=== PATIENT | female | born 1950 | race Caucasian/White ===

== ENCOUNTER 2022-12-28 17:56 | Outpatient (RCR) | payer MEDICARE, OTHER, SELFPAY | END 2023-01-22 23:59 | disposition home or self-care (01) | LOC: MM 17:56 | PROVIDERS: PCP Internal Medicine; Visit Provider Internal Medicine | DX: Z51.81 Encounter for therapeutic drug level monitoring (principal); Z79.01 Long term (current) use of anticoagulants; I48.91 Unspecified atrial fibrillation | CPT/HCPCS: 85610; G0463 ==

== ENCOUNTER 2023-01-27 15:18 | Outpatient (RCR) | payer MEDICARE, OTHER, SELFPAY | END 2023-02-22 16:47 | disposition home or self-care (01) | LOC: MM 15:18 | PROVIDERS: PCP Internal Medicine; Visit Provider Internal Medicine | DX: Z51.81 Encounter for therapeutic drug level monitoring (principal); Z79.01 Long term (current) use of anticoagulants; I48.91 Unspecified atrial fibrillation | CPT/HCPCS: 85610; G0463 ==

== ENCOUNTER 2023-02-08 09:04 | Outpatient (OUT) | payer MEDICARE, OTHER, SELFPAY ==
[2023-02-08 09:26] LABS: Basophils Absolute Auto 0.1 10^3/uL (0.0-0.1); Basophils Percent Auto 0.6 % (0.2-2.0); Eosinophils Absolute Auto 0.4 10^3/uL (0.0-0.7); Eosinophils Percent Auto 4.9 % (0.9-7.0); Hematocrit 37.1 % (36.0-48.0); Hemoglobin 12.3 g/dL (12.0-16.0); Immature Granulocytes Abs Auto 0.04 10^3/uL (0.00-0.03); Immature Granulocytes Pct Auto 0.4 % (0.0-0.5); Lymphocytes Absolute Auto 2.6 10^3/uL (1.2-3.8); Lymphocytes Percent Auto 28.2 % (20.5-60.0); Mean Corpuscular HGB Conc 33.2 g/dL (29.9-35.2); Mean Corpuscular Hemoglobin 29.3 pg (26.7-34.0); Mean Corpuscular Volume 88.3 fL (81.0-99.0); Mean Platelet Volume 10.2 fL (9.5-13.5); Monocytes Absolute Auto 0.6 10^3/uL (0.3-0.8); Monocytes Percent Auto 6.7 % (1.7-12.0); Neutrophils Absolute Auto 5.4 10^3/uL (1.4-6.5); Neutrophils Percent Auto 59.2 % (43.0-75.0); Platelet Count 290 10^3/uL (150-450); Red Cell Distribution Width 13.9 % (11.0-15.0)
[2023-02-08 10:04] LABS: Microalbumin Urine Random <1.3 mg/dL (<=30.0)
[2023-02-08 10:27] LABS: Alanine Aminotransferase 21 U/L (14-59); Albumin Globulin Ratio 0.9; Albumin Level 3.7 g/dL (3.4-5.0); Alkaline Phosphatase 149 U/L (46-116); Aspartate Amino Transferase 10 U/L (15-37); BUN Creatinine Ratio 25.6; Calcium 9.4 mg/dL (8.5-10.1); Carbon Dioxide 31.3 mmol/L (21.0-32.0); Chloride 102 mmol/L (98-107); Estimated GFR (African America 51 (>=60); Estimated GFR (Non-African Ame 42 (>=60); Glucose 196 mg/dL (74-106); Potassium 3.3 mmol/L (3.5-5.1); Sodium 141 mmol/L (136-145); Total Protein 7.7 g/dL (6.4-8.2)
[2023-02-08 10:44] LABS: Chol HDL Ratio 2.5; Cholesterol 161 mg/dL (<=200); HDL Cholesterol 65 mg/dL (40-60); Thyroid Stimulating Hormone 2.628 uIU/mL (0.358-3.740); Triglycerides 119 mg/dL (<=150); VLDL CHOLESTEROL 23.8 mg/dL
[2023-02-08 14:39] LABS: Free T4 1.04 ng/dL (0.76-1.46)
== END 2023-02-08 09:05 | disposition home or self-care (01) ==
LOC: LAB 09:08
PROVIDERS: PCP Family Medicine; Visit Provider Family Medicine
DX: I10 Essential (primary) hypertension (principal); R53.83 Other fatigue; E78.2 Mixed hyperlipidemia; Z87.19 Personal history of other diseases of the digestive system
CPT/HCPCS: 36415; 80053; 80061; 82043; 84439; 84443; 85025

== ENCOUNTER 2023-02-23 09:00 | Outpatient (RCR) | payer MEDICARE, OTHER, SELFPAY | END 2023-03-25 17:17 | disposition home or self-care (01) | LOC: MM 09:00 | PROVIDERS: PCP Family Medicine; Visit Provider Internal Medicine | DX: Z51.81 Encounter for therapeutic drug level monitoring (principal); Z79.01 Long term (current) use of anticoagulants; I48.91 Unspecified atrial fibrillation ==

== ENCOUNTER 2023-03-26 08:25 | Outpatient (RCR) | payer MEDICARE, OTHER, SELFPAY | END 2023-04-23 16:34 | disposition home or self-care (01) | LOC: MM 08:25 | PROVIDERS: PCP Family Medicine; Visit Provider Internal Medicine | DX: Z51.81 Encounter for therapeutic drug level monitoring (principal); Z79.01 Long term (current) use of anticoagulants; I48.91 Unspecified atrial fibrillation | CPT/HCPCS: 85610; G0463 ==

== ENCOUNTER 2023-04-26 01:30 | Outpatient (RCR) | payer MEDICARE, OTHER, SELFPAY | END 2023-05-25 17:13 | disposition home or self-care (01) | LOC: MM 01:30 | PROVIDERS: PCP Family Medicine; Visit Provider Internal Medicine | DX: Z51.81 Encounter for therapeutic drug level monitoring (principal); Z79.01 Long term (current) use of anticoagulants; I48.91 Unspecified atrial fibrillation | CPT/HCPCS: 85610; G0463 ==

== ENCOUNTER 2023-05-26 00:12 | Outpatient (RCR) | payer MEDICARE, OTHER, SELFPAY | END 2023-06-24 16:02 | disposition home or self-care (01) | LOC: MM 00:12 | PROVIDERS: PCP Family Medicine; Visit Provider Internal Medicine | DX: Z51.81 Encounter for therapeutic drug level monitoring (principal); Z79.01 Long term (current) use of anticoagulants; I48.91 Unspecified atrial fibrillation | CPT/HCPCS: 85610; G0463 ==

== ENCOUNTER 2023-05-31 10:57 | Outpatient (OUT) | payer MEDICARE, OTHER, SELFPAY ==
--- NOTE | 2023-05-31 11:03 | MM_ITS ---
Patient: BRI VILLALOBOS Exam Date: 05/31/2023 : 1950 Gender:F Ordering : DR Claudia Whittington M.D. Admission #: [id number] Family : Order #: [id number] CLICK HERE TO VIEW EXAM RADIOLOGY REPORT PROCEDURE: MM TOMOSYNTHESIS SCREENING BI COMPARISON: MG MAMM SCREEN 3D YEHUDA CAD, 05/07/2021. MG MAMM SCREEN 3D YEHUDA CAD, 05/29/2022. INDICATIONS: Screening Calculator Name NCI Breast Cancer Risk Assessment Tool 5 Year Breast Cancer Risk 3.60% Lifetime Breast Cancer Risk 9.20% Personal Breast Cancer No Personal Ovarian Cancer No Treatments None Family Cancers Mother with lung cancer at age 64; Sister with breast cancer at age 59. LOCATION: [facility] BREAST COMPOSITION: Scattered areas fibroglandular density. FINDINGS: DIAGNOSTIC CATEGORY 2--BENIGN FINDING. NO CHANGE FROM COMPARISON. Scattered benign-appearing nodules are present. Scattered benign-appearing calcifications are present. Scattered benign-appearing lymph nodes are present. RIGHT BREAST: No significant suspicious finding. LEFT BREAST: No significant suspicious finding. RECOMMENDATIONS: ROUTINE MAMMOGRAM AND CLINICAL EVALUATION IN 12 MONTHS. PLEASE NOTE: A NORMAL MAMMOGRAM DOES NOT EXCLUDE THE POSSIBILITY OF BREAST CANCER. A CLINICALLY SUSPICIOUS PALPABLE LUMP SHOULD BE BIOPSIED. Dictated by: Owen Ortiz MD on 05/31/2023 at 12:41 Approved by: Owen Ortiz MD on 05/31/2023 at 13:14
== END 2023-05-31 10:58 | disposition home or self-care (01) ==
LOC: MAMMO 10:57
PROVIDERS: PCP Family Medicine; Visit Provider Family Medicine
DX: Z12.31 Encounter for screening mammogram for malignant neoplasm of breast (principal); Z80.3 Family history of malignant neoplasm of breast; Z80.1 Family history of malignant neoplasm of trachea, bronchus and lung
CPT/HCPCS: 77063; 77067

== ENCOUNTER 2023-06-25 09:01 | Outpatient (RCR) | payer MEDICARE, OTHER, SELFPAY | END 2023-07-23 14:32 | disposition home or self-care (01) | LOC: MM 09:01 | PROVIDERS: PCP Family Medicine; Visit Provider Internal Medicine | DX: Z51.81 Encounter for therapeutic drug level monitoring (principal); Z79.01 Long term (current) use of anticoagulants; I48.91 Unspecified atrial fibrillation | CPT/HCPCS: 85610; G0463 ==

== ENCOUNTER 2023-07-26 00:44 | Outpatient (RCR) | payer MEDICARE, OTHER, SELFPAY | END 2023-08-25 15:48 | disposition home or self-care (01) | LOC: MM 00:44 | PROVIDERS: PCP Family Medicine; Visit Provider Internal Medicine | DX: Z51.81 Encounter for therapeutic drug level monitoring (principal); Z79.01 Long term (current) use of anticoagulants; I48.91 Unspecified atrial fibrillation | CPT/HCPCS: 85610; G0463 ==

== ENCOUNTER 2023-08-26 01:30 | Outpatient (RCR) | payer MEDICARE, OTHER, SELFPAY | END 2023-09-23 17:10 | disposition home or self-care (01) | LOC: MM 01:30 | PROVIDERS: PCP Family Medicine; Visit Provider Internal Medicine | DX: Z51.81 Encounter for therapeutic drug level monitoring (principal); Z79.01 Long term (current) use of anticoagulants; I48.91 Unspecified atrial fibrillation | CPT/HCPCS: 85610; G0463 ==

== ENCOUNTER 2023-09-24 01:04 | Outpatient (RCR) | payer MEDICARE, OTHER, SELFPAY | END 2023-10-22 13:01 | disposition home or self-care (01) | LOC: MM 01:04 | PROVIDERS: PCP Family Medicine; Visit Provider Internal Medicine | DX: Z51.81 Encounter for therapeutic drug level monitoring (principal); Z79.01 Long term (current) use of anticoagulants; I48.91 Unspecified atrial fibrillation | CPT/HCPCS: 85610; G0463 ==

== ENCOUNTER 2023-10-25 03:13 | Outpatient (RCR) | payer MEDICARE, OTHER, SELFPAY | END 2023-11-23 17:47 | disposition home or self-care (01) | LOC: MM 03:13 | PROVIDERS: PCP Family Medicine; Visit Provider Internal Medicine | DX: Z51.81 Encounter for therapeutic drug level monitoring (principal); Z79.01 Long term (current) use of anticoagulants; I48.91 Unspecified atrial fibrillation ==

== ENCOUNTER 2023-11-24 00:15 | Outpatient (RCR) | payer MEDICARE, OTHER, SELFPAY | END 2023-12-24 11:09 | disposition home or self-care (01) | LOC: MM 00:15 | PROVIDERS: PCP Family Medicine; Visit Provider Internal Medicine | DX: Z51.81 Encounter for therapeutic drug level monitoring (principal); I48.91 Unspecified atrial fibrillation; Z79.01 Long term (current) use of anticoagulants | CPT/HCPCS: 85610; G0463 ==

== ENCOUNTER 2023-11-24 08:55 | Outpatient (OUT) | payer MEDICARE, OTHER, SELFPAY ==
--- NOTE | 2023-11-24 09:07 | US_ITS ---
[place] [address] Patient Name: BRI VILLALOBOS MRN: [id number] date: 1950 Sex: F Assigned Patient Location: [place] Current Patient Location: US Accession/Order Number: [id number] Exam Date: 11/24/2023 09:08 Report Date: 11/24/2023 10:51 At the request of: BULMARO LEON Procedure: US venous doppler LE BI EXAM: US venous doppler LE BI HISTORY: pain in both lower extremities M79.605, M79.604 COMPARISON: None. TECHNIQUE: Grayscale, color and Doppler FINDINGS: Region: Bilateral legs Thrombus: None Flow: Normal Augmentation: Normal Compressibility: Normal US/US venous doppler LE BI IMPRESSION: No deep or superficial vein thrombus identified in the legs Electronically authenticated by: LEA YANEZ Date: 11/24/2023 10:51
--- OUTSIDE RECORDS SUMMARY | 2023-11-24 09:12 | XMS_ITS | CCD ---
Author Organization [facility] Care Team Providers Care Manager Document Control Name Role Phone DR CLAUDIA WHITTINGTON Primary Care Unavailable FAWWAD, MORALES H Admitting Unavailable FAWWAD, MORALES H Attending Unavailable WHITTINGTONDR CLAUDIA Primary Care Unavailable FAWWAD, MORALES H Admitting Unavailable FAWWAD, MORALES H Attending Unavailable WHITTINGTONDR CLAUDIA Primary Care Unavailable FAWWAD, MORALES H Admitting Unavailable FAWWAD, MORALES H Attending Unavailable FAWWAD, MORALES H Admitting Unavailable WHITTINGTONDR CLAUDIA Primary Care Unavailable FAWWAD, MORALES H Attending Unavailable FAWWAD, MORALES H Attending Unavailable WHITTINGTONDR CLAUDIA Primary Care Unavailable FAWWAD, MORALES H Admitting Unavailable FAWWAD, MORALES H Attending Unavailable DR CLAUDIA WHITTINGTON Primary Care Unavailable FAWWAD, MORALES H Admitting Unavailable FAWWAD, MORALES H Attending Unavailable DR CLAUDIA WHITTINGTON Primary Care Unavailable FAWWAD, MORALES H Admitting Unavailable FAWWAD, MORALES H Attending Unavailable WHITTINGTONDR CLAUDIA Primary Care Unavailable FAWWAD, MORALES H Admitting Unavailable RENATA, DR LEA Blevins Consulting Unavailable EDWARD, DR CLAUDIA Duvall Admitting Unavailable WHITTINGTON, DR CLAUDIA Duvall Attending Unavailable DR CLAUDIA WHITTINGTON Primary Care Unavailable DR CLAUDIA WHITTINGTON Consulting Unavailable FAWWAD, MORALES H Attending Unavailable WHITTINGTON, DR CLAUDIA Duvall Primary Care Unavailable FAWWAD, MORALES H Admitting Unavailable WHITTINGTONDR CLAUDIA Primary Care Unavailable FAWWAD, MORALES H Admitting Unavailable FAWWAD, MORALES H Attending Unavailable DR CLAUDIA WHITTINGTON Primary Care Unavailable FAWWAD, MORALES H Admitting Unavailable FAWWAD, MORALES H Attending Unavailable Claudia Whittington Unavailable BALDOMERO LANGFORD Attending Unavailable CLAUDIA WHITTINGTON Referring Unavailable BALDOMERO LANGFORD Attending Unavailable BALDOMERO LANGFORD Referring Unavailable Allergies Allergy Classification Reported Allergen(s) Allergy Type Date of Onset Reaction(s) Facility (2 sources) Amino Acids Drug Allergy 1 [facility] Repository (1 source) Amoxicillin Drug Allergy 0 [facility] Repository (2 sources) Etodolac Drug Allergy 4 [facility] Repository (1 source) Penicillin Drug Allergy 0 [facility] Repository (1 source) Sulfonamides (Antibiotic) Drug allergy (disorder) 1 [facility] Repository (5 sources) Etodolac Drug Allergy Unknown [facility] Other (5 sources) Lisinopril Drug Allergy Unknown [facility] Other (2 sources) Sulfacetamide / Sulfur Drug Allergy Unknown [facility] Other (3 sources) Substance with penicillin structure and antibacterial mechanism of action (substance) Drug allergy 9 Unknown [facility] Other (3 sources) Substance with sulfonamide structure and antibacterial mechanism of action (substance) Drug allergy 8 Unknown [facility] Other (1 source) Penicillins Allergy to substance [address] [facility] (1 source) Sulfonamides (Antibiotic) Allergy to substance [address] [facility] Medications Current Medications Medication Drug Class(es) Dates Sig (Normalized) Sig (Original) amLODIPine 10 mg oral tablet (6 sources) Dihydropyridine Calcium Channel Addie Start: 11-17-2023 take 1 tablet by mouth once daily at bedtime Amlodipine Active 1 TAB PO Daily at bedtime November 17, 2023 12:00am FreeTextSig: TAKE 1 TABLET BY MOUTH AT BEDTIME; Note: Source Status: Start; Refills: 3; Qty: 90 Tablet; Provider: Edward Taylor ( ) take 1 tablet by mouth at bedtim e amLODIPine Besylate 10 mg TAKE 1 TABLET BY MOUTH AT BEDTIME for 90 Active take 1 tablet by mouth at bedtim e amLODIPine Besylate 10 mg TAKE 1 TABLET BY MOUTH AT BEDTIME for 90 Active atorvastatin 40 mg oral tablet (6 sources) HMG-CoA Reductase Inhibitor Start: 11-17-2023 take 1 tablet by mouth once daily at bedtime Atorvastatin Active 1 TAB PO Daily at bedtime November 17, 2023 12:00am FreeTextSig: TAKE 1 TABLET BY MOUTH AT BEDTIME; Note: Source Status: Start; Refills: 3; Qty: 90 Tablet; Provider: Edward Taylor ( ) take 1 tablet by mouth at bedtim e Atorvastatin Calcium 40 mg TAKE 1 TABLET BY MOUTH AT BEDTIME for 90 Active azithromycin 250 mg oral tablet (1 source) Macrolide Antimicrobial Start: 05-19-2023 Azithromycin 250 MG as directed Orally 2 tabs po today, then 1 tab daily x 4 more days for 5 Apr, Active flecainide acetate 150 mg oral tablet (7 sources) Antiarrhythmic Start: 11-02-2023 take 1 tablet by mouth once daily Flecainide Active 0 .ROUTE .COMPLEX 90 November 02, 2023 2:51pm TAKE 1 TABLET BY MOUTH DAILY Start: 11-02-2023 End: 11-02-2023 take 150 mg by mouth once daily Flecainide Discontinue d 150 MG PO Daily November 02, 2023 12:00am November 02, 2023 2:51pm take 1 tablet by lyly th once daily Flecainide Acetate 150 mg TAKE 1 TABLET BY MOUTH DAILY for 90 Active furosemide 40 mg oral tablet (7 sources) Loop Diuretic Start: 11-17-2023 End: 11-18-2023 take 1 tablet by mouth once daily as needed Furosemide Active 40 MG PO .prn November 18, 2023 12:01pm FreeTextSig: TAKE 1 TABLET BY MOUTH DAILY NEEDED; Note: Source Status: Taking; Refills: 1; Qty: 30 Tablet; Provider: Edward Taylor ( ) take 1 tablet by lyly th once daily as needed Furosemide 40 mg TAKE 1 TABLET BY MOUTH DAILY NEEDED for 30 Active hydroCHLOROthiazide 25 mg oral tablet (6 sources) Thiazide Diuretic Start: 11-17-2023 take 1 tablet by mouth twice daily Hydrochlorothiazide Active 1 TAB PO Twice daily November 17, 2023 12:00am FreeTextSig: TAKE 1 TABLET BY MOUTH TWICE DAILY; Note: Source Status: Start; Refills: 3; Qty: 180 Tablet; Provider: Edward Taylor ( ) take 1 tablet by mouth twice merrill ly hydroCHLOROthiazide 25 mg TAKE 1 TABLET BY MOUTH TWICE DAILY for 90 Active 3 ml insulin glargine 100 unt/ml pen injector (6 sources) Insulin Analog Start: 11-17-2023 Insulin Glargi ne (Lantus Solostar U-100 Insulin) 100 unit/mL (3 mL) insulin pen Active UNIT SUBCUT November 17, 2023 12:00am FreeTextSi units Subcutaneous Once a day; Note: Source Status: Taking; Provider: Edward Taylor ( ) Lantus SoloStar 100 UNIT/ML 32 units Subcutaneous Once a day Active Insulin Lispro (6 sources) Insulin Analog Start: 11-18-2023 inject 12 [IU] by subcutaneous injection three times daily Insulin Lispro Active 12 UNIT SUBCUT Three times daily November 18, 2023 12:00am Humalog Active losartan potassium 100 mg oral tablet (6 sources) Angiotensin 2 Receptor Addie Start: 11-17-2023 take 100 mg by mouth once daily Losartan Active 100 MG PO Daily November 17, 2023 12:00am take 1 tablet by mouth once asmita y Losartan Potassium 100 mg TAKE 1 TABLET BY MOUTH DAILY for Active meclizine hydrochloride 12.5 mg oral tablet (2 sources) Antiemetic Start: 01-13-2023 take 1 tablet by mouth three times daily as needed Meclizine HCl 12.5 MG 1 tablet as needed Orally tid prn for 10 days Dec, Active microencapsulated potassium chloride 20 meq extended release oral tablet (2 sources) Start: 02-16-2023 take 1 tablet by mouth every twenty-four hours Klor-Con M20 20 MEQ 1 tablet with food Orally Once a day for 30 day(s) Jan, Active Propranolol (7 sources) beta-Adrenergic Addie Start: 11-02-2023 take 1 capsule by mouth once daily Propranolol Active 0 .ROUTE .COMPLEX 90 November 02, 2023 2:51pm TAKE 1 CAPSULE BY MOUTH DAILY Start: 11-02-2023 End: 11-02-2023 take 60 mg by mouth once daily Propranolol Discontinue d 60 MG PO Daily November 02, 2023 12:00am November 02, 2023 2:51pm take 1 capsule by mo uth once daily Propranolol HCl ER 60 mg TAKE 1 CAPSULE BY MOUTH DAILY for 90 Active warfarin sodium 4 mg oral tablet (12 sources) Vitamin K Antagonist Start: 11-17-2023 Warfarin Active 2 MG PO MOWEFR November 17, 2023 12:00am Start: 11-17-2023 take 1 tablet by lyly th once daily Warfarin Active 4 MG PO Daily November 17, 2023 12:00am FreeTextSig: TAKE 1 TABLET BY MOUTH EVERY DAY; Note: Source Status: Start; Refills: 3; Qty: 90 Tablet; Provider: Edward Taylor ( ) take 1 tablet by lyly th once daily Warfarin Sodium 4 mg TAKE 1 TABLET BY MOUTH EVERY DAY for 90 Active Warfarin 2mg Act heike Completed/Discontinued Medications Medication Drug Class(es) Dates Sig (Normalized) Sig (Original) Augmentin Tablets 875 MG (5 sources) Start: 07-24-2014 take 1 tablet by mouth every twelve hours at mealtime Augmentin Tablets 875 MG 1 by mouth every 12 hours with food and probiotics for 10 days Jun, Not-Taking Cortisporin Otic 1%-0.35%-1000 units/ml (5 sources) Start: 05-10-2014 Cortisporin Otic 1%-0.35%-1000 units/ml 4 drops into each affected ear twice a day for 7 days Apr, Not-Taking metFORMIN hydrochloride 500 mg oral tablet (6 sources) Biguanide Start: 11-17-2023 End: 11-18-2023 take 500 mg by mouth twice daily at mealtime Metformin Discontinued 500 MG PO Twice daily with meals November 17, 2023 12:00am November 18, 2023 12:02pm metFORMIN HCl No t-Taking 24 hr metoprolol succinate 25 mg extended release oral tablet (6 sources) beta-Adrenergic Addie Start: 11-17-2023 End: 11-18-2023 take 25 mg by mouth once daily Metoprolol Succinate Discontinued 25 MG PO Daily November 17, 2023 12:00am November 18, 2023 12:03pm Metoprolol Succi trudi ER Not-Taking Problems Active Problems Problem Classification Problem Date Documented Da te Episodic/Chronic Allergic reactions (6 sources) Contact dermatitis due to plants; Translations: [Unspecified contact dermatitis due to plants, except food] Episodic Cardiac dysrhythmias (13 sources) Paroxysmal atrial fibrillation; Translations: [Paroxysmal atrial fibrillation] Onset: 06-10-2018 Chronic Conditions associated with dizziness or vertigo (1 source) Benign paroxysmal vertigo, bilateral Episodic Diabetes mellitus without complication (5 sources) Type 2 diabetes mellitus without complication; Translations: [Type 2 diabetes mellitus without complications] Onset: 06-10-2018 Chronic Digestive congenital anomalies (2 sources) Congenital redundant colon; Translations: [Redundant colon] Chronic Diseases of mouth; excluding dental (6 sources) Disorder of salivary gland; Translations: [Other diseases of salivary glands] Onset: 03-09-2019 Episodic Disorders of lipid metabolism (11 sources) Mixed hyperlipidemia; Translations: [Mixed hyperlipidemia] Chronic Essential hypertension (10 sources) Essential hypertension; Translations: [Essential (primary) hypertension] Chronic Hemorrhoids (3 sources) Residual hemorrhoidal skin tags; Translations: [Residual hemorrhoidal skin tags] Episodic Lymphadenitis (3 sources) Lymphadenitis; Translations: [Nonspecific lymphadenitis, unspecified] Episodic Malaise and fatigue (7 sources) Other fatigue; Translations: [Asthenia] Onset: 01-30-2019 Episodic Nonspecific chest pain (3 sources) Chest pain; Translations: [Chest pain, unspecified] Episodic Other aftercare (5 sources) Encounter for therapeutic drug level monitoring; Translations: [ENC THERAPEUTC DRUG LEVL MONITORING] Onset: 11-21-2022 Episodic Other aftercare (1 source) middle or intermediate school principal (current) use of anticoagulants; Translations: [CORRECTION CURRNT USE ANTICOAGULANTS] Onset: 12-23-2022 Episodic Other and unspecified benign neoplasm (2 sources) Tubular adenoma of colon; Translations: [Tubular adenoma of colon] Episodic Other circulatory disease (3 sources) Elevated blood-pressure reading without diagnosis of hypertension; Translations: [Elevated blood-pressure reading, without diagnosis of hypertension] Episodic Other connective tissue disease (1 source) Pain in lower limb; Translations: [Pain in right leg] 11-18-2023 Episodic Other connective tissue disease (1 source) Pain in right leg; Translations: [Pain in limb] 11-18-2023 Episodic Other gastrointestinal disorders (1 source) Personal history of other diseases of the digestive system Episodic Other hereditary and degenerative nervous system conditions (3 sources) Essential tremor; Translations: [Essential tremor] Chronic Other inflammatory condition of skin (3 sources) Rosacea; Translations: [Rosacea, unspecified] Chronic Other nutritional; endocrine; and metabolic disorders (6 sources) Obese class II; Translations: [Body mass index (BMI) 38.0-38.9, adult] Chronic Other skin disorders (3 sources) Localized scleroderma; 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 et atrophicus] Chronic Other upper respiratory infections (4 sources) Acute sinusitis; Translations: [Acute sinusitis, unspecified] Episodic Pancreatic disorders (not diabetes) (3 sources) Chronic pancreatitis; Translations: [Other chronic pancreatitis] Onset: 10-25-2018 Chronic Pulmonary heart disease (5 sources) Pulmonary hypertension; Translations: [Pulmonary hypertension, unspecified] Onset: 06-10-2018 11-18-2023 Chronic Residual codes; unclassified (3 sources) Tobacco user; Translations: [Tobacco use] Episodic Spondylosis; intervertebral disc disorders; other back problems (8 sources) Sciatica; Translations: [Sciatica, left side] Episodic Past or Other Problems Problem Classification Problem Date Documented Da te Episodic/Chronic Acute bronchitis (3 sources) Acute bronchitis; Translations: [Acute bronchitis, unspecified] Onset: 08-04-2018 Episodic Other screening for suspected conditions (not mental disorders or infectious disease) (4 sources) Encounter for screening mammogram for malignant neoplasm of breast; Translations: [ENC SCR MAMMO MALIG NEOPLASM BREAST] Onset: 05-29-2022 Episodic Otitis media and related conditions (3 sources) Eustachian tube disorder; Translations: [Other specified disorders of Eustachian tube, unspecified ear] Onset: 06-10-2018 Episodic Residual codes; unclassified (1 source) Family history of malignant neoplasm of trachea, bronchus and lung; Translations: [FAM HX MALIG NEOPLSM TRACH BRON LNG] Onset: 06-04-2022 Episodic Residual codes; unclassified (1 source) Family history of malignant neoplasm of breast; Translations: [FAMILY HX MALIG NEOPLASM OF BREAST] Onset: 06-04-2022 Episodic Results Test Name Value Interpretation Reference Range Facil ity MG MAMM SCREEN 3D YEHUDA CADon 05-29-2022 MG MAMM SCREEN 3D YEHUDA CAD Patient: BRI VILLALOBOS Exam Date: 05/29/2022 : 1950 Gender:F Ordering : DR CLAUDIA WHITTINGTON M.D. Admission #: [id number] Family : Order #: [id number] CLICK HERE TO VIEW EXAM RADIOLOGY REPORT PROCEDURE: MAMMOGRAM SCREENING 3D BILATERAL CAD COMPARISON: MG MAMM SCREEN YEHUDA W CAD, 04/07/2019. MG MAMM SCREEN 3D YEHUDA CAD, 05/07/2021. INDICATIONS: Screening mammography Calculator Name NCI Breast Cancer Risk Assessment Tool 5 Year Breast Cancer Risk 3.60% Lifetime Breast Cancer Risk 9.60% Personal Breast Cancer No Personal Ovarian Cancer No Treatments None Family Cancers Mother with lung cancer at age 64; Sister with breast cancer at age 59. LOCATION: [facility] BREAST COMPOSITION: Scattered areas fibroglandular density. FINDINGS: DIAGNOSTIC CATEGORY 2--BENIGN FINDING. NO CHANGE FROM COMPARISON. Scattered benign-appearing nodules are present. Scattered benign-appearing calcifications are present. Scattered benign-appearing lymph nodes are present. RIGHT BREAST: No significant suspicious finding. LEFT BREAST: No significant suspicious finding. RECOMMENDATIONS: ROUTINE MAMMOGRAM AND CLINICAL EVALUATION IN 12 MONTHS. PLEASE NOTE: A NORMAL MAMMOGRAM DOES NOT EXCLUDE THE POSSIBILITY OF BREAST CANCER. A CLINICALLY SUSPICIOUS PALPABLE LUMP SHOULD BE BIOPSIED. Dictated by: Lea Yanez MD on 05/29/2022 at 10:48 Approved by: Lea Yanez MD on 05/29/2022 at 10:50 Normal [facility] Vital Signs Date Time Vital Sign Value Performing Clinician Facility 11-18-2023 [id number] Body height 165.1 cm [facility] 11-18-2023 11:53-0400 Body mass index (BMI) [Ratio] 38.4 kg/m2 [facility] 11-18-2023 11:53-0400 Body weight 104.77 kg [facility] 11-18-2023 11:53-0400 Diastolic blood pressure 63 mm[Hg] [facility] 11-18-2023 11:53-0400 Heart rate 65 /min [facility] 11-18-2023 11:53-0400 Systolic blood pressure 134 mm[Hg] [facility] 05-19-2023 09:00-0400 Body height 165.1 cm Claudia Whittington Other [facility] Other 05-19-2023 09:00-0400 Body mass index (BMI) [Ratio] 38.27 kg/m2 Claudia Whittington Other [facility] Other 05-19-2023 09:00-0400 Body temperature 98 [degF] Claudia Whittington Other [facility] Other 05-19-2023 09:00-0400 Body weight 104.33 kg Claudia Whittington Other [facility] Other 05-19-2023 09:00-0400 Diastolic blood pressure 68 mm[Hg] Claudia Whittington Other [facility] Other 05-19-2023 09:00-0400 Systolic blood pressure 113 mm[Hg] Claudia Whittington Other [facility] Other 02-16-2023 11:15-0400 Body height 165.1 cm Claudia Whittington Other [facility] Other 02-16-2023 11:15-0400 Body mass index (BMI) [Ratio] 38.77 kg/m2 Claudia Whittington Other [facility] Other 02-16-2023 11:15-0400 Body weight 105.69 kg Claudia Whittington Other [facility] Other 02-16-2023 11:15-0400 Diastolic blood pressure 61 mm[Hg] Claudia Whittington Other [facility] Other 02-16-2023 11:15-0400 Systolic blood pressure 125 mm[Hg] Claudia Whittington Other [facility] Other 01-13-2023 10:45-0400 Body height 165.1 cm Claudia Whittington Other [facility] Other 01-13-2023 10:45-0400 Body mass index (BMI) [Ratio] 38.44 kg/m2 Claudia Whittington Other [facility] Other 01-13-2023 10:45-0400 Body weight 104.78 kg Claudia Whittington Other [facility] Other 01-13-2023 10:45-0400 Diastolic blood pressure 72 mm[Hg] Claudia Whittington Other [facility] Other 01-13-2023 10:45-0400 SaO2% (BldA) [Mass fraction] 98 % Claudia Whittington Other [facility] Other 01-13-2023 10:45-0400 Systolic blood pressure 128 mm[Hg] Claudia Whittington Other [facility] Other Encounters Encounter Date Encounter Type Care Provider Facility Start: 11-18-2023 End: 11-18-2023 ambulatory [facility] Work Phone: Start: 11-18-2023 End: 11-18-2023 Patient encounter procedure [facility] Work Phone: Start: 11-02-2023 Non-patient / [facility]-visit [facility] Work Phone: Start: 10-12-2023 End: 10-12-2023 ambulatory BALDOMERO M PETZNICK Not Available Start: 07-12-2023 End: 07-12-2023 ambulatory BALDOMERO M PETZNICK Not Available Start: 05-19-2023 End: 05-19-2023 ambulatory Claudia Whittington Other [facility] Other Start: 05-19-2023 Office outpatient vi sit 15 minutes Claudia Whittington [facility] Start: 02-16-2023 End: 02-16-2023 ambulatory Claudia Whittington Other [facility] Other Start: 02-16-2023 Patient encounter procedure Claudia Whittington [facility] Start: 02-10-2023 End: 02-10-2023 ambulatory Claudia Whittington Other [facility] Other Start: 02-10-2023 Telephone encounter Claudia Edward [facility] Start: 01-13-2023 End: 01-13-2023 ambulatory Claudia Whittington Other [facility] Other Start: 01-13-2023 Office outpatient vi sit 25 minutes Claudia Whittington [facility] Start: 11-23-2022 End: 12-23-2022 ambulatory MORALES H FAWWAVanessa Facility:[facility] Start: 10-26-2022 End: 11-20-2022 ambulatory MORALES H FAWPATRICIA Facility:[facility] Start: 09-23-2022 End: 10-23-2022 ambulatory MORALES H FAWWAVanessa Facility:[facility] Start: 08-26-2022 End: 09-23-2022 ambulatory MORALES H FAWWAVanessa Facility:[facility] Start: 07-27-2022 End: 08-26-2022 ambulatory MORALES H FAWWAD Facility:[facility] Start: 06-25-2022 End: 07-26-[address] CLAUDIA WHITTINGTON Facility:[facility] Start: 05-29-2022 End: 05-30-[address] LEA YANEZ Facility:[facility] Start: 05-26-2022 End: 06-24-[address] CLAUDIA WHITTINGTON Facility:[facility] Start: 04-26-2022 End: 05-25-[address] CLAUDIA WHITTINGTON Facility:[facility] Start: 03-26-2022 End: 04-25-[address] CLAUDIA WHITTINGTON Facility:[facility] Start: 02-23-2022 End: 03-25-[address] CLAUDIA WHITTINGTON Facility:[facility] Start: 01-23-2022 End: 02-20-2022 ambulatory SHAIKH Ramy ORNELAS Facility:[facility] Start: 12-18-2021 Adult health examination Erica Whittington Other [facility] Other Start: 12-18-2021 Gynecological examin ation normal Claudia Whittington Other [facility] Other Start: 12-01-2021 Gynecological examin ation abnormal Claudia Whittington Other [facility] Other Procedures Date Procedure Procedure Detail Performing Clinician Screening for malign ant neoplasm of colon Claudia Whittington Other Plan of Treatment Date Care Activity Detail Author Comprehensive metabo lic 2000 panel - Serum or Plasma [facility] enter Microalbumin [Mass/volume] in Urine [facility] US Lower extremity vein - bilateral [facility] Immunizations Immunization Date Immunization Notes Care Provider Fa cility 11-21-2020 COVID-19 Vaccine Pfi zer - Documentation Purposes Only Claudia Whittington Other [facility] 05-27-2020 influenza virus vaccine, split virus (incl. purified surface antigen) Claudia Whittington Other [facility] Other 05-27-2020 influenza virus vaccine, unspecified formulation [facility] 12-08-2016 pneumococcal polysaccharide vaccine, 23 valent Claudia Whittington Other [facility] Payers Date Payer Category Payer Unknown [id number] 1959 Medicare [id number] 1959 Unknown [id number] 1959 Unknown [id number] 1950 Unknown [id number] 2.16.84 [id number] 1950 Unknown [id number] 2.16.84 [id number] 1950 Unknown [id number] 2.16.84 [id number] 1950 Unknown [id number] 2.16.84 0.1.352260.3.579.2.593 1950 Unknown [id number] 2.16.84 0.1.455052.3.579.2.593 1950 Unknown [id number] 2.16.84 0.1.755109.3.579.2.593 1950 Unknown [id number] 2.16.84 0.1.387183.3.579.2.593 1950 Unknown [id number] 2.16.84 0.1.492708.3.579.2.593 1950 Unknown [id number] 2.16.84 0.1.966031.3.579.2.593 1950 Unknown [id number] 2.16.84 0.1.221345.3.579.2.593 1950 Unknown [id number] 2.16.84 0.1.591636.3.579.2.593 1950 Unknown [id number] 2.16.84 0.1.920448.3.579.2.593 1950 Unknown [id number] 2.16.84 0.1.920320.3.579.2.1259 1950 Unknown [id number] 2.16.840 .[id number] Social History Date Type Detail Facility Sex Assigned At [facility] Other [facility]: [facility] Start: 1950 Sex Assigned At Female [facility] Evaluation note 05-19-2023 Note Date & Type Note Facility 05-19-2023 Evaluation note Encounter Date Diagnosis Assessment Notes Apr, Acute non-recurrent maxillary sinusitis (ICD-10 - J01.00) Finish antibiotics as prescribed. Reviewed allergies. She is stopping her warfarin tomorrow for dental procedure next week. She hopes that her cough and sinus symptoms will be abated by May 27 when she is having dental work done. Stay hydrated rest Coricidin cold medicines. [facility] Other Evaluation note 02-16-2023 Note Date & Type Note Facility 02-16-2023 Evaluation note Encounter Date Diagnosis Assessment Notes Jan, Medicare annual wellness visit, subsequent (ICD-10 - Z00.00) Personalized health advice was given to the beneficiary including a written plan for screenings discussed and provided. Advanced care planning reviewed and/or information given as requested. Additional counseling was provided here today in regards to, [ ]. The above visit was performed by [ ], under direct supervision of [ ]. Document reviewed and amended by provider signed below. Jan, Essential (primary) hypertension (ICD-10 - I10) Discussed labs - hypokalemia - add klmaryjane blunt. Discussed foods rich in potassium. She will take labs to upcoming appt w Dr. Pérez and share levels - consider decrease in furosemide. Jan, Left lumbar radiculopathy (ICD-10 - M54.16) Presently in PT at [facility]. Jan, Paroxysmal atrial fibrillation (ICD-10 - I48.0) Had INR today. Discussed warfarin and foods that can effect INR. May, Type 2 diabetes mellitus without complications (ICD-10 - E11.9) Diabetes mellitus, type 2 Will share lab results w Dr. Pringle including renal function. Followup next month there. [facility] Other Evaluation note 02-16-2023 Note Date & Type Note Facility 02-16-2023 Evaluation note Encounter Date Diagnosis Assessment Notes Jan, Medicare annual wellness visit, subsequent (ICD-10 - Z00.00) Personalized health advice was given to the beneficiary including a written plan for screenings discussed and provided. Advanced care planning reviewed and/or information given as requested. Additional counseling was provided here today in regards to, [ ]. The above visit was performed by [ ], under direct supervision of DrFletcher [ ]. Document reviewed and amended by provider signed below. Jan, Essential (primary) hypertension (ICD-10 - I10) Discussed labs - hypokalemia - add alejandramaryjane merlene. Discussed foods rich in potassium. She will take labs to upcoming appt w Dr. Pérez and share levels - consider decrease in furosemide. Blood pressure remains well controlled at this time. Denies cardiac symptoms. Shows no signs or symptoms or poor control. Patient to continue with above medication and we will continue to monitor. Advised to pay attention to body and symptoms. Any developing patterns. Stay well hydrated. Jan, Left lumbar radiculopathy (ICD-10 - M54.16) Presently in PT at [facility]. Jan, Paroxysmal atrial fibrillation (ICD-10 - I48.0) Had INR today. Discussed warfarin and foods that can effect INR. May, Type 2 diabetes mellitus without complications (ICD-10 - E11.9) Diabetes mellitus, type 2 Will share lab results w Dr. Pringle including renal function. Followup next month there. [facility] Other Evaluation note 01-13-2023 Note Date & Type Note Facility 01-13-2023 Evaluation note Encounter Date Diagnosis Assessment Notes Dec, Sciatica, left side (ICD-10 - M54.32) Printed order for PT Dec, BPV (benign positional vertigo), bilateral (ICD-10 - H81.13) Printed order for PT. Rx for meclizine - advised to be cautious as it could cause drowsiness Dec, Essential (primary) hypertension (ICD-10 - I10) Chronic problem, overdue for labs. Dec, Mixed hyperlipidemia (ICD-10 - E78.2) Chronic problem, overdue for labs. Dec, Other fatigue (ICD-10 - R53.83) Discussed stressors, agrees to checking thyroid. Dec, Hx of pancreatitis (ICD-10 - Z87.19) Pt requests recheck of lipase. [facility] Other Evaluation note 06-10-2018 Note Date & Type Note Facility 06-10-2018 Evaluation note Diagnosis Onset Date Bilateral lower extremity pain acute Essential (primary) hypertension acute Hyperlipidemia, unspecified acute Pulmonary hypertension, unspecified June 10, 2018 [facility] Work Phone: Evaluation note Note Date & Type Note Facility Evaluation note No Information [facility] Other History general Narrative - Reported Note Date & Type Note Facility History general Narrative - Reported Type Medical History HTN Medical History A-Fib Medical History DM Surgical History T&A Surgical History Appendectomy Surgical History D&C x2 Surgical History Tubal Ligation Surgical History Hysterectomy Surgical History Cystocele/Rectocele Surgical History Right Carpal Tunnel Surgical History Basal Cell Carcinoma (face) Hospitalization History See past surgical hx Hospitalization History Pancreatitis 2010 Hospitalization History Pneumonia [facility] Other Summary Purpose Family History Relationship Condition Age at Onset Recorded Date/T enedina Not Specified Unknown Advance Directives Advance Directive Response Recorded Date/ Time Advance Directives No November 17 024 11:39am Chief Complaint and Reason for Visit Chief Complaint Amb Documentation check up Reason for Visit Bilateral lower extr emity pain Essential (primary) hypertension Hyperlipidemia, unspecified Pulmonary hypertension, unspecified Additional Source Comments INFORMATION SOURCE (unrecogn ized section and content) DATE CREATED AUTHOR 01/01/2023 [facility] DATE CREATED AUTHOR AUTHOR'S ORGANIZ ATION 10/13/2023 [facility] EPIC REASON FOR VISIT (unrecogniz ed section and content) [employer] move up?wellness wellnessSinuses-COVID Negative Care Teams (unrecognized sec tion and content) Team Status: Active Member Role Status Dates Claudia Whittington MD Primary Care Provider Active Team Status: Active Member Role Status Dates Claudia Whittington MD Primary Care Provider Active Start: November 02, 2023 DEBORAH Boykin Attending Provider Active Start : November 02, 2023 Team Status: Inactive Member Role Status Dates Claudia Whittington MD Primary Care Provide r, Attending Provider Active Start: November 18, 2023 End: November 18, 2023 Goals (unrecognized section and content) Goals may be documented in a n alternate section FOR RECORDS PERTAINING TO PATIENTS WHO ARE OR HAVE BEEN ENROLLED IN A CHEMICAL DEPENDENCY/SUBSTANCEABUSE PROGRAM, SOME INFORMATION MAY BE OMITTED. This clinical summary was aggregated from multiple sources. Caution should be exercised in using it in the provision of clinical care. This summary normalizes information from multiple sources, and as a consequence, information in this document may materially change the coding, format and clinical context of patient data. In addition, data may be omitted in some cases. CLINICAL DECISIONS SHOULD BE BASED ON THE PRIMARY CLINICAL RECORDS. [facility]. provides no warranty or guarantee of the accuracy or completeness of information in this document.
[2023-11-24 10:25] LABS: Basophils Absolute Auto 0.1 10^3/uL (0.0-0.1); Basophils Percent Auto 0.6 % (0.2-2.0); Eosinophils Absolute Auto 0.4 10^3/uL (0.0-0.7); Eosinophils Percent Auto 4.3 % (0.9-7.0); Hematocrit 39.4 % (36.0-48.0); Hemoglobin 12.7 g/dL (12.0-16.0); Immature Granulocytes Abs Auto 0.04 10^3/uL (0.00-0.03); Immature Granulocytes Pct Auto 0.4 % (0.0-0.5); Lymphocytes Absolute Auto 2.9 10^3/uL (1.2-3.8); Lymphocytes Percent Auto 28.4 % (20.5-60.0); Mean Corpuscular HGB Conc 32.2 g/dL (29.9-35.2); Mean Corpuscular Hemoglobin 29.1 pg (26.7-34.0); Mean Corpuscular Volume 90.2 fL (81.0-99.0); Mean Platelet Volume 10.8 fL (9.5-13.5); Monocytes Absolute Auto 0.7 10^3/uL (0.3-0.8); Monocytes Percent Auto 7.2 % (1.7-12.0); Neutrophils Percent Auto 59.1 % (43.0-75.0); Platelet Count 293 10^3/uL (150-450); Red Blood Count 4.37 10^6/uL (4.20-5.40); White Blood Count 10.1 10^3/uL (4.0-11.0)
[2023-11-24 11:35] LABS: Microalbumin Urine Random <1.3 mg/dL (<=30.0)
[2023-11-24 11:36] LABS: Alanine Aminotransferase 22 U/L (14-59); Albumin Globulin Ratio 0.9; Albumin Level 3.5 g/dL (3.4-5.0); Alkaline Phosphatase 141 U/L (46-116); Anion Gap 12.7; Aspartate Amino Transferase 11 U/L (15-37); BUN Creatinine Ratio 22.8; Bilirubin Total 1.3 mg/dL (0.2-1.0); Calcium 9.4 mg/dL (8.5-10.1); Carbon Dioxide 30.7 mmol/L (21.0-32.0); Chloride 101 mmol/L (98-107); Chol HDL Ratio 2.5; Cholesterol 173 mg/dL (<=200); Estimated GFR (African America 52 (>=60); Estimated GFR (Non-African Ame 43 (>=60); Globulin 4.1 g/dL; Glucose 159 mg/dL (74-106); HDL Cholesterol 70 mg/dL (40-60); Potassium 3.4 mmol/L (3.5-5.1); Sodium 141 mmol/L (136-145); Total Protein 7.6 g/dL (6.4-8.2); Triglycerides 117 mg/dL (<=150); VLDL CHOLESTEROL 23.4 mg/dL
== END 2023-11-24 08:56 | disposition home or self-care (01) ==
LOC: US 08:56
PROVIDERS: PCP Family Medicine; Visit Provider Family Medicine
DX: Z51.81 Encounter for therapeutic drug level monitoring (principal); Z79.01 Long term (current) use of anticoagulants; I48.91 Unspecified atrial fibrillation; M79.605 Pain in left leg; M79.604 Pain in right leg; I10 Essential (primary) hypertension; E78.5 Hyperlipidemia, unspecified; I27.20 Pulmonary hypertension, unspecified
CPT/HCPCS: 36415; 80053; 80061; 82043; 85025; 85610; 93970; G0463

== ENCOUNTER 2023-12-27 00:15 | Outpatient (RCR) | payer MEDICARE, OTHER, SELFPAY | END 2024-01-21 10:41 | disposition home or self-care (01) | LOC: MM 00:15 | PROVIDERS: PCP Family Medicine; Visit Provider Internal Medicine | DX: Z51.81 Encounter for therapeutic drug level monitoring (principal); I48.91 Unspecified atrial fibrillation; Z79.01 Long term (current) use of anticoagulants ==

== ENCOUNTER 2024-01-24 00:36 | Outpatient (RCR) | payer MEDICARE, OTHER, SELFPAY | END 2024-02-23 09:35 | disposition home or self-care (01) | LOC: MM 00:36 | PROVIDERS: PCP Family Medicine; Visit Provider Internal Medicine | DX: Z51.81 Encounter for therapeutic drug level monitoring (principal); Z79.01 Long term (current) use of anticoagulants; I48.20 Chronic atrial fibrillation, unspecified | CPT/HCPCS: 85610; G0463 ==

== ENCOUNTER 2024-02-24 00:29 | Outpatient (RCR) | payer MEDICARE, OTHER, SELFPAY | END 2024-03-24 09:16 | disposition home or self-care (01) | LOC: MM 00:29 | PROVIDERS: PCP Family Medicine; Visit Provider Internal Medicine | DX: Z51.81 Encounter for therapeutic drug level monitoring (principal); I48.91 Unspecified atrial fibrillation; Z79.01 Long term (current) use of anticoagulants | CPT/HCPCS: 85610; G0463 ==

== ENCOUNTER 2024-03-27 00:51 | Outpatient (RCR) | payer MEDICARE, OTHER, SELFPAY | END 2024-04-24 23:50 | disposition home or self-care (01) | LOC: MM 00:51 | PROVIDERS: PCP Family Medicine; Visit Provider Internal Medicine | DX: Z51.81 Encounter for therapeutic drug level monitoring (principal); I48.91 Unspecified atrial fibrillation; Z79.01 Long term (current) use of anticoagulants ==

== ENCOUNTER 2024-04-25 01:22 | Outpatient (RCR) | payer MEDICARE, OTHER, SELFPAY | END 2024-05-25 23:42 | disposition home or self-care (01) | LOC: MM 01:22 | PROVIDERS: PCP Family Medicine; Visit Provider Internal Medicine | DX: Z51.81 Encounter for therapeutic drug level monitoring (principal); Z79.01 Long term (current) use of anticoagulants; I48.20 Chronic atrial fibrillation, unspecified | CPT/HCPCS: 85610; G0463 ==

== ENCOUNTER 2024-05-26 10:26 | Outpatient (RCR) | payer MEDICARE, OTHER, SELFPAY | END 2024-06-24 23:59 | disposition home or self-care (01) | LOC: MM 10:26 | PROVIDERS: PCP Family Medicine; Visit Provider Internal Medicine | DX: Z51.81 Encounter for therapeutic drug level monitoring (principal); I48.91 Unspecified atrial fibrillation; Z79.01 Long term (current) use of anticoagulants | CPT/HCPCS: 85610; G0463 ==

== ENCOUNTER 2024-06-01 11:29 | Outpatient (OUT) | payer MEDICARE, OTHER, SELFPAY ==
--- NOTE | 2024-06-01 | MM_ITS ---
Patient Name: BRI VILLALOBOS MR#: [id number] : 1950 Exam Date: 06/01/2024 Ordering Doctor: DR Claudia Whittington M.D. RADIOLOGY REPORT PROCEDURE: MM TOMOSYNTHESIS SCREENING BI COMPARISON: MM TOMOSYNTHESIS SCREENING BI, 05/31/2023. MG MAMM SCREEN 3D YEHUDA CAD, 05/29/2022. MG MAMM SCREEN 3D YEHUDA CAD, 05/07/2021. MG MAMM YEHUDA SCRN W CAD DIG, 04/04/2009. INDICATIONS: Screening mammogram Calculator Name NCI Breast Cancer Risk Assessment Tool 5 Year Breast Cancer Risk 3.60% Lifetime Breast Cancer Risk 8.70% Personal Breast Cancer No Personal Ovarian Cancer No Treatments None Family Cancers Mother with lung cancer at age 64; Sister with breast cancer at age 59. LOCATION: [facility] BREAST COMPOSITION: There are scattered areas of fibroglandular density. FINDINGS: DIAGNOSTIC CATEGORY 2--BENIGN FINDING: RIGHT BREAST: No significant suspicious finding. Scattered benign-appearing lymph nodes are present. No significant change has occurred. LEFT BREAST: No significant suspicious finding. Scattered benign-appearing lymph nodes are present. No significant change has occurred. RECOMMENDATIONS: ROUTINE MAMMOGRAM AND CLINICAL EVALUATION IN 12 MONTHS. PLEASE NOTE: A NORMAL MAMMOGRAM DOES NOT EXCLUDE THE POSSIBILITY OF BREAST CANCER. A CLINICALLY SUSPICIOUS PALPABLE LUMP SHOULD BE BIOPSIED. Dictated by: Cali Mckeon M.D. on 06/02/2024 at 09:28 Approved by: Cali Mckeon M.D. on 06/02/2024 at 09:30
--- OUTSIDE RECORDS SUMMARY | 2024-06-01 11:43 | XMS_ITS | CCD ---
Author Organization [facility] Care Team Providers Care Grocery Store Manager Name Role Phone DR CLAUDIA LEON Primary Care Unavailable FAWWAD, MORALES H Admitting Unavailable FAWWAD, MORALES H Attending Unavailable LEONDR CLAUDIA Primary Care Unavailable FAWWAD, MORALES H Admitting Unavailable FAWWAD, MORALES H Attending Unavailable LEONDR CLAUDIA Primary Care Unavailable FAWWAD, MORALES H Admitting Unavailable FAWWAD, MORALES H Attending Unavailable FAWWAD, MORALES H Admitting Unavailable LEONDR CLAUDIA Primary Care Unavailable FAWWAD, MORALES H Attending Unavailable FAWWAD, MORALES H Attending Unavailable LEONDR CLAUDIA Primary Care Unavailable FAWWAD, MORALES H Admitting Unavailable FAWWAD, MORALES H Attending Unavailable DR CLAUDIA LEON Primary Care Unavailable FAWWAD, MORALES H Admitting Unavailable FAWWAD, MORALES H Attending Unavailable LEONDR CLAUDIA Primary Care Unavailable FAWWAD, MORALES H Admitting Unavailable FAWWAD, MORALES H Attending Unavailable DR CLAUDIA LEON Primary Care Unavailable FAWWAD, MORALES H Admitting Unavailable RENATA, DR LEA Blevins Consulting Unavailable EDWARD, DR CLAUDIA Duvall Admitting Unavailable LEON, DR CLAUDIA Duvall Attending Unavailable LEON, DR CLAUDIA Duvall Primary Care Unavailable EDWARD, DR CLAUDIA Duvall Consulting Unavailable FAWWAD, MORALES H Attending Unavailable LEON, DR CLAUDIA Duvall Primary Care Unavailable FAWWAD, MORALES H Admitting Unavailable LEON, DR CLAUDIA Duvall Primary Care Unavailable FAWWAD, MORALES H Admitting Unavailable FAWWAD, MORALES H Attending Unavailable EDWARD, DR CLAUDIA Duvall Primary Care Unavailable FAWWAD, MORALES H Admitting Unavailable FAWWAD, MORALES H Attending Unavailable Leon, Claudia Unavailable GBUR, MARCO ANTONIO S Referring Unavailable LEON, CLAUDIA E Primary Care Unavailable GBUR, MARCO ANTONIO S Referring Unavailable LEON, CLAUDIA E Primary Care Unavailable GBUR, MARCO ANTONIO S Attending Unavailable LEON, CLAUDIA E Referring Unavailable LEON, CLAUDIA E Primary Care Unavailable BALDOMERO LANGFORD Attending Unavailable CLAUDIA LEON Referring Unavailable JOSUE CHEEK Attending Unavailable PETANANT, BALDOMERO Frias Attending Unavailable JOSUE CHEEK Attending Unavailable PETBALDOMERO [place] Attending Unavailable ADDIE LEONIA Referring Unavailable PETZNBALDOMERO OLIVARES Attending Unavailable BALDOMERO LANGFORD Referring Unavailable Claudia Leon MD Primary Care Provider [phone] Allergies Allergy Classification Reported Allergen(s) Allergy Type Date of Onset Reaction(s) Facility (5 sources) Amino Acids; Translations: [LISINOPRIL] Drug Allergy 07-26-19 11 [facility] Repository (3 sources) Amoxicillin; Translations: [AMOXICILLIN] Drug Allergy 03-18-20 20 [facility] Repository (5 sources) Etodolac; Translations: [ETODOLAC] Drug Allergy 01-18-20 14 [facility] Repository (1 source) Penicillin Drug Allergy 03-12-20 20 [facility] Repository (1 source) Sulfonamides (Antibiotic) Drug allergy (disorder) 07-26-19 01 [facility] Repository (6 sources) Etodolac Drug Allergy 01-18-20 14 [facility] (6 sources) Lisinopril Drug Allergy 01-26-20 14 Other (See Comments) [facility] Other (2 sources) Sulfacetamide / Sulfur Drug Allergy Unknown [facility] Other (3 sources) Substance with penicillin structure and antibacterial mechanism of action (substance) Drug allergy 05-22-20 19 Unknown [facility] Other (4 sources) Substance with sulfonamide structure and antibacterial mechanism of action (substance) Drug allergy 01-18-20 14 [facility] Other (5 sources) Penicillins; Translations: [PENICILLINS] Allergy to substance 06-06-20 20 [facility] (4 sources) Sulfonamides (Antibiotic); Translations: [SULFA (SULFONAMIDE ANTIBIOTICS)] Allergy to substance 01-18-20 14 [facility] (1 source) Amoxicillin Drug Allergy 06-06-20 [facility] Medications Current Medications Medication Drug Class(es) Dates Sig (Normalized) Sig (Original) amLODIPine 10 mg oral tablet (8 sources) Dihydropyridine Calcium Channel Addie Start: 11-17-2023 take 1 tablet by mouth once daily at bedtime Amlodipine Active 1 TAB PO Daily at bedtime November 17, 2023 12:00am FreeTextSig: TAKE 1 TABLET BY MOUTH AT BEDTIME; Note: Source Status: Start; Refills: 3; Qty: 90 Tablet; Provider: Edward Taylor ( ) take 1 tablet by mouth in the mo rning amLODIPine (NORVASC) 10 mg tablet Take 1 tablet (10 mg total) by mouth in the morning. Active take 1 tablet by mouth at bedtim e amLODIPine Besylate 10 mg TAKE 1 TABLET BY MOUTH AT BEDTIME for 90 Active atorvastatin 40 mg oral tablet (8 sources) HMG-CoA Reductase Inhibitor Start: 11-17-2023 take 1 tablet by mouth once daily at bedtime Atorvastatin Active 1 TAB PO Daily at bedtime November 17, 2023 12:00am FreeTextSig: TAKE 1 TABLET BY MOUTH AT BEDTIME; Note: Source Status: Start; Refills: 3; Qty: 90 Tablet; Provider: Edward Taylor ( ) atorvastatin (LI PITOR) 40 mg tablet Take 1 tablet (40 mg total) by mouth. Active azithromycin 250 mg oral tablet (1 source) Macrolide Antimicrobial Start: 05-19-2023 Azithromycin 250 MG as directed Orally 2 tabs po today, then 1 tab daily x 4 more days for 5 Apr, Active flecainide acetate 150 mg oral tablet (11 sources) Antiarrhythmic Start: 03-09-2024 take 0.5 tablet by mouth in the morning, then take 0.5 tablet by mouth at bedtime flecainide (TAMBOCOR) 150 mg tablet Take 0.5 tablets (75 mg total) by mouth in the morning and 0.5 tablets (75 mg total) before bedtime. 90 tablet 3 03/09/2024 Active Start: 11-02-2023 End: 02-02-2024 take 1 tablet by mouth once daily Flecainide Active 0 .ROUTE .COMPLEX 90 February 02, 2024 8:28am TAKE 1 TABLET BY MOUTH ONCE DAILY Start: 11-02-2023 End: 11-02-2023 take 150 mg by mouth once daily Flecainide Discontinue d 150 MG PO Daily November 02, 2023 12:00am November 02, 2023 2:51pm take 1 tablet by lyly th once daily Flecainide Acetate 150 mg TAKE 1 TABLET BY MOUTH DAILY for 90 Active furosemide 40 mg oral tablet (10 sources) Loop Diuretic Start: 11-17-2023 End: 11-18-2023 take 1 tablet by mouth once daily as needed Furosemide Active 40 MG PO .prn November 18, 2023 12:01pm FreeTextSig: TAKE 1 TABLET BY MOUTH DAILY NEEDED; Note: Source Status: Taking; Refills: 1; Qty: 30 Tablet; Provider: Edward Taylor ( ) hydroCHLOROthiazide 25 mg oral tablet (8 sources) Thiazide Diuretic Start: 02-27-2020 take 1 tablet by mouth twice daily Hydrochlorothiazide Active 1 TAB PO Twice daily November 17, 2023 12:00am FreeTextSig: TAKE 1 TABLET BY MOUTH TWICE DAILY; Note: Source Status: Start; Refills: 3; Qty: 180 Tablet; Provider: Edward Taylor ( ) 3 ml insulin glargine 100 unt/ml pen injector (9 sources) Insulin Analog Start: 03-21-2024 Insulin Glargine (Lantus Solostar U-100 Insulin) 100 unit/mL (3 mL) insulin pen Active 28 UNIT SUBCUT March 21, 2024 11:38am FreeTextSi units Subcutaneous Once a day; Note: Source Status: Taking; Provider: Edward Taylor ( ) Start: 11-17-2023 End: 03-21-2024 Insulin Glargine (Lantus Lynsey ostar U-100 Insulin) 100 unit/mL (3 mL) insulin pen Discontinued UNIT SUBCUT November 17, 2023 12:00am March 21, 2024 11:38am FreeTextSi units Subcutaneous Once a day; Note: Source Status: Taking; Provider: Edward Taylor ( ) Start: 11-08-2020 LANTUS SOLOSTA R U-100 INSULIN 100 unit/mL (3 mL) insulin pen INJECT 34 UNITS SUBCUTANEOUSLY DAILY 11/08/2020 Active Lantus SoloStar 100 UNIT/ML 32 units Subcutaneous Once a day Active Insulin Lispro (9 sources) Insulin Analog Start: 03-21-2024 inject 10 [IU] by subcutaneous injection three times daily Insulin Lispro Active 10 UNIT SUBCUT Three times daily March 21, 2024 11:36am Start: 11-18-2023 End: 03-21-2024 inject 12 [IU] by subcutaneous injection three times daily Insulin Lispro Discontinued 12 UNIT SUBCUT Three times daily November 18, 2023 12:00am March 21, 2024 11:38am Start: 11-18-2023 inject 12 [IU] by cox bcutaneous injection three times daily Insulin Lispro Active 12 UNIT SUBCUT Three times daily November 18, 2023 12:00am Start: 11-30-2020 inject 5 [IU] by sub cutaneous injection once daily insulin lispro (HumaLOG) 100 unit/mL insulin pen INJECT 5 UNITS SUBCUTANEOUSLY for small meals & 8 UNITS for large meals plus correction (max 50 UNITS DAILY) 11/30/2020 Active Humalog Active losartan potassium 100 mg oral tablet (8 sources) Angiotensin 2 Receptor Addie Start: 02-27-2020 take 100 mg by mouth once daily Losartan Active 100 MG PO Daily November 17, 2023 12:00am meclizine hydrochloride 12.5 mg oral tablet (2 [...] day for 30 day(s) Jan, Active Propranolol (11 sources) beta-Adrenergic Addie Start: 02-02-2024 take 1 capsule by mouth once daily Propranolol Active 0 .ROUTE .COMPLEX 90 Nasrin 10th, 2024 8:28am TAKE 1 CAPSULE BY MOUTH ONCE DAILY Start: 11-02-2023 End: 02-02-2024 take 1 capsule by mouth once daily Propranolol Discontinued 0 .ROUTE .COMPLEX 90 November 02, 2023 2:51pm February 02, 2024 8:28am TAKE 1 CAPSULE BY MOUTH DAILY Start: 11-02-2023 take 1 capsule by mo uth once daily Propranolol Active 0 .ROUTE .COMPLEX 90 November 02, 2023 2:51pm TAKE 1 CAPSULE BY MOUTH DAILY Start: 11-02-2023 End: 11-02-2023 take 60 mg by mouth once daily Propranolol Discontinue d 60 MG PO Daily November 02, 2023 12:00am November 02, 2023 2:51pm take 1 capsule by mo uth every twenty-four hours propranolol LA (INDERAL LA) 60 mg 24 hr capsule Take 1 capsule (60 mg total) by mouth. Active take 1 capsule by mo uth once daily Propranolol HCl ER 60 mg TAKE 1 CAPSULE BY MOUTH DAILY for 90 Active warfarin sodium 4 mg oral tablet (15 sources) Vitamin K Antagonist Start: 11-17-2023 Warfarin Active 2 MG PO MOWEFR November 17, 2023 12:00am Start: 02-12-2020 take 1 tablet by lyly once daily Warfarin Active 4 MG PO Daily November 17, 2023 12:00am FreeTextSig: TAKE 1 TABLET BY MOUTH EVERY DAY; Note: Source Status: Start; Refills: 3; Qty: 90 Tablet; Provider: Edward Taylor ( ) Warfarin 2mg Act heike Completed/Discontinued Medications Medication [...] Not-Taking metFORMIN hydrochloride 500 mg oral tablet (7 sources) Biguanide Start: 11-17-2023 End: 11-18-2023 take 500 mg by mouth twice daily at mealtime Metformin Discontinued 500 MG PO Twice daily with meals November 17, 2023 12:00am November 18, 2023 12:02pm metFORMIN HCl No t-Taking 24 hr metoprolol succinate 25 mg extended release oral tablet (7 sources) beta-Adrenergic Addie Start: 11-17-2023 End: 11-18-2023 take 25 mg by mouth once daily Metoprolol Succinate Discontinued 25 MG PO Daily November 17, 2023 12:00am November 18, 2023 12:03pm Metoprolol Succi trudi ER Not-Taking Problems Active Problems Problem Classification Problem Date Documented Da te Episodic/Chronic Allergic reactions (7 sources) Contact dermatitis due to plants; Translations: [Unspecified contact dermatitis due to plants, except food] 11-28-2023 Episodic Cardiac dysrhythmias (16 sources) Paroxysmal atrial fibrillation; Translations: [Paroxysmal atrial fibrillation] Onset: 06-10-2018 Chronic Diabetes mellitus without complication (5 sources) Type 2 diabetes mellitus without complication; Translations: [Type 2 diabetes mellitus without complications] Onset: 06-10-2018 Chronic Digestive congenital anomalies (2 sources) Congenital redundant colon; Translations: [Redundant colon] Chronic Diseases of mouth; excluding dental (6 sources) Disorder of salivary gland; Translations: [Other diseases of salivary glands] Onset: 03-09-2019 Episodic Disorders of lipid metabolism (14 sources) Mixed hyperlipidemia; Translations: [Mixed hyperlipidemia] Onset: 06-06-2020 Chronic Essential hypertension (14 sources) Essential hypertension; Translations: [Essential (primary) hypertension] Onset: 06-06-2020 Chronic Heart valve disorders (9 sources) Nonrheumatic mitral (valve) insufficiency; Translations: [Nonrheumatic tricuspid (valve) insufficiency] Onset: 06-06-2020 06-06-2020 Chronic Hemorrhoids (3 sources) Residual hemorrhoidal skin tags; Translations: [Residual hemorrhoidal skin tags] Episodic Lymphadenitis (3 sources) Lymphadenitis; Translations: [Nonspecific lymphadenitis, unspecified] Episodic Malaise and fatigue (7 sources) Other fatigue; Translations: [Asthenia] Onset: 01-30-2019 Episodic Nonspecific chest pain (3 sources) Chest pain; Translations: [Chest pain, unspecified] Episodic Occlusion or stenosis of precerebral arteries (3 sources) Occlusion and stenosis of bilateral carotid arteries; Translations: [Bilateral carotid artery occlusion] Onset: 06-06-2020 06-06-2020 Chronic Other aftercare (5 sources) Encounter for therapeutic drug level monitoring; Translations: [ENC THERAPEUTC DRUG LEVL MONITORING] Onset: 11-21-2022 Episodic Other aftercare (2 sources) Long-term current use of drug therapy; Translations: [Other terminal carman (current) drug therapy] Onset: 12-02-2020 03-09-2024 Episodic Other and ill-defined heart disease (2 sources) Cardiomegaly; Translations: [Cardiomegaly] Onset: 06-06-2020 Chronic Other and ill-defined heart disease (2 sources) Left atrial enlargement; Translations: [Cardiomegaly] 03-09-2024 Chronic Other and unspecified benign neoplasm (2 sources) Tubular adenoma of colon; Translations: [Tubular adenoma of colon] Episodic Other circulatory disease (3 sources) Elevated blood-pressure reading without diagnosis of hypertension; Translations: [Elevated blood-pressure reading, without diagnosis of hypertension] Episodic Other connective tissue disease (2 sources) Pain in lower limb; Translations: [Pain in [...] sources) Rosacea; Translations: [Rosacea, unspecified] Chronic Other inflammatory condition of skin (1 source) Pruritus ani; Translations: [Pruritus ani] 11-28-2023 Episodic Other nutritional; endocrine; and metabolic disorders (6 sources) Obese class II; Translations: [Body mass index (BMI) 38.0-38.9, adult] Chronic Other nutritional; endocrine; and metabolic disorders (1 source) Severe obesity; Translations: [Morbid (severe) obesity due to excess calories] Onset: 07-24-2020 07-24-2020 Chronic Other skin disorders (3 sources) Localized scleroderma; 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 et atrophicus] Chronic Other upper respiratory infections (4 sources) Acute sinusitis; Translations: [Acute sinusitis, unspecified] Episodic Pancreatic disorders (not diabetes) (3 sources) Chronic pancreatitis; Translations: [Other chronic pancreatitis] Onset: 10-25-2018 Chronic Pulmonary heart disease (10 sources) Pulmonary hypertension; Translations: [Pulmonary hypertension, unspecified] Onset: 06-10-2018 11-18-2023 Chronic Residual codes; unclassified (3 sources) Tobacco user; Translations: [Tobacco use] Episodic Spondylosis; intervertebral disc disorders; other back problems (8 sources) Sciatica; Translations: [Sciatica, left side] Episodic Past or Other Problems Problem Classification Problem Date Documented Da te Episodic/Chronic Acute bronchitis (3 sources) Acute bronchitis; Translations: [Acute bronchitis, unspecified] Onset: 08-04-2018 Episodic Conditions associated with dizziness or vertigo (2 sources) Benign paroxysmal vertigo, bilateral; Translations: [Vertigo] Onset: 02-10-2019 Episodic Neoplasms of unspecified nature or uncertain behavior (1 source) Neoplastic disease; Translations: [Neoplasm of unspecified behavior of bone, soft tissue, and skin] Onset: 01-25-2014 12-02-2020 Episodic Other aftercare (2 sources) [facility] (current) use of anticoagulants; Translations: [PENITENTIARY CURRNT USE ANTICOAGULANTS] Onset: 06-06-2020 Episodic Other aftercare (1 source) Other skilled nursing (current) drug therapy; Translations: [Other terminal carman (current) drug therapy] Onset: 12-02-2020 Episodic Other aftercare (1 source) Long-term current use of anticoagulant; Translations: [termite treater (current) use of anticoagulants] Onset: 06-06-2020 06-06-2020 Episodic Other circulatory disease (2 sources) Personal history of transient ischemic attack (TIA), and cerebral infarction without residual deficits; Translations: [Personal history of transient ischemic attack (TIA), and cerebral infarction without residual deficits] Onset: 06-06-2020 Episodic Other circulatory disease (1 source) History of transient ischemic attack; Translations: [Personal history of transient ischemic attack (TIA), and cerebral infarction without residual deficits] Onset: 06-06-2020 06-06-2020 Episodic Other circulatory disease (1 source) Bruit; Translations: [Other specified symptoms and signs involving the circulatory and respiratory systems] Onset: 11-16-2014 12-02-2020 Episodic Other non-epithelial cancer of skin (1 source) Basal cell carcinoma of face; Translations: [Basal cell carcinoma of skin of other parts of face] Onset: 01-17-2014 12-02-2020 Episodic Other screening for suspected conditions (not mental disorders or infectious disease) (7 sources) Encounter for screening mammogram for malignant neoplasm of breast; Translations: [Abnormal findings on diagnostic imaging of heart and coronary circulation] Onset: 07-06-2018 Episodic Otitis media and related conditions (3 [...] MALIG NEOPLASM OF BREAST] Onset: 06-04-2022 Episodic Residual codes; unclassified (2 sources) Localized edema; Translations: [Localized edema] Onset: 12-02-2020 Episodic Residual codes; unclassified (1 source) Bilateral lower limb edema; Translations: [Localized edema] Onset: 04-14-2016 12-02-2020 Episodic Residual codes; unclassified (1 source) Family history of basal cell carcinoma of skin; Translations: [Family history of malignant neoplasm of other organs or systems] Onset: 12-02-2020 12-02-2020 Episodic Results Test Name Value Interpretation Reference Range Facil ity POCT EKGOrdered By: Lilian doshi on 03-09-2024 [facility] MG MAMM SCREEN 3D YEHUDA CADon 05-29-2022 MG MAMM SCREEN 3D YEHUDA CAD Patient: BRI VILLALOBOS Exam Date: 05/29/2022 : 1950 Gender:F Ordering : DR CLAUDIA LEON M.D. Admission #: [id number] Family : Order #: [id number] CLICK HERE TO VIEW EXAM RADIOLOGY REPORT [...] with breast cancer at age 59. LOCATION: [facility] BREAST COMPOSITION: Scattered areas fibroglandular density. FINDINGS: [...] MD on 05/29/2022 at 10:50 Normal [facility] Vital Signs Date Time Vital Sign Value Performing Clinician Facility 03-21-2024 11:32-0400 Body height 165.1 cm [facility] 03-21-2024 11:32-0400 Body mass index (BMI) [Ratio] 37.8 kg/m2 [facility] 03-21-2024 11:32-0400 Body weight 102.96 kg [facility] 03-21-2024 11:32-0400 Diastolic blood pressure 68 mm[Hg] [facility] 03-21-2024 11:32-0400 Heart rate 63 /min [facility] 03-21-2024 11:32-0400 Systolic blood pressure 115 mm[Hg] [facility] 11-18-2023 11:53-0400 Body height 165.1 cm [facility] 11-18-2023 11:53-0400 Body mass index (BMI) [Ratio] 38.4 kg/m2 [facility] 11-18-2023 11:53-0400 Body weight 104.77 kg [facility] 11-18-2023 11:53-0400 Diastolic blood pressure 63 mm[Hg] [facility] 11-18-2023 11:53-0400 Heart rate 65 /min [facility] 11-18-2023 11:53-0400 Systolic blood pressure 134 mm[Hg] [facility] 05-19-2023 09:00-0400 Body height 165.1 cm Claudia Leon Other [facility] Other 05-19-2023 09:00-0400 Body mass index (BMI) [Ratio] 38.27 kg/m2 Claudia Leon Other [facility] Other 05-19-2023 09:00-0400 Body temperature 98 [degF] Claudia Leon Other [facility] Other 05-19-2023 09:00-0400 Body weight 104.33 kg Claudia Leon Other [facility] Other 05-19-2023 09:00-0400 Diastolic blood pressure 68 mm[Hg] Claudia Leon Other [facility] Other 05-19-2023 09:00-0400 Systolic blood pressure 113 mm[Hg] Claudia Leon Other [facility] Other 02-16-2023 11:15-0400 Body height 165.1 cm Claudia Leon Other [facility] Other 02-16-2023 11:15-0400 Body mass index (BMI) [Ratio] 38.77 kg/m2 Claudia Leon Other [facility] Other 02-16-2023 11:15-0400 Body weight 105.69 kg Claudia Leon Other [facility] Other 02-16-2023 11:15-0400 Diastolic blood pressure 61 mm[Hg] Claudia Leon Other [facility] Other 02-16-2023 11:15-0400 Systolic blood pressure 125 mm[Hg] Claudia Leon Other [facility] Other 01-13-2023 10:45-0400 Body height 165.1 cm Claudia Leon Other [facility] Other 01-13-2023 10:45-0400 Body mass index (BMI) [Ratio] 38.44 kg/m2 Claudia Leon Other [facility] Other 01-13-2023 10:45-0400 Body weight 104.78 kg Claudia Leon Other [facility] Other 01-13-2023 10:45-0400 Diastolic blood pressure 72 mm[Hg] Claudia Leon Other [facility] Other 01-13-2023 10:45-0400 SaO2% (BldA) [Mass fraction] 98 % Claudia Leon Other [facility] Other 01-13-2023 10:45-0400 Systolic blood pressure 128 mm[Hg] Claudia Leon Other [facility] Other Encounters Encounter Date Encounter Type Care Provider Facility Start: 04-18-2024 End: 04-18-2024 ambulatory BALDOMERO LANGFORD Not Available Start: 03-22-2024 End: 03-22-2024 ambulatory JOSUE CHEEK Not Available Start: 03-21-2024 End: 03-21-2024 ambulatory [facility] Work Phone: Start: 03-21-2024 End: 03-21-2024 Patient encounter procedure [facility] Work Phone: Start: 03-09-2024 End: 05-05-2024 ambulatory MARCO ANTONIO Amaya IVÁN [facility] Comment on above: [facility] current us e of antiarrhythmic drug (Primary Dx); LAE (left atrial enlargement); Pulmonary hypertension ([facility]) Start: 01-11-2024 End: 01-11-2024 ambulatory BALDOMERO LANGFORD Not Available Start: 12-27-2023 End: 12-27-2023 ambulatory JOSUE CHEEK Not Available Start: 11-18-2023 End: 11-18-2023 ambulatory [facility] Work Phone: Start: 11-18-2023 End: 11-18-2023 Patient encounter procedure [facility] Work Phone: Start: 11-02-2023 Non-patient / Non-visit [facility] Work Phone: Start: 10-12-2023 End: 10-12-2023 ambulatory BALDOMERO LANGFORD Not Available Start: 07-12-2023 End: 07-12-2023 ambulatory BALDOMERO LANGFORD Not Available Start: 05-19-2023 End: 05-19-2023 ambulatory Claudia Leon Other [facility] Other Start: 05-19-2023 Office outpatient vi sit 15 minutes Claudia Leon [facility] Start: 02-16-2023 End: 02-16-2023 ambulatory Claudia Leon Other [facility] Other Start: 02-16-2023 Patient encounter procedure Claudia Leon [facility] Start: 02-10-2023 End: 02-10-2023 ambulatory Claudia Leon Other [facility] Other Start: 02-10-2023 Telephone encounter Claudia Leon [facility] Start: 01-13-2023 End: 01-13-2023 ambulatory Claudia Leon Other [facility] Other Start: 01-13-2023 Office outpatient vi sit 25 minutes Claudia Leon [facility] Start: 11-23-2022 End: 12-23-2022 ambulatory SHAIKH Ramy BOATENGD Facility:[facility] Start: 10-26-2022 End: 11-20-2022 ambulatory MORALES H ELIJAHWAD Facility:[facility] Start: 09-23-2022 End: 10-23-2022 ambulatory MORALES H FAMaggieWAD Facility:[facility] Start: 08-26-2022 End: 09-23-2022 ambulatory SHAIKH Ramy BOATENGD Facility:[facility] Start: 07-27-2022 End: 08-26-2022 ambulatory MORALESROSEMARY BOATENGVanessa Facility:[facility] Start: 06-25-2022 End: 07-26-[address] CLAUDIA LOEN Facility:[facility] Start: 05-29-2022 End: 05-30-[address] LEA YANEZ Facility:[facility] Start: 05-26-2022 End: 06-24-[address] CLAUDIA LEON Facility:[facility] Start: 04-26-2022 End: 05-25-[address] CLAUDIA LEON Facility:[facility] Start: 03-26-2022 End: 04-25-[address] CLAUDIA LEON Facility:[facility] Start: 02-23-2022 End: 03-25-[address] CLAUDIA LEON Facility:[facility] Start: 01-23-2022 End: 02-20-2022 ambulatory MORALES H JOHNSON Facility:[facility] Start: 12-18-2021 Adult health examination Erica Leon Other [facility] Other Start: 12-18-2021 Gynecological examin ation normal Claudia Leon Other [facility] Other Start: 12-01-2021 Gynecological examin ation abnormal Claudia Leon Other [facility] Other Procedures Date Procedure Procedure Detail Performing Clinician Start: 03-09-2024 Ecg routine ecg w/le ast 12 lds w/i&r Marco Antonio Hines MD Work Phone: Start: 03-09-2024 Follow-up visit Follow-up MARCO ANTONIO HINES Screening for malign ant neoplasm of colon Claudia Leon Other Plan of Treatment Date Care Activity Detail Author Start: 03-09-2025 Adult BMI Screening Adult BMI Screening [facility] Start: 03-09-2025 Tobacco Screening Tobacco Screening [facility] Start: 09-11-2024 End: 09-11-2024 Patient encounter procedure 09/11/2024 11:00 AM EST Office Visit [facility] [address] [id number] Marco Antonio Hines MD [address] [place], [place] [id number] [facility] Start: 03-26-2024 Influenza vaccination Influenza Vaccine [facility] Start: 12-19-2020 COVID-19 Vaccine (3 - Pfizer risk series) COVID-19 Vaccine (3 - Pfizer risk series) [facility] Start: 12-29-2015 Fall Risk Screening Fall Risk Screening [facility] Start: 1969 DTaP,Tdap and Td Vaccines (1 - Tdap) DTaP,Tdap and Td Vaccines (1 - Tdap) [facility] Start: 1968 Adult BMI Follow Up Plan Adult BMI Follow Up Plan [facility] Start: 1962 Depression Screening Depression Screening [facility] Start: 1950 Medicare Annual Wellness Visit Medicare Annual Wellness Visit [facility] Comprehensive metabo lic 2000 panel - Serum or Plasma [facility] Microalbumin [Mass/volume] in Urine [facility] US Lower extremity v ein - bilateral [facility] Immunizations Immunization Date Immunization Notes Care Provider Fa cility 11-21-2020 COVID-19 Vaccine Pfi zer - Documentation Purposes Only Claudia Leon Other [facility] 05-27-2020 influenza virus vaccine, split virus (incl. purified surface antigen) Claudia Leon Other [facility] Other 05-27-2020 influenza virus vaccine, unspecified formulation [facility] 12-08-2016 pneumococcal polysaccharide vaccine, 23 ashlee Taylor Edward Other [facility] Payers Date Payer Category Payer Medicare MEDICARE MEDICAR E PART A & B [id number] 2015-Present [phone] [address] [place] [address] [id number] 2015 Unknown [employer] [id number] 2015-Present [phone] [employer] [place] [id number]. [id number] 2015 Unknown [id number] 1959 Medicare [id number] 1959 Unknown [id number] 1959 Unknown [id number] 1950 Unknown [id number] 2.16.840.1.654971.3.579.2.593 1950 Unknown [id number] 2.16.840.1.805347.3.579.2.593 1950 Unknown [id number] 2.16.840.1.497912.3.579.2.593 1950 Unknown [id number] 2.16.840.1.199542.3.579.2.593 1950 Unknown [id number] 2.16.840.1.666815.3.579.2.593 1950 Unknown [id number] 2.16.840.1.393643.3.579.2.593 1950 Unknown [id number] 2.16.840.1.599316.3.579.2.593 1950 Unknown [id number] 2.16.840.1.611972.3.579.2.593 1950 Unknown [id number] 2.16.840.1.657298.3.579.2.593 1950 Unknown [id number] 2.16.840.1.442393.3.579.2.593 1950 Unknown [id number] 2.16.840.1.317678.3.579.2.593 1950 Unknown [id number] 2.16.840.1.549395.3.579.2.593 1950 Unknown [id number] 2.16.840.1.248138.3.579.2.1286 1950 Unknown [id number] 2.16.840.1.484074.3.579.2.1286 1950 Unknown [id number] 2.16.840.1.935755.3.579.2.1286 1950 Unknown [id number] 2.16.840.1.551822.3.579.2.1259 1950 Unknown [id number] 2.16.840.1.281451.3.579.2.1259 1950 Unknown [id number] 2.16.840.1.281420.3.579.2.1259 1950 Unknown [id number] 2.16.840.1.426247.3.579.2.1259 1950 Unknown [id number] 2.16.840.1.318167.3.579.2.1259 1950 Unknown [id number] 2.16.840.1.870032.3.579.2.1259 Social History Date Type Detail Facility Start: 09-05-2020 End: 03-09-2024 Sex Assigned At [facility] [employer] Other Start: 06-06-2020 End: 05-19-2023 Tobacco smoking status NHIS Never smoked tobacco (finding) [facility] Start: 1950 Sex Assigned At Female F [facility] Start: 06-06-2020 Tobacco use and exposure Smokeless tobacco non-user [facility] [employer] [facility] Start: 03-09-2024 Alcoholic beverage intake [facility] Start: 09-05-2020 End: 03-09-2024 History of Social function [facility] Unknown [facility] Start: 04-26-2020 Alcohol Comment ABOUT ONE PER MONTH [facility] [employer] [facility] Start: 1950 Sex assigned at Not on file [facility] [employer] [facility] Evaluation note 05-19-2023 Note Date & Type [...] done. Stay hydrated rest [employer] cold medicines. [facility] Other Evaluation note 02-16-2023 Note Date & [...] I10) Discussed labs - hypokalemia - add sam blunt. Discussed foods rich in potassium. She will take labs to upcoming appt w Dr. Hines and share levels - consider decrease in furosemide. Jan, Left lumbar radiculopathy (ICD-10 - M54.16) Presently in PT at [facility]. Jan, Paroxysmal atrial fibrillation (ICD-10 - I48.0) Had INR today. Discussed warfarin and foods that can effect INR. May, Type 2 diabetes mellitus without complications (ICD-10 - E11.9) Diabetes mellitus, type 2 Will share lab results w Dr. Pringle including renal function. Followup next month there. [facility] Other Evaluation note 02-16-2023 Note Date & [...] take labs to upcoming appt w Dr. Hines and share levels - consider decrease in [...] (ICD-10 - M54.16) Presently in PT at [facility]. Jan, Paroxysmal atrial fibrillation (ICD-10 - I48.0) Had INR today. Discussed warfarin and foods that can effect INR. May, Type 2 diabetes mellitus without complications (ICD-10 - E11.9) Diabetes mellitus, type 2 Will share lab results w Dr. Pringle including renal function. Followup next month there. [facility] Other Evaluation note 01-13-2023 Note Date & [...] - Z87.19) Pt requests recheck of lipase. [facility] Other Evaluation note 06-10-2018 Note Date & Type Note Facility 06-10-2018 Evaluation note Diagnosis Onset Date Bilateral lower extremity pain acute Essential (primary) hypertension acute Hyperlipidemia, unspecified acute Pulmonary hypertension, unspecified June 10, 2018 [facility] Work Phone: Evaluation note Note Date & Type Note Facility Evaluation note No Information [employer] Other Evaluation note Note Date & Type Note Facility Evaluation note No assessment information availa [facility] Work Phone: Evaluation note Note Date & Type Note Facility 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- Primary LAE (left atrial enlargement) Cardiomegaly Pulmonary hypertension (CMS-HCC) Other chronic pulmonary heart diseases documented in this encounter [facility] History general Narrative - Reported Note Date [...] See past surgical hx Hospitalization History Pancreatitis 2011 Hospitalization History Pneumonia [facility] Other Instructions Note Date & Type Note Facility Instructions Not on filedocumented in this en counter [facility] Summary Purpose Family History Relationship Condition Age at Onset Recorded Date/T enedina Not Specified Unknown Relationship Condition Age at Onset Recorded Date/T enedina mother Unknown Advance Directives Advance Directive Response Recorded Date/ Time Advance Directives No November 17, 024 11:39am Chief Complaint and Reason for Visit Chief Complaint Amb Documentation check up Reason for Visit Bilateral lower extr emity pain Essential (primary) hypertension Hyperlipidemia, unspecified Pulmonary hypertension, unspecified Chief Complaint 4 month follow up Additional Source Comments INFORMATION SOURCE (unrecogn ized section and content) DATE CREATED AUTHOR [facility]01/2023 [facility] DATE CREATED AUTHOR AUTHOR'S ORGANIZ ATION 03/11/2024 [facility] DATE CREATED AUTHOR AUTHOR'S ORGANIZ ATION 03/11/2024 [facility] DATE CREATED AUTHOR AUTHOR'S ORGANIZ ATION 04/20/2024 [facility] d[facility] Specialists EPIC REASON FOR VISIT (unrecogniz ed section and content) [employer]igo[employer] move up?wellness wellnessSinuses-COVID Negative Care Teams (unrecognized sec tion and content) Team Status: Active Member Role Status Dates Claudia Leon MD Primary Care Provider Active Team Status: Inactive Member Role Status Dates Claudia Leon MD Primary Care Provide r, Attending Provider Active Start: March 21, 2024 End: March 21, 2024 Team Status: Active Member Role Status Dates Claudia Leon MD Primary Care Provider Active Start: November 02, 2023 DEBORAH Boykin Attending Provider Active Start : November 02, 2023 Team Status: Inactive Member Role Status Dates Claudia Leon MD Primary Care Provide r, Attending Provider Active Start: November 18, 2023 End: November 18, 2023 Grocery Store Manager Relationship Specialty Start Date End Date Claudia Leon MD [address] [place] [address] PCP - General Family Medicine 06/06/20 Goals (unrecognized section and content) Goals may [...] BE BASED ON THE PRIMARY CLINICAL RECORDS. [employer] [facility]. provides no warranty or guarantee of the accuracy or completeness of information in this document.
== END 2024-06-01 11:30 | disposition home or self-care (01) ==
LOC: MAMMO 11:29
PROVIDERS: PCP Family Medicine; Visit Provider Family Medicine
DX: Z12.31 Encounter for screening mammogram for malignant neoplasm of breast (principal); Z80.1 Family history of malignant neoplasm of trachea, bronchus and lung; Z80.3 Family history of malignant neoplasm of breast
CPT/HCPCS: 77063; 77067

== ENCOUNTER 2024-06-25 10:43 | Outpatient (RCR) | payer MEDICARE, OTHER, SELFPAY | END 2024-07-25 09:35 | disposition home health service (06) | LOC: MM 10:43 | PROVIDERS: PCP Family Medicine; Visit Provider Internal Medicine | DX: Z51.81 Encounter for therapeutic drug level monitoring (principal); Z79.01 Long term (current) use of anticoagulants; I48.91 Unspecified atrial fibrillation | CPT/HCPCS: 85610; G0463 ==

== ENCOUNTER 2024-07-27 00:16 | Outpatient (RCR) | payer MEDICARE, OTHER, SELFPAY | END 2024-08-25 14:53 | disposition home or self-care (01) | LOC: MM 00:16 | PROVIDERS: PCP Family Medicine; Visit Provider Internal Medicine | DX: Z51.81 Encounter for therapeutic drug level monitoring (principal); Z79.01 Long term (current) use of anticoagulants; I48.20 Chronic atrial fibrillation, unspecified | CPT/HCPCS: 85610; G0463 ==

== ENCOUNTER 2024-08-28 02:28 | Outpatient (RCR) | payer MEDICARE, OTHER, SELFPAY | END 2024-09-22 10:49 | disposition home or self-care (01) | LOC: MM 02:28 | PROVIDERS: PCP Family Medicine; Visit Provider Internal Medicine | DX: Z51.81 Encounter for therapeutic drug level monitoring (principal); Z79.01 Long term (current) use of anticoagulants; I48.20 Chronic atrial fibrillation, unspecified | CPT/HCPCS: 85610; G0463 ==

== ENCOUNTER 2024-09-23 07:22 | Outpatient (RCR) | payer MEDICARE, OTHER, SELFPAY | END 2024-10-20 10:10 | disposition home or self-care (01) | LOC: MM 07:22 | PROVIDERS: PCP Family Medicine; Visit Provider Internal Medicine | DX: Z51.81 Encounter for therapeutic drug level monitoring (principal); Z79.01 Long term (current) use of anticoagulants; I48.91 Unspecified atrial fibrillation | CPT/HCPCS: 85610; G0463 ==

== ENCOUNTER 2024-10-19 10:00 | Outpatient (OUT) | payer MEDICARE, OTHER, SELFPAY ==
[2024-10-19 10:25] LABS: Basophils Absolute Auto 0.1 10^3/uL (0.0-0.1); Basophils Percent Auto 0.6 % (0.2-2.0); Eosinophils Absolute Auto 0.4 10^3/uL (0.0-0.7); Eosinophils Percent Auto 5.3 % (0.9-7.0); Hematocrit 41.1 % (36.0-48.0); Hemoglobin 13.7 g/dL (12.0-16.0); Immature Granulocytes Abs Auto 0.03 10^3/uL (0.00-0.03); Immature Granulocytes Pct Auto 0.4 % (0.0-0.5); Lymphocytes Absolute Auto 2.8 10^3/uL (1.2-3.8); Lymphocytes Percent Auto 34.5 % (20.5-60.0); Mean Corpuscular HGB Conc 33.3 g/dL (29.9-35.2); Mean Corpuscular Hemoglobin 29.8 pg (26.7-34.0); Mean Corpuscular Volume 89.3 fL (81.0-99.0); Mean Platelet Volume 10.4 fL (9.5-13.5); Monocytes Absolute Auto 0.5 10^3/uL (0.3-0.8); Monocytes Percent Auto 6.3 % (1.7-12.0); Neutrophils Absolute Auto 4.2 10^3/uL (1.4-6.5); Neutrophils Percent Auto 52.9 % (43.0-75.0); Platelet Count 308 10^3/uL (150-450); Red Cell Distribution Width 13.3 % (11.0-15.0)
--- OUTSIDE RECORDS SUMMARY | 2024-10-19 10:25 | XMS_ITS | CCD ---
Author Organization [facility] Care Team Providers Care Vp Talent Management Name Role Phone DR CLAUDIA LEON Primary [...] Unavailable FAWWAD, MORALES H Attending Unavailable LEONDR CALUDIA Primary Care Unavailable FAWWAD, MORALES H Admitting [...] Unavailable LEON, CLAUDIA E Primary Care Unavailable Petznick Adenike STEVENS Unavailable Claudia Leon MD Primary Care Provider Claudia Leon MD Primary Care Provider [phone] GBUR, MARCO ANTONIO S Attending Unavailable LEON, CLAUDIA E Referring Unavailable LEON, CLAUDIA E Primary Care Unavailable GBUR, MARCO ANTONIO S Attending Unavailable LEON, CLAUDIA E Referring Unavailable LEON, CLAUDIA E Primary Care Unavailable GILLMOR, JOSUE Attending Unavailable PETZNICK, ADENIKE M Attending Unavailable GILLMOR, JOSUE Attending Unavailable PETZNICK, ADENIKE M Attending Unavailable GILLMOR, JOSUE Attending Unavailable PETZNICK, ADENIKE M Attending Unavailable ADDIE LEONIA Referring Unavailable PETZNMARSHALL, ADENIKE Frias Attending Unavailable Allergies Allergy Classification Reported Allergen(s) Allergy Type Date of Onset Reaction(s) Facility (6 sources) Amino Acids; Translations: [LISINOPRIL] Drug Allergy 07-26-19 11 [facility] Repository (3 sources) Amoxicillin; Translations: [AMOXICILLIN] Drug Allergy 03-18-[address] [facility] Repository (6 sources) Etodolac; Translations: [ETODOLAC] Drug Allergy 01-18-20 14 [facility] Repository (1 source) Penicillin Drug Allergy 03-12-[address] [facility] Repository (1 source) Sulfonamides (Antibiotic) Drug allergy (disorder) 07-26-[address] [facility] Repository (8 sources) Etodolac Drug Allergy 01-18-20 14 [facility] (8 sources) Lisinopril Drug Allergy 01-26-20 14 Other (See Comments) [facility] [employer] Other (2 sources) Sulfacetamide / Sulfur Drug Allergy Unknown [facility] Other (3 sources) Substance with penicillin structure and antibacterial mechanism of action (substance) Drug allergy 05-22-20 19 Unknown [facility] [employer] Other (17 sources) Substance with sulfonamide structure and antibacterial mechanism of action (substance) Drug allergy 01-18-20 14 Rash [employer] Other (19 sources) Penicillins; Translations: [PENICILLINS] Allergy to substance 06-06-20 [facility] Comment on above: Onset Date: 05/22/20 19 (5 sources) Sulfonamides (Antibiotic); Translations: [SULFA (SULFONAMIDE ANTIBIOTICS)] Allergy to substance 01-18-20 14 [facility] Comment on above: Onset Date: 10/06/19 18 (11 sources) Etodolac Allergy to substance 01-18-20 14 [facility] (11 sources) Lisinopril Allergy to substance 01-26-20 14 [facility] (3 sources) Amoxicillin Drug Allergy 06-06-20 [facility] Medications Current Medications Medication Drug Class(es) Dates Sig (Normalized) Sig (Original) amLODIPine 10 mg oral tablet (20 sources) Dihydropyridine Calcium Channel Addie Start: 11-17-2023 take 1 tablet by mouth once daily at bedtime Amlodipine 10 mg tablet Active 1 TAB PO Daily at bedtime November 16, 2023 11:00pm FreeTextSig: TAKE 1 TABLET BY MOUTH AT BEDTIME; Note: Source Status: Start; Refills: 3; Qty: 90 Tablet; Provider: Edward Taylor ( ) atorvastatin 40 mg oral tablet (20 sources) HMG-CoA Reductase Inhibitor Start: 11-17-2023 take 1 tablet by mouth once daily at bedtime Atorvastatin 40 mg tablet Active 1 TAB PO Daily at bedtime November 16, 2023 11:00pm FreeText[employer]: TAKE 1 TABLET BY MOUTH AT BEDTIME; Note: Source Status: Start; Refills: 3; Qty: 90 Tablet; Provider: Edward Taylor ( ) azithromycin 250 mg oral tablet (1 source) Macrolide Antimicrobial Start: 05-19-2023 Azithromycin 250 MG as directed Orally 2 tabs po today, then 1 tab daily x 4 more days for 5 Apr, Active Continuous Blood Gluc Sensor (FreeStyle Delicia 3 Sensor) [facility] (5 sources) Start: 03-18-2023 End: 04-18-2024 Continuous Blood Gluc Sensor (FreeStyle Delicia 3 Sensor) [facility] Indications: Type 2 diabetes mellitus with peripheral neuropathy (CMS/HCC) Inject 1 Device under the skin every 14 (fourteen) days. 6 each 3 03/18/2023 04/18/2024 Discontinued (Reorder) Start: 03-18-2023 Continuous Blo od Gluc Sensor (FreeStyle Delicia 3 Sensor) mis Indications: Type 2 diabetes mellitus with peripheral neuropathy (CMS/HCC) Inject 1 Device under the skin every 14 (fourteen) days. 6 each 3 03/18/2023 Active Continuous Glucose Sensor (FreeStyle Delicia 3 Sensor) [facility] (8 sources) Start: 04-18-2024 Continuous Glu cose Sensor (FreeStyle Delicia 3 Sensor) [facility] Indications: Type 2 diabetes mellitus with peripheral neuropathy (CMS/HCC) Inject 1 Device under the skin every 14 (fourteen) days 6 each 3 04/18/2024 Active flecainide acetate 150 mg oral tablet (20 sources) Antiarrhythmic Start: 03-09-2024 take 0.5 tablet by mouth in the morning, then take 0.5 tablet by mouth at bedtime flecainide (TAMBOCOR) 150 mg tablet Take 0.5 tablets (75 mg total) by mouth in the morning and 0.5 tablets (75 mg total) before bedtime. 90 tablet 3 03/09/2024 Active Start: 11-02-2023 End: 05-03-2024 take 1 tablet by mouth once daily Flecainide 150 mg tablet Active 0 .ROUTE .COMPLEX 90 May 03, 2024 9:44am TAKE 1 TABLET BY MOUTH DAILY Start: 04-03-2020 End: 03-09-2024 take 1 tablet by mouth once daily Flecainide 150 mg tablet Discontinued 150 MG PO Daily November 01, 2023 11:00pm November 02, 2023 1:51pm furosemide 40 mg oral tablet (20 sources) Loop Diuretic Start: 11-17-2023 End: 11-18-2023 take 1 tablet by mouth once daily as needed Furosemide 40 mg tablet Active 40 MG PO .prn November 18, 2023 11:01am FreeTextSig: TAKE 1 TABLET BY MOUTH DAILY NEEDED; Note: Source Status: Taking; Refills: 1; Qty: 30 Tablet; Provider: Edward Taylor ( ) hydroCHLOROthiazide 25 mg oral tablet (20 sources) Thiazide Diuretic Start: 02-27-2020 take 1 tablet by mouth twice daily hydroCHLOROthiazide (HYDRODIURIL) 25 mg tablet Take 1 tablet (25 mg total) by mouth 2 (two) times a day. 02/27/2020 Active 3 ml insulin glargine 100 unt/ml pen injector (20 sources) Insulin Analog Start: 08-07-2024 insulin glargine (Lantus SoloStar) 100 UNIT/ML pen Indications: Type 2 diabetes mellitus with peripheral neuropathy (CMS/HCC) Inject 25 Units under the skin in the morning. 30 mL 1 08/07/2024 Active Start: 04-18-2024 insulin glargi ne (Lantus SoloStar) 100 UNIT/ML pen Indications: Type 2 diabetes mellitus with peripheral neuropathy (CMS/HCC) Inject 25 Units under the skin in the morning. 30 mL 3 04/18/2024 Active Start: 03-21-2024 Insulin Glargi ne (Lantus Solostar U-100 Insulin) 100 unit/mL (3 mL) insulin pen Active 28 UNIT SUBCUT March 21, 2024 10:38am FreeTextSi units Subcutaneous Once a day; Note: Source Status: Taking; Provider: Edward Taylor ( ) Start: 11-17-2023 End: 03-21-2024 Insulin Glargine (Lantus Lynsey ostar U-100 Insulin) 100 unit/mL (3 mL) insulin pen Discontinued UNIT SUBCUT November 16, 2023 11:00pm March 21, 2024 10:38am FreeTextSi units Subcutaneous Once a day; Note: Source Status: Taking; Provider: Edward Taylor ( ) Start: 07-16-2023 End: 04-18-2024 insulin glargine (Lantus Lynsey oStar) 100 UNIT/ML pen Indications: Type 2 diabetes mellitus with peripheral neuropathy (CMS/HCC) Inject 28 Units under the skin in the morning. 30 mL 3 07/16/2023 04/18/2024 Discontinued (Dose adjustment) Start: 11-08-2020 LANTUS SOLOSTA R U-100 INSULIN 100 unit/mL (3 mL) insulin pen INJECT 34 UNITS SUBCUTANEOUSLY DAILY 11/08/2020 Active Lantus SoloStar 100 UNIT/ML 32 units Subcutaneous Once a day Active Insulin Lispro (20 sources) Insulin Analog Start: 03-21-2024 inject 10 [...] daily November 18, 2023 12:00am Start: 11-30-2020 insulin lispro (HumaLOG KWIKPEN) 100 UNIT/ML injection 10 units breakfast/dinner plus correction 1:30 >150 mg/dl (max daily 50) 45 mL 3 01/11/2024 Active Humalog Active Insulin Lispro 100 unit/mL insulin pen (2 sources) Start: 03-21-2024 inject 10 [IU] by subcutaneous injection three times daily Insulin Lispro 100 unit/mL insulin pen Active 10 UNIT SUBCUT Three times daily March 21, 2024 10:36am Start: 11-18-2023 End: 03-21-2024 inject 12 [IU] by subcutaneous injection three times daily Insulin Lispro 100 unit/mL insulin pen Discontinued 12 UNIT SUBCUT Three times daily November 17, 2023 11:00pm March 21, 2024 10:38am losartan potassium 100 mg oral tablet (20 sources) Angiotensin 2 Receptor Addie Start: 02-27-2020 losartan (COZAAR) 100 mg tablet 02/27/2020 Active meclizine hydrochloride 12.5 mg oral tablet [...] day for 30 day(s) Jan, Active Propranolol (20 sources) beta-Adrenergic Addie Start: 05-03-2024 take 1 capsule by mouth once daily Propranolol 60 mg capsule,extended release 24 hr Active 0 .ROUTE .COMPLEX 90 May 03, 2024 9:44am TAKE 1 CAPSULE BY MOUTH DAILY Start: 02-02-2024 End: 05-03-2024 take 1 capsule by mouth once daily Propranolol 60 mg capsule,extended release 24 hr Discontinued 0 .ROUTE .COMPLEX February 02, 2024 7:28am May 03, 2024 9:44am TAKE 1 CAPSULE BY MOUTH ONCE DAILY Start: 02-02-2024 take 1 capsule by mo uth once daily Propranolol Active 0 .ROUTE .COMPLEX 90 February 02, 2024 8:28am TAKE 1 CAPSULE BY MOUTH ONCE DAILY Start: 11-02-2023 End: 02-02-2024 take 1 capsule by mouth once daily Propranolol 60 mg capsule,extended release 24 hr Discontinued 0 .ROUTE .COMPLEX Valeria November 02, 2023 1:51pm February 02, 2024 7:28am TAKE 1 CAPSULE BY MOUTH DAILY Start: 11-02-2023 End: 02-02-2024 take 1 capsule by mouth once daily Propranolol Discontinued 0 .ROUTE .COMPLEX November 02, 2023 2:51pm February 02, 2024 8:28am TAKE 1 CAPSULE BY MOUTH DAILY Start: 11-02-2023 take 1 capsule by mo uth once daily Propranolol Active 0 .ROUTE .COMPLEX 90 November 02, 2023 2:51pm TAKE 1 CAPSULE BY MOUTH DAILY Start: 11-02-2023 End: 11-02-2023 take 1 capsule by mouth once daily Propranolol 60 mg capsule,extended release 24 hr Discontinued 60 MG PO Daily November 01, 2023 11:00pm November 02, 2023 1:51pm take 1 capsule by mo uth every twenty-four hours in the morning propranolol LA (Inderal LA) 60 MG 24 hr capsule Take 60 mg by mouth in the morning. Active take 1 capsule by mo uth once daily Propranolol HCl ER 60 mg TAKE 1 CAPSULE BY MOUTH DAILY for 90 Active warfarin sodium 4 mg oral tablet (20 sources) Vitamin K Antagonist Start: 11-17-2023 Warfarin 2 mg tablet Active 2 MG PO MOWEFR November 16, 2023 11:00pm Start: 02-12-2020 warfarin (COUM JUAN CARLOS) 4 mg tablet Take 1 tablet (4 mg total) by mouth. 02/12/2020 Active Warfarin 2mg Act heike Completed/Discontinued Medications [...] Not-Taking metFORMIN hydrochloride 500 mg oral tablet (8 sources) Biguanide Start: 11-17-2023 End: 11-18-2023 take 1 tablet by mouth twice daily at mealtime Metformin 500 mg tablet Discontinued 500 MG PO Twice daily with meals November 16, 2023 11:00pm November 18, 2023 11:02am metFORMIN HCl No t-Taking 24 hr metoprolol succinate 25 mg extended release oral tablet (8 sources) beta-Adrenergic Addie Start: 11-17-2023 End: 11-18-2023 take 1 tablet by mouth once daily Metoprolol Succinate 25 mg tablet extended release 24 hr Discontinued 25 MG PO Daily November 16, 2023 11:00pm November 18, 2023 11:03am Metoprolol Succi trudi ER Not-Taking Problems Active Problems Problem Classification Problem Date Documented Da te Episodic/Chronic Allergic reactions (8 sources) Contact dermatitis due to plants; Translations: [Unspecified contact dermatitis due to plants, except food] 11-28-2023 Episodic Cardiac dysrhythmias (20 sources) Paroxysmal atrial fibrillation; Translations: [Paroxysmal atrial fibrillation] Onset: 11-16-2014 Chronic Diabetes mellitus with complications (20 sources) Insulin treated type 2 diabetes mellitus; Translations: [Type 2 diabetes mellitus with diabetic chronic kidney disease] Onset: 08-06-2020 Resolved: 03-18-2023 07-12-2023 Chronic Digestive congenital anomalies (2 sources) Congenital redundant colon; Translations: [Redundant colon] Chronic Disorders of lipid metabolism (20 sources) Mixed hyperlipidemia; Translations: [Mixed hyperlipidemia] Onset: 11-16-2014 Chronic Essential hypertension (20 sources) Essential hypertension; Translations: [Essential (primary) hypertension] Onset: 04-14-2016 Chronic Heart valve disorders (20 sources) Nonrheumatic mitral (valve) insufficiency; Translations: [Nonrheumatic tricuspid (valve) insufficiency] Onset: 07-06-2018 02-15-2023 Chronic Hemorrhoids (3 sources) Residual hemorrhoidal skin tags; Translations: [Residual hemorrhoidal skin tags] Episodic Malaise and fatigue (7 sources) Other fatigue; Translations: [Asthenia] Onset: 01-30-2019 Episodic Nonspecific chest pain (3 sources) Chest pain; Translations: [Chest pain, unspecified] Episodic Occlusion or stenosis of precerebral arteries (20 sources) Occlusion and stenosis of bilateral carotid arteries; Translations: [Bilateral carotid artery occlusion] Onset: 04-14-2016 02-15-2023 Chronic Other aftercare (5 sources) Encounter for therapeutic drug level monitoring; Translations: [ENC THERAPEUTC DRUG LEVL MONITORING] Onset: 11-21-2022 Episodic Other and ill-defined heart disease (2 sources) Cardiomegaly; Translations: [Cardiomegaly] Onset: 06-06-2020 Chronic Other and ill-defined heart disease (18 sources) Left atrial enlargement; Translations: [Cardiomegaly] Onset: 07-06-2018 02-15-2023 Chronic Other and unspecified benign neoplasm (2 sources) Tubular adenoma of colon; Translations: [Tubular adenoma of colon] Episodic Other circulatory disease (3 sources) Elevated blood-pressure reading without diagnosis of hypertension; Translations: [Elevated blood-pressure reading, without diagnosis of hypertension] Episodic Other connective tissue disease (3 sources) Pain in lower limb; Translations: [Pain in right leg] 11-18-2023 Episodic Other connective tissue disease (1 source) Pain in right leg; Translations: [Pain in limb] 11-18-2023 Episodic Other gastrointestinal disorders (1 source) Personal history of other diseases of the digestive system Episodic Other hereditary and degenerative nervous system conditions (20 sources) Essential tremor; Translations: [Essential tremor] Onset: 11-09-2016 03-22-2024 Chronic Other inflammatory condition of skin (3 sources) Rosacea; Translations: [Rosacea, unspecified] Chronic Other inflammatory condition of skin (2 sources) Pruritus ani; Translations: [Pruritus ani] 11-28-2023 Episodic Other nutritional; endocrine; and metabolic disorders (6 sources) Obese class II; Translations: [Body mass index (BMI) 38.0-38.9, adult] Chronic Other nutritional; endocrine; and metabolic disorders (18 sources) Severe obesity; Translations: [Morbid (severe) obesity due to excess calories] Onset: 07-24-2020 07-12-2023 Chronic Other skin disorders (3 sources) Localized scleroderma; 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 et atrophicus] Chronic Other upper respiratory infections (4 sources) Acute sinusitis; Translations: [Acute sinusitis, unspecified] Episodic Pancreatic disorders (not diabetes) (3 sources) Chronic pancreatitis; Translations: [Other chronic pancreatitis] Onset: 10-25-2018 Chronic Pulmonary heart disease (20 sources) Pulmonary hypertension; Translations: [Pulmonary hypertension, unspecified] Onset: 06-28-2017 11-18-2023 Chronic Residual codes; unclassified (15 sources) Hypersomnia; Translations: [Hypersomnia, unspecified] Onset: 11-09-2016 03-22-2024 Chronic Residual codes; unclassified (20 sources) Obstructive sleep apnea syndrome; Translations: [Obstructive sleep apnea (adult) (pediatric)] Onset: 03-02-2017 03-22-2024 Chronic Residual codes; unclassified (3 sources) Tobacco user; Translations: [Tobacco use] Episodic Past or Other Problems Problem Classification Problem Date Documented Da te Episodic/Chronic Acute bronchitis (3 sources) Acute bronchitis; Translations: [Acute bronchitis, unspecified] Onset: 08-04-2018 Episodic Conditions associated with dizziness or vertigo (15 sources) Benign paroxysmal vertigo, bilateral; Translations: [Vertigo] Onset: 02-10-2019 Episodic Diabetes mellitus without complication (17 sources) Type 2 diabetes mellitus without complication; Translations: [Type 2 diabetes mellitus without complications] Onset: 06-10-2018 Resolved: 03-18-2023 Chronic Diseases of mouth; excluding dental (20 sources) Disorder of salivary gland; Translations: [Other diseases of salivary glands] Onset: 03-09-2019 02-15-2023 Episodic Lymphadenitis (14 sources) Lymphadenitis; Translations: [Nonspecific lymphadenitis, unspecified] Onset: 02-20-2020 02-15-2023 Episodic Neoplasms of unspecified nature or uncertain behavior (14 sources) Neoplastic disease; Translations: [Neoplasm of unspecified behavior of bone, soft tissue, and skin] Onset: 01-25-2014 Resolved: 02-15-2023 02-15-2023 Episodic Other aftercare (2 sources) buttermaker continuous churn (current) use of anticoagulants; Translations: [HALFWAY CURRNT USE ANTICOAGULANTS] Onset: 06-06-2020 Episodic Other aftercare (16 sources) Long-term current use of anticoagulant; Translations: [senior living (current) use of anticoagulants] Onset: 02-10-2019 02-15-2023 Episodic Other aftercare (17 sources) Long-term current use of drug therapy; Translations: [Other nursing home (current) drug therapy] Onset: 04-18-2019 02-15-2023 Episodic Other aftercare (11 sources) Long-term current use of insulin; Translations: [senior living (current) use of insulin] Onset: 03-18-2023 Resolved: 10-12-2023 10-12-2023 Episodic Other aftercare (1 source) Other buttermaker continuous churn (current) drug therapy; Translations: [Other nursing home (current) drug therapy] Onset: 12-02-2020 Episodic Other circulatory disease (2 sources) Personal history of transient ischemic attack (TIA), and cerebral infarction without residual deficits; Translations: [Personal history of transient ischemic attack (TIA), and cerebral infarction without residual deficits] Onset: 06-06-2020 Episodic Other circulatory disease (18 sources) History of transient ischemic attack; Translations: [Personal history of transient ischemic attack (TIA), and cerebral infarction without residual deficits] Onset: 02-10-2019 02-15-2023 Episodic Other circulatory disease (14 sources) Bruit; Translations: [Other specified symptoms and signs involving the circulatory and respiratory systems] Onset: 11-16-2014 02-15-2023 Episodic Other lower respiratory disease (15 sources) Hypoxemia; Translations: [Hypoxemia] Onset: 07-05-2017 03-22-2024 Episodic Other nervous system disorders (15 sources) Hemifacial spasm; Translations: [Clonic hemifacial spasm, right] Onset: 12-27-2023 03-22-2024 Episodic Other nervous system disorders (13 sources) Muscle twitch; Translations: [Fasciculation] Onset: 12-26-2023 03-22-2024 Episodic Other non-epithelial cancer of skin (14 sources) Basal cell carcinoma of face; Translations: [Basal cell carcinoma of skin of other parts of face] Onset: 01-17-2014 02-15-2023 Episodic Other screening for suspected conditions (not mental disorders or infectious disease) (20 sources) Encounter for screening mammogram for malignant [...] edema] Onset: 12-02-2020 Episodic Residual codes; unclassified (14 sources) Family history of basal cell carcinoma of skin; Translations: [Family history of malignant neoplasm of other organs or systems] Onset: 12-02-2020 02-15-2023 Episodic Residual codes; unclassified (17 sources) Bilateral lower limb edema; Translations: [Localized edema] Onset: 04-14-2016 02-15-2023 Episodic Residual codes; unclassified (11 sources) Insomnia; Translations: [Insomnia, unspecified] Onset: 07-05-2017 12-26-2023 Episodic Spondylosis; intervertebral disc disorders; other back problems (20 sources) Sciatica; Translations: [Sciatica, left side] Onset: 02-14-2023 Episodic Results Test Name Value Interpretation Reference Range [facility] HbA1c (Bld) [Mass fraction]o n 07-14-2024 Interpretation and review of laboratory results [facility] 07-14-2024 HbA1c (Bld) [Mass fraction] 7.3 % [facility] HbA1c (Bld) [Mass fraction]o n 04-18-2024 Interpretation and review of laboratory results Normal [facility] Cell count[facility] 04-18-2024 HbA1c (Bld) [Mass fraction] 6.9 % [facility] [employer] POCT EKGOrdered By: Lilian doshi on 03-09-2024 [facility] MG MAMM SCREEN 3D YEHUDA CADon 05-29-2022 MG MAMM SCREEN 3D YEHUDA CAD Patient: BRI KWAN Exam Date: 05/29/2022 : 1950 Gender:F Ordering : DR CLAUDIA LEON M.D. Admission #: [id number] Family : Order #: [id number] CLICK HERE TO VIEW EXAM RADIOLOGY REPORT [...] breast cancer at age 59. LOCATION: [facility] BREAST COMPOSITION: Scattered areas [...] Yanez MD on 05/29/2022 at 10:[address] [facility] Vital Signs Date Time Vital Sign Value Performing Clinician Facility 09-28-2024 11:46-0500 Body height 165.1 cm Marco Antonio Hines MD Work Phone: [facility] 09-28-2024 11:46-0500 Body mass index (BMI) [Ratio] 36.88 kg/m2 Marco Antonio Hines MD Work Phone: [facility] 09-28-2024 11:46-0500 Body weight 100.52 kg Marco Antonio Hines MD Work Phone: [facility] 09-28-2024 11:46-0500 Diastolic blood pressure 78 mm[Hg] Marco Antonio Hines MD Work Phone: [facility] 09-28-2024 11:46-0500 Heart rate 62 /min Marco Antonio Hines MD Work Phone: [facility] 09-28-2024 11:46-0500 SaO2% (BldA) [Mass fraction] 96 % Marco Antonio Hines MD Work Phone: [facility] 09-28-2024 11:46-0500 Systolic blood pressure 140 mm[Hg] Marco Antonio Hines MD Work Phone: [facility] 09-06-2024 10:59-0500 Body height 165.1 cm Josue Genaomor ALCOHOL STILL OPERATOR Work Phone: [facility] 09-06-2024 10:59-0500 Body mass index (BMI) [Ratio] 36.61 kg/m2 Josue Gillmor ALCOHOL STILL OPERATOR Work Phone: [facility] 09-06-2024 10:59-0500 Body weight 99.79 kg Josue Gillmor ALCOHOL STILL OPERATOR Work Phone: [facility] 09-06-2024 10:59-0500 Diastolic blood pressure 69 mm[Hg] Josue Gillmor ALCOHOL STILL OPERATOR Work Phone: [facility] 09-06-2024 10:59-0500 Heart rate 57 /min Josue Gillmor ALCOHOL STILL OPERATOR Work Phone: [facility] 09-06-2024 10:59-0500 Systolic blood pressure 153 mm[Hg] Josue Gillmor ALCOHOL STILL OPERATOR Work Phone: [facility] 07-27-2024 10:03-0500 Body height 165.1 cm [facility] 07-27-2024 10:03-0500 Body mass index (BMI) [Ratio] 36.9 kg/m2 [facility] 07-27-2024 10:03-0500 Body weight 100.69 kg [facility] 07-27-2024 10:03-0500 Diastolic blood pressure 67 mm[Hg] [facility] 07-27-2024 10:03-0500 Heart rate 85 /min [facility] 07-27-2024 10:03-0500 Systolic blood pressure 134 mm[Hg] [facility] 07-14-2024 13:08-0500 Body height 165.1 cm Adenike Petznick DO Work Phone: [facility] 07-14-2024 13:08-0500 Body mass index (BMI) [Ratio] 36.78 kg/m2 Adenike Petznick DO Work Phone: [facility] 07-14-2024 13:08-0500 Body temperature 98.29 [degF] Adenike Petznick DO Work Phone: [facility] 07-14-2024 13:08-0500 Body weight 100.25 kg Adenike Petznick DO Work Phone: [facility] 07-14-2024 13:08-0500 Diastolic blood pressure 62 mm[Hg] Adenike Petznick DO Work Phone: [facility] 07-14-2024 13:08-0500 Heart rate 57 /min Adenike Petznick DO Work Phone: [facility] 07-14-2024 13:08-0500 SaO2% (BldA) [Mass fraction] 95 % Adenike Petznick DO Work Phone: [facility] 07-14-2024 13:08-0500 Systolic blood pressure 126 mm[Hg] Adenike Petznick DO Work Phone: [facility] 04-18-2024 11:30-0400 Body height 165.1 cm Adenike Petznick DO Work Phone: [facility] 04-18-2024 11:30-0400 Body mass index (BMI) [Ratio] 37.44 kg/m2 Adenike Petznick DO Work Phone: [facility] 04-18-2024 11:30-0400 Body temperature 98.01 [degF] Adenike Petznick DO Work Phone: [facility] 04-18-2024 11:30-0400 Body weight 102.06 kg Adenike Petznick DO Work Phone: [facility] 04-18-2024 11:30-0400 Diastolic blood pressure 66 mm[Hg] Adenike Petznick DO Work Phone: [facility] 04-18-2024 11:30-0400 Heart rate 67 /min Adenike Petznick DO Work Phone: [facility] 04-18-2024 11:30-0400 SaO2% (BldA) [Mass fraction] 96 % Adenike Petznick DO Work Phone: [facility] 04-18-2024 11:30-0400 Systolic blood pressure 132 mm[Hg] Adenike Petznick DO Work Phone: [facility] 03-22-2024 10:41-0400 Body height 165.1 cm Josue Birgitmor ALCOHOL STILL OPERATOR Work Phone: [facility] 03-22-2024 10:41-0400 Body mass index (BMI) [Ratio] 37.77 kg/m2 Josue Gillmor ALCOHOL STILL OPERATOR Work Phone: [facility] 03-22-2024 10:41-0400 Body weight 102.97 kg Josue Gillmor ALCOHOL STILL OPERATOR Work Phone: [facility] 03-22-2024 10:41-0400 Diastolic blood pressure 61 mm[Hg] Josue Gillmor ALCOHOL STILL OPERATOR Work Phone: [facility] 03-22-2024 10:41-0400 Heart rate 57 /min Josue Birgitmor ALCOHOL STILL OPERATOR Work Phone: [facility] 03-22-2024 10:41-0400 Systolic blood pressure 141 mm[Hg] Josue Birgitmor ALCOHOL STILL OPERATOR Work Phone: [facility] 03-21-2024 11:32-0400 Body height 165.1 cm [facility] 03-21-2024 11:32-0400 Body mass index (BMI) [Ratio] 37.8 kg/m2 [facility] 03-21-2024 11:32-0400 Body weight 102.96 kg [facility] 03-21-2024 11:32-0400 Diastolic blood pressure 68 mm[Hg] [facility] 03-21-2024 11:32-0400 Heart rate 63 /min [facility] 03-21-2024 11:32-0400 Systolic blood pressure 115 mm[Hg] [facility] 03-09-2024 12:27-0400 Body height 165.1 cm Marco Antonio Hines MD Work Phone: [facility] 03-09-2024 12:27-0400 Body mass index (BMI) [Ratio] 39.61 kg/m2 Marco Antonio Hines MD Work Phone: [facility] 03-09-2024 12:27-0400 Body weight 107.96 kg Marco Antonio Hines MD Work Phone: [facility] 03-09-2024 12:27-0400 Diastolic blood pressure 60 mm[Hg] Marco Antonio Hines MD Work Phone: [facility] 03-09-2024 12:27-0400 Heart rate 51 /min Marco Antonio Hines MD Work Phone: [facility] 03-09-2024 12:27-0400 Respiratory rate 16 /min Marco Antonio Hines MD Work Phone: [facility] 03-09-2024 12:27-0400 Systolic blood pressure 118 mm[Hg] Marco Antonio Hines MD Work Phone: [facility] 11-18-2023 11:53-0400 Body height 165.1 cm [facility] 11-18-2023 11:53-0400 Body mass index (BMI) [Ratio] 38.4 kg/m2 [facility] 11-18-2023 11:53-0400 Body weight 104.77 kg [facility] 11-18-2023 11:53-0400 Diastolic blood pressure 63 mm[Hg] [facility] 11-18-2023 11:53-0400 Heart rate 65 /min [facility] 11-18-2023 11:53-0400 Systolic blood pressure 134 mm[Hg] [facility] 05-19-2023 09:00-0400 Body height 165.1 cm Claudia Leon Other [facility] Other 05-19-2023 09:00-0400 Body mass index (BMI) [Ratio] 38.27 kg/m2 Claudia Leon Other [employer] Other 05-19-2023 09:00-0400 Body temperature 98 [degF] Claudia Leon Other [employer] Other 05-19-2023 09:00-0400 Body weight 104.33 kg Claudia Leon Other [employer] Other 05-19-2023 09:00-0400 Diastolic blood pressure 68 mm[Hg] Claudia Leon Other [employer] Other 05-19-2023 09:00-0400 Systolic blood pressure 113 mm[Hg] Claudia Leon Other [employer] Other 02-16-2023 11:15-0400 Body height 165.1 cm Claudia Leon Other [employer] Other 02-16-2023 11:15-0400 Body mass index (BMI) [Ratio] 38.77 kg/m2 Claudia Leon Other [employer] Other 02-16-2023 11:15-0400 Body weight 105.69 kg Claudia Leon Other [employer] Other 02-16-2023 11:15-0400 Diastolic blood pressure 61 mm[Hg] Claudia Leon Other [employer] Other 02-16-2023 11:15-0400 Systolic blood pressure 125 mm[Hg] Claudia Leon Other [employer] Other 01-13-2023 10:45-0400 Body height 165.1 cm Claudia Leon Other [employer] Other 01-13-2023 10:45-0400 Body mass index (BMI) [Ratio] 38.44 kg/m2 Claudia Leon Other [employer] Other 01-13-2023 10:45-0400 Body weight 104.78 kg Claudia Leon Other [employer] Other 01-13-2023 10:45-0400 Diastolic blood pressure 72 mm[Hg] Claudia Leon Other [employer] Other 01-13-2023 10:45-0400 SaO2% (BldA) [Mass fraction] 98 % Claudia Leon Other [employer] Other 01-13-2023 10:45-0400 Systolic blood pressure 128 mm[Hg] Claudia Leon Other [employer] Other Encounters Encounter Date Encounter Type Care Provider Facility Start: 10-17-2024 End: 10-17-2024 ambulatory ADENIKE LANGFORD Not Available Start: 10-16-2024 End: 10-16-2024 Telephone encounter Adenike Langford DO Work Phone: [facility] 230 Comment on above: Appointment Confirma tion Start: 09-28-2024 End: 09-28-2024 Office outpatient visit 25 minutes Marco Antonio Hines MD Work Phone: [facility] Comment on above: Paroxysmal A-fib (CM S-HCC) (Primary Dx); Occlusion and stenosis of bilateral carotid arteries; Nonrheumatic tricuspid valve regurgitation; LAE (left atrial enlargement); Pulmonary hypertension (CMS-HCC); Essential hypertension; Nonrheumatic aortic valve insufficiency; Hyperlipidemia, unspecified hyperlipidemia type; History of transient ischemic attack (TIA); Current use of nursing home anticoagulation; Abnormal echocardiogram; Bilateral edema of lower extremity; senior living current use of antiarrhythmic drug; Non-rheumatic mitral regurgitation Start: 09-28-2024 End: 09-28-2024 ambulatory MARCO ANTONIO HINES [facility] Start: 09-06-2024 End: 09-06-2024 Santiago Rachel NP Work Phone: [facility] Start: 09-06-2024 End: 09-06-2024 Santiago Rachel NP Work Phone: [facility] Start: 09-06-2024 End: 09-06-2024 Office outpatient visit 25 minutes Josue Rachel NP Work Phone: [facility] Comment on above: Essential tremor (Pr imary Dx); Obstructive sleep apnea; Hypersomnia, unspecified; Hypoxemia; 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 Start: 09-06-2024 End: 09-06-2024 ambulatory JOSUE RACHEL Not Available Start: 07-27-2024 End: 07-27-2024 ambulatory [facility] Work Phone: Start: 07-27-2024 End: 07-27-2024 Patient encounter procedure [facility] Work Phone: Start: 07-14-2024 End: 07-14-2024 Office outpatient visit 25 minutes Adenike Langford DO Work Phone: [facility] 230 Comment on above: Type 2 diabetes austin itus with stage 3b chronic kidney disease, with long-term current use of insulin (HCC) (CMS/HCC) (Primary Dx); Type 2 diabetes mellitus with peripheral neuropathy ([facility]); Class 2 severe obesity due to excess calories with serious comorbidity and body mass index (BMI) of 36.0 to 36.9 in adult ([facility]) Start: 07-14-2024 End: 07-14-2024 ambulatory ADENIKE LANGFORD Not Available Start: 04-18-2024 End: 04-18-2024 Office outpatient visit 25 minutes Adenike Langford DO Work Phone: [facility] 230 Comment on above: Class 2 severe obesi ty due to excess calories with serious comorbidity and body mass index (BMI) of 37.0 to 37.9 in adult ([facility]) (Primary Dx); Type 2 diabetes mellitus with stage 3b chronic kidney disease, with long-term current use of insulin ([facility]) ([facility]); Type 2 diabetes mellitus with peripheral neuropathy ([facility]) Start: 04-18-2024 End: 04-18-2024 ambulatory ADENIKE ELANANT Not Available Start: 03-22-2024 End: 03-22-2024 Bamboo flowsheet Josue Rachel ALCOHOL STILL OPERATOR Work Phone: [facility] Start: 03-22-2024 End: 03-22-2024 Bamboo deysiheet Josue Rachel ALCOHOL STILL OPERATOR Work Phone: [facility] Start: 03-22-2024 End: 03-22-2024 Office outpatient visit 25 minutes Josue Rachel ALCOHOL STILL OPERATOR Work Phone: [facility] Comment on above: Essential tremor (Pr imary Dx); Hypersomnia, unspecified; Obstructive sleep apnea; 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 Work Phone: Start: 03-09-2024 End: 03-09-2024 Office outpatient visit 25 minutes Marco Antonio Hines MD Work Phone: [facility] Comment on above: Paroxysmal A-fib (CM S-HCC) (Primary Dx); Occlusion and stenosis of bilateral carotid arteries; Non-rheumatic mitral regurgitation; Nonrheumatic tricuspid valve regurgitation; LAE (left atrial enlargement); Pulmonary hypertension (CMS-HCC); Essential hypertension; Nonrheumatic aortic valve insufficiency; Hyperlipidemia, unspecified hyperlipidemia type; History of transient ischemic attack (TIA); Current use of buttermaker continuous churn anticoagulation; Abnormal echocardiogram; Bilateral edema of lower extremity; buttermaker continuous churn current use of antiarrhythmic drug Start: 03-09-2024 End: 05-05-2024 ambulatory MARCO ANTONIO HINES [facility] Comment on above: senior living current us e of antiarrhythmic drug (Primary Dx); LAE (left atrial enlargement); Pulmonary hypertension (CMS-HCC) Start: 01-11-2024 End: 01-11-2024 ambulatory ADENIKE LANGFORD Not Available Start: 12-27-2023 End: 12-27-2023 ambulatory JOSUE RACHEL Not Available Start: 11-18-2023 End: 11-18-2023 ambulatory [facility] Work Phone: Start: 11-18-2023 End: 11-18-2023 Patient encounter procedure [facility] Work Phone: Start: 11-02-2023 Non-patient / Non-visit [facility] Work Phone: Start: 05-19-2023 End: 05-19-2023 ambulatory Claudia Leon Other [employer] Other Start: 05-19-2023 Office outpatient vi sit 15 minutes Claudia Leon [facility] Start: 02-16-2023 End: 02-16-2023 ambulatory Claudia Leon Other [employer] Other Start: 02-16-2023 Patient encounter procedure Claudia Leon [facility] Start: 02-10-2023 End: 02-10-2023 ambulatory Claudia Leon Other [employer] Other Start: 02-10-2023 Telephone encounter Claudia Leon [facility] Start: 01-13-2023 End: 01-13-2023 ambulatory Claudia Leon Other [employer] Other Start: 01-13-2023 Office outpatient vi sit 25 minutes Claudia Leon [facility] Start: 11-23-2022 End: 12-23-2022 ambulatory MORALES H FAWWAD Facility:[facility] Start: 10-26-2022 End: 11-20-2022 ambulatory MORALES H FAWWAD Facility:[facility] Start: 09-23-2022 End: 10-23-2022 ambulatory MORALES H FAWWAD Facility:[facility] Start: 08-26-2022 End: 09-23-2022 ambulatory MORALES H FAWWAD Facility:[facility] Start: 07-27-2022 End: 08-26-2022 ambulatory MORALES H FAWWAD Facility:[facility] Start: 06-25-2022 End: 07-26-[address] CLAUDIA LEON Facility:[facility] Start: 05-29-2022 End: 05-30-[address] LEA YANEZ Facility:[facility] Start: 05-26-2022 End: 06-24-[address] CLAUDIA LEON Facility:[facility] Start: 04-26-2022 End: 05-25-[address] CLAUDIA LEON Facility:[facility] Start: 03-26-2022 End: 04-25-[address] CLAUDIA LEON Facility:[facility] Start: 02-23-2022 End: 03-25-[address] CLAUDIA LEON Facility:[facility] Start: 01-23-2022 End: 02-20-2022 ambulatory SHAIKH Ramy ORNELAS Facility:[facility] Start: 12-18-2021 Adult health examination Erica Leon Other [employer] Other Start: 12-18-2021 Gynecological examin ation normal Claudia Leon Other [employer] Other Start: 12-01-2021 Gynecological examin ation abnormal Claudia Edward Other [employer] Other Procedures Date Procedure Procedure Detail Performing Clinician Start: 07-14-2024 Hemoglobin glycosyla dayne a1c Adenike Frias [employer] DO Work Phone: Start: 04-18-2024 Hemoglobin glycosyla dayne a1c Adenike Frias [employer] DO Work Phone: Start: 03-09-2024 Ecg routine ecg w/le ast 12 lds w/i&r Marco Antonio Hines MD Work Phone: Start: 03-09-2024 Follow-up visit Follow-up MARCO ANTONIO HINES Screening for malign ant neoplasm of colon Claudia Edward Other Plan of Treatment Date Care Activity Detail Author Start: 09-28-2025 Adult BMI Screening [facility] Start: 09-28-2025 Tobacco Screening Tobacco Screening [facility] Start: 09-05-2025 End: 09-05-2025 Patient encounter procedure 09/05/2025 11:00 AM EST Office Visit [facility] [address] [place] [phone] Josue Rachel NP [address] [place] [address] [facility] Start: 03-31-2025 End: 09-28-2025 Echo complete W/O contrast Echo complete W/O contrast Echocardiography Routine Nonrheumatic tricuspid valve regurgitation LAE (left atrial enlargement) Pulmonary hypertension (CMS-HCC) Essential hypertension Paroxysmal A-fib (CMS-HCC) Nonrheumatic aortic valve insufficiency History of transient ischemic attack (TIA) Abnormal echocardiogram Bilateral edema of lower extremity Non-rheumatic mitral regurgitation Expected: 03/31/2025 (Approximate), Expires: 09/28/2025 [employer] Work Phone: Comment on above: Expected: 03/31/2025 (Approximate), Expires: 09/28/2025 Start: 03-31-2025 End: 09-28-2025 US Carotid arteries - bilateral Vas carotid duplex bilateral Vascular Ultrasound Routine Occlusion and stenosis of bilateral carotid arteries History of transient ischemic attack (TIA) Expected: 03/31/2025 (Approximate), Expires: 09/28/2025 [facility] Comment on above: Expected: 03/31/2025 (Approximate), Expires: 09/28/2025 Start: 03-09-2025 Adult BMI Screening Adult BMI Screen ing [facility] Start: 03-09-2025 Tobacco Screening Tobacco Screening [facility] Start: 10-17-2024 End: 10-17-2024 Patient encounter procedure 10/17/2024 11:30 AM EDT Office Visit [facility] [address] [place] [phone] Adenike Langford, DO [address] [place] [address] [facility] Start: 10-13-2024 End: 10-13-2024 Patient encounter procedure 10/13/2024 1:00 PM EDT Office Visit [facility] [address] [place] [phone] Adenike Langford, DO [address] [place] [address] [facility] 230 Start: 10-12-2024 Hemoglobin A1c measurement Diabetes: Hemoglobin A1C [facility] Start: 09-11-2024 End: 09-11-2024 Patient encounter procedure 09/11/2024 11:00 AM EST [facility] [address] [facility] [address] [place] [phone] Marco Antonio Hines MD [address] [place] [address] [facility] Start: 09-06-2024 End: 09-06-2024 Patient encounter procedure [facility] Comment on above: Arrived Start: 07-18-2024 Hemoglobin A1c measurement Diabetes: Hemoglobin A1C [facility] Start: 07-14-2024 End: 07-14-2024 Patient encounter procedure 07/14/2024 1:15 PM EST Office Visit [facility] [address] [place] [address] Adenike Langford, DO [address] [place] [address] [facility] Start: 05-22-2024 Glaucoma screening Diabetes: R etinopathy Screening [facility] Start: 04-18-2024 End: 04-18-2024 Patient encounter procedure 04/18/2024 11:30 AM EDT Office Visit [facility] [address] [place] [address] Adenike Langford, DO [address] [place] [address] [facility] Start: 04-12-2024 Hemoglobin A1c measurement Diabetes: Hemoglobin A1C [facility] Start: 03-26-2024 Influenza vaccination N [facility] Start: 03-22-2024 End: 03-22-2024 Patient encounter procedure 03/22/2024 10:40 AM EDT Office Visit [facility] [address] [place] [phone] Josue Rachel, ALCOHOL STILL OPERATOR [address] [place] [address] Arrived [facility] Comment on above: Arrived Start: 02-17-2024 Medicare Annual Wellness (AWV) Medicare Annual Wellness (AWV) [facility] Start: 12-19-2020 COVID-19 Vaccine (3 - Pfizer risk series) COVID-19 Vaccine (3 - Pfizer risk series) [facility] Start: 12-29-2015 Fall Risk Screening Fall Risk Screen ing [facility] Start: 1990 Screening for malign ant neoplasm of breast Mammogram [facility] Start: 1969 DTaP,Tdap and Td Vaccines (1 - Tdap) DTaP,Tdap and Td Vaccines (1 - Tdap) [facility] Start: 1969 Urine screening for protein Diabetes: Urine Protein Screening [facility] Start: 1968 Adult BMI Follow Up Plan Adult BMI Follow Up Plan [facility] Start: 1962 Depression Screening Depression Scre ening [facility] Start: 1950 Medicare Annual Wellness Visit Medicare Annual Wellness Visit [facility] Start: 1950 Screening for malign ant neoplasm of colon [facility] Comprehensive metabo lic 2000 panel - Serum or Plasma [facility] Microalbumin [Mass/volume] in Urine [facility] US Lower extremity v ein - bilateral [facility] Immunizations Immunization Date Immunization Notes Care Provider Fa pierre 11-21-2020 COVID-19 Vaccine Pfi zer - Documentation Purposes Only Claudia Leon Other [facility] 05-27-2020 influenza virus vaccine, split virus (incl. purified surface antigen) Claudia Leon Other [employer] Other 05-27-2020 influenza virus vaccine, unspecified formulation [facility] 05-27-2020 Influenza, Seasonal, Quadrivalent, Adjuvanted Josue Gillmor ALCOHOL STILL OPERATOR Work Phone: [facility] 05-26-2020 Seasonal, trivalent, recombinant, injectable influenza vaccine, preservative free Josue Gillmor ALCOHOL STILL OPERATOR Work Phone: [facility] 12-10-2019 zoster vaccine recombinant Josue Gillmor ALCOHOL STILL OPERATOR Work Phone: [facility] 08-22-2019 zoster vaccine recombinant Josue Gillmor ALCOHOL STILL OPERATOR Work Phone: [facility] 08-01-2019 pneumococcal polysaccharide vaccine, 23 valent Josue Gillmor ALCOHOL STILL OPERATOR Work Phone: [facility] 06-26-2019 pneumococcal conjuga te vaccine, 13 valent Josue Gillmor ALCOHOL STILL OPERATOR Work Phone: [facility] 05-10-2019 Seasonal trivalent influenza vaccine, adjuvanted, preservative free Josue Gillmor ALCOHOL STILL OPERATOR Work Phone: [facility] 05-11-2018 pneumococcal conjuga te vaccine, 13 valent Josue Gillmor ALCOHOL STILL OPERATOR Work Phone: [facility] 05-11-2018 Seasonal trivalent influenza vaccine, adjuvanted, preservative free Josue Gillmor ALCOHOL STILL OPERATOR Work Phone: [facility] 12-08-2016 pneumococcal polysaccharide vaccine, 23 valent Claudia Leon Other [facility] 04-17-2016 influenza, high dose seasonal, preservative-free Josue Gillmor ALCOHOL STILL OPERATOR Work Phone: [facility] 03-11-2015 influenza, injectabl e, quadrivalent, preservative free Josue Gillmor ALCOHOL STILL OPERATOR Work Phone: [facility] 11-02-2014 zoster vaccine, live Josue Gillmor ALCOHOL STILL OPERATOR Work Phone: [facility] 04-25-2014 influenza virus vaccine, unspecified formulation Josue Gillmor ALCOHOL STILL OPERATOR Work Phone: [facility] 05-25-2013 influenza virus vaccine, unspecified formulation Josue Gillmor ALCOHOL STILL OPERATOR Work Phone: [facility] Payers Date Payer Category Payer Private Health Insurance [facility] [id number] 2015 Managed Care Other (unspecified) [facility] [place] [address] [id number] 2015 Medicare [id number] 2015 Unknown [id number] [id number]. [id number] 2015 Unknown [id number] 1959 Medicare [id number] 1959 Unknown [id number] 1959 Unknown [id number] 1950 Unknown [id number] 2.16.840.1.387417.3.579.2. 593 1950 Unknown [id number] 2.16.840.1.530215.3.579.2. 593 1950 Unknown [id number] 2.16.840.1.923158.3.579.2. 593 1950 Unknown [id number] 2.16.840.1.678275.3.579.2. 593 1950 Unknown [id number] 2.16.840.1.200356.3.579.2. 593 1950 Unknown [id number] 2.16.840.1.531415.3.579.2. 593 1950 Unknown [id number] 2.16.840.1.893339.3.579.2. 593 1950 Unknown [id number] 2.16.840.1.252992.3.579.2. 593 1950 Unknown [id number] 2.16.840.1.414698.3.579.2. 593 1950 Unknown [id number] 2.16.840.1.431660.3.579.2. 593 1950 Unknown [id number] 2.16.840.1.102986.3.579.2. 593 1950 Unknown [id number] 2.16.840.1.261628.3.579.2. 593 1950 Unknown [id number] 2.16.840.1.086437.3.579.2. 1286 1950 Unknown [id number] 2.16.840.1.396109.3.579.2. 1286 1950 Unknown [id number] 2.16.840.1.397064.3.579.2. 1286 1950 Unknown [id number] 2.16.840.1.759000.3.579.2. 1286 1950 Unknown [id number] 2.16.840.1.194577.3.579.2. 1259 1950 Unknown [id number] 2.16.840.1.314231.3.579.2. 1259 1950 Unknown [id number] 2.16.840.1.287634.3.579.2. 1259 1950 Unknown [id number] 2.16.840.1.849249.3.579.2. 1259 1950 Unknown [id number] 2.16.840.1.739762.3.579.2. 1259 1950 Unknown [id number] 2.16.840.1.939986.3.579.2. 1259 1950 Unknown [id number] 2.16.840.1.546356.3.579.2. 1259 Social History Date Type Detail Facility Start: 01-11-2024 End: 07-14-2024 [facility] Start: 05-19-2023 End: 01-11-2024 Tobacco smoking status NHIS Never smoked tobacco (finding) [facility] Start: 1950 Sex Assigned At Female F [facility] History of tobacco use Passive smoker [facility] Start: 06-06-2020 End: 01-11-2024 Tobacco use and exposure Smokeless tobacco non-user [facility] Start: 03-22-2024 End: 09-06-2024 Alcoholic beverage intake Current drinker of alcohol (finding) [facility] [facility] Start: 01-11-2024 End: 07-14-2024 History of Social function [facility] How often to you hav e a drink containing alcohol? Monthly or less [facility] How many standard drinks containing alcohol do you have on a typical day? 1 or 2 [facility] How often do you hav e 6 or more drinks on 1 occasion? Never [facility] Start: 02-24-2023 Alcohol Comment caffeine: 1-2 cups per day [facility] Start: 1950 Sex assigned at Not on file P [facility] Start: 07-14-2024 Alcohol Comment 1 drink every 4 joe h [facility] Start: 02-28-2015 End: 07-27-2024 Sex Female (finding[facility] Start: 04-26-2020 Alcohol Comment ABOUT ONE PER MONTH [facility] Medical Equipment Procedure Code Equipment Code Equipment Origin al Text Equipment Identifier Dates 1 each by In Vit ro route in the morning and 1 each in the evening and 1 each before bedtime. [id number] Start: 02-05-2023 Use as instructe d 4 times a day [id number] Start: 08-02-2023 End: 08-01-2024 Injections 3 blair es a day [id number] Start: 09-08-2024 End: 09-08-2025 Clinical Notes 06-10-2018 to 10-16-2024 Telephone Encounter - Sunshine Stevens - 10/16/2024 1:48 PM EDTTelephone Encounter - Sunshine Stevens - 10/16/2024 1:48 PM Cassie Hines MD - 09/28/2024 11:30 AM EST Note Date & Type Note Facility 10-16-2024 Telephone encounter Note P/c appointment reminder. Pt voiced confirmation. Pt states she already confirmed by text [facility] 10-16-2024 Miscellaneous Notes P/c appointment reminder. Pt voiced confirmation. Pt states she already confirmed by text documented in this encounter [facility] 09-28-2024 History of Present illness Narrative Images from the original note were not included. Marco Antonio Hines MD, [facility] Irineo Garsia, DAVID Baker, [employer] [place] [address] Name: Bri Kwan : 1950 Gender: female PCP: CLAUDIA LEON MD Age: 73 y.o. PCP Visit Date: 09/28/24 CHIEF COMPLAINT: Bri Kwan is an 73 y.o. female Here for follow up visit. Doing well. No chest pain or dyspnea. No orthopnea or PND. No LH or syncope. No palpitations. No bleeding or new TIAs. No edema. Weight stable. Home BP 130s/70s. HR 65-75 range. PAST MED/SURG HISTORY: Past Medical History: Diagnosis Date #146789 Atrial fibrillation (CMS-HCC) Bilateral carotid artery stenosis Bilateral edema of lower extremity Cancer (CMS-HCC) New lesions of right cheek, left cheek / lower eyelid area, right shoulder, and right and left back. Diabetes mellitus (CMS-HCC) Essential hypertension Hyperlipidemia LAE (left atrial enlargement) Non-rheumatic mitral regurgitation Non-rheumatic tricuspid valve insufficiency Occlusion and stenosis of bilateral carotid arteries Paroxysmal A-fib (CMS-HCC) Pulmonary hypertension (CMS-HCC) Vertigo Past Surgical History: Procedure Laterality Date APPENDECTOMY CARPAL TUNNEL RELEASE CYSTOCELE REPAIR RECTOCELE REPAIR SKIN BIOPSY TONSILLECTOMY Social History Socioeconomic History Marital status: Spouse name: Not on file Number of children: Not on file Years of education: Not on file Highest education level: Not on file Occupational History Not on file Tobacco Use Smoking status: Never Smokeless tobacco: Never Substance and Sexual Activity Alcohol use: Yes Comment: ABOUT ONE PER MONTH Drug use: Not on file Sexual activity: Defer Other Topics Concern Caffeine Use No Social History Narrative Not on file Social Drivers of Health Financial Resource Strain: Not on file Food Insecurity: Not on file Transportation Needs: Not on file Physical Activity: Not on file Stress: Not on file Social Connections: Not on file Interpersonal Safety: Not on file Housing Instability: Not on file FAMILY HISTORY: Family History Problem Relation Age of Onset Atrial fibrillation Father Heart attack Mother Heart disease Son REVIEW OF SYSTEMS: Review of Systems CURRENT MEDICATIONS: Current Outpatient Medications: amLODIPine (NORVASC) 10 mg tablet, Take 1 tablet (10 mg total) by mouth in the morning., Disp: , Rfl: atorvastatin (LIPITOR) 40 mg tablet, Take 1 tablet (40 mg total) by mouth., Disp: , Rfl: flecainide (TAMBOCOR) 150 mg tablet, Take 0.5 tablets (75 mg total) by mouth in the morning and 0.5 tablets (75 mg total) before bedtime., Disp: 90 tablet, Rfl: 3 furosemide (LASIX) 40 mg tablet, Take 1 tablet (40 mg total) by mouth daily as needed., Disp: , Rfl: hydroCHLOROthiazide (HYDRODIURIL) 25 mg tablet, Take 1 tablet (25 mg total) by mouth 2 (two) times a day., Disp: , Rfl: insulin lispro (HumaLOG) 100 unit/mL insulin pen, INJECT 5 UNITS SUBCUTANEOUSLY for small meals & 8 UNITS for large meals plus correction (max 50 UNITS DAILY), Disp: , Rfl: LANTUS SOLOSTAR U-100 INSULIN 100 unit/mL (3 mL) insulin pen, INJECT 34 UNITS SUBCUTANEOUSLY DAILY, Disp: , Rfl: losartan (COZAAR) 100 mg tablet, , Disp: , Rfl: propranolol LA (INDERAL LA) 60 mg 24 hr capsule, Take 1 capsule (60 mg total) by mouth., Disp: , Rfl: warfarin (COUMADIN) 4 mg tablet, Take 1 tablet (4 mg total) by mouth., Disp: , Rfl: ALLERGIES: Allergies as of 09/28/2024 - Reviewed 09/28/2024 Allergen Reaction Noted Lisinopril Other (See Comments) 01/25/2014 Penicillins 06/06/2020 Amoxicillin Rash 06/06/2020 Etodolac Rash 01/17/2014 Sulfa (sulfonamide antibiotics) Rash 01/17/2014 VITALS: Vitals: 09/28/24 1146 BP: 140/78 Pulse: 62 SpO2: 96% Weight: 100.5 kg (221 lb 9.6 oz) Height: 165.1 cm (5' 5 ) Admit Weight: Weight: 100.5 kg (221 lb 9.6 oz) Wt Readings from Last 3 Encounters: 09/28/24 100.5 kg (221 lb 9.6 oz) 03/09/24 103.4 kg (228 lb) 03/09/24 108 kg (238 lb) Body mass index is 36.88 kg/m . PHYSICAL EXAM: Physical Exam Constitutional She appears well-developed and well-nourished. She is cooperative. Non-toxic appearance. No distress. HENT Head Normocephalic and atraumatic. Skin negative for abrasion and bruising. Patient does not have cranial nerve VII deficit. Eyes: Conjunctivae and EOM are normal. Pupils are equal, round, and reactive to light. EOM: extraocular movement intactRight eye exhibits normal extraocular motion. Left eye positive for nystagmus.. Left eye exhibits normal extraocular motion. Left eye negative for nystagmus.. Neck Trachea normal. Neck supple. Carotid bruit is not present. .No stridor present. Cardiovascular: Normal rate and regular rhythm. No extrasystoles are present. Murmur heard. Systolic murmur is present with a grade of 2/6. Pulses: Carotid pulses are 2+ on the right side and 2+ on the left side. no JVD Edema: RLE 1+ and pitting LLE pitting Tr LLE edema distant heart soundsno S3 sounds and no S4 sounds Pulmonary/Chest: Effort normal. She has decreased breath sounds. She has no wheezes. She has no rhonchi. She has no rales. No stridor. Abdominal: Bowel sounds are normal. She exhibits no distension, no abdominal bruit, no ascites and no pulsatile midline mass. Soft. There is no hepatosplenomegaly. There is no abdominal tenderness. There is no rigidity, no rebound, no guarding and no CVA tenderness. Musculoskeletal: Cervical back: Neck supple. Vascular: Right Lower Extremity Right lower extremity edema: 1+ and pitting Left Lower Extremity Left lower extremity edema: pitting Carotid: Right carotid: 2+ Left carotid: 2+ Lymph Right cervical: No supraclavicular and no cervical adenopathy present. Left cervical: No supraclavicular and no cervical adenopathy present. Neurological She is alert. Speech: normal speech Skin: Turgor is normal. No petechiae and no rash noted. She is not diaphoretic. No cyanosis. Nails show no clubbing. Psychiatric: Her speech is normal and behavior is normal. Attention, mood and affect normal. LAB REVIEW: CBC: No results found for: WBC , HGB , HCT , MCV , PLT CHEM: No results found for: GLU , CALCIUM , SODIUM , K , CO2 , BUN , CREATININE Lipids: No results found for: CHOL No results found for: HDL No results found for: LDLCALC No results found for: TRIG No results found for: CHOLHDL No diagnosis found. No orders of the defined types were placed in this encounter. No orders of the defined types were placed in this encounter. There are no discontinued medications. CARDIOVASCULAR STUDIES: 2009 ? TIA - speech and total body numbness 2009 PAFib 11/05 stress - negative 03/08 carotids - mild LICA and MATTHEW tortuous. 11/07 echo - EF 55-60%, mild LVH, mild LAE, trace MR/TR 06/09 venous reflux - Normal study, no evidence of venous reflux 04/10 echo - EF 55-60%. Mild bi-atrial enlargement. Trivial mitral and tricuspid regurgitation. Normal right heart pressures. RVSP 16 mm 12/09 carotids - mild B disease 07/11 echo - EF 55-60%. Trivial mitral and tricuspid regurgitation. Mild pulmoanry hypertension, RVSP 29-34 mmHg. Trivial aortic insufficiency. 01/10 carotids - mild B disease 07/12 echo - EF 55-60%. Mild bi-atrial enlargement. Mild mitral and tricuspid regurgitation with moderate pulmonary hypertension, RVSP 43 mmHg. Trivial aortic insufficiency. Diastolic dysfunction. 12/2018 ? TIA ([facility]) 12/2018 Echo ([facility]): Normal LV size and function Normal RV size and function Mild TR 12/2018 Carotids ([facility]): No significant stenosis noted. 12/2018 24 Hour Holter Monitor ([facility]): No AF No SVT NO pause of VT Avg HR 63 BPM, min 45 bpm, max 79 BPM. 01/2019 Echo ([facility]): Normal LV size and function Normal EF Mild TR Otherwise, unremarkable 01/2019 Stress ([facility]): Negative. EF 74% Echo complete W/O contrast Result Date: 06/06/2020 Left Ventricle: There is mild increased wall thickness/hypertrophy. Left Ventricle: Systolic function is normal with an ejection fraction of 55-60%. Left Ventricle: Grade II diastolic dysfunction (pseudonormal) is present. Lateral E' is 7.0 cm/s. Medial E' is 6.0 cm/s. Left Atrium: Left atrium is mildly dilated. Left atrium volume index is mildly increased. The left atrial volume index is 35.0 mL/m2. Aortic Valve: There is mild regurgitation. There is no evidence of aortic valve stenosis. Mitral Valve: There is mild regurgitation. There is no evidence of mitral valve stenosis. Tricuspid Valve: RVSP calculated at 18 mmHg. RVSP is based on RA pressure of 3 mmHg. Tricuspid Valve: There is no pulmonary hypertension. Vas carotid duplex bilateral Result Date: 07/09/2020 Right: Plaque with no significant ICA spectral Doppler or color flow disturbances; ICA 89/18 cm/sec. Antegrade vertebral artery flow. Left: Plaque with no significant ICA spectral Doppler or color flow disturbances; ICA 95/22 cm/sec. Antegrade vertebral artery flow. Conclusions: BILATERAL: Plaque without significant stenosis (<50%) of the internal carotid artery. Antegrade vertebral artery flow. Recommendations: Any questions prior to finalization, please call the reading physician during normal business hours at the phone number beside their name. Vas carotid duplex bilateral Result Date: 06/25/2021 Previous: Previous carotid duplex exam performed 07/08/2020 Right: <50%; Left: <50%. Right: Plaque with no significant ICA spectral Doppler or color flow disturbances; ICA 70/12 cm/sec. Antegrade vertebral artery flow. Left: Plaque with no significant ICA spectral Doppler or color flow disturbances; ICA 60/11 cm/sec. Antegrade vertebral artery flow. Recommendations: Any questions prior to finalization, please call the reading physician during normal business hours at the phone number beside their name. Echo complete W/O contrast Result Date: 06/25/2021 Left Ventricle: Systolic function is normal with an ejection fraction of 55-60%. Left Atrium: Left atrium is moderately dilated. The left atrial volume index is 44.0 mL/m2. Right Atrium: Right atrium is mildly dilated. The right atrial area is 19.1 cm2. Mitral Valve: There is mild regurgitation. There is no evidence of mitral valve stenosis. Tricuspid Valve: There is trace to mild regurgitation. There is no evidence of tricuspid valve stenosis. RVSP calculated at 24 mmHg. RVSP is based on RA pressure of 3 mmHg. Vas carotid duplex bilateral Result Date: 03/03/2023 Previous: Previous carotid duplex exam performed 06/25/21: BILATERAL: <50%. Right: Plaque with no significant ICA spectral Doppler or color flow disturbances; ICA 104/17 cm/sec. Antegrade vertebral artery flow. Left: Plaque with no significant ICA spectral Doppler or color flow disturbances; ICA 99/15 cm/sec. Antegrade vertebral artery flow. Conclusions: BILATERAL: Plaque without significant stenosis (<50%) of the internal carotid artery. Antegrade vertebral artery flow. Recommendations: Any questions prior to finalization, please call the reading physician during normal business hours at the phone number beside their name. Echo complete W/O contrast Result Date: 03/03/2023 Left Ventricle: There is mild increased wall thickness/hypertrophy. Systolic function is normal with an ejection fraction of 55-60%. Grade II diastolic dysfunction (pseudonormal) is present. Lateral E' is 8.22 cm/s. Medial E' is 6.58 cm/s. Left Atrium: Left atrium is mildly dilated. Left atrium volume index is mildly increased. The left atrial volume index is 35.0 mL/m2. Right Atrium: Right atrium is mildly dilated. The right atrial area is 19.0 cm2. Mitral Valve: There is [id number] regurgitation. There is no evidence of mitral valve stenosis. Tricuspid Valve: There is mild regurgitation. There is no evidence of tricuspid valve stenosis. RVSP calculated at 27 mmHg. RVSP is based on RA pressure of 3 mmHg. There is no pulmonary hypertension. Echo complete W/O contrast Result Date: 03/09/2024 Left Ventricle: There is mild increased wall thickness/hypertrophy. Systolic function is normal with an ejection fraction of 55-60%. Left Atrium: Left atrium volume index is mildly increased. The left atrial volume index is 37.2 mL/m2. Right Atrium: Right atrium is mildly dilated. The right atrial area is 20.0 cm2. Aortic Valve: There is trace to mild regurgitation. There is no evidence of aortic valve stenosis. Mitral Valve: There is trace regurgitation. There is no evidence of mitral valve stenosis. Tricuspid Valve: There is trace to mild regurgitation. There is no evidence of tricuspid valve stenosis. RVSP calculated at 25 mmHg. RVSP is based on RA pressure of 3 mmHg. There is no pulmonary hypertension. Vas carotid duplex bilateral Result Date: 03/10/2024 Previous: Previous carotid duplex exam performed 03/03/23: BILATERAL: <50%. Right: Plaque with no significant ICA spectral Doppler or color flow disturbances; ICA 111/16 cm/sec. Antegrade vertebral artery flow. Left: Plaque with no significant ICA spectral Doppler or color flow disturbances; ICA 89/18 cm/sec. Antegrade vertebral artery flow. Conclusions: BILATERAL: Plaque without significant stenosis (<50%) of the internal carotid artery. Antegrade vertebral artery flow.When compared to previous report no significant changes were noted. Recommendations: Any questions prior to finalization, please call the reading physician during normal business hours at the phone number beside their name. ASSESSMENT/PLAN/DISCUSSION 1. Atrial Fibrillation: Paroxsymal atrial fibrillation with exam today suggest sinus rhythm and currently anticougulated. I plan to continue current medications. Continue flecainide 75 BID. Aware of extra 150 mg dose for breakthru (pill in a pocket Rx). Continue Coumadin, Flecainide, and BB. Coumadin managed by [facility]. Not interested in EP eval re ablation. 2. Hypertension: Blood pressure is currently controlled. I plan to continue current medications. No additional testing is required at this time. 3. Hyperlipidemia: Managed per PCP. I did not order any further blood work. On statin. 4. Hx of TIA: no recurrence on Coumadin. Discussed change to NOACs again. Not ready to change. 5. Pulm HTN: improved. Treating TONNY. Follow serial echoes. 6. Carotid Artery Stenosis: mild B disease. The patient is currently asymptomatic. I am planning on following serial duplex studies. 7. MR / TR / AI - mild. BP control. Follow echoes. 8. Abn echo - LAE, LVH. BP control. Follow echoes. Testing and records reviewed in [facility] Everywhere and other outside facilities, and are documented under CV database and testing. The note was completed using EMR. Every effort was made to ensure accuracy; however, inadvertent computerized eligibility specialist errors may be present. Marco Antonio Hines MD documented in this encounter [facility] 07-21-2024 History of Present illness Narrative Associated Problem(s): Type 2 diabetes mellitus with peripheral neuropathy ([facility]) During the appointment today all pertinent labs, imaging, health maintenance, and glucose readings were reviewed. Encouraged to check blood glucose throughout the day with some fasting and some PP readings. They are to bring their glucose meter/cgm in to all appointments. All of the patients questions, treatment options, and current care plan and goals were discussed. A copy of this along with pertinent instructions were given to the patient at the end of the appointment. The patient voices understanding of all of this and is to call in between appointments if they have any problems or questions. Bri Kwan control is stable overall. , Will stay on current medications. , The patient is wearing their cgm on a daily basis and making decisions in regards to adjusting insulin daily as well for at least the last 60 days , Discussed dietary changes at length. Encouraged to limit simple carbs and focus more on healthy protein/fat with all meals and snacks. They should also avoid any sugary drinks. , Instructions given today include: Insulin instructions and Dietary education Images from the original note were not included. Bri Kwan is a 73 y.o. female presents with chief complaint of Diabetes HPI: Diabetes Mellitus Follow-up: Bri Kwan is here for follow-up evaluation of diabetes mellitus. The initial diagnosis of diabetes was made in 2014 Diabetes complications: nephropathy and peripheral neuropathy She has been checking her blood glucose with a [employer] delicia 3 CGM - LINKED. Bg drop some overnight and in the afternoon. Tends to have some spikes mid morning and early afternoon. Last A1c: 6.9 (04/18/24) Last eye exam: 2023 [place] on [facility] Current concerns include: Bg have been similar to last visit. Had some issues with the sensors failing. She does contact the company and she has been able to get the replaced. 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 Class 2 severe obesity due to excess calories with serious comorbidity and body mass index (BMI) of 36.0 to 36.9 in adult (CMS/HCC) Pulmonary hypertension (CMS/HCC) Paroxysmal A-fib (CMS/HCC) Parotitis Occlusion and stenosis of bilateral carotid arteries Nonrheumatic tricuspid (valve) insufficiency Nonrheumatic aortic valve insufficiency Non-rheumatic mitral regurgitation 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 current use of anticoagulant therapy senior living current use of antiarrhythmic drug LAE (left atrial enlargement) Hyperlipidemia (CMS/HCC) History of transient ischemic attack Family history of basal cell carcinoma Essential hypertension (CMS/HCC) Type 2 diabetes mellitus with stage 3b chronic kidney disease, with long-term current use of insulin (HCC) (CMS/HCC) Cervical lymphadenitis Bruit Bilateral edema of lower extremity Basal cell carcinoma of skin of other parts of face Abnormal echocardiogram Type 2 diabetes mellitus with peripheral neuropathy (CMS/HCC) Bilateral carotid artery stenosis Vertigo Essential tremor Hypersomnia, unspecified Hypoxemia Obstructive sleep apnea hypopnea, mild Tremor, essential Insomnia Obstructive sleep apnea Twitch 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 Social History Tobacco Use Smoking status: Never Passive exposure: Past Smokeless tobacco: Never Substance Use Topics Alcohol use: Yes Comment: 1 drink every 4 month Drug use: Never Allergies Allergen Reactions Lisinopril Hives Other Reaction(s): nausea, pancreatitis, Other (See Comments) Caused pancreatitis due to nursing home use. Diagnosed by a specialist. Other Reaction(s): Other (See Comments) Penicillins Other Reaction(s): rash, dyspnea Other Reaction(s): Hives Etodolac Rash and Hives Other Reaction(s): edema, rash Sulfa Antibiotics Rash Other Reaction(s): rash Other Reaction(s): Hives Synopsis [facility] 07/14/2024 13:32 Antidiabetic medications Insulin Glargine 25 Units q AM SC Insulin Lispro 10 units breakfast/dinner plus correction 1:30 >150 mg/dl (max daily 50) (100 UNIT/ML SOPN) Labs MHPT A1C 7.3 Outpatient prescription Medication marked as long-term The ASCVD Risk score (Luis VALERIO, et al., 2019) failed to calculate for the following reasons: Cannot find a previous HDL lab Cannot find a previous total cholesterol lab REVIEW OF SYMPTOMS: Review of Systems Constitutional: Negative for appetite change, fatigue and unexpected weight change. Eyes: Negative for visual disturbance. Respiratory: Negative for cough, shortness of breath and wheezing. Cardiovascular: Negative for chest pain, palpitations and leg swelling. Neurological: Positive for numbness. Endocrine: Negative for polydipsia, polyphagia and polyuria. OBJECTIVE: 07/14/2024 1:08 PM 04/18/2024 11:30 AM 03/22/2024 10:41 AM Vitals BMI 36.78 kg/m2 37.44 kg/m2 37.77 kg/m2 Systolic 126 132 141 Diastolic 62 66 61 Heart Rate 57 67 57 Temp 98.3 F 98 F Height (in) 5' 5 5' 5 5' 5 Weight (lb) 221 225 227 Visit Report Report Report Report Physical Exam Constitutional: General: She is not in acute distress. Appearance: Normal appearance. She is obese. Cardiovascular: Rate and Rhythm: Normal rate and regular rhythm. Heart sounds: No murmur heard. No friction rub. No gallop. Pulmonary: Breath sounds: Normal breath sounds. No wheezing, rhonchi or rales. Musculoskeletal: General: No swelling. Neurological: Mental Status: She is alert. ASSESSMENT AND PLAN: Problem List Items Addressed This Visit Class 2 severe obesity due to excess calories with serious comorbidity and body mass index (BMI) of 36.0 to 36.9 in adult ([facility]) Type 2 diabetes mellitus with stage 3b chronic kidney disease, with long-term current use of insulin (HCC) ([facility]) - Primary Type 2 diabetes mellitus with peripheral neuropathy ([facility]) During the appointment today all pertinent labs, imaging, health maintenance, and glucose readings were reviewed. Encouraged to check blood glucose throughout the day with some fasting and some PP readings. They are to bring their glucose meter/cgm in to all appointments. All of the patients questions, treatment options, and current care plan and goals were discussed. A copy of this along with pertinent instructions were given to the patient at the end of the appointment. The patient voices understanding of all of this and is to call in between appointments if they have any problems or questions. Bri Leslieicom control is stable overall. , Will stay on current medications. , The patient is wearing their cgm on a daily basis and making decisions in regards to adjusting insulin daily as well for at least the last 60 days , Discussed dietary changes at length. Encouraged to limit simple carbs and focus more on healthy protein/fat with all meals and snacks. They should also avoid any sugary drinks. , Instructions given today include: Insulin instructions and Dietary education Relevant Orders POCT glycosylated hemoglobin (Hb A1C) docked device (Completed) Follow up in about 3 months (around 10/12/2024) for Recheck. Patient's Medications New Prescriptions No medications on file Previous Medications AMLODIPINE (NORVASC) 10 MG TABLET Take 10 mg by mouth at bedtime. ATORVASTATIN (LIPITOR) 40 MG TABLET Take 40 mg by mouth at bedtime. CONTINUOUS GLUCOSE SENSOR (FREESTYLE DELICIA 3 SENSOR) MISC Inject 1 Device under the skin every 14 (fourteen) days FLECAINIDE (TAMBOCOR) 150 MG TABLET Take 150 mg by mouth in the morning. FUROSEMIDE (LASIX) 40 MG TABLET Take 40 mg by mouth Daily as needed (swelling). GLUCOSE BLOOD (BLOOD GLUCOSE TEST STRIPS 333) STRIP 1 each by In Vitro route in the morning and 1 each in the evening and 1 each before bedtime. HYDROCHLOROTHIAZIDE (HYDRODIURIL) 25 MG TABLET Take 25 mg by mouth in the morning and 25 mg before bedtime. INSULIN GLARGINE (LANTUS SOLOSTAR) 100 UNIT/ML PEN Inject 25 Units under the skin in the morning. INSULIN LISPRO (HUMALOG KWIKPEN) 100 UNIT/ML INJECTION 10 units breakfast/dinner plus correction 1:30 >150 mg/dl (max daily 50) LOSARTAN (COZAAR) 100 MG TABLET Take 100 mg by mouth in the morning. PEN NEEDLE 32G X 4 MM MISC Use as instructed 4 times a day PROPRANOLOL LA (INDERAL LA) 60 MG 24 HR CAPSULE Take 60 mg by mouth in the morning. WARFARIN (COUMADIN) 4 MG TABLET Take 4 mg by mouth 1 (one) time each day 2 mg on wednesday and Modified Medications No medications on file Discontinued Medications No medications on file I have reviewed and reconciled the history and medication list with the patient today. documented in this encounter [facility] 04-18-2024 History of Present illness Narrative Associated Problem(s): Type 2 diabetes mellitus with peripheral neuropathy ([facility]) During the appointment today all pertinent labs, imaging, health maintenance, and glucose readings were reviewed. Encouraged to check blood glucose throughout the day with some fasting and some PP readings. They are to bring their glucose meter/cgm in to all appointments. All of the patients questions, treatment options, and current care plan and goals were discussed. A copy of this along with pertinent instructions were given to the patient at the end of the appointment. The patient voices understanding of all of this and is to call in between appointments if they have any problems or questions. Bri Kwan is doing very well and encouraged on this. , The patient is wearing their cgm on a daily basis and making decisions in regards to adjusting insulin daily as well for at least the last 60 days , Instructions given today include: Insulin instructions and Dietary education. Will decrease lantus to help decrease the risk for low bg. Discussed using a food journal and trying to limit to 2405-6267 calories daily to help with weight loss. Images from the original note were not included. Bri Kwan is a 73 y.o. female presents with chief complaint of Diabetes HPI: Diabetes Mellitus Follow-up: Bri Kwan is here for follow-up evaluation of diabetes mellitus. The initial diagnosis of diabetes was made in 2014 Diabetes complications: nephropathy and peripheral neuropathy She has been checking her blood glucose with a Clioyle delicia 3 CGM - LINKED. She will drop before lunch and sometimes overnight, occasionally spikes with lunch or in the afternoon. Last A1c: 6.9 on 01/11/2024 Last eye exam: 05/12/2022 - 2023 [place] [address] [facility] Current concerns include: Bg have been similar to last visit Diet: limits carbs, smaller portions, more berries Drinks: water, occasional diet pop Exercise: Walking dog daily Hypoglycemia: on occasion before a meal and when she changes her sensor she has lows overnight. 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 Class 2 severe obesity due to excess calories with serious comorbidity and body mass index (BMI) of 37.0 to 37.9 in adult (CMS/HCC) Pulmonary hypertension (CMS/HCC) Paroxysmal A-fib (CMS/HCC) Parotitis Occlusion and stenosis of bilateral carotid arteries Nonrheumatic tricuspid (valve) insufficiency Nonrheumatic aortic valve insufficiency Non-rheumatic mitral regurgitation 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 current use of anticoagulant therapy senior living current use of antiarrhythmic drug LAE (left atrial enlargement) Hyperlipidemia (CMS/HCC) History of transient ischemic attack Family history of basal cell carcinoma Essential hypertension (CMS/HCC) Type 2 diabetes mellitus with stage 3b chronic kidney disease, with long-term current use of insulin (HCC) (CMS/HCC) Cervical lymphadenitis Bruit Bilateral edema of lower extremity Basal cell carcinoma of skin of other parts of face Abnormal echocardiogram Type 2 diabetes mellitus with peripheral neuropathy (CMS/HCC) Bilateral carotid artery stenosis Vertigo Essential tremor Hypersomnia, unspecified Hypoxemia Obstructive sleep apnea hypopnea, mild Tremor, essential Insomnia Obstructive sleep apnea Twitch 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 Social History Tobacco Use Smoking status: Never Passive exposure: Past Smokeless tobacco: Never Substance Use Topics Alcohol use: Yes Comment: caffeine: 1-2 cups per day Drug use: Never Allergies Allergen Reactions Lisinopril Hives Other Reaction(s): nausea, pancreatitis, Other (See Comments) Caused pancreatitis due to buttermaker continuous churn use. Diagnosed by a specialist. Other Reaction(s): Other (See Comments) Penicillins Other Reaction(s): rash, dyspnea Other Reaction(s): Hives Etodolac Rash and Hives Other Reaction(s): edema, rash Sulfa Antibiotics Rash Other Reaction(s): rash Other Reaction(s): Hives Synopsis [facility] 04/18/2024 Antidiabetic medications Insulin Glargine 28 Units q AM SC -Discontinued (Dose adjustm) No sig Insulin Glargine 25 Units q AM SC Insulin Lispro 10 units breakfast/dinner plus correction 1:30 >150 mg/dl (max daily 50) (100 UNIT/ML SOPN) No sig Labs MHPT A1C 6.9 Outpatient prescription Medication marked as long-term REVIEW OF SYMPTOMS: Review of Systems Constitutional: Negative for appetite change, fatigue and unexpected weight change. Eyes: Negative for visual disturbance. Respiratory: Negative for cough, shortness of breath and wheezing. Cardiovascular: Negative for chest pain, palpitations and leg swelling. Neurological: Positive for numbness. Endocrine: Negative for polydipsia, polyphagia and polyuria. OBJECTIVE: 04/18/2024 11:30 AM 03/22/2024 10:41 AM 01/11/2024 11:45 AM Vitals BMI 37.44 kg/m2 37.77 kg/m2 37.77 kg/m2 Systolic 132 141 136 Diastolic 66 61 62 Heart Rate 67 57 68 Temp 98 F 97.8 F Height (in) 5' 5 5' 5 5' 5 Weight (lb) 225 227 227 Visit Report Report Report Report Physical Exam Constitutional: General: She is not in acute distress. Appearance: Normal appearance. She is obese. Cardiovascular: Rate and Rhythm: Normal rate and regular rhythm. Heart sounds: No murmur heard. No friction rub. No gallop. Pulmonary: Breath sounds: Normal breath sounds. No wheezing, rhonchi or rales. Musculoskeletal: General: No swelling. Neurological: Mental Status: She is alert. ASSESSMENT AND PLAN: Problem List Items Addressed This Visit Class 2 severe obesity due to excess calories with serious comorbidity and body mass index (BMI) of 37.0 to 37.9 in adult ([facility]) - Primary Type 2 diabetes mellitus with stage 3b chronic kidney disease, with long-term current use of insulin (HCC) ([facility]) Relevant Orders POCT glycosylated hemoglobin (Hb A1C) docked device (Completed) Type 2 diabetes mellitus with peripheral neuropathy ([facility]) During the appointment today all pertinent labs, imaging, health maintenance, and glucose readings were reviewed. Encouraged to check blood glucose throughout the day with some fasting and some PP readings. They are to bring their glucose meter/cgm in to all appointments. All of the patients questions, treatment options, and current care plan and goals were discussed. A copy of this along with pertinent instructions were given to the patient at the end of the appointment. The patient voices understanding of all of this and is to call in between appointments if they have any problems or questions. Bri Kwan is doing very well and encouraged on this. , The patient is wearing their cgm on a daily basis and making decisions in regards to adjusting insulin daily as well for at least the last 60 days , Instructions given today include: Insulin instructions and Dietary education. Will decrease lantus to help decrease the risk for low bg. Discussed using a food journal and trying to limit to 4888-0854 calories daily to help with weight loss. Relevant Medications Continuous Glucose Sensor (FreeStyle Delicia 3 Sensor) misc insulin glargine (Lantus SoloStar) 100 UNIT/ML pen Follow up in about 3 months (around 07/18/2024) for Recheck. Patient's Medications New Prescriptions No medications on file Previous Medications AMLODIPINE (NORVASC) 10 MG TABLET Take 10 mg by mouth at bedtime. ATORVASTATIN (LIPITOR) 40 MG TABLET Take 40 mg by mouth at bedtime. FLECAINIDE (TAMBOCOR) 150 MG TABLET Take 150 mg by mouth in the morning. FUROSEMIDE (LASIX) 40 MG TABLET Take 40 mg by mouth Daily as needed (swelling). GLUCOSE BLOOD (BLOOD GLUCOSE TEST STRIPS 333) STRIP 1 each by In Vitro route in the morning and 1 each in the evening and 1 each before bedtime. HYDROCHLOROTHIAZIDE (HYDRODIURIL) 25 MG TABLET Take 25 mg by mouth in the morning and 25 mg before bedtime. INSULIN LISPRO (HUMALOG KWIKPEN) 100 UNIT/ML INJECTION 10 units breakfast/dinner plus correction 1:30 >150 mg/dl (max daily 50) LOSARTAN (COZAAR) 100 MG TABLET Take 100 mg by mouth in the morning. PEN NEEDLE 32G X 4 MM MISC Use as instructed 4 times a day PROPRANOLOL LA (INDERAL LA) 60 MG 24 HR CAPSULE Take 60 mg by mouth in the morning. WARFARIN (COUMADIN) 4 MG TABLET Take 4 mg by mouth 1 (one) time each day 2 mg on Modified Medications Modified Medication Previous Medication CONTINUOUS GLUCOSE SENSOR (FREESTYLE DELICIA 3 SENSOR) MISC Continuous Blood Gluc Sensor (FreeStyle Delicia 3 Sensor) misc Inject 1 Device under the skin every 14 (fourteen) days Inject 1 Device under the skin every 14 (fourteen) days. INSULIN GLARGINE (LANTUS SOLOSTAR) 100 UNIT/ML PEN insulin glargine (Lantus SoloStar) 100 UNIT/ML pen Inject 25 Units under the skin in the morning. Inject 28 Units under the skin in the morning. Discontinued Medications No medications on file I have reviewed and reconciled the history and medication list with the patient today. documented in this encounter [facility] 03-22-2024 History of Present illness Narrative Images from the original note were not included. Chief Complaint Patient presents with Sleep Apnea Subjective Patient is here today for follow-up of TONNY. I am following the plan of care established by who is present in the office today and supervising patient care. Patient states she is doing good on the pap machine and is wearing every night without issues. Patient denies any issues with sleep. She does wake up sometimes to let the dog out or to use the restroom but can fall right back to sleep. Pt states she gets 6-8 hours of sleep a night. Patient states she typically doesn't nap during the day, but if she does it is not often. Patient denies headache. Past Medical History: Diagnosis Date Bilateral carotid artery stenosis Cervical lymphadenitis Disturbance of skin sensation 12/10/2016 DM (diabetes mellitus), secondary, with neurologic complications ([facility]) Essential tremor 02/02/2018 ETD (eustachian tube dysfunction) GERD (gastroesophageal reflux disease) HLD (hyperlipidemia) ([facility]) HTN (hypertension) ([facility]) Hypersomnia, unspecified 11/09/2016 Hypoxemia 07/05/2017 Insomnia 07/05/2017 Neoplasm of unspecified behavior of bone, soft tissue, and skin 01/25/2014 New lesions of right cheek, left cheek / lower eyelid area, right shoulder, and right and left back. Obstructive sleep apnea 03/02/2017 Obstructive sleep apnea hypopnea, mild 02/02/2018 Pain in joint, forearm 11/09/2016 Parotid mass Parotitis Pulmonary HTN ([facility]) Tremor 11/09/2016 Tremor, essential 11/09/2016 Past Surgical History: Procedure Laterality Date APPENDECTOMY BASAL CELL CARCINOMA EXCISION CARPAL TUNNEL RELEASE COLONOSCOPY CYSTOCELE REPAIR cystocele and rectocele DILATION AND CURETTAGE OF UTERUS TONSILLECTOMY TOTAL ABDOMINAL HYSTERECTOMY W/ BILATERAL SALPINGOOPHORECTOMY TUBAL LIGATION Bilateral Family History Problem Relation Name Age of Onset Brain cancer Mother Diabetes Mother Atrial fibrillation Father Hypertension Father Heart disease Father Stroke Father Social History Tobacco Use Smoking status: Never Passive exposure: Past Smokeless tobacco: Never Substance Use Topics Alcohol use: Yes Comment: caffeine: 1-2 cups per day Allergies: Lisinopril, Penicillins, Etodolac, and Sulfa antibiotics General: No fever or chills HEENT: No nasal congestion or runny nose Pulmonary: No shortness of breath or cough Cardiovascular: No chest pain or palpitations GI: No nausea or vomiting : No dysuria or hematuria Musculoskeletal: No new aches or pains or muscle weakness Infectious: no recurrent fevers or infections Dermatologic: No rashes or skin lesions Neurologic: No new headaches or dizziness Vitals: 03/22/24 1041 BP: 141/61 Pulse: 57 Body mass index is 37.77 kg/m . weight: 227 lb Neurologic exam: General: Normal body habitus, cooperative, pleasant Mental status: Awake, alert to person, place and time. Recent and remote memory are intact. Attention and concentration are normal. Fund of knowledge is appropriate for level of education. HEENT: NC/AT Cranial nerves: CN II: Visual william full to confrontation. No loss of vision CN III, IV, : pupils equal round and reactive to light. Extraocular movements intact. No ptosis present. CN V: Facial sensation is normal. CN VII: Full and symmetric facial movement. CN VIII: Hearing is normal CN IX and X: Palate elevates symmetrically. CN XI: Shoulder shrug is normal bilaterally. CN XII: Tongue is midline without atrophy or fasciculation. Speech: Clear and fluent no aphasia or dysarthria Pronator drift: Negative bilateral upper extremity Coordination: Intact, no signs of dysmetria Good finger to nose and rapid alternating movements Sensory: Sensation is intact to light, temperature and vibratory touch throughout four extremities. Pinprick intact in all four extremities. Motor: LUE 5/5 RUE 5/5 LLE 5/5 RLE 5/5 Tone: Physiologic, no tremor, bradykinesia or rigidity DTR: Bilateral Biceps 2/4 Bilateral BR 2/4 Bilateral Patellar 2/4 No spasticity Gait: Normal to casual gait Romberg's Negative Assessment/Plan Diagnoses and all orders for this visit: Essential tremor Hypersomnia, unspecified Obstructive sleep apnea 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 Twitch Hypoxemia 73-year-old female with a moderate obstructive sleep apnea with hypoxia leading to daytime hypersomnolence and snoring. Patient is back to being compliant with her CPAP machine. She had multiple issues for not being complaint such as, a cold, allergy flare ups with congestion, vacation, and her teeth pulled. She put the mask on days on download ending 03/20/2024. She wore the >greater than 4 hours 97% of the days with nightly average 6 hours and 35 minutes residual AHI of 1.5. She denies napping. She does get great benefit and she sleeps well and wakes rested with wearing the mask. She does feel her mask breaks down after 3 months and will leak. There is a leak noted again on download. She states she has tried liners and multiple mask without benefit. She can always go and see if DME has any newer styles that she has not tried. . She is a very mild essential tremor that is barely noticeable and has been controlled other than if her sugars with her diabetes are too high or too low She is on the propranolol from us for this. He has not had any of the facial twitching She has headaches that are not bothersome. . . . Plan Compliance download at next visit. compliance download was reviewed Monitor the tremor Monitor the facial twitch Monitor headaches Call if she has any new issues Avoid any triggers The patient was counseled on proper sleep hygiene and adequate hours of sleep. The patient was councelled on the risks of stroke, RI, and sudden with TONNY, along with the need for compliance with CPAP/BiPAP treatment. The patient was counseled on the need for aggressive diet, exercise and weight loss. Rec weight watchers We will see her back in 3 months to document compliance with mask This was discussed with the patient, all questions were answered and they agreed with the treatment plan. The patient is to call with any worsening of the condition or new symptoms. Return to clinic: 6 months documented in this encounter [facility] 03-09-2024 History of Present illness Narrative Images from the original note were not included. Marco Antonio Hines MD, [facility] [address], [address] [place] [address] Name: Bri Kwan : 1950 Gender: female PCP: CLAUDIA LEON MD Age: 73 y.o. PCP Visit Date: 03/09/24 CHIEF COMPLAINT: Bri Kwan is an 73 y.o. female Here for follow up visit. Doing well. No chest pain or dyspnea. No orthopnea or PND. No LH or syncope. No palpitations. No bleeding or TIAs. Some BLE edema - using PRN lasix. Weight stable. PAST MED/SURG HISTORY: Past Medical History: Diagnosis Date # Atrial fibrillation ([facility]) Bilateral carotid artery stenosis Bilateral edema of lower extremity Cancer ([facility]) New lesions of right cheek, left cheek / lower eyelid area, right shoulder, and right and left back. Diabetes mellitus ([facility]) Essential hypertension Hyperlipidemia LAE (left atrial enlargement) Non-rheumatic mitral regurgitation Non-rheumatic tricuspid valve insufficiency Occlusion and stenosis of bilateral carotid arteries Paroxysmal A-fib ([facility]) Pulmonary hypertension ([facility]) Vertigo Past Surgical History: Procedure Laterality Date APPENDECTOMY CARPAL TUNNEL RELEASE CYSTOCELE REPAIR RECTOCELE REPAIR SKIN BIOPSY TONSILLECTOMY Social History Socioeconomic History Marital status: Spouse name: Not on file Number of children: Not on file Years of education: Not on file Highest education level: Not on file Occupational History Not on file Tobacco Use Smoking status: Never Smokeless tobacco: Never Substance and Sexual Activity Alcohol use: Yes Comment: ABOUT ONE PER MONTH Drug use: Not on file Sexual activity: Not on file Other Topics Concern Caffeine Use No Social History Narrative Not on file Social Determinants of Health Financial Resource Strain: Not on file Food Insecurity: Not on file Transportation Needs: Not on file Physical Activity: Not on file Stress: Not on file Social Connections: Not on file Interpersonal Safety: Not on file Housing Instability: Not on file FAMILY HISTORY: Family History Problem Relation Age of Onset Atrial fibrillation Father Heart attack Mother Heart disease Son REVIEW OF SYSTEMS: Review of Systems Constitutional: Negative for fever, chills, diaphoresis, activity change, appetite change, fatigue and unexpected weight change. HENT: Negative for nosebleeds. Respiratory: Negative for cough, shortness of breath and wheezing. Cardiovascular: Positive for leg swelling. Negative for chest pain, palpitations, PND, chest discomfort, orthopnea and tachycardia. Gastrointestinal: Negative for blood in stool and anal bleeding. Genitourinary: Negative for hematuria. Neurological: Negative for dizziness, syncope, facial asymmetry, speech difficulty, weakness, light-headedness and numbness. Hematological: Does not bruise/bleed easily. CURRENT MEDICATIONS: Current Outpatient Medications: amLODIPine (NORVASC) 10 mg tablet, Take 1 tablet (10 mg total) by mouth in the morning., Disp: , Rfl: atorvastatin (LIPITOR) 40 mg tablet, Take 1 tablet (40 mg total) by mouth., Disp: , Rfl: flecainide (TAMBOCOR) 150 mg tablet, Take 1 tablet (150 mg total) by mouth in the morning., Disp: , Rfl: furosemide (LASIX) 40 mg tablet, Take 1 tablet (40 mg total) by mouth daily as needed., Disp: , Rfl: hydroCHLOROthiazide (HYDRODIURIL) 25 mg tablet, Take 1 tablet (25 mg total) by mouth 2 (two) times a day., Disp: , Rfl: insulin lispro (HumaLOG) 100 unit/mL insulin pen, INJECT 5 UNITS SUBCUTANEOUSLY for small meals & 8 UNITS for large meals plus correction (max 50 UNITS DAILY), Disp: , Rfl: LANTUS SOLOSTAR U-100 INSULIN 100 unit/mL (3 mL) insulin pen, INJECT 34 UNITS SUBCUTANEOUSLY DAILY, Disp: , Rfl: losartan (COZAAR) 100 mg tablet, , Disp: , Rfl: propranolol LA (INDERAL LA) 60 mg 24 hr capsule, Take 1 capsule (60 mg total) by mouth., Disp: , Rfl: warfarin (COUMADIN) 4 mg tablet, Take 1 tablet (4 mg total) by mouth., Disp: , Rfl: ALLERGIES: Allergies as of 03/09/2024 - Reviewed 03/09/2024 Allergen Reaction Noted Lisinopril Other (See Comments) 01/25/2014 Penicillins 06/06/2020 Amoxicillin Rash 06/06/2020 Etodolac Rash 01/17/2014 Sulfa (sulfonamide antibiotics) Rash 01/17/2014 VITALS: Vitals: 03/09/24 1227 BP: 118/60 Pulse: 51 Resp: 16 Weight: 108 kg (238 lb) Height: 165.1 cm (5' 5 ) Admit Weight: Weight: 108 kg (238 lb) Wt Readings from Last 3 Encounters: 03/09/24 108 kg (238 lb) 03/09/24 103.4 kg (228 lb) 03/03/23 107.5 kg (237 lb) Body mass index is 39.61 kg/m . PHYSICAL EXAM: Physical Exam Constitutional She appears well-developed and well-nourished. She is cooperative. Non-toxic appearance. No distress. HENT Head Normocephalic and atraumatic. Skin negative for abrasion and bruising. Patient does not have cranial nerve VII deficit. Eyes: Conjunctivae and EOM are normal. Pupils are equal, round, and reactive to light. EOM: extraocular movement intactRight eye exhibits normal extraocular motion. Left eye positive for nystagmus.. Left eye exhibits normal extraocular motion. Left eye negative for nystagmus.. Neck Trachea normal. Neck supple. Carotid bruit is not present. .No stridor present. Cardiovascular: Regular rhythm. No extrasystoles are present. Bradycardia present. Murmur heard. Systolic murmur is present with a grade of 2/6. Pulses: Carotid pulses are 2+ on the right side and 2+ on the left side. no JVD Edema: RLE 1+ and pitting LLE 1+ no S3 sounds and no S4 sounds Pulmonary/Chest: Effort normal. She has decreased breath sounds. She has no wheezes. She has no rhonchi. She has no rales. No stridor. Abdominal: Bowel sounds are normal. She exhibits no distension, no abdominal bruit, no ascites and no pulsatile midline mass. Soft. There is no hepatosplenomegaly. There is no abdominal tenderness. There is no rigidity, no rebound, no guarding and no CVA tenderness. Musculoskeletal: Cervical back: Neck supple. Vascular: Right Lower Extremity Right lower extremity edema: 1+ and pitting Left Lower Extremity Left lower extremity edema: 1+ Carotid: Right carotid: 2+ Left carotid: 2+ Lymph Right cervical: No supraclavicular and no cervical adenopathy present. Left cervical: No supraclavicular and no cervical adenopathy present. Neurological She is alert. Speech: normal speech Skin: Turgor is normal. No petechiae and no rash noted. She is not diaphoretic. No cyanosis. Nails show no clubbing. Psychiatric: Her speech is normal and behavior is normal. Attention, mood and affect normal. LAB REVIEW: CBC: No results found for: WBC , HGB , HCT , MCV , PLT CHEM: No results found for: GLU , CALCIUM , SODIUM , K , CO2 , BUN , CREATININE Lipids: No results found for: CHOL No results found for: HDL No results found for: LDLCALC No results found for: TRIG No results found for: CHOLHDL No diagnosis found. No orders of the defined types were placed in this encounter. No orders of the defined types were placed in this encounter. There are no discontinued medications. CARDIOVASCULAR STUDIES: 2009 ? TIA - speech and total body numbness 2009 PAFib 11/05 stress - negative 03/08 carotids - mild LICA and MATTHEW tortuous. 11/07 echo - EF 55-60%, mild LVH, mild LAE, trace MR/TR 06/09 venous reflux - Normal study, no evidence of venous reflux 04/10 echo - EF 55-60%. Mild bi-atrial enlargement. Trivial mitral and tricuspid regurgitation. Normal right heart pressures. RVSP 16 mm 12/09 carotids - mild B disease 07/11 echo - EF 55-60%. Trivial mitral and tricuspid regurgitation. Mild pulmoanry hypertension, RVSP 29-34 mmHg. Trivial aortic insufficiency. 01/10 carotids - mild B disease 07/12 echo - EF 55-60%. Mild bi-atrial enlargement. Mild mitral and tricuspid regurgitation with moderate pulmonary hypertension, RVSP 43 mmHg. Trivial aortic insufficiency. Diastolic dysfunction. 12/2018 ? TIA ([facility]) 12/2018 Echo ([facility]): Normal LV size and function Normal RV size and function Mild TR 12/2018 Carotids ([facility]): No significant stenosis noted. 12/2018 24 Hour Holter Monitor ([facility]): No AF No SVT NO pause of VT Avg HR 63 BPM, min 45 bpm, max 79 BPM. 01/2019 Echo ([facility]): Normal LV size and function Normal EF Mild TR Otherwise, unremarkable 01/2019 Stress ([facility]): Negative. EF 74% ECHO: 06/06/2020 Left Ventricle: There is mild increased wall thickness/hypertrophy. Left Ventricle: Systolic function is normal with an ejection fraction of 55-60%. Left Ventricle: Grade II diastolic dysfunction (pseudonormal) is present. Lateral E' is 7.0 cm/s. Medial E' is 6.0 cm/s. Left Atrium: Left atrium is mildly dilated. Left atrium volume index is mildly increased. The left atrial volume index is 35.0 mL/m2. Aortic Valve: There is mild regurgitation. There is no evidence of aortic valve stenosis. Mitral Valve: There is mild regurgitation. There is no evidence of mitral valve stenosis. Tricuspid Valve: RVSP calculated at 18 mmHg. RVSP is based on RA pressure of 3 mmHg. Tricuspid Valve: There is no pulmonary hypertension. CAROTID: Vas carotid duplex bilateral Result Date: 07/09/2020 Right: Plaque with no significant ICA spectral Doppler or color flow disturbances; ICA 89/18 cm/sec. Antegrade vertebral artery flow. Left: Plaque with no significant ICA spectral Doppler or color flow disturbances; ICA 95/22 cm/sec. Antegrade vertebral artery flow. Conclusions: BILATERAL: Plaque without significant stenosis (<50%) of the internal carotid artery. Antegrade vertebral artery flow. Recommendations: Any questions prior to finalization, please call the reading physician during normal business hours at the phone number beside their name. CAROTID: Vas carotid duplex bilateral Result Date: 06/25/2021 Previous: Previous carotid duplex exam performed 07/08/2020 Right: <50%; Left: <50%. Right: Plaque with no significant ICA spectral Doppler or color flow disturbances; ICA 70/12 cm/sec. Antegrade vertebral artery flow. Left: Plaque with no significant ICA spectral Doppler or color flow disturbances; ICA 60/11 cm/sec. Antegrade vertebral artery flow. Recommendations: Any questions prior to finalization, please call the reading physician during normal business hours at the phone number beside their name. ECHO: Echo complete W/O contrast Result Date: 06/25/2021 Left Ventricle: Systolic function is normal with an ejection fraction of 55-60%. Left Atrium: Left atrium is moderately dilated. The left atrial volume index is 44.0 mL/m2. Right Atrium: Right atrium is mildly dilated. The right atrial area is 19.1 cm2. Mitral Valve: There is mild regurgitation. There is no evidence of mitral valve stenosis. Tricuspid Valve: There is trace to mild regurgitation. There is no evidence of tricuspid valve stenosis. RVSP calculated at 24 mmHg. RVSP is based on RA pressure of 3 mmHg. Vas carotid duplex bilateral Result Date: 03/03/2023 Previous: Previous carotid duplex exam performed 06/25/21: BILATERAL: <50%. Right: Plaque with no significant ICA spectral Doppler or color flow disturbances; ICA 104/17 cm/sec. Antegrade vertebral artery flow. Left: Plaque with no significant ICA spectral Doppler or color flow disturbances; ICA 99/15 cm/sec. Antegrade vertebral artery flow. Conclusions: BILATERAL: Plaque without significant stenosis (<50%) of the internal carotid artery. Antegrade vertebral artery flow. Recommendations: Any questions prior to finalization, please call the reading physician during normal business hours at the phone number beside their name. ECHO: Echo complete W/O contrast Result Date: 03/03/2023 Left Ventricle: There is mild increased wall thickness/hypertrophy. Systolic function is normal with an ejection fraction of 55-60%. Grade II diastolic dysfunction (pseudonormal) is present. Lateral E' is 8.22 cm/s. Medial E' is 6.58 cm/s. Left Atrium: Left atrium is mildly dilated. Left atrium volume index is mildly increased. The left atrial volume index is 35.0 mL/m2. Right Atrium: Right atrium is mildly dilated. The right atrial area is 19.0 cm2. Mitral Valve: There is [id number] regurgitation. There is no evidence of mitral valve stenosis. Tricuspid Valve: There is mild regurgitation. There is no evidence of tricuspid valve stenosis. RVSP calculated at 27 mmHg. RVSP is based on RA pressure of 3 mmHg. There is no pulmonary hypertension. CAROTID: (prelim) Vas carotid duplex bilateral Result Date: 03/09/2024 Previous: Previous carotid duplex exam performed 03/03/23: BILATERAL: <50%. Right: Plaque with no significant ICA spectral Doppler or color flow disturbances; ICA 111/16 cm/sec. Antegrade vertebral artery flow. Left: Plaque with no significant ICA spectral Doppler or color flow disturbances; ICA 89/18 cm/sec. Antegrade vertebral artery flow. Recommendations: Any questions prior to finalization, please call the reading physician during normal business hours at the phone number beside their name. 03/18 echo Left Ventricle: There is mild increased wall thickness/hypertrophy. Systolic function is normal with an ejection fraction of 55-60%. Left Atrium: Left atrium volume index is mildly increased. The left atrial volume index is 37.2 mL/m2. Right Atrium: Right atrium is mildly dilated. The right atrial area is 20.0 cm2. Aortic Valve: There is trace to mild regurgitation. There is no evidence of aortic valve stenosis. Mitral Valve: There is trace regurgitation. There is no evidence of mitral valve stenosis. Tricuspid Valve: There is trace to mild regurgitation. There is no evidence of tricuspid valve stenosis. RVSP calculated at 25 mmHg. RVSP is based on RA pressure of 3 mmHg. There is no pulmonary hypertension. ASSESSMENT/PLAN/DISCUSSION 1. Atrial Fibrillation: Paroxsymal atrial fibrillation with exam today suggest sinus rhythm and currently anticougulated. I plan to continue current medications. At some point between 2019 and 2020 OV flecainide dose changed to daily. Change to 75 BID. Also discussed extra 100 mg dose for breakthru. Continue Coumadin, Flecainide, and BB. Coumadin managed by [facility]. 2. Hypertension: Blood pressure is currently controlled. I plan to continue current medications. No additional testing is required at this time. 3. Hyperlipidemia: Managed per PCP. I did not order any further blood work. On statin. 4. Hx of TIA: no recurrence on Coumadin. Discussed change to NOACs again. Not ready to change. 5. Pulm HTN: improved. Treating TONNY. Follow serial echoes. 6. Carotid Artery Stenosis: mild B disease. The patient is currently asymptomatic. I am planning on following serial duplex studies. 7. MR / TR / AI - mild. BP control. Follow echoes. 8. Abn echo - LAE, LVH. BP control. Follow echoes. Testing and records reviewed in [facility] Everywhere and other outside facilities, and are documented under CV database and testing. The note was completed using EMR. Every effort was made to ensure accuracy; however, inadvertent computerized eligibility specialist errors may be present. Marco Antonio Hines MD documented in this encounter [facility] 05-19-2023 Evaluation note Encounter Date Diagnosis Assessment Notes Apr, Acute non-recurrent maxillary sinusitis (ICD-10 - J01.00) Finish antibiotics as prescribed. Reviewed allergies. She is stopping her warfarin tomorrow for dental procedure next week. She hopes that her cough and sinus symptoms will be abated by May 27 when she is having dental work done. Stay hydrated rest Coricidin cold medicines. [employer] Other 07-25-2023 Evaluation note* Encounter Date Diagnosis Assessment Notes Treatment Notes Treatment Clinical Notes Jan, Medicare annual wellness visit, subsequent [...] I10) Discussed labs - hypokalemia - add klor con. Discussed foods rich in potassium. She will take labs to upcoming appt w Dr. Hines and share levels - consider decrease in furosemide. Jan, Left lumbar radiculopathy (ICD-10 - M54.16) Presently in PT at [facility]. Jan, Paroxysmal atrial fibrillation (ICD-10 - I48.0) Had INR today. Discussed warfarin and foods that can effect INR. May, Type 2 diabetes mellitus without complications (ICD-10 - E11.9) Diabetes mellitus, type 2 Will share lab results w Dr. Pringle including renal function. Followup next month there. [employer] Other 07-25-2023 Evaluation note* Encounter Date Diagnosis Assessment Notes Treatment Notes Treatment Clinical Notes Jan, Medicare annual wellness visit, subsequent [...] (ICD-10 - M54.16) Presently in PT at [facility]. Jan, Paroxysmal atrial fibrillation (ICD-10 - I48.0) Had INR today. Discussed warfarin and foods that can effect INR. May, Type 2 diabetes mellitus without complications (ICD-10 - E11.9) Diabetes mellitus, type 2 Will share lab results w Dr. Pringle including renal function. Followup next month there. [employer] Other 06-21-2023 Evaluation note* Encounter Date Diagnosis Assessment Notes Treatment Notes Treatment Clinical Notes Dec, Sciatica, left side (ICD-10 - [...] problem, overdue for labs. Dec, Other fatigue (ICD-1 0 - R53.83) Discussed stressors, agrees to checking thyroid. Dec, Hx of pancreatitis (ICD-10 - Z87.19) Pt requests recheck of lipase. [employer] Other 11-16-2018 Evaluation note* Diagnosis Onset Date Resolution Status Bilateral lower extremity pain acute Essential (primary) hypertension acute Hyperlipidemia, unspecified acute Pulmonary hypertension, unspecified June 10 8 [facility] Work Phone: Evaluation noteNo InformationNort [employer] Other Evaluation noteNo assessment information available [facility] Work Phone: Evaluation note* Diagnosis Essential tremor- Primary Hypersomnia, unspecified Obstructive sleep apnea Obstructive sleep apnea (adult) (pediatric) 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 Twitch Abnormal involuntary movements Hypoxemia documented in this encounter [facility] HealthcareEvaluation note* Diagnosis Class 2 severe obesity due to excess calories with serious comorbidity and body mass index (BMI) of 37.0 to 37.9 in adult (CMS/HCC)- Primary Type 2 diabetes mellitus with stage 3b chronic kidney disease, with long-term current use of insulin (HCC) (CMS/HCC) Type 2 diabetes mellitus with peripheral neuropathy (CMS/HCC) documented in this encounter [facility] HealthcareEvaluation note* Diagnosis Long-term insulin use (CMS/HCC)- Primary Type 2 diabetes mellitus with peripheral neuropathy (CMS/HCC) Diabetic nephropathy associated with type 2 diabetes mellitus (HCC) (CMS/HCC) Severe obesity (BMI 35.0-39.9) with comorbidity (CMS/HCC) Class 2 severe obesity due to excess calories with serious comorbidity and body mass index (BMI) of 37.0 to 37.9 in adult (CMS/HCC)- Primary Type 2 diabetes mellitus with peripheral neuropathy (CMS/HCC) Long-term insulin use (CMS/HCC) Type 2 diabetes mellitus with stage 3b chronic kidney disease, with long-term current use of insulin (HCC) (CMS/HCC) Class 2 severe obesity due to excess calories with serious comorbidity and body mass index (BMI) of 37.0 to 37.9 in adult (CMS/HCC)- Primary Type 2 diabetes mellitus with peripheral neuropathy (CMS/HCC) Type 2 diabetes mellitus with stage 3b chronic kidney disease, with long-term current use of insulin (HCC) (CMS/HCC) Type 2 diabetes mellitus with peripheral neuropathy (CMS/HCC)- Primary Type 2 diabetes mellitus with stage 3b chronic kidney disease, with long-term current use of insulin (HCC) (CMS/HCC) Class 2 severe obesity due to excess calories with serious comorbidity and body mass index (BMI) of 37.0 to 37.9 in adult (CMS/HCC) Class 2 severe obesity due to excess calories with serious comorbidity and body mass index (BMI) of 37.0 to 37.9 in adult (CMS/HCC)- Primary Type 2 diabetes mellitus with stage 3b chronic kidney disease, with long-term current use of insulin (HCC) (CMS/HCC) Type 2 diabetes mellitus with peripheral neuropathy (CMS/HCC) Type 2 diabetes mellitus with stage 3b chronic kidney disease, with long-term current use of insulin (HCC) (CMS/HCC)- Primary Type 2 diabetes mellitus with peripheral neuropathy (CMS/HCC) Class 2 severe obesity due to excess calories with serious comorbidity and body mass index (BMI) of 36.0 to 36.9 in adult (CMS/HCC) documented in this encounter [facility] HealthcareEvaluation note* Diagnosis Long-term insulin use (CMS/HCC)- Primary Type 2 diabetes mellitus with peripheral neuropathy (CMS/HCC) Diabetic nephropathy associated with type 2 diabetes mellitus (HCC) (CMS/HCC) Severe obesity (BMI 35.0-39.9) with comorbidity (CMS/HCC) Class 2 severe obesity due to excess calories with serious comorbidity and body mass index (BMI) of 37.0 to 37.9 in adult (CMS/HCC)- Primary Type 2 diabetes mellitus with peripheral neuropathy (CMS/HCC) Long-term insulin use (CMS/HCC) Type 2 diabetes mellitus with stage 3b chronic kidney disease, with long-term current use of insulin (HCC) (CMS/HCC) Class 2 severe obesity due to excess calories with serious comorbidity and body mass index (BMI) of 37.0 to 37.9 in adult (CMS/HCC)- Primary Type 2 diabetes mellitus with peripheral neuropathy (CMS/HCC) Type 2 diabetes mellitus with stage 3b chronic kidney disease, with long-term current use of insulin (HCC) (CMS/HCC) Type 2 diabetes mellitus with peripheral neuropathy (CMS/HCC)- Primary Type 2 diabetes mellitus with stage 3b chronic kidney disease, with long-term current use of insulin (HCC) (CMS/HCC) Class 2 severe obesity due to excess calories with serious comorbidity and body mass index (BMI) of 37.0 to 37.9 in adult (CMS/HCC) Class 2 severe obesity due to excess calories with serious comorbidity and body mass index (BMI) of 37.0 to 37.9 in adult (CMS/HCC)- Primary Type 2 diabetes mellitus with stage 3b chronic kidney disease, with long-term current use of insulin (HCC) (CMS/HCC) Type 2 diabetes mellitus with peripheral neuropathy (CMS/HCC) Type 2 diabetes mellitus with stage 3b chronic kidney disease, with long-term current use of insulin (HCC) (CMS/HCC)- Primary Type 2 diabetes mellitus with peripheral neuropathy (CMS/HCC) Class 2 severe obesity due to excess calories with serious comorbidity and body mass index (BMI) of 36.0 to 36.9 in adult (CMS/HCC) Essential tremor- Primary Obstructive sleep apnea Obstructive sleep apnea (adult) (pediatric) Hypersomnia, unspecified Hypoxemia 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 [facility] Diagnosis Paroxysmal A-fib (CMS-HCC)- Primary Occlusion and stenosis of bilateral carotid arteries Non-rheumatic mitral regurgitation Nonrheumatic tricuspid valve regurgitation LAE (left atrial enlargement) Cardiomegaly Pulmonary hypertension (CMS-HCC) Other chronic pulmonary heart diseases Essential hypertension Unspecified essential hypertension Nonrheumatic aortic valve insufficiency Hyperlipidemia, unspecified hyperlipidemia type History of transient ischemic attack (TIA) Transient ischemic attack (TIA), and cerebral infarction without residual deficits Current use of nursing home anticoagulation Abnormal echocardiogram Nonspecific (abnormal) findings on radiological and other examination of other intrathoracic organs Bilateral edema of lower extremity senior living current use of antiarrhythmic drug [facility] 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 drug- Primary LAE (left atrial enlargement) Cardiomegaly Pulmonary hypertension (CMS-HCC) Other chronic pulmonary heart diseases [facility] Diagnosis Paroxysmal A-fib (CMS-HCC)- Primary Occlusion and stenosis of bilateral carotid arteries Nonrheumatic tricuspid valve regurgitation LAE (left atrial enlargement) Cardiomegaly Pulmonary hypertension (CMS-HCC) Other chronic pulmonary heart diseases Essential hypertension Unspecified essential hypertension Nonrheumatic aortic valve insufficiency Hyperlipidemia, unspecified hyperlipidemia type History of transient ischemic attack (TIA) Transient ischemic attack (TIA), and cerebral infarction without residual deficits Current use of nursing home anticoagulation Abnormal echocardiogram Nonspecific (abnormal) findings on radiological and other examination of other intrathoracic organs Bilateral edema of lower extremity senior living current use of antiarrhythmic drug Non-rheumatic mitral regurgitation [facility] - Reported* Type Description Date Medical History HTN Medical History A-Fib Medical History DM Surgical History T&A Surgical History Appendectomy Surgical History D&C x2 Surgical History Tubal Ligation Surgical History Hysterectomy Surgical History Cystocele/Rectocele Surgical History Right Carpal Tunnel Surgical History Basal Cell Carcinoma (face) Hospitalization History See past surgical hx Hospitalization History Pancreatitis 2011 Hospitalization History Pneumonia [employer] Other InstructionsNot on filedocumented in this encounter [facility] on filedocumented in this encounter [facility] Summary Purpose Family History No Family History Records Found Relationship Condition Age at Onset Recorded Date/T enedina Not Specified Unknown Relationship Condition Age at Onset Recorded Date/T enedina mother Unknown Advance Directives No Advanced Directives Records Found Advance Directive Response Recorded Date/ Time Advance Directives No November 17 11:39am Advance Directive Response Recorded Date/ Time Advance Directives No November 17 10:39am Chief Complaint and Reason for Visit Chief Complaint Amb Documentation check up Reason for Visit Bilateral lower extr emity pain Essential (primary) hypertension Hyperlipidemia, unspecified Pulmonary hypertension, unspecified Chief Complaint 4 month follow up Chief Complaint Admit Date MAWV July 27, 2024 9: 58am Additional Source Comments INFORMATION SOURCE (unrecogn ized section and content) DATE CREATED AUTHOR 01/01/2023 [facility] DATE CREATED AUTHOR AUTHOR'S ORGANIZ ATION 03/11/2024 [facility] DATE CREATED AUTHOR AUTHOR'S ORGANIZ ATION 09/30/2024 [facility] DATE CREATED AUTHOR AUTHOR'S ORGANIZ ATION 10/18/2024 [facility] EPIC REASON FOR VISIT (unrecogniz ed section and content) Reason Comments Sleep Apnea Reason Comments Diabetes Reason Comments Sleep Apnea Tremors Reason Comments Follow-up Last INR 2.3 FEBRUARY 11 24MONTHLY CHECKS Reason Comments Follow-up 6 month Reason Onset Date Comments Appointment Confirmation 10/16/2024 Care Teams (unrecognized sec tion and content) [...] November 18, 2023 End: November 18, 2023 [employer] Relationship Specialty Start Date End Date Adenike Langford DO [address] [place] [address] PCP - ACO Reach 12/17/22 Claudia Leon MD [address] [facility] [place] [phone] PCP - General Family Medicine 02/15/23 [employer] Relationship Specialty Start Date End Date Adenike Langford, DO [address] [place] [address] PCP - ACO Reach 12/17/22 Claudia Leon MD [address] [facility] [place] [phone] PCP - General Family Medicine 02/15/23 [employer] [employer] Relationship Specialty Start Date End Date Adenike Langford, DO [address] [place] [address] PCP - ACO Reach 12/17/22 Claudia Leon MD [address] [facility] [place] [phone] PCP - General Family Medicine 02/15/23 [employer]ent Management Relationship Specialty Start Date End Date Adenike Langford DO [address] [place] [address] PCP - ACO Reach 12/17/22 Claudia Leon MD [address] [place] [phone] PCP - General Family Medicine 02/15/23 Team Status: Inactive Member Role Status Dates Claudia Leon MD Primary Care Provide r, Attending Provider Active Start: July 27, 2024 End: July 27, 2024 [employer] Relationship Specialty Start Date End Date Adenike Langford DO [address] [facility] [address] [place] [phone] PCP - ACO Reach 12/17/22 [place] [address] [place] [phone] PCP - General Family Medicine 02/15/23 [employer] Relationship Specialty Start Date End Date Adenike Langford DO [address] [facility] [address] [place] [phone] PCP - ACO Reach 12/17/22 [place] [address] [place] [phone] PCP - General Family Medicine 02/15/23 [employer] Management Relationship Specialty Start Date End Date Claudia Leon MD [address] [place] [id number] PCP - General Family Medicine 06/06/20 [employer] Relationship Specialty [place] [address] [place] [id number] PCP - General Family Medicine 06/06/20 [employer] Relationship Specialty Start Date End Date Claudia Leon MD [address] [place] [id number] PCP - General Family Medicine 06/06/20 Goals [...] BE BASED ON THE PRIMARY CLINICAL RECORDS. [facility]. provides no warranty or guarantee of the accuracy or completeness of information in this document.
[2024-10-19 11:16] LABS: Creatinine Urine Random 263.19 mg/dL (20.00-300.00); Microalbum Creatinine Ratio Ur 15.1 mg/g (0.0-29.9)
[2024-10-19 12:28] LABS: Alanine Aminotransferase 32 U/L (14-59); Albumin Level 3.8 g/dL (3.4-5.0); Alkaline Phosphatase 144 U/L (46-116); Aspartate Amino Transferase 22 U/L (15-37); BUN Creatinine Ratio 20.9; Bilirubin Total 1.1 mg/dL (0.2-1.0); Calcium 9.4 mg/dL (8.5-10.1); Carbon Dioxide 31.2 mmol/L (21.0-32.0); Chloride 106 mmol/L (98-107); Chol HDL Ratio 2.1; Cholesterol 163 mg/dL (<=200); Estimated GFR (African America 56 (>=60 mL/min/1.73m^2); Estimated GFR (Non-African Ame 46 (>=60 mL/min/1.73m^2); Globulin 3.8 g/dL; Glucose 155 mg/dL (74-106); HDL Cholesterol 77 mg/dL (40-60); Potassium 4.2 mmol/L (3.5-5.1); Sodium 144 mmol/L (136-145); Total Protein 7.6 g/dL (6.4-8.2); Triglycerides 118 mg/dL (<=150); VLDL CHOLESTEROL 23.6 mg/dL
== END 2024-10-19 10:01 | disposition home or self-care (01) ==
LOC: LAB 10:04
PROVIDERS: PCP Family Medicine; Visit Provider Family Medicine
DX: E11.42 Type 2 diabetes mellitus with diabetic polyneuropathy (principal); Z51.81 Encounter for therapeutic drug level monitoring; Z79.01 Long term (current) use of anticoagulants; I48.91 Unspecified atrial fibrillation
CPT/HCPCS: 36415; 80053; 80061; 82043; 82570; 85025; 85610

== ENCOUNTER 2024-10-24 01:56 | Outpatient (RCR) | payer MEDICARE, OTHER, SELFPAY | END 2024-11-22 13:38 | disposition home or self-care (01) | LOC: MM 01:56 | PROVIDERS: PCP Family Medicine; Visit Provider Internal Medicine | DX: Z51.81 Encounter for therapeutic drug level monitoring (principal); Z79.01 Long term (current) use of anticoagulants; I48.20 Chronic atrial fibrillation, unspecified | CPT/HCPCS: 85610; G0463 ==

== ENCOUNTER 2024-11-23 04:41 | Outpatient (RCR) | payer MEDICARE, OTHER, SELFPAY | END 2024-12-22 14:54 | disposition home or self-care (01) | LOC: MM 04:41 | PROVIDERS: PCP Family Medicine; Visit Provider Internal Medicine | DX: Z51.81 Encounter for therapeutic drug level monitoring (principal); Z79.01 Long term (current) use of anticoagulants; I48.20 Chronic atrial fibrillation, unspecified ==

== ENCOUNTER 2024-12-24 07:06 | Outpatient (RCR) | payer MEDICARE, OTHER, SELFPAY | END 2025-01-18 14:16 | disposition home or self-care (01) | LOC: MM 07:06 | PROVIDERS: PCP Family Medicine; Visit Provider Internal Medicine | DX: Z51.81 Encounter for therapeutic drug level monitoring (principal); Z79.01 Long term (current) use of anticoagulants; I48.20 Chronic atrial fibrillation, unspecified | CPT/HCPCS: 85610; G0463 ==

== ENCOUNTER 2025-01-23 02:30 | Outpatient (RCR) | payer MEDICARE, OTHER, SELFPAY | END 2025-02-22 16:28 | disposition home or self-care (01) | LOC: MM 02:30 | PROVIDERS: PCP Family Medicine; Visit Provider Internal Medicine | DX: Z51.81 Encounter for therapeutic drug level monitoring (principal); Z79.01 Long term (current) use of anticoagulants; I48.20 Chronic atrial fibrillation, unspecified | CPT/HCPCS: 85610; G0463 ==

== ENCOUNTER 2025-02-08 12:41 | Outpatient (OUT) | payer MEDICARE, OTHER, SELFPAY ==
--- NOTE | 2025-02-08 | US_ITS ---
The [address] [address] Patient Name: BRI VILLALOBOS MRN: [id number] date: 1950 Sex: F Assigned Patient Location: US Current Patient Location: Accession/Order Number: [id number] Exam Date: 02/09/2025 07:03 Report Date: 02/09/2025 07:25 At the request of: BULMARO LEON MD Procedure: US chest CLINICAL DATA: Mass right neck and chronic left chest wall with increase in size THYROID ULTRASOUND COMPARISON: CT 03/04/2020 The right thyroid lobe is enlarged measuring 5.7 x 2.2 x 2.7 cm. The left lobe measures 5.2 x 1.7 x 1.6 cm . The isthmus measures 2 mm. Thyroid echotexture is heterogeneous. Mild hyperemia is seen on the right. There are multiple thyroid nodules. There is a TI-RADS 3 heterogeneous hypoechoic nodule at the superior to midportion of the right thyroid lobe measuring 2.0 x 1.2 x 2.0 cm. At the mid pole, there is another TI-RADS 2 nodule with cystic and solid components measuring 2.0 x 1.3 x 1.8 cm. At the left superior pole, there is a small TI-RADS 3 hypoechoic nodule measuring 7 x 3 x 7 mm. At the midpole posteriorly, there is a calcification measuring 3 mm in size. At the inferior pole, there is another potential complex cystic nodule measuring 5 mm in size. At the right lateral neck in the area of palpable concern, there is a subcutaneous heterogeneous hypoechoic nodule measuring 3.6 x 1.4 x 2.2 cm. No suspicious findings were identified the site of the supraclavicular lump. US/US thyroid IMPRESSION: MILD RIGHT THYROID ENLARGEMENT. BILATERAL MILDLY SUSPICIOUS THYROID NODULES. ULTRASOUND-GUIDED BIOPSY OF THE DOMINANT SOLID NODULE AT THE SUPERIOR POLE ON THE RIGHT COULD BE CONSIDERED. OTHERWISE ANNUAL FOLLOW-UP IS SUGGESTED. HYPOECHOIC SUBCUTANEOUS NODULE AT THE SITE OF PALPABLE CONCERN AT THE RIGHT NECK. IF THIS IS THE SAME LUMP AT THE TIME OF THE CT IN 2019, THIS IS LIPOMA. LIMITED ULTRASOUND - left chest wall COMPARISON: CT 03/04/2020 Real-time ultrasound evaluation of the area of palpable concern near the clavicles performed. There is a single lobulated or 2 adjacent subcutaneous capsulated hypoechoic areas measuring 7.7 x 2.1 x 5.3 cm in size. Given the appearance, this may be a lipoma. IMPRESSION: SUSPECTED LIPOMA AT THE SITE OF PALPABLE CONCERN. Impression dictated by: Ayala Cole M.D. 02/09/2025 7:25 AM Dictation Location: [place] [address] Electronically authenticated by: [id number] Y Date: 02/09/2025 07:25
--- NOTE | 2025-02-08 | US_ITS ---
The [address] [address] Patient Name: BRI VILLALOBOS MRN: [id number] date: 1950 Sex: F Assigned Patient Location: US Current Patient Location: Accession/Order Number: [id number] Exam Date: 02/09/2025 07:03 Report Date: 02/09/2025 07:25 At the request of: BULMARO LEON MD Procedure: US chest CLINICAL DATA: Mass right neck and chronic left chest wall with increase in size THYROID ULTRASOUND COMPARISON: CT 03/04/2020 The right thyroid lobe is enlarged measuring 5.7 x 2.2 x 2.7 cm. The left lobe measures 5.2 x 1.7 x 1.6 cm . The isthmus measures 2 mm. Thyroid echotexture is heterogeneous. Mild hyperemia is seen on the right. There are multiple thyroid nodules. There is a TI-RADS 3 heterogeneous hypoechoic nodule at the superior to midportion of the right thyroid lobe measuring 2.0 x 1.2 x 2.0 cm. At the mid pole, there is another TI-RADS 2 nodule with cystic and solid components measuring 2.0 x 1.3 x 1.8 cm. At the left superior pole, there is a small TI-RADS 3 hypoechoic nodule measuring 7 x 3 x 7 mm. At the midpole posteriorly, there is a calcification measuring 3 mm in size. At the inferior pole, there is another potential complex cystic nodule measuring 5 mm in size. At the right lateral neck in the area of palpable concern, there is a subcutaneous heterogeneous hypoechoic nodule measuring 3.6 x 1.4 x 2.2 cm. No suspicious findings were identified the site of the supraclavicular lump. US/US chest IMPRESSION: MILD RIGHT THYROID ENLARGEMENT. BILATERAL MILDLY SUSPICIOUS THYROID NODULES. ULTRASOUND-GUIDED BIOPSY OF THE DOMINANT SOLID NODULE AT THE SUPERIOR POLE ON THE RIGHT COULD BE CONSIDERED. OTHERWISE ANNUAL FOLLOW-UP IS SUGGESTED. HYPOECHOIC SUBCUTANEOUS NODULE AT THE SITE OF PALPABLE CONCERN AT THE RIGHT NECK. IF THIS IS THE SAME LUMP AT THE TIME OF THE CT IN 2019, THIS IS LIPOMA. LIMITED ULTRASOUND - left chest wall COMPARISON: CT 03/04/2020 Real-time ultrasound evaluation of the area of palpable concern near the clavicles performed. There is a single lobulated or 2 adjacent subcutaneous capsulated hypoechoic areas measuring 7.7 x 2.1 x 5.3 cm in size. Given the appearance, this may be a lipoma. IMPRESSION: SUSPECTED LIPOMA AT THE SITE OF PALPABLE CONCERN. Impression dictated by: Ayala Cole M.D. 02/09/2025 7:25 AM Dictation Location: [place] [address] Electronically authenticated by: [id number] Y Date: 02/09/2025 07:25
--- OUTSIDE RECORDS SUMMARY | 2025-02-08 12:43 | XMS_ITS | Encounter Summary ---
Author Organization [employer] [id number] [address] [place] [address] Care Team Providers Care Manager Servicing Name Role Phone Claudia Whittington MD Primary Care Provider [phone] Encounter Details Date Type Department Care Team (Late Contact Info) Description 03/08/2023 Orders Only [facility] [address] [place] [phone] Elmira Pérez MD [address] [place] [address] Social History Tobacco Use Types Packs/Day Years Used Date Smoking Tobacco: Never Smokeless Tobacco: Never Alcohol Use Standard Drinks/Week Comments Yes 0 (1 standard drink = 0.6 oz pur e alcohol) ABOUT ONE PER MONTH Childcare Answer Date Recorded Childcare Unknown 01/04/2019 Employment Answer Date Recorded Employment Unknown 01/04/2019 Purpose - Life Answer Date Recorded Purpose and direction in life Unknown Comments Unknown Sex and Gender Information Value Date Recorded Sex Assigned at Not on file Legal Sex Female 11:52 AM EDT Gender Identity Not on file Sexual Orientation Not on file documented as of this encounter Plan of Treatment Upcoming Encounters Date Type Department Care Team (Late Contact Info) Description 04/02/2025 10:30 AM EDT [facility]ointment [facility] [address] [place] [phone] 04/02/2025 11:00 AM EDT [facility]ment [facility] [address] [place] [phone] 04/02/2025 11:45 AM EDT Office Visit [facility] [address] [address] [place] [phone] Elmira Pérez MD [address] [place], [place] [id number] documented as of this encounter Procedures Procedure Name Priority Date/Time Associated Diagnosis Comments POCT EKG Routine 03/03/2023 documented in this encounter Results * POCT EKG (03/03/2023) us Elmira Pérez MD ECG ORDERABLES Final Result Performing Organization Address City/State/[facility] Co de Phone Number MANUALLY TRANSCRIBED RESULTS documented in this encounter Visit Diagnoses Not on filedocumented in this encounter Care Teams Manager Servicing Relationship Specialty Start Date End Date Claudia Whittington MD [address] [place] [place] [id number] PCP - General Family Medicine 06/06/20 documented as of this encounter
--- OUTSIDE RECORDS SUMMARY | 2025-02-08 12:43 | XMS_ITS | Clinical Summary ---
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 Other Reaction(s): Other (See Comments) Penicillins 06/06/2020 Other Reaction(s): rash, dyspnea Other Reaction(s): Hives Sulfa Antibiotics Rash Low 01/17/2014 Other Reaction(s): rash Other Reaction(s): Hives Medications Glucose Blood (Blood Glucose Test Strips 333) stripIndications: Type 2 diabetes mellitus with peripheral neuropathy (HCC) 1 each by In Vitro route in the morning and 1 each in the evening and 1 each before bedtime. 300 strip 3 02/06/20 23 Active warfarin (Coumadin) 4 MG tablet Take 4 mg by mouth 1 (one) time each day 2 mg on wednesday and Active losartan (Cozaar) 100 MG tablet Take 100 mg by mouth in the morning. Active hydroCHLOROthiazi de (HYDRODiuril) 25 MG tablet Take 25 mg by mouth in the morning and 25 mg before bedtime. Active furosemide (Lasix) 40 MG tablet Take 40 mg by mouth Daily as needed (swelling). Active flecainide (Tambocor) 150 MG tablet Take 75 mg by mouth in the morning and 75 mg before bedtime. Active atorvastatin (Lipitor) 40 MG tablet Take 40 mg by mouth at bedtime. Active amLODIPine (Norvasc) 10 MG tablet Take 10 mg by mouth at bedtime. Active insulin pen needle (BD Pen Needle Haley 2nd Gen) 32G x 4 mm miscIndications:T ype 2 diabetes mellitus with peripheral neuropathy (HCC) Injections 3 times a day 300 each 3 09/08/19 25 026 Active propranolol LA (Inderal LA) 60 MG 24 hr capsuleIndication s:Essential tremor Take 1 capsule (60 mg) by mouth Daily 60 capsule 1 11/16/19 25 Active Continuous Glucose Sensor (FreeStyle Delicia 3 Plus Sensor) miscIndications:T ype 2 diabetes mellitus with peripheral neuropathy (HCC) 1 each See administration instructions 6 each 3 12/05/19 25 Active insulin glargine (Lantus SoloStar) 100 UNIT/ML penIndications:Ty pe 2 diabetes mellitus with peripheral neuropathy (HCC) Inject 22 Units under the skin in the morning. 30 mL 1 01/19/20 25 Active insulin lispro (HumaLOG) 100 UNIT/ML injectionIndicati ons:Type 2 diabetes mellitus with diabetic polyneuropathy (HCC) 10 units breakfast, 12 units dinner plus correction 1:30 >150 mg/dl (max daily 50) 75 mL 1 01/19/20 25 Active insulin glargine (Lantus SoloStar) 100 UNIT/ML penIndications:Ty pe 2 diabetes mellitus with peripheral neuropathy (HCC) Inject 20 Units under the skin in the morning. 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 Sherry Kwan control is stable overall. , The patient is wearing their cgm [...] today include: Insulin instructions and Dietary education. Keep working on getting protein in her diet. Decrease lantus and increase humalog at dinner. Assessment & Plan (10/17/2024 1:11 PM EDT): During the appointment today all pertinent labs, [...] if they have any problems or questions. Sherry Kwan is doing very well and encouraged on this. , The patient is wearing their cgm on a daily basis and making decisions in regards to adjusting insulin daily as well for at least the last 60 days , Instructions given today include: Hypoglycemia management and Insulin instructions. Will decrease lantus to help prevent low bg. Assessment & Plan (07/21/2024 8:25 AM EST): During the appointment today all pertinent labs, [...] if they have any problems or questions. Sherry Kwan control is stable overall. , Will [...] today include: Insulin instructions and Dietary education Assessment & Plan (04/18/2024 12:18 PM EDT): During the appointment today all pertinent labs, [...] if they have any problems or questions. Sherry Kwan is doing very well and encouraged [...] food journal and trying to limit to 2065-0214 calories daily to help with weight loss. Assessment & Plan (01/11/2024 12:16 PM EDT): During the appointment today all pertinent labs, [...] if they have any problems or questions. Sherry Kwan is doing very well and encouraged on this. , The patient is wearing their cgm on a daily basis and making decisions in regards to adjusting insulin daily as well for at least the last 60 days , Instructions given today include: Hypoglycemia management and Insulin instructions. Will decrease insulin at breakfast to prevent low bg/rebound hyperglycemia. Assessment & Plan (10/12/2023 10:48 AM EDT): During the appointment today all pertinent labs, [...] if they have any problems or questions. Sherry Kwan is doing very well and encouraged on this. , The patient is wearing their cgm on a daily basis and making decisions in regards to adjusting insulin daily as well for at least the last 60 days , Instructions given today include: Hypoglycemia management and Insulin instructions. Will decrease insulin at breakfast to prevent low bg. Assessment & Plan (07/12/2023 9:39 AM EST): During the appointment today all pertinent labs, [...] if they have any problems or questions. Sherry Kwan is making improvements and encouraged on this. , The patient is wearing their cgm on a daily basis and making decisions in regards to adjusting insulin daily as well for at least the last 60 days , Instructed on the importance of taking insulin before eating. If it has been more than 30-45 min since eating they should not give the meal dose but should just give a correction insulin dose. , Instructions given today include: Hypoglycemia management and Insulin instructions. Decrease basal insulin. Assessment & Plan (03/18/2023 1:51 PM EDT): During the appointment today all pertinent labs, [...] if they have any problems or questions. Sherry Kwan is doing okay. , Instructions given today include: Hypoglycemia management and Insulin instructions. She is to continue to work on figuring out what foods will cause her bg to go up after dinner. Will try and set her up with a delicia 3 cgm and see if that helps to smooth out her readings. 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 02/14/2023 Family history of basal cell carcinoma 1 Overview (02/15/2023): father father Type 2 diabetes mellitus wit h stage 3a chronic kidney disease, with long-term current use of insulin 08/06/2020 Class 2 severe obesity due t o excess calories with serious comorbidity and body mass index (BMI) of 36.0 to 36.9 in adult 07/24/2020 Nonrheumatic aortic valve insufficiency 06/06/20 20 Mass of parotid gland 03/07/2020 Parotitis 02/21/2020 Cervical lymphadenitis 02/20/2020 terminal carman current use of antiarrhythmic drug terminal carman current use of anticoagulant therapy 0 02/10/2019 History of transient ischemic attack 02/10/2019 Bilateral carotid artery stenosis 02/10/2019 Vertigo 02/10/2019 Nonrheumatic tricuspid (valve) insufficiency 06/2018 Non-rheumatic mitral regurgitation 07/06/2018 LAE (left atrial enlargement) 07/06/2018 Abnormal echocardiogram 07/06/2018 Essential tremor 02/02/2018 Obstructive sleep apnea hypopnea, mild 8 Hypoxemia 07/05/2017 Insomnia 07/05/2017 Pulmonary hypertension 06/28/2017 Obstructive sleep apnea 03/02/2017 Hypersomnia, unspecified 11/09/2016 Tremor, essential 11/09/2016 Occlusion and stenosis of bilateral carotid debbie jaspal 04/14/2016 Essential hypertension 04/14/2016 Bilateral edema of lower extremity 04/14/2016 Paroxysmal A-fib 11/16/2014 Hyperlipidemia 11/16/2014 Bruit 11/16/2014 Basal cell carcinoma of skin of other parts of f pipe 01/17/2014 Overview (02/15/2023): Updating Deprecated Diagnoses Updating Deprecated Diagnoses Resolved Problems Problem Noted Date Diagnosed Date Resolved Date Long-term insulin use 03/18/20232023 Type 2 diabetes mellitus 02/15/2023 Polyneuropathy due to type 2 diabetes mellitus 08/06/2020 03/18/2023 Neoplasm of unspecified beha vior of bone, soft tissue, and skin 01/25/2014 02/15/2023 Overview (02/15/2023): New lesions of right cheek, left cheek / lower eyelid area, right shoulder, and right and left back. Encounters Date Type Department Care Team Description 01/18/2025 11:30 AM EDT Office Visit [facility] [address] [place] [address] Adenike Blandon, Type 2 diabetes mellitus with stage 3a chronic kidney disease, with long-term current use of insulin (HCC) (Primary Dx); Type 2 diabetes mellitus with peripheral neuropathy (HCC); Class 2 severe obesity due to excess calories with serious comorbidity and body mass index (BMI) of 36.0 to 36.9 in adult ([facility]-HCC); Type 2 diabetes mellitus with diabetic polyneuropathy (HCC) 01/18/2025 Abstract [facility] [address] [place] [phone] Adenike Blandon, DO 01/18/2025 Travel 01/17/2025 Telephone [facility] [address] [place] [phone] Adenike Blandon, DO appt reminder 12/06/2024 Abstract [facility] [address] [place] [phone] Adenike Blandon, DO 12/04/2024 Refill [facility] [address] [place] [address] Deandra Garcia LPN Type 2 diabetes mellitus with peripheral neuropathy (HCC) from Last 3 Months Immunizations Immunization Administration Dates Next Due Influenza, High Dose Seasonal, Preservative Free 04/17/2016 Influenza, Recombinant, injectable, preservative free 05/26/2020 Influenza, Seasonal, Quadrivalent, Adjuvanted Influenza, Unspecified 04/25/2014,05/25/2013 Influenza, injectable, quadrivalent, preservativ e free 03/11/2015 Influenza, trivalent, adjuvanted 05/10/2019,04/25 Pneumococcal Conjugate PCV 13 06/26/2019, 018 Pneumococcal Polysaccharide PPSV23 08/01/2019, Zoster, Recombinant 12/10/2019,08/22/2019 Zoster, live 11/02/2014 Family History Medical History Relation Name Comments Atrial fibrillation Father Heart disease Father Hypertension Father Stroke Father Brain cancer Mother Diabetes Mother Relation Name Status Comments Father Mother Social History Tobacco Use Types Packs/Day Years Used Date Smoking Tobacco: Never Passive Smoke Exposure: Past Smokeless Tobacco: Never Tobacco Cessation:Counseling Given: Not Answered Alcohol Use Standard Drinks/Week Comments Yes 0 (1 standard drink = 0.6 oz pur e alcohol) 1 drink every 4 month AUDIT-C Answer Date Recorded Q1: How often do you have a drink containing alc ohol? Monthly or less 04/18/2024 Q2: How many drinks containi ng alcohol do you have on a typical day when you are drinking? 1 or 2 04/18/2024 Q3: How often do you have si x or more drinks on one occasion? Never 04/18/2024 PHQ-2 Answer Date Recorded Patient Health Questionnaire-2 Score 0 01/18/2025 Comments Unknown Sex and Gender Information Value Date Recorded Sex Assigned at Not on file Legal Sex Female 10:59 PM EDT Gender Identity Not on file Sexual Orientation Not on file Last Filed Vital Signs Vital Sign Reading Time Taken Comments Blood Pressure 124/66 01/18/2025 11:25 AM EDT Pulse 56 01/18/2025 11:25 AM EDT Temperature 36.8 C (98.2 F) 01/18/2025 11:25 AM EDT Respiratory Rate - - Oxygen Saturation 95% 01/18/2025 11:25 AM EDT Inhaled Oxygen Concentration - - Weight 100 kg (221 lb) 01/18/2025 11:25 AM EDT Height 165.1 cm (5' 5 ) 01/18/2025 11:25 AM EDT Body Mass Index 36.78 01/18/2025 11:25 AM EDT Plan of Treatment Upcoming Encounters Date Type Department Care Team (Late st Contact Info) Description 04/20/2025 11:30 AM EDT Office Visit [facility] [address] [place] [address] Adenike Blandon DO [address] [place] [address] Health Maintenance Due Date Last Done Comments CT Colonography 1950 Colonoscopy 1950 Colorectal Cancer Screening 1950 FIT-DNA 1950 FIT 1950 FOBT 1950 Sigmoidoscopy 1950 Mammogram 1990 Medicare Annual Wellness (AWV) 02/17/2024 02/16/2023 , 07/08/2021 Diabetes: Retinopathy Screening 05/22/2024 Influenza Vaccine (#1) 2025 0, 05/26/2020, 05/10/2019, Additional history exists Diabetes: Hemoglobin A1C 04/20/2025 025, 10/17/2024, 07/14/2024, Additional history exists Diabetes: Urine Protein Screening 10/19/2025 025 Pneumococcal Vaccine: 65+ Years Completed 08/01/2019, 06/26/2019, 05/11/2018, Additional history exists Procedures Procedure Name Priority Date/Time Associated Diagnosis Comments POCT GLYCOSYLATED HEMOGLOBIN (HGB A1C) Routine 01/18/2025 11:34 AM EDT Type 2 diabetes mellitus with peripheral neuropathy (HCC) COLOR FUNDUS PHOTOGRAPHY - OU - BOTH EYES Routine 05/22/2022 12:00 PM EDT from Last 3 Months or Most Recently Relevant to Health Maintenance Results * POCT glycosylated hemoglobin (Hb A1C) docked device (01/18/2025 11:34 AM EDT) Hemoglobin A1C 7.3 Blood Venous blood specimen / Unknown 01/18/2025 11:34 AM EDT us Adenike Blandon DO POINT OF CARE TEST ENTER/E DIT ORDERABLES Final Result * Color Fundus Photography - OU - Both Eyes (05/22/2022 12:00 PM EDT) Anatomical Region Laterality Modality Head Fundus Photograp hy 05/22/2022 12:0 0 PM EDT Narrative 05/22/2022 12:00 PM EDT PERFORMED AT [facility] LOCATION:[id number] critical access hospital Procedure Note CONVERSION, GENERIC - 12/09/2022 PERFORMED AT [facility] LOCATION:[id number] critical access hospital us Adenike Blandon DO OPHTH PHOTOGRAPHY Final Re sult from Last 3 Months or Most Recently Relevant to Health Maintenance Insurance MEDICARE [employer] [facility] [id number] Care Teams Central Supply Worker Relationship Specialty Start Date End Date Adenike Blandon DO [address] [facility] [address] [place] [address] PCP - ACO Reach 12/17/22 Claudia Whittington MD [address] [facility] [place] [phone] PCP - General Family Medicine 02/15/23
--- OUTSIDE RECORDS SUMMARY | 2025-02-08 12:43 | XMS_ITS | Encounter Summary ---
Author Organization [facility] Address [address] [place] [address] Care Team Providers Care Lead Carpenter Name Role Phone Adenike Blandon DO Unavailable Claudia Whittington MD Primary Care Provider [phone] Encounter Details Date Type Department Care Team (Late st Contact Info) Description 01/18/2025 Abstract [facility] [address] [facility] [address] [place] [phone] Adenike Blandon, [address] [facility] [address] [place] [address] Social History Tobacco Use Types Packs/Day Years Used Date Smoking Tobacco: Never Passive Smoke Exposure: Past Smokeless Tobacco: Never Alcohol Use Standard Drinks/Week [...] on file documented as of this encounter Functional Status * Over the past 2 weeks, how often have you been bothered by any of the following problems? Question Answer Date of Assessment Author Little interest or pleasure in doing things Not at all 01/18/2025 11:26 AM EDT Deandra Garcia LPN Feeling down, depressed, or hopeless Not at all 01/18/2025 11:26 AM EDT Deandra Garcia LPN Patient Health Questionnaire-2 Score 0 01/18/2025 11:26 AM EDT Ayala Garcia LPN documented as of this encounter Plan of Treatment Upcoming Encounters Date Type Department Care Team (Late st Contact Info) Description 04/20/2025 11:30 AM EDT Office Visit [facility] [address] [facility] [address] [place] [address] Adenike Blandon DO [address] [facility] [address] [place] [address] documented as of this encounter Visit Diagnoses Not on filedocumented in this encounter Care Teams Lead Carpenter Relationship Specialty Start Date End Date Adenike Blandon DO [address] [facility] [address] [place] [address] PCP - ACO Reach 12/17/22 Claudia Whittington MD [address] [place] [address] PCP - General Family Medicine 02/15/23 documented as of this encounter
--- OUTSIDE RECORDS SUMMARY | 2025-02-08 12:44 | XMS_ITS | Encounter Summary ---
Author Organization [facility] Address [address] [place] [address] Care Team Providers Care Advanced Manufacturing Technician Name Role Phone Adenike Blandon DO Unavailable [phone] Claudia Whittington MD Primary Care Provider [phone] Encounter Details Date Type Department Care Team (Late st Contact Info) Description 03/18/2023 Abstract [facility] [address] [facility] 230 [place] [address] Adenike Blandon, [address] [facility] 230 [place] [address] Social History Tobacco Use Types Packs/Day Years Used Date Smoking Tobacco: Never Smokeless Tobacco: Never Alcohol Use Standard Drinks/Week Comments Never 0 (1 standard drink = 0.6 oz pur e alcohol) caffeine: 1-2 cups per day AUDIT-C Answer Date Recorded Q1: How often do you have a drink containing alc ohol? Monthly or less 03/18/2023 Q2: How many drinks containi ng alcohol do you have on a typical day when you are drinking? 1 or 2 03/18/2023 Q3: How often do you have si x or more drinks on one occasion? Never 03/18/2023 PHQ-2 Answer Date Recorded Patient Health Questionnaire-2 Score 0 03/18/2023 Comments Unknown Sex and Gender Information Value Date Recorded Sex Assigned at Not on file Legal Sex Female 10:59 PM EDT Gender Identity Not on file Sexual Orientation Not on file documented as of this encounter Functional Status * Audit-C Score Answer Date of Assessment Author 1 03/18/2023 1:02 PM EDT Amalia Garcia LPN * Question Answer Date of Assessment Author Q1: How often do you have a drink containing alcohol? Monthly or less 03/18/2023 1:02 PM EDDeandra Landis LPN Q2: How many drinks containing alcohol do you have on a typical day when you are drinking? 1 or 2 03/18/2023 1:02 PM Ayala Antony LPN Q3: How often do you have six or more drinks on one occasion? Never 03/18/2023 1:02 PM EDDeandra Landis LPN * Over the past 2 weeks, how often have you been bothered by any of the following problems? Question Answer Date of Assessment Author Little interest or pleasure in doing things Not at all 03/18/2023 1:03 PM Deandra Antony LPN Feeling down, depressed, or hopeless Not at all 03/18/2023 1:03 PM Deandra Antony LPN Patient Health Questionnaire-2 Score 0 03/18/2023 1:03 PM Naga Antony LPN documented as of this encounter Plan of Treatment Upcoming Encounters Date Type Department Care Team (Late st Contact Info) Description 04/20/2025 11:30 AM EDT Office Visit [facility] [address] [place] [address] Adenike Blandon DO [address] [place] [address] documented as of this encounter Visit Diagnoses Not on filedocumented in this encounter Care Teams Advanced Manufacturing Technician Relationship Specialty Start Date End Date Adenike Blandon DO [address] [place] [address] PCP - ACO Reach 12/17/22 Claudia Whittington MD [address] [facility] [place] [address] PCP - General Family Medicine 02/15/23 documented as of this encounter
--- OUTSIDE RECORDS SUMMARY | 2025-02-08 12:44 | XMS_ITS | Encounter Summary ---
Author Organization [facility] Address [address] [facility], [address] [place] [address] Care Team Providers Care Die Finisher Name Role Phone Claudia Whittington MD Primary Care Provider [phone] Reason for Visit * Reason Comments Medication Refill Encounter Details Date Type Department Care Team (Late st Contact Info) Description 05/13/2015 Refill [facility] [address] [place] [address] Elmira Pérez MD [address] [place] [address] Medication Refill Social History Tobacco Use Types Packs/Day Years Used Date Smoking Tobacco: Never Smokeless Tobacco: Never Alcohol Use Standard Drinks/Week Comments Yes 0 (1 standard drink = 0.6 oz pure alcohol) A glass of wine maybe once a month. Comments Unknown Sex and Gender Information Value Date Recorded Sex Assigned at Not on file Legal Sex Female 10:37 AM EDT Gender Identity Not on file Sexual Orientation Not on file documented as of this encounter Plan of Treatment Not on file documented as of this encounter Visit Diagnoses Not on filedocumented in this encounter Care Teams Die Finisher Relationship Specialty Start Date End Date Claudia Whittington MD PCP - General Family Medicine 07/06/18 documented as of this encounter
--- OUTSIDE RECORDS SUMMARY | 2025-02-08 12:44 | XMS_ITS | Clinical Summary ---
Author Organization [facility] Address [address] [place] [address] Care Team Providers Care Pharmacy Affairs Assistant Name Role Phone Unavailable Primary Care Provider Unavailabl e Social History Tobacco Use Types Packs/Day Years Used Date Smoking Tobacco: Never Assessed Comments Unknown Sex and Gender Information Value Date Recorded Sex Assigned at Not on file Legal Sex Female 12:16 AM EDT Gender Identity Not on file Sexual Orientation Not on file Plan of Treatment Not on file
--- OUTSIDE RECORDS SUMMARY | 2025-02-08 12:44 | XMS_ITS | Clinical Summary ---
Author Organization [facility] Address [id number] [address] [place] [address] Care Team Providers Care Trust Manager Assistant Name Role Phone Claudia Whittington MD Primary Care Provider [phone] Allergies Active Allergy Reactions Criticality Noted Date Comments Amoxicillin Rash Low 06/06/2020 Etodolac Rash Low 01/17/2014 Lisinopril Other (See Comments) 01/25/2014 Caused pancreatitis due to intermediate use. Diagnosed by a specialist. Penicillins Rash Low 06/06/2020 Sulfa (Sulfonamide Antibiotics) Rash Low 01/17/2014 Medications atorvastatin (LIPITOR) 40 mg tablet Take 1 tablet (40 mg total) by mouth. Active warfarin (COUMADIN) 4 mg tablet Take 1 tablet (4 mg total) by mouth. 2 mg Wednesday and , 4 mg all other days 0 Active LANTUS SOLOSTAR U-100 INSULIN 100 unit/mL (3 mL) insulin pen Inject 25 Units under the skin in the morning. 1 Active insulin lispro (HumaLOG) 100 unit/mL insulin pen Inject 10 Units under the skin in the morning and 10 Units before bedtime. 1 Active amLODIPine (NORVASC) 10 mg tablet Take 1 tablet (10 mg total) by mouth in the morning. 90 tablet 2 5 Active furosemide (LASIX) 40 mg tablet Take 1 tablet (40 mg total) by mouth daily as needed (swelling). 90 tablet 2 5 Active flecainide (TAMBOCOR) 150 mg tablet Take 0.5 tablets (75 mg total) by mouth in the morning and 0.5 tablets (75 mg total) before bedtime. 90 tablet 3 5 Active hydroCHLOROthia zide (HYDRODIURIL) 25 mg tablet Take 1 tablet (25 mg total) by mouth 2 (two) times a day. 90 tablet 2 5 Active Additional Information Patient taking differently: 50 mgoralDaily, Reported on 01/02/2025 losartan (COZAAR) 100 mg tablet Take 1 tablet (100 mg total) by mouth in the morning. 90 tablet 2 5 Active propranolol LA (INDERAL LA) 60 mg 24 hr capsule Take 1 capsule (60 mg total) by mouth in the morning. 90 capsule 2 5 Active moxifloxacin HCl (MOXIFLOXACIN 0.5%-PREDNISOLO NE 1%-BROMFENAC 0.09% DROPS - BUDERER ) Administer 1 drop to the right eye in the morning and 1 drop before bedtime. One drop twice a day to operative eye for one week, then daily for three weeks. 5 Active moxifloxacin HCl (MOXIFLOXACIN 0.5%-PREDNISOLO NE 1%-BROMFENAC 0.09% DROPS - BUDERER ) Administer 1 drop into the left eye in the morning for 7 days. One drop twice a day to operative eye for one week, then daily for three weeks. 5 01/10/20 25 Active Problems Problem Noted Date Diagnosed Date Family history of basal cell carcinoma 1 Overview (12/02/2020): father nursing home current use of antiarrhythmic drug 04/2021 Severe obesity (BMI 35.0-39.9) with comorbidity 07/24/2020 History of transient ischemic attack (TIA) 06/06 Nonrheumatic aortic valve insufficiency 06/06/20 Current use of intermediate anticoagulation 020 Vertigo 02/10/2019 Abnormal echocardiogram 07/06/2018 Bilateral edema of lower extremity 04/14/2016 Bruit 11/16/2014 Neoplasm of unspecified natu re of bone, soft tissue, and skin 01/25/2014 Overview (12/02/2020): New lesions of right cheek, left cheek / lower eyelid area, right shoulder, and right and left back. Basal cell carcinoma of skin of other parts of f pipe 01/17/2014 Overview (12/02/2020): Updating Deprecated Diagnoses Occlusion and stenosis of bilateral carotid debbie jaspal Non-rheumatic mitral regurgitation Nonrheumatic tricuspid valve regurgitation LAE (left atrial enlargement) Pulmonary hypertension Essential hypertension Paroxysmal A-fib Hyperlipidemia Encounters Date Type Department Care Team Description 01/02/2025 8:22 AM EDT Anesthesia Event [facility] - Surgery [address] [place] [address] Owen Nielsen MD 01/02/2025 8:15 AM EDT - 01/02/2025 9:00 AM EDT Surgery [facility] - Surgery [address] [place] [address] Jo Ann Sommers MD EXTRACTION CATARACT INTRAOCULAR LENS [39229 (CPT )] 01/02/2025 6:15 AM EDT - 01/02/2025 9:18 AM EDT Hospital Encounter [facility] - Surgery [address] [place] [address] Jo Ann Sommers MD Discharge Disposition: Home 01/02/2025 Travel 01/01/2025 3:40 PM EDT Support Visit [facility] - Pre Admit [address] [place] [address] 12/05/2024 8:22 AM EDT Anesthesia Event [facility] - Surgery [address] [place] [address] Daniel Browning, 12/05/2024 8:15 AM EDT - 12/05/2024 9:00 AM EDT Surgery [facility] - Surgery [address] [place] [address] Jo Ann Sommers MD EXTRACTION CATARACT INTRAOCULAR LENS [45131 (CPT )] 12/05/2024 6:15 AM EDT - 12/05/2024 9:15 AM EDT Hospital Encounter [facility] - Surgery [address] [place] [address] Jo Ann Sommers MD Discharge Disposition: Home 12/05/2024 Travel 11/13/2024 11:15 AM EDT Procedure visit [facility] - Pre Admit [address] [place] [address] Preop examination (Primary Dx); Hypertension, unspecified type; Paroxysmal A-fib (CMS-HCC); Essential hypertension 11/13/2024 11:02 AM EDT - 11/13/2024 11:59 PM EDT Hospital Encounter [facility] - Cardiovascular [address] [place] [address] Preop examination; Paroxysmal A-fib (CMS-HCC); Essential hypertension Discharge Disposition: Home 11/13/2024 Travel from Last 3 Months Family History Medical History Relation Name Comments Atrial fibrillation Father Heart attack Mother Heart disease Son Relation Name Status Comments Father Mother Son Social History Tobacco Use Types Packs/Day Years Used Date Smoking Tobacco: Never Smokeless Tobacco: Never Alcohol Use Standard Drinks/Week Comments Yes 0 (1 standard drink = 0.6 oz pur e alcohol) ABOUT ONE PER MONTH Childcare Answer Date Recorded Childcare Unknown 01/04/2019 Employment Answer Date Recorded Employment Unknown 01/04/2019 Purpose - Life Answer Date Recorded Purpose and direction in life Unknown Comments No Sex and Gender Information Value Date Recorded Sex Assigned at Not on file Legal Sex Female 11:52 AM EDT Gender Identity Not on file Sexual Orientation Not on file Last Filed Vital Signs Vital Sign Reading Time Taken Comments Blood Pressure 132/57 01/02/2025 8:49 AM EDT Pulse 55 01/02/2025 8:49 AM EDT Temperature 36.8 C (98.2 F) 01/02/2025 6:34 AM EDT Respiratory Rate 14 01/02/2025 8:49 AM EDT Oxygen Saturation 92% 01/02/2025 8:49 AM EDT Inhaled Oxygen Concentration - - Weight 102.1 kg (225 lb) 01/02/2025 6:34 AM EDT Height 165.1 cm (5' 5 ) 01/02/2025 6:34 AM EDT Body Mass Index 37.44 01/02/2025 6:34 AM EDT Plan of Treatment Upcoming Encounters Date Type Department Care Team (Late st Contact Info) Description 04/02/2025 10:30 AM EDT Appointment [facility] [address] [place] [phone] 04/02/2025 11:00 AM EDT Appointment [facility] CardioVascular [address] [place] [phone] 04/02/2025 11:45 AM EDT Office Visit [facility] [address] [address] Elmira Pérez MD [address] [place] [address] Health Maintenance Due Date Last Done Comments Depression Screening 1962 Adult BMI Follow Up Plan 1968 DTaP,Tdap and Td Vaccines (1 - Tdap) 1969 Fall Risk Screening 12/29/2015 COVID-19 Vaccine (3 - Pfizer risk series) 12/19/2020 11/21/2020, 10/31/2020 Influenza Vaccine 03/26/2025 05/27/2020, , 05/10/2019, Additional history exists Adult BMI Screening 01/02/2026 01/02/2025 Tobacco Screening 01/02/2026 01/02/2025 Zoster (Shingles) Vaccine Completed 2019, 08/22/2019, 11/02/2014 Medical Devices Implanted Type Area Process Engineer Device Identifier Shelf Expiration Date Model / Serial / Lot Lens Iol [id number] [facility] [id number] - [id number] - [id number] Implanted:Qty: 1 on 12/05/2024 by Jo Ann Sommers MD at [facility] Lens [employer] 09/03/2028 [id number].210 / [id number] / N/A Lens Iol [id number] [facility] [facility] [id number] - [id number] - [id number] Implanted:Qty: 1 on 01/02/2025 by Jo Ann Sommers MD at [facility] Lens Right: Eye [employer] 09/03/2028 [id number].210 / [id number] / NA Procedures Procedure Name Priority Date/Time Associated Diagnosis Comments VT REMV CATARACT EXTRACAP,INSERT LENS 01/02/2025 8:22 AM EDT cataract right eye VT REMV CATARACT EXTRACAP,INSERT LENS 12/05/2024 8:22 AM EDT cataract left eye ECG 12-LEAD Routine 11/13/2024 11:12 AM EDT Preop examination Paroxysmal A-fib ([facility]) Essential hypertension from Last 3 Months Results * ECG 12 lead (11/13/2024 11:12 AM EDT) 11/13/2024 11:1 2 AM EDT Narrative TRAC[facility] - 11/13/2024 3:43 PM EDT Owen Nielsen MD ECG ORDERABLES Final Result TRACEMASTERVUE from Last [address] [facility] [place] [address] Care Teams Trust Manager Assistant Relationship Specialty Start Date End Date Claudia Whittington MD [address] [place] [address] PCP - General Family Medicine 06/06/20
--- OUTSIDE RECORDS SUMMARY | 2025-02-08 12:44 | XMS_ITS | Encounter Summary ---
Author Organization [facility] Address [address] [place] [address] Care Team Providers Care Hand Silvering Supervisor Name Role Phone Adenike Blandon Altagracia DO Unavailable [phone] Claudia Whittington MD Primary Care Provider [phone] Encounter Details Date Type Department Care Team (Late Contact Info) Description 03/23/2023 Orders Only [facility] [address] [facility] 230 [place] [address] A, Unknown Practice [address] [place], [place] [phone] Social History Tobacco Use Types Packs/Day Years [...] Department Care Team (Late Contact Info) Description 04/20/2025 11:30 AM EDT Office Visit [facility] [address] [facility] 230 [place] [address] Adenike Blandon DO [address] [place] [address] documented as of this encounter Procedures Procedure Name Priority Date/Time Associated Diagnosis Comments SCANNED LABS Routine 02/08/2023 2:24 PM EDT documented in this encounter Results * SCANNED LABS (02/08/2023 2:24 PM EDT) us Unknown Practice A LAB CHG PERFORMABLES Final Re sult documented in this encounter Visit Diagnoses Not on filedocumented in this encounter Care Teams Hand Silvering Supervisor Relationship Specialty Start Date End Date Adenike Blandon DO [address] [place] [address] PCP - ACO Reach 12/17/22 Claudia Whittington MD [address] [facility] [place] [address] PCP - General Family Medicine 02/15/23 documented as of this encounter
--- OUTSIDE RECORDS SUMMARY | 2025-02-08 12:44 | XMS_ITS | Encounter Summary ---
Author Organization [facility] Address [address] [place] [address] Care Team Providers Care Cat Tender Name Role Phone Adenike Blandon DO Unavailable [phone] Claudia Whittington MD Primary Care Provider [phone] Encounter Details Date Type Department Care Team (Late st Contact Info) Description 01/11/2024 Abstract [facility] [address] [facility] [address] [place] [address] Adenike Blandon, [address] [facility] [address] [place] [address] Social History Tobacco Use Types Packs/Day Years Used Date Smoking Tobacco: Never Passive Smoke Exposure: Past Smokeless Tobacco: Never Alcohol Use Standard Drinks/Week Comments Yes 0 (1 standard drink = 0.6 oz pur e alcohol) caffeine: 1-2 cups per day AUDIT-C Answer Date Recorded Q1: How often do you have a drink containing alc ohol? Monthly or less 01/11/2024 Q2: How many drinks containi ng alcohol do you have on a typical day when you are drinking? 1 or 2 01/11/2024 Q3: How often do you have si x or more drinks on one occasion? Never 01/11/2024 PHQ-2 Answer Date Recorded Patient Health Questionnaire-2 Score 0 03/18/2023 Comments Unknown Sex and Gender Information Value Date Recorded Sex Assigned at Not on file Legal Sex Female 10:59 PM EDT Gender Identity Not on file Sexual Orientation Not on file documented as of this encounter Functional Status * Audit-C Score Answer Date of Assessment Author 1 01/11/2024 11:47 AM EDT Deandra Garcia LPN * Question Answer Date of Assessment Author Q1: How often do you have a drink containing alcohol? Monthly or less 01/11/2024 11:47 AM EDT Deandra Garcia LPN Q2: How many drinks containing alcohol do you have on a typical day when you are drinking? 1 or 2 01/11/2024 11:47 AM EDT Maxine Garcia LPN Q3: How often do you have six or more drinks on one occasion? Never 01/11/2024 11:47 AM EDT Deandra Garcia LPN documented as of this encounter Plan of Treatment Upcoming Encounters Date Type Department Care Team (Late st Contact Info) Description 04/20/2025 11:30 AM EDT Office Visit [facility] [address] [place] [address] Adenike Blandon DO [address] [place] [address] documented as of this encounter Visit Diagnoses Not on filedocumented in this encounter Care Teams Cat Tender Relationship Specialty Start Date End Date Adenike Blandon DO [address] [place] [address] PCP - ACO Reach 12/17/22 Claudia Whittington MD [address] [facility] [place] [address] PCP - General Family Medicine 02/15/23 documented as of this encounter
--- OUTSIDE RECORDS SUMMARY | 2025-02-08 12:44 | XMS_ITS | Encounter Summary ---
Author Organization [facility] Address [address] [facility] [place] [address] Care Team Providers Care Nuclear Fuel Enrichment Technician Name Role Phone Adenike Blandon DO Unavailable [phone] Claudia Whittington MD Primary Care Provider [phone] Encounter Details Date Type Department Care Team (Late Contact Info) Description 02/10/2023 Abstract [facility] [address] [place] [phone] Owen Benton, PT [address] [place] [address] Social History Tobacco Use Types Packs/Day Years Used Date Smoking Tobacco: Never Smokeless Tobacco: Never Tobacco Cessation:Counseling Given: Not Answered Alcohol Use Standard Drinks/Week Comments Never 0 (1 standard drink = 0.6 oz pur e alcohol) caffeine: 1-2 cups per day Comments Unknown Sex and Gender Information Value Date Recorded Sex Assigned at Not on file Legal Sex Female 10:59 PM EDT Gender Identity Not on file Sexual Orientation Not on file documented as of this encounter Plan of Treatment Upcoming Encounters Date Type Department Care Team (Late Contact Info) Description 04/20/2025 11:30 AM EDT Office Visit [facility] [address] [facility] 230 [place] [address] Adenike Blandon DO [address] [facility] [address] [place] [address] documented as of this encounter Visit Diagnoses Not on filedocumented in this encounter Care Teams Nuclear Fuel Enrichment Technician Relationship Specialty Start Date End Date Adenike Blandon DO [address] [facility] [address] [place] [address] PCP - ACO Reach 12/17/22 Claudia Whittington MD [address] [facility] [place] [address] PCP - General Family Medicine 02/15/23 documented as of this encounter
--- OUTSIDE RECORDS SUMMARY | 2025-02-08 12:44 | XMS_ITS | Encounter Summary ---
Author Organization [facility] Address [id number] [address] [place] [address] Care Team Providers Care Transportation Security Screener Name Role Phone Claudia Whittington MD Primary Care Provider [phone] Encounter Details Date Type Department Care Team (Late st Contact Info) Description 03/10/2024 Orders Only [facility] [address] [place] [phone] Rayna Aviles CMA Occlusion and stenosis of bilateral carotid arteries (Primary Dx); History of transient ischemic attack (TIA) Social History Tobacco Use Types Packs/Day Years [...] Info) Description 04/02/2025 10:30 AM EDT Appointment [facility] [address] [place] [address] 04/02/2025 11:00 AM EDT Appointment [facility] Cardio[facility] [address] [place] [address] 04/02/2025 11:45 AM EDT Office Visit [facility] [address] [facility] [address] [place] [phone] Elmira Pérez MD [address] [place] [address] documented as of this encounter Visit Diagnoses Diagnosis Occlusion and stenosis of bilateral carotid arteries- Primary History of transient ischemic attack (TIA) Transient ischemic attack (TIA), and cerebral infarction without residual deficits documented in this encounter Care Teams Transportation Security Screener Relationship Specialty Start Date End Date Claudia Whittington MD [address] [place] [address] PCP - General Family Medicine 06/06/20 documented as of this encounter
--- OUTSIDE RECORDS SUMMARY | 2025-02-08 12:44 | XMS_ITS | Encounter Summary ---
Author Organization [facility] Address [address] [place] [address] Care Team Providers Care Electrotyper Helper Name Role Phone Adenike Blandon DO Unavailable [phone] Claudia Whittington MD Primary Care Provider [phone] Encounter Details Date Type Department Care Team (Late Contact Info) Description 10/19/2024 Abstract [facility] [address] [place] [address] Adenike Blandon, DO [address] [facility] [address] [place] [id number] Social History Tobacco Use Types Packs/Day Years [...] Date Recorded Patient Health Questionnaire-2 Score 0 10/17/2024 Comments Unknown Sex and Gender Information Value [...] [facility] [address] [place] [address] Adenike Blandon DO [address] [facility] [address] [place] [address] documented as of this encounter Visit Diagnoses Not on filedocumented in this encounter Care Teams Electrotyper Helper Relationship Specialty Start Date End Date Adenike Blandon DO [address] [facility] [address] [place] [address] PCP - ACO Reach 12/17/22 Claudia Whittington MD [address] [place] [address] PCP - General Family Medicine 02/15/23 documented as of this encounter
--- OUTSIDE RECORDS SUMMARY | 2025-02-08 12:44 | XMS_ITS | Encounter Summary ---
Author Organization [facility] Address [address], [address] [place] [address] Care Team Providers Care Inspector Penetrant Name Role Phone Claudia Whittington MD Primary Care Provider [phone] Reason for Visit * Reason Comments Medication Refill Encounter Details Date Type Department Care Team (Late st Contact Info) Description 10/20/2015 Refill [facility] [address] [facility] [address] [place] [address] Elmira Pérez MD [address] [place] [address] Medication Refill Social History Tobacco Use Types [...] on filedocumented in this encounter Care Teams Inspector Penetrant Relationship Specialty Start Date End Date Claudia Whittington MD PCP - General Family Medicine 07/06/18 documented as of this encounter
--- OUTSIDE RECORDS SUMMARY | 2025-02-08 12:44 | XMS_ITS | Encounter Summary ---
Author Organization [facility] Address [address], [address] [place] [address] Care Team Providers Care Apartment Rental Clerk Name Role Phone Claudia Whittington MD Primary Care Provider [phone] Reason for Visit * Reason Onset Date Comments Medication Refill 10/21/2015 Encounter Details Date Type Department Care Team (Late st Contact Info) Description 10/21/2015 Refill [facility] [address] [place] [address] Elmira Pérez MD [address] [place] [address] Medication Refill Social History Tobacco Use Types [...] on filedocumented in this encounter Care Teams Apartment Rental Clerk Relationship Specialty Start Date End Date Claudia Whittington MD PCP - General Family Medicine 07/06/18 documented as of this encounter
--- OUTSIDE RECORDS SUMMARY | 2025-02-08 12:44 | XMS_ITS | Encounter Summary ---
Author Organization [facility] Address [address] [place] [address] Care Team Providers Care Transformer Repairer Name Role Phone Adenike Blandon DO Unavailable [phone] Claudia Whittington MD Primary Care Provider [phone] Encounter Details Date Type Department Care Team (Late Contact Info) Description 10/19/2024 Abstract [facility] [address] [place] [address] Adenike Blandon, DO [address] [facility] [address] [place] [id number] Social History Tobacco Use Types Packs/Day Years [...] [address] [place] [address] Adenike Blandon DO [address] [facility] [address] [place] [address] documented as of this encounter Visit Diagnoses Not on filedocumented in this encounter Care Teams Transformer Repairer Relationship Specialty Start Date End Date Adenike Blandon DO [address] [facility] [address] [place] [address] PCP - ACO Reach 12/17/22 Claudia Whittington MD [address] [place] [address] PCP - General Family Medicine 02/15/23 documented as of this encounter
--- OUTSIDE RECORDS SUMMARY | 2025-02-08 12:44 | XMS_ITS | Clinical Summary ---
Author Organization [facility] Address [address], [address] [place] [address] Care Team Providers Care Diamond Setter Name Role Phone Claudia Whittington MD Primary Care Provider [phone] Allergies Active Allergy Reactions Criticality Noted Date Comments Etodolac Rash Low 01/17/2014 Lisinopril Other (See Comments) 01/25/2014 Caused pancreatitis due to ferry terminal agent use. Diagnosed by a specialist. Sulfa Antibiotics Rash Low 01/17/2014 Medications flecainide (TAMBOCOR) 150 MG tablet take 1 tablet by mouth every 12 hours 180 tablet 3 5 Active warfarin (COUMADIN) 2 MG tablet take 2 tablets by mouth once daily 30 tablet 3 5 Active atorvastatin (LIPITOR) 40 MG tablet Take 40 mg by mouth daily Active hydrochlorothia zide (HYDRODIURIL) 25 MG tablet Take 1 tablet by mouth daily 1 additional tablet daily PRN SWELLING 180 tablet 3 5 Active Additional Information Patient taking differently:25 mg Oral2 TIMES DAILY, 1 additional tablet daily PRN SWELLING, Reported on 11/23/2016 losartan (COZAAR) 100 MG tablet TAKE 1 TABLET DAILY 90 tablet 3 6 Active amLODIPine (NORVASC) 10 MG tablet TAKE 1 TABLET DAILY 90 tablet 2 6 Active warfarin (COUMADIN) 6 MG tablet take 1 tablet by mouth once daily 0 6 Active warfarin (COUMADIN) 5 MG tablet take 1 tablet by mouth once daily 0 6 Active warfarin (COUMADIN) 4 MG tablet 0 6 Active furosemide (LASIX) 40 MG tablet take 1 tablet by mouth once daily if needed FOR SWELLING 30 tablet 3 7 Active propranolol (INDERAL LA) 60 MG extended release capsule Take 60 mg by mouth daily Active Active Problems Problem Noted Date Diagnosed Date long-term current use of antiarrhythmic drug History of TIA (transient ischemic attack) 02/10 long-term (current) use of anticoagulants 2018 Bilateral carotid artery stenosis 02/10/2019 Vertigo 02/10/2019 Non-rheumatic mitral regurgitation 07/06/2018 Non-rheumatic tricuspid valve insufficiency 06/25 LAE (left atrial enlargement) 07/06/2018 Abnormal echocardiogram 07/06/2018 Pulmonary hypertension 06/28/2017 Bilateral edema of lower extremity 04/14/2016 Essential hypertension 04/14/2016 Occlusion and stenosis of bilateral carotid debbie jaspal 04/14/2016 Paroxysmal A-fib 11/16/2014 Hyperlipidemia 11/16/2014 Bruit 11/16/2014 Neoplasm of unspecified natu re of bone, soft tissue, and skin 01/25/2014 Overview (01/25/2014): New lesions of right cheek, left cheek / lower eyelid area, right shoulder, and right and left back. Basal cell carcinoma of skin of other parts of f pipe 01/17/2014 Overview (05/08/2017): Updating Deprecated Diagnoses Family history of basal cell carcinoma Overview (01/25/2014): father Resolved Problems Problem Noted Date Diagnosed Date Resolved Date Paroxysmal atrial fibrillation 04/14/2016 02/10/2019 Hypertension 11/16/2014 05/28/2020 Family History Medical History Relation Name Comments Arrhythmia Father AFib Heart Attack Mother Heart Disease Son PAFib, PPM Relation Name Status Comments Father Mother Son [...] Sign Reading Time Taken Comments Blood Pressure 150/60 04/18/2019 2:06 PM EDT Pulse 58 04/18/2019 2:06 PM EDT Temperature - - Respiratory Rate 16 01/25/2014 9:56 AM EDT Oxygen Saturation - - Inhaled Oxygen Concentration - - Weight 101.6 kg (224 lb) 02/10/2019 11:13 AM EDT Height 165.1 cm (5' 5 ) 04/18/2019 2:06 PM EDT Body Mass Index 37.28 02/10/2019 11:13 AM EDT Plan of Treatment Not on file Insurance MEDICARE Member Subscriber Plan / Payer ( fective 2018-Present) Name:Sherry Kwan Relation to Subscriber:Self Name:Sherry Kwan Payer ID:Not on file Group ID:Not on file Type:Not on file Address: [address] [place] [address] Care Teams Diamond Setter Relationship Specialty Start Date End Date Claudia Whittington MD PCP - General Family Medicine 07/06/18
--- OUTSIDE RECORDS SUMMARY | 2025-02-08 12:44 | XMS_ITS | Encounter Summary ---
Author Organization [facility] Address [address], [address] [place] [address] Care Team Providers Care Medical Office Technologist Name Role Phone Claudia Whittington MD Primary Care Provider Reason for Visit * Reason Comments Medication Refill Encounter Details Date Type Department Care Team (Late st Contact Info) Description 08/31/2015 Refill [facility] [address] [place] [address] Elmira Pérez MD [address] [place] [address] Medication Refill Social History Tobacco Use Types [...] on filedocumented in this encounter Care Teams Medical Office Technologist Relationship Specialty Start Date End Date Claudia Whittington MD PCP - General Family Medicine 07/06/18 documented as of this encounter
--- OUTSIDE RECORDS SUMMARY | 2025-02-08 12:44 | XMS_ITS | Encounter Summary ---
Author Organization [facility] Address [address] [place] [address] Care Team Providers Care Joy Loading Machine Operator Name Role Phone Adenike Blandon DO Unavailable [phone] Claudia Whittington MD Primary Care Provider [phone] Encounter Details Date Type Department Care Team (Late Contact Info) Description 12/06/2024 Abstract [facility] [address] [facility] [address] [place] [phone] Adenike Blandon, DO [address] [facility] [address] [place] [address] Social History Tobacco Use Types Packs/Day Years [...] [address] [place] [address] Adenike Blandon DO [address] [facility] [address] [place] [address] documented as of this encounter Visit Diagnoses Not on filedocumented in this encounter Care Teams Joy Loading Machine Operator Relationship Specialty Start Date End Date Adenike Blandon DO [address] [facility] [address] [place] [address] PCP - ACO Reach 12/17/22 Claudia Whittington MD [address] [place] [phone] PCP - General Family Medicine 02/15/23 documented as of this encounter
--- OUTSIDE RECORDS SUMMARY | 2025-02-08 12:44 | XMS_ITS | Encounter Summary ---
Author Organization [facility] Address [address], [address] [place] [address] Care Team Providers Care Leadership Program Associate Name Role Phone Claudia Whittington MD Primary Care Provider [phone] Reason for Visit * Reason Comments Medication Refill Encounter Details Date Type Department Care Team (Late st Contact Info) Description 03/27/2015 Refill [facility] [address] [facility] [address] [place] [address] Elmira Pérez MD [address] [place] [address] Medication Refill Social History Tobacco Use Types [...] on filedocumented in this encounter Care Teams Leadership Program Associate Relationship Specialty Start Date End Date Claudia Whittington MD PCP - General Family Medicine 07/06/18 documented as of this encounter
--- OUTSIDE RECORDS SUMMARY | 2025-02-08 12:44 | XMS_ITS | Encounter Summary ---
Author Organization [facility] Address [address] [place] [address] Care Team Providers Care Coin Machine Service Repairer Name Role Phone Adenike Blandon DO Unavailable [phone] Claudia Whittington MD Primary Care Provider [phone] Encounter Details Date Type Department Care Team (Late Contact Info) Description 02/15/2023 Orders Only [facility] [address] [place] [address] Jane Arteaga, CURATOR OF PHOTOGRAPHY AND PRINTS [address] [place] [address] Social History Tobacco Use Types Packs/Day Years [...] Visit [facility] [address] [facility] [address] [place] [address] Adenike Blandon DO [address] [place] [address] documented as of this encounter Visit Diagnoses Not on filedocumented in this encounter Care Teams Coin Machine Service Repairer Relationship Specialty Start Date End Date Adenike Blandon DO [address] [place] [address] PCP - ACO Reach 12/17/22 Claudia Whittington MD [address] [place] [phone] PCP - General Family Medicine 02/15/23 documented as of this encounter
--- OUTSIDE RECORDS SUMMARY | 2025-02-08 12:44 | XMS_ITS | Encounter Summary ---
Author Organization [facility] Address [address] [place] [address] Care Team Providers Care Concrete Mixer Operator Helper Name Role Phone Claudia Whittington MD Primary Care Provider [phone] Reason for Visit * Reason Comments Medication Refill Encounter Details Date Type Department Care Team (Late st Contact Info) Description 03/11/2015 Refill [facility] [address] [facility] [address] [place] [address] Elmira Pérez MD [address] [place] [address] Medication Refill Social History Tobacco Use Types [...] on filedocumented in this encounter Care Teams Concrete Mixer Operator Helper Relationship Specialty Start Date End Date Claudia Whittington MD PCP - General Family Medicine 07/06/18 documented as of this encounter
--- OUTSIDE RECORDS SUMMARY | 2025-02-08 13:01 | XMS_ITS | CCD ---
Author Organization [facility] Care Team Providers Care Warehouse Hand Name Role Phone DR CLAUDIA LEON Primary [...] Unavailable RENATA, DR LEA Blevins Consulting Unavailable DR CLAUDIA LEON Admitting Unavailable LEON, DR CLAUDIA Duvall Attending Unavailable EDWARD, DR CLAUDIA Duvall Primary Care Unavailable DR CLAUDIA LEON Consulting Unavailable FAWWAD, MORALES H Attending Unavailable EDWARD, DR CLAUDIA Duvall Primary Care Unavailable FAWWAD, MORALES H Admitting Unavailable LEON, DR CLAUDIA Duvall Primary Care Unavailable FAWWAD, MORALES H Admitting Unavailable FAWWAD, MORALES H Attending Unavailable EDWARD, DR CLAUDIA Duvall Primary Care Unavailable FAWWAD, MORALES H Admitting Unavailable FAWWAD, MORALES H Attending Unavailable Edward Claudia Unavailable GBUR, MARCO ANTONIO S Referring Unavailable LEON, CLAUDIA E Primary Care Unavailable GBUR, MARCO ANTONIO S Referring Unavailable LEON, CLAUDIA E Primary Care Unavailable PetAdenike gary DO Unavailable Claudia Leon MD Primary Care Provider Claudia Leon MD Primary Care Provider [phone] DONNY, MARCO ANTONIO S Attending Unavailable LEON, CLAUDIA E Referring Unavailable LEON, CLAUDIA E Primary Care Unavailable GBUR, MARCO ANTONIO S Attending Unavailable LEON, CLAUDIA E Referring Unavailable LEON, CLAUDIA E Primary Care Unavailable Claudia Leon MD Primary Care Provider SOMMERS, JO ANN E Referring Unavailable LEON, CLAUDIA E Primary Care Unavailable SOMMERS, JO ANN E Referring Unavailable LEON, CLAUDIA E Primary Care Unavailable SOMMERS, JO ANN E Admitting Unavailable SOMMERS, JO ANN E Attending Unavailable SOMMERS, JO ANN E Referring Unavailable LEON, CLAUDIA E Primary Care Unavailable LEON, CLAUDIA E Referring Unavailable LEON, CLAUDIA E Primary Care Unavailable SOMMERS, JO ANN E Admitting Unavailable SOMMERS, JO ANN E Attending Unavailable SOMMERS, JO ANN E Referring Unavailable LEON, CLAUDIA E Primary Care Unavailable Claudia Leon MD Primary Care Provider [phone] JOSUE RACHEL Attending Unavailable PETADENIKE GARY Attending Unavailable JOSUE RACHEL Attending Unavailable ADENIKE LANGFORD Attending Unavailable EDWARD, CLAUDIA Referring Unavailable PETABDIRAHMAN, ADENIKE Frias Attending Unavailable ADENIKE LANGFORD Attending Unavailable Claudia Leon MD Primary Care Provider Claudia Leon MD Attending Provider Allergies Allergy Classification Reported Allergen(s) Allergy Type Date of Onset Reaction(s) Facility (8 sources) Amino Acids; Translations: [LISINOPRIL] Drug Allergy 07-26-19 11 [facility] Repository (4 sources) Amoxicillin; Translations: [AMOXICILLIN] Drug Allergy 03-18-20 20 [facility] Repository (8 sources) Etodolac; Translations: [ETODOLAC] Drug Allergy 01-18-20 14 [facility] Repository (1 source) Penicillin Drug Allergy 03-12-20 20 [facility] Repository (1 source) Sulfonamides (Antibiotic) Drug allergy (disorder) 07-26-19 [facility] Repository (12 sources) Etodolac Drug Allergy 01-18-20 14 [facility] (12 sources) Lisinopril Drug Allergy 01-26-20 14 Other (See Comments) [facility] Other (2 sources) Sulfacetamide / Sulfur Drug Allergy Unknown [facility] Other (3 sources) Substance with penicillin structure and antibacterial mechanism of action (substance) Drug allergy 05-22-20 19 Unknown [facility] Other (20 sources) Substance with sulfonamide structure and antibacterial mechanism of action (substance) Drug allergy 01-18-20 14 Rash [facility] Other (20 sources) Penicillins; Translations: [PENICILLINS] Allergy to substance 06-06-20 [facility] Comment on above: Onset Date: 05/22/20 19 (7 sources) Sulfonamides (Antibiotic); Translations: [SULFA (SULFONAMIDE ANTIBIOTICS)] Allergy to substance 01-18-20 14 [facility] Comment on above: Onset Date: 10/06/19 18 (14 sources) Etodolac Allergy to substance 01-18-20 14 [facility] (14 sources) Lisinopril Allergy to substance 01-26-20 14 [facility] (7 sources) Amoxicillin Drug Allergy 06-06-20 [facility] Medications Current Medications Medication Drug Class(es) Dates Sig (Normalized) Sig (Original) amLODIPine 10 mg oral tablet (20 sources) Dihydropyridine Calcium Channel Addie Start: 11-17-2023 End: 10-31-2024 take 1 tablet by mouth once daily at bedtime Amlodipine 10 mg tablet Active 10 MG PO Daily at bedtime July 27, 2024 11:53am Complies with drug therapy azithromycin 250 mg oral tablet (1 source) Macrolide Antimicrobial Start: 05-19-2023 Azithromycin 250 MG as directed Orally 2 tabs po today, then 1 tab daily x 4 more days for 5 Apr, Active Continuous Blood Gluc Sensor (REGEN EnergyStyle Delicia 3 Sensor) misc (5 sources) Start: 03-18-2023 End: 04-18-2024 Continuous Blood Gluc Sensor (FreeStyle Delicia 3 Sensor) misc Indications: Type 2 diabetes mellitus with peripheral neuropathy (CMS/HCC) Inject 1 Device under the skin every 14 (fourteen) days. 6 each 3 03/18/2023 04/18/2024 Discontinued (Reorder) Start: 03-18-2023 Continuous Blo od Gluc Sensor (FreeStyle Delicia 3 Sensor) misc Indications: Type 2 diabetes mellitus with peripheral neuropathy (CMS/HCC) Inject 1 Device under the skin every 14 (fourteen) days. 6 each 3 03/18/2023 Active Continuous Glucose Sensor (FreeStyle Delicia 3 Plus Sensor) misc (3 sources) Start: 12-04-2024 Continuous Glu cose Sensor (FreeStyle Delicia 3 Plus Sensor) [facility] [place]ications: Type 2 diabetes mellitus with peripheral neuropathy (HCC) 1 each See administration instructions 6 each 3 12/04/2024 Active Start: 10-17-2024 Continuous Glu cose Sensor (FreeStyle Delicia 3 Plus Sensor) mis Indications: Type 2 diabetes mellitus with peripheral neuropathy (CMS/HCC) 1 each See administration instructions 6 each 3 10/17/2024 Active Continuous Glucose Sensor (FreeStyle Delicia 3 Sensor) misc (8 sources) Start: 04-18-2024 Continuous Glu cose Sensor (FreeStyle Delicia 3 Sensor) mis Indications: Type 2 diabetes mellitus with peripheral neuropathy (CMS/HCC) Inject 1 Device under the skin every 14 (fourteen) days 6 each 3 04/18/2024 Active flecainide acetate 150 mg oral tablet (20 sources) Antiarrhythmic Start: 02-05-2025 Start: 03-09-2024 End: 10-31-2024 take 0.5 tablet by mouth in the morning, then take 0.5 tablet by mouth at bedtime flecainide (TAMBOCOR) 150 mg tablet Take 0.5 tablets (75 mg total) by mouth in the morning and 0.5 tablets (75 mg total) before bedtime. 90 tablet 3 10/31/2024 Active Start: 11-02-2023 End: 02-05-2025 take 1 tablet by mouth once daily Flecainide 150 mg tablet Discontinued 0 .ROUTE .COMPLEX 90 May 03, 2024 10:44am February 05, 2025 1:51pm TAKE 1 TABLET BY MOUTH DAILY Start: 04-03-2020 End: 03-09-2024 take 1 tablet by mouth once daily Flecainide 150 mg tablet Discontinued 150 MG PO Daily November 02, 2023 12:00am November 02, 2023 2:51pm flecainide (Tamb ocor) 150 MG tablet Take 75 mg by mouth in the morning and 75 mg before bedtime. Active furosemide 40 mg oral tablet (20 sources) Loop Diuretic Start: 11-17-2023 End: 10-31-2024 take 1 tablet by mouth once daily as needed Furosemide 40 mg tablet Active 40 MG PO .prn November 18, 2023 12:01pm FreeTextSig: TAKE 1 TABLET BY MOUTH DAILY NEEDED; Note: Source Status: Taking; Refills: 1; Qty: 30 Tablet; Provider: Edward Taylor ( ) Complies with drug therapy hydroCHLOROthiazide 25 mg oral tablet (20 sources) Thiazide Diuretic Start: 02-27-2020 End: 11-06-2024 take 1 tablet by mouth twice daily Hydrochlorothiazide 25 mg tablet Active 25 MG PO Twice daily 180 November 06, 2024 4:46pm Complies with drug therapy 3 ml insulin glargine 100 unt/ml pen injector (20 sources) Insulin Analog Start: 02-05-2025 Insulin Glargine (Lantus Solostar U-100 Insulin) 100 unit/mL (3 mL) insulin pen Active 22 UNIT SUBCUT February 05, 2025 1:50pm [employer] units Subcutaneous Once a day; Note: Source Status: Taking; Provider: Edward Taylor ( ) Complies with drug therapy Start: 01-18-2025 insulin glargi ne (Lantus SoloStar) 100 UNIT/ML pen Indications: Type 2 diabetes mellitus with peripheral neuropathy (HCC) Inject 22 Units under the skin in the morning. 30 mL 1 01/18/2025 Active Start: 01-18-2025 insulin glargi ne (Lantus SoloStar) 100 UNIT/ML pen Indications: Type 2 diabetes mellitus with peripheral neuropathy (HCC) Inject 22 Units under the skin in the morning. 30 mL 1 01/18/2025 Active Start: 10-17-2024 End: 01-18-2025 insulin glargine (Lantus Lynsey oStar) 100 UNIT/ML pen Indications: Type 2 diabetes mellitus with peripheral neuropathy (HCC) Inject 20 Units under the skin in the morning. 30 mL 1 10/17/2024 01/18/2025 Discontinued (Dose adjustment) Start: 03-21-2024 End: 02-05-2025 Insulin Glargine (Lantus Lynsey ostar U-100 Insulin) 100 unit/mL (3 mL) insulin pen Discontinued 28 UNIT SUBCUT March 21, 2024 11:38am February 05, 2025 1:51pm Free[employer] units Subcutaneous Once a day; Note: [...] Units under the skin in the morning. 11/08/2020 Active Start: 11-08-2020 LANTUS SOLOSTA R U-100 INSULIN 100 unit/mL (3 mL) insulin pen INJECT 34 UNITS SUBCUTANEOUSLY DAILY 11/08/2020 Active Lantus SoloStar 100 UNIT/ML 32 units Subcutaneous Once a day Active 3 ml insulin lispro 100 unt/ml pen injector (20 sources) Insulin Analog Start: 02-05-2025 inject 10 [IU] by subcutaneous injection twice daily Insulin Lispro 100 unit/mL insulin pen Active 10 UNIT SUBCUT Twice daily February 05, 2025 1:50pm Complies with drug therapy Start: 01-18-2025 insulin lispro (HumaLOG) 100 UNIT/ML injection Indications: Type 2 diabetes mellitus with diabetic polyneuropathy (HCC) 10 units breakfast, 12 units dinner plus correction 1:30 >150 mg/dl (max daily 50) 75 mL 1 01/18/2025 Active Start: 01-18-2025 insulin lispro (HumaLOG) 100 UNIT/ML injection Indications: Type 2 diabetes mellitus with diabetic polyneuropathy (HCC) 10 units breakfast, 12 units dinner plus correction 1:30 >150 mg/dl (max daily 50) 75 mL 1 01/18/2025 Active Start: 03-21-2024 End: 02-05-2025 inject 10 [IU] by subcutaneous injection three times daily Insulin Lispro 100 unit/mL insulin pen Discontinued 10 UNIT SUBCUT Three times daily March 21, 2024 11:36am February 05, 2025 1:51pm Start: 03-21-2024 inject 10 [IU] by cox bcutaneous injection three times daily Insulin Lispro Active 10 UNIT SUBCUT Three times daily March 21, 2024 11:36am Start: 11-18-2023 End: 03-21-2024 inject 12 [IU] by subcutaneous injection three times daily Insulin Lispro 100 unit/mL insulin pen Discontinued 12 UNIT SUBCUT Three times daily November 18, 2023 12:00am March 21, 2024 11:38am Start: 11-18-2023 End: 03-21-2024 inject 12 [IU] by subcutaneous injection three times daily Insulin Lispro Discontinued 12 UNIT SUBCUT Three times daily November 18, 2023 12:00am March 21, 2024 11:38am Start: 11-18-2023 inject 12 [IU] by cox bcutaneous injection three times daily Insulin Lispro Active 12 UNIT SUBCUT Three times daily November 18, 2023 12:00am Start: 11-30-2020 End: 01-18-2025 insulin lispro (HumaLOG) 100 UNIT/ML injection Indications: Type 2 diabetes mellitus with diabetic polyneuropathy (HCC) 10 units breakfast/dinner plus correction 1:30 >150 mg/dl (max daily 50) 75 mL 1 10/18/2024 01/18/2025 Discontinued (Dose adjustment) Start: 11-30-2020 inject 10 [IU] by cox bcutaneous injection in the morning insulin lispro (HumaLOG) 100 unit/mL insulin pen Inject 10 Units under the skin in the morning and 10 Units before bedtime. 11/30/2020 Active Humalog Active Insulin Lispro 100 unit/mL [...] 17, 2023 11:00pm March 21, 2024 10:38am meclizine hydrochloride 12.5 mg oral tablet (2 sources) Antiemetic Start: 01-13-2023 take 1 tablet by mouth three times daily as needed Meclizine HCl 12.5 MG 1 tablet as needed Orally tid prn for 10 days Dec, Active microencapsulated potassium chloride 20 meq extended release oral tablet (2 sources) Start: 02-16-2023 take 1 tablet by mouth every twenty-four hours Brettor-Con M20 20 MEQ 1 tablet with food Orally Once a day for 30 day(s) Jan, Active 24 hr propranolol hydrochloride 60 mg extended release oral capsule (20 sources) beta-Adrenergic Addie Start: 11-15-2024 take 1 capsule by mouth once daily propranolol LA (Inderal LA) 60 MG 24 hr capsule Indications: Essential tremor Take 1 capsule (60 mg) by mouth Daily 60 capsule 1 11/15/2024 Active Start: 10-31-2024 End: 10-31-2024 take 1 capsule by mouth every twenty-four hours in the morning propranolol LA (INDERAL LA) 60 mg 24 hr capsule Take 1 capsule (60 mg total) by mouth in the morning. 90 capsule 2 10/31/2024 Active Start: 05-03-2024 take 1 capsule by [facility] once daily Propranolol 60 mg capsule,extended release 24 hr Active 0 .ROUTE .COMPLEX 90 May 03, 2024 9:44am TAKE 1 CAPSULE BY MOUTH DAILY Start: 02-02-2024 End: 05-03-2024 take 1 capsule by mouth once daily Propranolol 60 mg capsule,extended release 24 hr Discontinued 0 .ROUTE .COMPLEX 90 February 02, 2024 7:28am May 03, 2024 9:44am TAKE 1 CAPSULE BY MOUTH ONCE DAILY Start: 02-02-2024 take 1 capsule by mo uth once daily Propranolol Active 0 .ROUTE .COMPLEX 90 February 02, 2024 8:28am TAKE 1 CAPSULE BY MOUTH ONCE DAILY Start: 11-02-2023 End: 05-03-2024 take 1 capsule by mouth once daily Propranolol 60 mg capsule,extended release 24 hr Active 0 .ROUTE .COMPLEX 90 May 03, 2024 10:44am TAKE 1 CAPSULE BY MOUTH DAILY Complies with drug therapy Start: 11-02-2023 End: 02-02-2024 take 1 capsule by mouth once daily Propranolol 60 mg capsule,extended release 24 hr Discontinued 0 .ROUTE .COMPLEX 90 November 02, 2023 1:51pm February 02, 2024 [...] hr Discontinued 60 MG PO Daily November 02, 2023 12:00am November 02, 2023 2:51pm take 1 capsule by mo uth once daily Propranolol HCl ER 60 mg TAKE 1 CAPSULE BY MOUTH DAILY for 90 Active warfarin sodium 4 mg oral tablet (20 sources) Vitamin K Antagonist Start: 11-17-2023 Warfarin 2 mg tablet Active 2 MG PO MOWENovember 17, 2023 12:00am Complies with drug therapy Start: 02-12-2020 End: 07-27-2024 take 1 tablet by mouth once daily Warfarin 4 mg tablet Discontinued 4 MG PO Daily November 17, 2023 12:00am July 27, 2024 11:55am FreeTextSig: TAKE 1 TABLET BY MOUTH EVERY DAY; Note: Source Status: Start; Refills: 3; Qty: 90 Tablet; Provider: Edward Taylor ( ) Warfarin 2mg Act heike Completed/Discontinued Medications Medication Drug Class(es) Dates Sig (Normalized) Sig (Original) atorvastatin 40 mg oral tablet (20 sources) HMG-CoA Reductase Inhibitor Start: 11-17-2023 End: 02-05-2025 take 1 tablet by mouth once daily at bedtime Atorvastatin 40 mg tablet Discontinued 40 MG PO Daily at bedtime July 27, 2024 11:53am November 06, 2024 4:46pm Augmentin Tablets 875 MG (5 sources) Start: 07-24-2014 take 1 tablet by mouth every twelve hours at mealtime Augmentin Tablets 875 MG 1 by mouth every 12 hours with food and probiotics for 10 days Jun, Not-Taking Cortisporin Otic 1%-0.35%-1000 units/ml (5 sources) Start: 05-10-2014 Cortisporin Otic 1%-0.35%-1000 units/ml 4 drops into each affected ear twice a day for 7 days Apr, Not-Taking losartan potassium 100 mg oral tablet (20 sources) Angiotensin 2 Receptor Addie Start: 02-27-2020 End: 10-31-2024 take 1 tablet by mouth once daily Losartan 100 mg tablet Discontinued 100 MG PO Daily November 17, 2023 12:00am July 27, 2024 11:55am metFORMIN hydrochloride 500 mg oral tablet (9 sources) Biguanide Start: 11-17-2023 End: 11-18-2023 take 1 tablet by mouth twice daily at mealtime Metformin 500 mg tablet Discontinued 500 MG PO Twice daily with meals November 17, 2023 12:00am November 18, 2023 12:02pm metFORMIN HCl No t-Taking 24 hr metoprolol succinate 25 mg extended release oral tablet (9 sources) beta-Adrenergic Addie Start: 11-17-2023 End: 11-18-2023 take 1 tablet by mouth once daily Metoprolol Succinate 25 mg tablet extended release 24 hr Discontinued 25 MG PO Daily November 17, 2023 12:00am November 18, 2023 12:03pm Metoprolol Succi trudi ER Not-Taking moxifloxacin (1 source) Quinolone Antimicrobial Start: 12-05-2024 End: 01-02-2025 moxifloxacin HCl (MOXIFLOXACIN 0.5%-PREDNISOLONE 1%-BROMFENAC 0.09% DROPS - BUDERER ) Administer 1 drop into the left eye in the morning and 1 drop before bedtime. Do all this for 30 days. One drop twice a day to operative eye for one week, then daily for three weeks. 12/05/2024 01/02/2025 Discontinued Problems Active Problems Problem Classification Problem Date Documented Da te Episodic/Chronic Allergic reactions (9 sources) Contact dermatitis due to plants; Translations: [Unspecified contact dermatitis due to plants, except food] 11-28-2023 Episodic Cardiac dysrhythmias (20 sources) Paroxysmal atrial fibrillation; Translations: [Paroxysmal atrial fibrillation] Onset: 11-16-2014 Chronic Cataract (1 source) Cataract Onset: 12-05-2024 Diabetes mellitus with complications (20 sources) Insulin treated type 2 diabetes mellitus; Translations: [Type 2 diabetes mellitus with diabetic chronic kidney disease] Onset: 08-06-2020 Resolved: 03-18-2023 07-12-2023 Chronic Diabetes mellitus without complication (20 sources) Type 2 diabetes mellitus without complication; Translations: [Type 2 diabetes mellitus without complications] Onset: 06-10-2018 Resolved: 03-18-2023 Chronic Digestive congenital anomalies (2 sources) Congenital [...] 06-06-2020 Chronic Other and ill-defined heart disease (20 sources) Left atrial enlargement; Translations: [Cardiomegaly] Onset: [...] Translations: [Pain in limb] 11-18-2023 Episodic Other connective tissue disease (1 source) Pain in bilateral legs; Translations: [Pain in right leg] 11-18-2023 Episodic Other gastrointestinal disorders (1 source) Personal history of other diseases of the digestive system Episodic Other hereditary and degenerative nervous system conditions (20 sources) Essential tremor; Translations: [Essential tremor] Onset: 11-09-2016 03-22-2024 Chronic Other inflammatory condition of skin (3 sources) Rosacea; Translations: [Rosacea, unspecified] Chronic Other inflammatory condition of skin (3 sources) Pruritus ani; Translations: [Pruritus ani] 11-28-2023 Episodic Other nutritional; endocrine; and metabolic disorders (6 sources) Obese class II; Translations: [Body mass index (BMI) 38.0-38.9, adult] Chronic Other nutritional; endocrine; and metabolic disorders (20 sources) Severe obesity; Translations: [Morbid (severe) obesity due to excess calories] Onset: 07-24-2020 07-12-2023 Chronic Other skin disorders (3 sources) Localized scleroderma; 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 et atrophicus] Chronic Other skin disorders (2 sources) Mass of neck; Translations: [Localized swelling, mass and lump, neck] 02-05-2025 Episodic Other skin disorders (2 sources) Mass of chest wall; Translations: [Localized swelling, mass and lump, trunk] 02-05-2025 Episodic Other upper respiratory infections (4 sources) Acute sinusitis; Translations: [Acute sinusitis, unspecified] Episodic Pancreatic disorders (not diabetes) (3 sources) Chronic pancreatitis; Translations: [Other chronic pancreatitis] Onset: 10-25-2018 Chronic Pulmonary heart disease (20 sources) Pulmonary hypertension; Translations: [Pulmonary hypertension, unspecified] Onset: 06-28-2017 11-18-2023 Chronic Residual codes; unclassified (18 sources) Hypersomnia; Translations: [Hypersomnia, unspecified] Onset: 11-09-2016 03-22-2024 Chronic Residual codes; unclassified (20 sources) Obstructive sleep apnea syndrome; Translations: [Obstructive sleep apnea (adult) (pediatric)] Onset: 03-02-2017 03-22-2024 Chronic Residual codes; unclassified (3 sources) Tobacco user; Translations: [Tobacco use] Episodic Unclassified (2 sources) Autogenerated Problem Onset: 11-20-2024 11-20-2024 Past or Other Problems Problem Classification Problem Date Documented Date Episodic/Chronic Acute bronchitis (3 sources) Acute bronchitis; Translations: [Acute bronchitis, unspecified] Onset: 08-04-2018 Episodic Conditions associated with dizziness or vertigo (20 sources) Benign paroxysmal vertigo, bilateral; Translations: [Vertigo] Onset: 02-10-2019 Episodic Diseases of mouth; excluding dental (20 sources) Disorder of salivary gland; Translations: [Other diseases of salivary glands] Onset: 03-09-2019 02-15-2023 Episodic Lymphadenitis (17 sources) Lymphadenitis; Translations: [Nonspecific lymphadenitis, unspecified] Onset: 02-20-2020 02-15-2023 Episodic Neoplasms of unspecified nature or uncertain behavior (20 sources) Neoplastic disease; Translations: [Neoplasm of unspecified behavior of bone, soft tissue, and skin] Onset: 01-25-2014 Resolved: 02-15-2023 02-15-2023 Episodic Other aftercare (2 sources) half-way (current) use of anticoagulants; Translations: [ASSISTED CURRNT USE ANTICOAGULANTS] Onset: 06-06-2020 Episodic Other aftercare (20 sources) Long-term current use of anticoagulant; Translations: [half-way (current) use of anticoagulants] Onset: 02-10-2019 02-15-2023 Episodic Other aftercare (20 sources) Long-term current use of drug therapy; Translations: [Other custodial (current) drug therapy] Onset: 04-18-2019 02-15-2023 Episodic Other aftercare (14 sources) Long-term current use of insulin; Translations: [half-way (current) use of insulin] Onset: 03-18-2023 Resolved: 10-12-2023 10-12-2023 Episodic Other aftercare (1 source) Other custodial (current) drug therapy; Translations: [Other roasterman (current) drug therapy] Onset: 12-02-2020 Episodic Other circulatory disease (2 sources) Personal history of transient ischemic attack (TIA), and cerebral infarction without residual deficits; Translations: [Personal history of transient ischemic attack (TIA), and cerebral infarction without residual deficits] Onset: 06-06-2020 Episodic Other circulatory disease (20 sources) History of transient ischemic attack; Translations: [Personal history of transient ischemic attack (TIA), and cerebral infarction without residual deficits] Onset: 02-10-2019 02-15-2023 Episodic Other circulatory disease (20 sources) Bruit; Translations: [Other specified symptoms and signs involving the circulatory and respiratory systems] Onset: 11-16-2014 02-15-2023 Episodic Other lower respiratory disease (18 sources) Hypoxemia; Translations: [Hypoxemia] Onset: 07-05-2017 03-22-2024 Episodic Other nervous system disorders (18 sources) Hemifacial spasm; Translations: [Clonic hemifacial spasm, right] Onset: 12-27-2023 03-22-2024 Episodic Other nervous system disorders (16 sources) Muscle twitch; Translations: [Fasciculation] Onset: 12-26-2023 03-22-2024 Episodic Other non-epithelial cancer of skin (20 sources) Basal cell carcinoma of face; Translations: [...] edema] Onset: 12-02-2020 Episodic Residual codes; unclassified (20 sources) Family history of basal cell carcinoma of skin; Translations: [Family history of malignant neoplasm of other organs or systems] Onset: 12-02-2020 02-15-2023 Episodic Residual codes; unclassified (20 sources) Bilateral lower limb edema; Translations: [Localized edema] Onset: 04-14-2016 02-15-2023 Episodic Residual codes; unclassified (14 sources) Insomnia; Translations: [Insomnia, unspecified] Onset: 07-05-2017 12-26-2023 Episodic Spondylosis; intervertebral disc disorders; other back problems (20 sources) Sciatica; Translations: [Sciatica, left side] Onset: 02-14-2023 Episodic Unclassified (1 source) Preprocedural examination done 11-13-2024 Results Test Name Value Interpretation Reference Range Facility HbA1c (Bld) [Mass fraction]o n 01-18-2025 Interpretation and review of [facility] count[facility] 01-18-2025 HbA1c (Bld) [Mass fraction] 7.3 % [facility] ECG 12 leadon 11-13-2024 [facility] ALL CBC WITH AUTO DIFFon BASOPHILS ABSOLUTE AUTO 0.1 [facility] Basophils/100 WBC (Bld) 0.6 % 0.2 - 2.0 % [facility] Eosinophils/100 WBC (Bld) 5.3 % 0.9 - 7.0 % [facility] Erythrocyte distribution width (RBC) [Ratio] 13.3 % 11.0 - 15.0 % [facility] Hematocrit (Bld) [Volume fraction] 41.1 % 36.0 - 48.0 % [facility] [facility] Hemoglobin (Bld) [Mass/Vol] 13.7 g/dL 12.0 - 16.0 g/dL [facility] IMMATURE GRANULOCYTES ABS AUTO 0.03 [facility] Immature granulocytes/100 WBC (Bld) 0.4 % 0.0 - 0.5 % [facility] LYMPHOCYTES ABSOLUTE AUTO 2.8 [facility] Lymphocytes/100 WBC (Bld) 34.5 % 20.5 - 60.0 % [facility] MCH (RBC) [Entitic mass] 29.8 pg 26.7 - 34.0 pg [facility] MCHC (RBC) [Mass/Vol] 33.3 g/dL 29.9 - 35.2 g/dL [facility] MCV (RBC) [Entitic vol] 89.3 fL 81.0 - 99.0 fL [facility] MONOCYTES ABSOLUTE AUTO 0.5 [facility] Monocytes/100 WBC (Bld) 6.3 % 1.7 - 12.0 % [facility] NEUTROPHILS ABSOLUTE AUTO 4.2 [facility] Neutrophils/100 WBC (Bld) 52.9 % 43.0 - 75.0 % [facility] Platelet mean volume (Bld) [Entitic vol] 10.4 fL 9.5 - 13.5 fL [facility] TBH EO # 0.4 [facility] TB PLT 308 [facility] TBH RBC 4.6 [facility] TB WBC 8 [facility] ALL LIPID PROFILE (FASTING)o n 10-19-2024 CHOL [facility] Comment on above: 3.3 - 4.4 LOW RISK 4.4 - 7.1 AVERAGE RISK 7.1 - 11.0 MODERATE RISK >11.0 HIGH RISK Cholesterol [Mass/Vol] 163 mg/dL NINF - 200 mg/dL [facility] Cholesterol in HDL [Mass/Vol] 77 mg/dL High 40 - 60 mg/dL [facility] Comment on above: > or =60 mg/dl - LOW CARDIOVASCULAR RISK <40 mg/dl - HIGH CARDIOVASCULAR RISK Magnesium [Mass/Vol] 63 mg/dL [facility] Comment on above: <100 mg/dl OPTIMAL 100-129 mg/dl NEAR OR ABOVE OPTIMAL 130-159 mg/dl BORDERLINE HIGH 160-189 mg/dl HIGH >190 mg/dl VERY HIGH Magnesium [Mass/Vol] 23.6 mg/dL [facility] Triglyceride [Mass/Vol] 118 mg/dL NINF - 150 mg/dL [facility] CMP (CMP) (FOR REMOTE FH C USE)on 10-19-2024 Albumin [Mass/Vol] 3.8 g/dL 3.4 - 5.0 g/dL [facility] ALBUMIN GLOBULIN RATIO 1 [facility] ALP [Catalytic activity/Vol] 144 U/L High 46 - 116 U/L [facility] ALT [Catalytic activity/Vol] 32 U/L 14 - 59 U/L [facility] Anion gap [Moles/Vol] 11 mmol/L [facility] AST [Catalytic activity/Vol] 22 U/L 15 - 37 U/L [facility] Bilirubin [Mass/Vol] 1.1 mg/dL High 0.2 - 1.0 mg/dL [facility] Calcium [Mass/Vol] 9.4 mg/dL 8.5 - 10. 1 mg/dL [facility] Chloride [Moles/Vol] 106 mmol/L 98 - 107 mmol/L [facility] CO2 [Moles/Vol] 31.2 mmol/L 21.0 - 32.0 mmol/L [facility] Creatinine [Mass/Vol] 1.15 mg/dL High 0.55 - 1.02 mg/dL [facility] GFR/1.73 sq M.predicted CKD-EPI (S/P/Bld) [Vol rate/Area] 56 Low >=60 mL/min/1.73m 2 [facility] Globulin (S) [Mass/Vol] 3.8 g/dL [facility] Glucose [Mass/Vol] 155 mg/dL High 74 - 106 mg/dL [facility] Potassium [Moles/Vol] 4.2 mmol/L 3.5 - 5.1 mmol/L [facility] Protein [Mass/Vol] 7.6 g/dL 6.4 - 8.2 g/dL [facility] Sodium [Moles/Vol] 144 mmol/L 136 - 145 mmol/L [facility] TBH EGFR-NON AF [facility] 46 Low >=60 mL/min/1.73m 2 [facility] Urea nitrogen [Mass/Vol] 24 mg/dL High 7.0 - 18.0 mg/dL [facility] Urea nitrogen/Creatinine [Mass ratio] 20.9 mg/mg [facility] No Panel Informationon 10-19 Interpretation and review of laboratory results Abnormal [facility] TBH MICROALB CREAT RATIO RAN DOMon 10-19-2024 CREATININE URINE RANDOM 263.19 mg/dL 20.00 - 300.00 mg/dL [facility] MICROALBUM CREATININE RATIO UR 15.1 mg/g 0.0 - 29.9 mg/g [facility] Comment on above: NO MICROALBUMINURIA 0-29 MG/G CLINICAL MICROALBUMINURIA 30-300 MG/G MACROALBUMINURIA >300 MG/G MICROALBUMIN URINE RANDOM 4 mg/dL NINF - 30.0 mg/dL [facility] [employer] [facility] HbA1c (Bld) [Mass fraction]o n 07-14-2024 Interpretation and review of laboratory results [facility] Laboratory - Hematology and Cell countson 07-14-2024 HbA1c (Bld) [Mass fraction] 7.3 % [facility] HbA1c (Bld) [Mass fraction]o n 04-18-2024 Interpretation and review of laboratory results Normal [facility] Laboratory - Hematology and Cell countson 04-18-2024 HbA1c (Bld) [Mass fraction] 6.9 % [facility] POCT EKGOrdered By: Lilian doshi on 03-09-2024 [facility] MAMM SCREEN 3D YEHUDA CADon 05-29-2022 MG MAMM SCREEN 3D YEHUDA CAD Patient: BRI KWAN Exam Date: 05/29/2022 : 1950 Gender:F Ordering : DR CLAUDIA LEON M.D. Admission #: [id number] Family : Order #: [id number] CLICK HERE TO VIEW EXAM RADIOLOGY REPORT [...] breast cancer at age 59. LOCATION: [facility] BREAST COMPOSITION: Scattered areas fibroglandular density. FINDINGS: [...] Yanez MD on 05/29/2022 at 10:50 Normal [facility] Vital Signs Date Time Vital Sign Value Performing Clinician Facility 02-05-2025 13:41-0400 Body height 165.1 cm Claudia Leon MD Work Phone: [facility] 02-05-2025 13:41-0400 Body mass index (BMI) [Ratio] 37.1 kg/m2 Claudia Leon MD Work Phone: [facility] 02-05-2025 13:41-0400 Body weight 101.26 kg Claudia Leon MD Work Phone: [facility] 02-05-2025 13:41-0400 Diastolic blood pressure 64 mm[Hg] Claudia Leon MD Work Phone: [facility] 02-05-2025 13:41-0400 Heart rate 57 /min Claudia Leon MD Work Phone: [facility] 02-05-2025 13:41-0400 Systolic blood pressure 144 mm[Hg] Claudia Leon MD Work Phone: [facility] 01-18-2025 11:25-0400 Body height 165.1 cm Adenike Langford DO Work Phone: [facility] 01-18-2025 11:25-0400 Body mass index (BMI) [Ratio] 36.78 kg/m2 Adenike Petznick DO Work Phone: [facility] 01-18-2025 11:25-0400 Body temperature 98.2 [degF] Adenike Petznick DO Work Phone: [facility] 01-18-2025 11:25-0400 Body weight 100.25 kg Adenike Petznick DO Work Phone: [facility] 01-18-2025 11:25-0400 Diastolic blood pressure 66 mm[Hg] Adenike Petznick DO Work Phone: [facility] 01-18-2025 11:25-0400 Heart rate 56 /min Adenike Petznick DO Work Phone: [facility] 01-18-2025 11:25-0400 SaO2% (BldA) [Mass fraction] 95 % Adenike Petznick DO Work Phone: [facility] 01-18-2025 11:25-0400 Systolic blood pressure 124 mm[Hg] Adenike Petznick DO Work Phone: [facility] 11-13-2024 10:52-0400 Body height 165.1 cm Pm 2 [facility] 11-13-2024 10:52-0400 Body mass index (BMI) [Ratio] 36.78 kg/m2 Pm 2 [facility] 11-13-2024 10:52-0400 Body weight 100.25 kg Pm 2 [facility] 09-28-2024 11:46-0500 Body height 165.1 cm Marco Antonio Hines MD Work Phone: [facility] 09-28-2024 11:46-0500 Body mass index (BMI) [Ratio] 36.88 kg/m2 Marco Antonio Hines MD Work Phone: [facility] 09-28-2024 11:46-0500 Body weight 100.52 kg Marco Antonio Hines MD Work Phone: [facility] 09-28-2024 11:46-0500 Diastolic blood pressure 78 mm[Hg] Marco Antonio Hines MD Work Phone: [facility] 09-28-2024 11:46-0500 Heart rate 62 /min Marco Antonio Hines MD Work Phone: [facility] 09-28-2024 11:46-0500 SaO2% (BldA) [Mass fraction] 96 % Marco Antonio Hines MD Work Phone: [facility] 09-28-2024 11:46-0500 Systolic blood pressure 140 mm[Hg] Marco Antonio Hines MD Work Phone: [facility] 09-06-2024 10:59-0500 Body height 165.1 cm Josue Birgitmor CARDIOLOGY TECH Work Phone: [facility] 09-06-2024 10:59-0500 Body mass index (BMI) [Ratio] 36.61 kg/m2 Josue Gillmor CARDIOLOGY TECH Work Phone: [facility] 09-06-2024 10:59-0500 Body weight 99.79 kg Josue Gillmor CARDIOLOGY TECH Work Phone: [facility] 09-06-2024 10:59-0500 Diastolic blood pressure 69 mm[Hg] Josue Gillmor CARDIOLOGY TECH Work Phone: [facility] 09-06-2024 10:59-0500 Heart rate 57 /min Josue Gillmor CARDIOLOGY TECH Work Phone: [facility] 09-06-2024 10:59-0500 Systolic blood pressure 153 mm[Hg] Josue Gillmor CARDIOLOGY TECH Work Phone: [facility] 07-27-2024 10:03-0500 Body height 165.1 cm [facility] 07-27-2024 10:03-0500 Body mass index (BMI) [Ratio] 36.9 kg/m2 [facility] 07-27-2024 10:03-0500 Body weight 100.69 kg [facility] 07-27-2024 10:03-0500 Diastolic blood pressure 67 mm[Hg] [facility] 07-27-2024 10:03-0500 Heart rate 85 /min [facility] 07-27-2024 10:03-0500 Systolic blood pressure 134 mm[Hg] [facility] 07-14-2024 13:08-0500 Body height 165.1 cm Adenike Petznick DO Work Phone: [facility] 07-14-2024 13:08-0500 Body mass index (BMI) [Ratio] 36.78 kg/m2 Adenike Petznick DO Work Phone: [facility] 07-14-2024 13:08-0500 Body temperature 98.29 [degF] Adenike Petznick DO Work Phone: [facility] 07-14-2024 13:08-0500 Body weight 100.25 kg Adenike Petznick DO Work Phone: [facility] 07-14-2024 13:08-0500 Diastolic blood pressure 62 mm[Hg] Adenike Petznick DO Work Phone: [facility] 07-14-2024 13:08-0500 Heart rate 57 /min Adenike Petznick DO Work Phone: [facility] 07-14-2024 13:08-0500 SaO2% (BldA) [Mass fraction] 95 % Adenike Petznick DO Work Phone: [facility] 07-14-2024 13:08-0500 Systolic blood pressure 126 mm[Hg] Adenike Petznick DO Work Phone: [facility] 04-18-2024 11:30-0400 Body height 165.1 cm Adenike Petznick DO Work Phone: [facility] 04-18-2024 11:30-0400 Body mass index (BMI) [Ratio] 37.44 kg/m2 Adenike Petznick DO Work Phone: [facility] 04-18-2024 11:30-0400 Body temperature 98.01 [degF] Adenike Petznick DO Work Phone: [facility] 04-18-2024 11:30-0400 Body weight 102.06 kg Adenike Petznick DO Work Phone: [facility] 04-18-2024 11:30-0400 Diastolic blood pressure 66 mm[Hg] Adenike Petznick DO Work Phone: [facility] 04-18-2024 11:30-0400 Heart rate 67 /min Adenike Petznick DO Work Phone: [facility] 04-18-2024 11:30-0400 SaO2% (BldA) [Mass fraction] 96 % Adenike Petznick DO Work Phone: [facility] 04-18-2024 11:30-0400 Systolic blood pressure 132 mm[Hg] Adenike Petznick DO Work Phone: [facility] 03-22-2024 10:41-0400 Body height 165.1 cm Josue Gillmor CARDIOLOGY TECH Work Phone: [facility] 03-22-2024 10:41-0400 Body mass index (BMI) [Ratio] 37.77 kg/m2 Josue Gillmor CARDIOLOGY TECH Work Phone: [facility] 03-22-2024 10:41-0400 Body weight 102.97 kg Josue Gillmor CARDIOLOGY TECH Work Phone: [facility] 03-22-2024 10:41-0400 Diastolic blood pressure 61 mm[Hg] Josue Gillmor CARDIOLOGY TECH Work Phone: [facility] 03-22-2024 10:41-0400 Heart rate 57 /min Josue Gillmor CARDIOLOGY TECH Work Phone: [facility] 03-22-2024 10:41-0400 Systolic blood pressure 141 mm[Hg] Josue Gillmor CARDIOLOGY TECH Work Phone: [facility] 03-21-2024 11:32-0400 Body height 165.1 cm [facility] 03-21-2024 11:32-0400 Body mass index (BMI) [Ratio] 37.8 kg/m2 [facility] 03-21-2024 11:32-0400 Body weight 102.96 kg [facility] 03-21-2024 11:32-0400 Diastolic blood pressure 68 mm[Hg] [facility] 03-21-2024 11:32-0400 Heart rate 63 /min [facility] 03-21-2024 11:32-0400 Systolic blood pressure 115 mm[Hg] [facility] 03-09-2024 12:27-0400 Body height 165.1 cm Marco Antonio Hines MD Work Phone: [facility] 03-09-2024 12:27-0400 Body mass index (BMI) [Ratio] 39.61 kg/m2 Marco Antonio Hines MD Work Phone: [facility] 03-09-2024 12:27-0400 Body weight 107.96 kg Marco Antonio Hines MD Work Phone: [facility] 03-09-2024 12:27-0400 Diastolic blood pressure 60 mm[Hg] Marco Antonio Hines MD Work Phone: [facility] 03-09-2024 12:27-0400 Heart rate 51 /min Marco Antonio Hines MD Work Phone: [facility] 03-09-2024 12:27-0400 Respiratory rate 16 /min Marco Antonio Hines MD Work Phone: [facility] 03-09-2024 12:27-0400 Systolic blood pressure 118 mm[Hg] Marco Antonio Hines MD Work Phone: [facility] 11-18-2023 11:53-0400 Body height 165.1 cm [facility] 11-18-2023 11:53-0400 Body mass index (BMI) [Ratio] 38.4 kg/m2 [facility] 11-18-2023 11:53-0400 Body weight 104.77 kg [facility] 11-18-2023 11:53-0400 Diastolic blood pressure 63 mm[Hg] [facility] 11-18-2023 11:53-0400 Heart rate 65 /min [facility] 11-18-2023 11:53-0400 Systolic blood pressure 134 mm[Hg] [facility] 05-19-2023 09:00-0400 Body height 165.1 cm Claudia Leon Other [facility] Other 05-19-2023 09:00-0400 Body mass index (BMI) [Ratio] 38.27 kg/m2 Claudia Leon Other [facility] Other 05-19-2023 09:00-0400 Body temperature 98 [degF] Claudia Leon Other [facility] Other 05-19-2023 09:00-0400 Body weight 104.33 kg Claudia Leon Other [facility] Other 05-19-2023 09:00-0400 Diastolic blood pressure 68 mm[Hg] Claudia Leon Other [facility] Other 05-19-2023 09:00-0400 Systolic blood pressure 113 mm[Hg] Claudia Leon Other [facility] Other 02-16-2023 11:15-0400 Body height 165.1 cm Claudia Leon Other [facility] Other 02-16-2023 11:15-0400 Body mass index (BMI) [Ratio] 38.77 kg/m2 Claudia Leon Other [facility] Other 02-16-2023 11:15-0400 Body weight 105.69 kg Claudia Leon Other [facility] Other 02-16-2023 11:15-0400 Diastolic blood pressure 61 mm[Hg] Claudia Leon Other [facility] Other 02-16-2023 11:15-0400 Systolic blood pressure 125 mm[Hg] Claudia Leon Other [facility] Other 01-13-2023 10:45-0400 Body height 165.1 cm Claudia Leon Other [facility] Other 01-13-2023 10:45-0400 Body mass index (BMI) [Ratio] 38.44 kg/m2 Claudia Leon Other [facility] Other 01-13-2023 10:45-0400 Body weight 104.78 kg Claudia Leon Other [facility] Other 01-13-2023 10:45-0400 Diastolic blood pressure 72 mm[Hg] Claudia Leno Other [facility] Other 01-13-2023 10:45-0400 SaO2% (BldA) [Mass fraction] 98 % Claudia Leon Other [facility] Other 01-13-2023 10:45-0400 Systolic blood pressure 128 mm[Hg] Claudia Leon Other [facility] Other Encounters Encounter Date Encounter Type Care Provider Facility Start: 02-05-2025 End: 02-05-2025 ambulatory Claudia Leon MD Work Phone: [facility] Work Phone: Start: 02-05-2025 End: 02-05-2025 Patient encounter procedure lCaudia Leon MD -[facility] Work Phone: Start: 01-18-2025 End: 01-18-2025 Office outpatient visit 25 minutes Adenike Langford DO Work Phone: [facility] [phone] Comment on above: Type 2 diabetes austin itus with stage 3a chronic kidney disease, with long-term current use of insulin (HCC) (Primary Dx); Type 2 diabetes mellitus with peripheral neuropathy (HCC); Class 2 severe obesity due to excess calories with serious comorbidity and body mass index (BMI) of 36.0 to 36.9 in adult ([facility]-HCC); Type 2 diabetes mellitus with diabetic polyneuropathy (HCC) Start: 01-18-2025 End: 01-18-2025 ambulatory ADENIKE LANGFORD Not Available Start: 01-02-2025 End: 01-02-2025 Evaluation and management of inpatient JO ANN SOMMERS [facility] Start: 01-01-2025 End: 01-01-2025 ambulatory Pm Pat Phone Call Provider 1 [facility] - Pre Admit Start: 01-01-2025 End: 01-01-2025 ambulatory CLAUDIA Jadiel EDWARD [facility] Start: 12-05-2024 End: 12-05-2024 Evaluation and management of inpatient JO ANN SOMMERS [facility] Start: 11-13-2024 End: 11-13-2024 Patient encounter procedure [facility] Pre-Admission Testing 2 [facility] - Pre Admit Comment on above: Preop examination (P rimary Dx); Hypertension, unspecified type; Paroxysmal A-fib ([facility]-HCC); Essential hypertension Start: 11-13-2024 End: 11-13-2024 Preprocedural examination done Pm 2 [facility] Start: 11-13-2024 End: 11-13-2024 ambulatory JO ANN SOMMERS [facility] Start: 11-13-2024 Encounter for other preprocedural examination JO ANN [facility] Start: 11-02-2024 End: 01-11-2025 Telephone encounter [facility] Start: 10-31-2024 End: 10-31-2024 Refill [facility] Comment on above: Med Refill Start: 10-19-2024 End: 10-19-2024 Clinisync Result Encounter Adenike Langford DO Work Phone: [facility] External Department Unsolicited Start: 10-19-2024 End: 10-19-2024 Clinisync Result Encounter Adenike Langford DO Work Phone: [facility] External [facility] Unsolicited Start: 10-17-2024 End: 10-17-2024 ambulatory ADENIKE LANGFORD Not Available Start: 10-16-2024 End: 10-16-2024 Telephone encounter Adenike Langford DO Work Phone: [facility] 230 Comment on above: Appointment Confirma tion Start: 09-28-2024 End: 09-28-2024 Office outpatient visit 25 minutes Marco Antonio Hines MD Work Phone: [facility] Comment on above: Paroxysmal A-fib (CM S-HCC) (Primary Dx); Occlusion and stenosis of bilateral carotid arteries; Nonrheumatic tricuspid valve regurgitation; LAE (left atrial enlargement); Pulmonary hypertension (CMS-HCC); Essential hypertension; Nonrheumatic aortic valve insufficiency; Hyperlipidemia, unspecified hyperlipidemia type; History of transient ischemic attack (TIA); Current use of roasterman anticoagulation; Abnormal echocardiogram; Bilateral edema of lower extremity; roasterman current use of antiarrhythmic drug; Non-rheumatic mitral regurgitation Start: 09-28-2024 End: 09-28-2024 ambulatory MARCO ANTONIO HINES [facility] Start: 09-06-2024 End: 09-06-2024 Bamboo flowsheet Josue Rachel CARDIOLOGY TECH Work Phone: [facility] Start: 09-06-2024 End: 09-06-2024 Bamboo flowsheet Josue Rachel CARDIOLOGY TECH Work Phone: [facility] Start: 09-06-2024 End: 09-06-2024 Office outpatient visit 25 minutes Josue Rachel NP Work Phone: [facility] Comment on above: Essential tremor (Pr imary Dx); Obstructive sleep apnea; Hypersomnia, unspecified; Hypoxemia; 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 Start: 09-06-2024 End: 09-06-2024 ambulatory JOSUE RACHEL Not Available Start: 07-27-2024 Patient encounter procedure Claudia Leon MD Work Phone: [facility] Start: 07-27-2024 End: 07-27-2024 ambulatory [facility] Work Phone: Start: 07-27-2024 End: 07-27-2024 Patient encounter procedure [facility] Work Phone: Start: 07-14-2024 End: 07-14-2024 Office outpatient visit 25 minutes Adenike Langford DO Work Phone: [facility] [phone] Comment on above: Type 2 diabetes austin itus with stage 3b chronic kidney disease, with long-term current use of insulin (HCC) (CMS/HCC) (Primary Dx); Type 2 diabetes mellitus with peripheral neuropathy (CMS/HCC); Class 2 severe obesity due to excess calories with serious comorbidity and body mass index (BMI) of 36.0 to 36.9 in adult (CMS/HCC) Start: 07-14-2024 End: 07-14-2024 ambulatory ADENIKE BRUNNERICK Not Available Start: 04-18-2024 End: 04-18-2024 Office outpatient visit 25 minutes Adenike Brunnerick DO Work Phone: [facility] 230 Comment on above: Class 2 severe obesi ty due to excess calories with serious comorbidity and body mass index (BMI) of 37.0 to 37.9 in adult (CMS/HCC) (Primary Dx); Type 2 diabetes mellitus with stage 3b chronic kidney disease, with long-term current use of insulin (HCC) (CMS/HCC); Type 2 diabetes mellitus with peripheral neuropathy (CMS/HCC) Start: 04-18-2024 End: 04-18-2024 ambulatory ADENIKE Frias PETZNICK Not Available Start: 03-22-2024 End: 03-22-2024 Bamboo flowsheet Josue Rachel CARDIOLOGY TECH Work Phone: [facility] [address] Start: 03-22-2024 End: 03-22-2024 Bamboo flowsheet Josue Rachel CARDIOLOGY TECH Work Phone: [facility] Start: 03-22-2024 End: 03-22-2024 Office outpatient visit 25 minutes Josue Rachel CARDIOLOGY TECH Work Phone: [facility] [address] Comment on above: Essential tremor (Pr imary Dx); Hypersomnia, unspecified; Obstructive sleep apnea; 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; Twitch; Hypoxemia Start: 03-22-2024 End: 03-22-2024 ambulatory JOSUE RACHEL Not Available Start: 03-21-2024 End: 03-21-2024 ambulatory [facility] Work Phone: Start: 03-21-2024 End: 03-21-2024 Patient encounter procedure [facility] Work Phone: Start: 03-09-2024 End: 03-09-2024 Office outpatient visit 25 minutes Marco Antonio Hines MD Work Phone: [facility] Comment on above: Paroxysmal A-fib (CM S-HCC) (Primary Dx); Occlusion and stenosis of bilateral carotid arteries; Non-rheumatic mitral regurgitation; Nonrheumatic tricuspid valve regurgitation; LAE (left atrial enlargement); Pulmonary hypertension (CMS-HCC); Essential hypertension; Nonrheumatic aortic valve insufficiency; Hyperlipidemia, unspecified hyperlipidemia type; History of transient ischemic attack (TIA); Current use of roasterman anticoagulation; Abnormal echocardiogram; Bilateral edema of lower extremity; half-way current use of antiarrhythmic drug Start: 03-09-2024 End: 05-05-2024 [facility] MARCO ANTONIO HINES [facility] Comment on above: roasterman current us e of antiarrhythmic drug (Primary Dx); LAE (left atrial enlargement); Pulmonary hypertension (CMS-HCC) Start: 11-18-2023 End: 11-18-2023 ambulatory [facility] Work Phone: Start: 11-18-2023 End: 11-18-2023 Patient encounter procedure [facility] Work Phone: Start: 11-02-2023 Non-patient / Non-visit [facility] Work Phone: Start: 05-19-2023 End: 05-19-2023 ambulatory Claudia Leon Other [facility] Other Start: 05-19-2023 Office outpatient vi sit 15 minutes Claudia Leon [facility] Start: 02-16-2023 End: 02-16-2023 ambulatory Claudia Leon Other [facility] Other Start: 02-16-2023 Patient encounter procedure Claudia Leon [facility] Start: 02-10-2023 End: 02-10-2023 ambulatory Claudia Leon Other [facility] Other Start: 02-10-2023 Telephone encounter Claudia Edward [facility] Start: 01-13-2023 End: 01-13-2023 ambulatory Claudia Leon Other [facility] Other Start: 01-13-2023 Office outpatient vi sit 25 minutes Claudia Leon [facility] Start: 11-23-2022 End: 12-23-2022 ambulatory SHAIKH Ramy ORNELAS Facility:[facility] Start: 10-26-2022 End: 11-20-2022 ambulatory SHAIKH Ramy ORNELAS Facility:H1 Start: 09-23-2022 End: 10-23-2022 ambulatory SHAIKH Ramy ORNELAS Facility:[facility] Start: 08-26-2022 End: 09-23-2022 ambulatory SHAIKH Ramy ORNELAS Facility:[facility] Start: 07-27-2022 End: 08-26-2022 ambulatory SHAIKH Ramy ORNELAS Facility:[facility]1 Start: 06-25-2022 End: 07-26-[address] [...] 12-18-2021 Adult health examination Erica Leon Other [facility] Other Start: 12-18-2021 Gynecological examin ation normal Claudia Leon Other [facility] Other Start: 12-01-2021 Gynecological examin ation abnormal Claudia Leon Other [facility] Other Procedures Date Procedure Procedure Detail Performing Clinician Start: 01-18-2025 Hemoglobin glycosyla priyanka a1c Adenike Melchorznick DO Work Phone: Start: 10-19-2024 ALL CBC WITH AUTO DIFF Adenike Langford DO Work Phone: Start: 10-19-2024 ALL LIPID PROFILE (FASTING) Adenike Melchorznick DO Work Phone: Start: 10-19-2024 [facility] CMP (CMP) (FOR R [facility] USE) Adenike Frias Petznick DO Work Phone: Start: 10-19-2024 [facility] MICROALB CREAT R ATIO RANDOM Adenike Frias Petznick DO Work Phone: Start: 07-14-2024 Hemoglobin glycosyla priyanka a1c Adenike Frias Petznick DO Work Phone: Start: 04-18-2024 Hemoglobin glycosyla priyanka a1c Adenike Frias Petznick DO Work Phone: Start: 03-09-2024 Ecg routine ecg w/le ast 12 lds w/i&r Marco Antonio Hines MD Work Phone: Start: 03-09-2024 Follow-up visit Follow-up MARCO ANTONIO HINES Screening for malign ant neoplasm of colon Claudia Edward Other Plan of Treatment Date Care Activity Detail Author Start: 01-02-2026 Adult BMI Screening Adult BMI Screen ing [facility] Start: 01-02-2026 Tobacco Screening Tobacco Screening [facility] Start: 11-13-2025 Adult BMI Screening Adult BMI Screen ing [facility] Start: 11-13-2025 Tobacco Screening Tobacco Screening [facility] Start: 10-19-2025 Urine screening for protein Diabetes: Urine Protein Screening [facility] Start: 09-28-2025 Adult BMI Screening Adult BMI Screen ing [facility] Start: 09-28-2025 Tobacco Screening Tobacco Screening [facility] Start: 09-05-2025 End: 09-05-2025 Patient encounter procedure 09/05/2025 11:00 AM EST Office Visit SANGEETHA JAUREGUIEVUE [address] [place] [phone] Josue Rachel NP [address] [place] [address] SANGEETHA RAMOS Start: 04-20-2025 Hemoglobin A1c measurement Diabetes: Hemoglobin A1C [facility] Start: 04-20-2025 End: 04-20-2025 Patient encounter procedure 04/20/2025 11:30 AM EDT Office Visit [facility] [address] [place] [phone] Adenike Langford DO [address] [place] [address] [facility] [address] Start: 04-02-2025 End: 04-02-2025 Patient encounter procedure 04/02/2025 11:45 AM EDT Office Visit [facility] [address] [place] [address] Marco Antonio Hines MD [address] [place] [address] [facility] Start: 04-02-2025 End: 04-02-2025 Patient encounter procedure [facility] Start: 03-31-2025 End: 09-28-2025 Echo complete W/O contrast Echo complete W/O contrast Echocardiography Routine Nonrheumatic tricuspid valve regurgitation LAE (left atrial enlargement) Pulmonary hypertension ([facility]) Essential hypertension Paroxysmal A-fib ([facility]) Nonrheumatic aortic valve insufficiency History of transient ischemic attack (TIA) Abnormal echocardiogram Bilateral edema of lower extremity Non-rheumatic mitral regurgitation Expected: 03/31/2025 (Approximate), Expires: 09/28/2025 [employer] Work Phone: Comment on above: Expected: 03/31/2025 (Approximate), Expires: 09/28/2025 Start: 03-31-2025 End: 09-28-2025 US Carotid arteries - bilateral Vas carotid duplex bilateral Vascular Ultrasound Routine Occlusion and stenosis of bilateral carotid arteries History of transient ischemic attack (TIA) Expected: 03/31/2025 (Approximate), Expires: 09/28/2025 [facility] Comment on above: Expected: 03/31/2025 (Approximate), Expires: 09/28/2025 Start: 03-26-2025 [facility] Start: 03-09-2025 Adult BMI Screening Adult BMI Screen ing [facility] Start: 03-09-2025 Tobacco Screening Tobacco Screening [facility] Start: 01-18-2025 End: 01-18-2025 Patient encounter procedure 01/18/2025 11:30 AM EDT Office Visit [facility] FM [address] [place] [phone] Adenike Langford DO [address] [place] [address] [facility] FM [address] Start: 01-17-2025 Hemoglobin A1c measurement Diabetes: Hemoglobin A1C [facility] Start: 01-02-2025 End: 01-02-2025 Admission to same day surgery center 01/02/2025 8:15 AM EDT - 01/02/2025 9:00 AM EDT Surgery [facility] Surgery [address] [place] [phone] Jo Ann Sommers MD [address] [place] [address] EXTRACTION CATARACT INTRAOCULAR LENS [68684 (CPT )] [facility] Comment on above: EXTRACTION CATARACT INTRAOCULAR LENS [22071 (CPT )] Start: 01-02-2025 Subsequent hospital visit by physician 01/02/2025 8:15 AM EDT Hospital Encounter [facility] - Surgery [address] [place] [phone] Jo Ann Sommers MD [address] [place] [phone] [facility] Surgery Start: 01-02-2025 End: 01-02-2025 Xcapsl ctrc rmvl insj io lens prosth w/o ecp EXTRACTION CATARACT INTRAOCULAR LENS cataract right eye 01/02/2025 8:15 AM EDT [facility] Start: 01-01-2025 End: 01-01-2025 ambulatory 01/01/2025 3:40 PM EDT Support Visit [facility] - Pre Admit [address] [place] [phone] [facility] Pre Admit Start: 12-05-2024 End: 12-05-2024 Admission to same day surgery center 12/05/2024 8:15 AM EDT - 12/05/2024 9:00 AM EDT Surgery [facility] - Surgery [address] [place] [phone] Jo Ann Sommers MD [address] [place] [phone] EXTRACTION CATARACT INTRAOCULAR LENS [77394 (CPT )] [facility] Comment on above: EXTRACTION CATARACT INTRAOCULAR LENS [83201 (CPT )] Start: 12-05-2024 Subsequent hospital visit by physician 12/05/2024 8:15 AM EDT Hospital Encounter [facility] Surgery [address] [place] [phone] Jo Ann Sommers MD [address] [place] [address] [facility] Surgery Start: 12-05-2024 End: 12-05-2024 Xcapsl ctrc rmvl insj io lens prosth w/o ecp EXTRACTION CATARACT INTRAOCULAR LENS cataract left eye 12/05/2024 8:15 AM EDT [facility] Start: 11-13-2024 End: 11-13-2024 Patient encounter procedure 11/13/2024 11:15 AM EDT Procedure visit [facility] - Pre Admit [address] [place] [phone] [facility] Pre Ad[facility] Start: 10-17-2024 End: 10-17-2024 Patient encounter procedure 10/17/2024 11:30 AM EDT Office Visit [facility] [address] [place] [address] Adenike Langford, DO [address] [place] [address] [facility] FM [address] Start: 10-13-2024 End: 10-13-2024 Patient encounter procedure 10/13/2024 1:00 PM EDT Office Visit [facility] FM [address] [place] [address] Adenike Langford, DO [address] [place] [address] [facility] FM 230 Start: 10-12-2024 Hemoglobin A1c measurement Diabetes: Hemoglobin A1C [facility] Start: 09-11-2024 End: 09-11-2024 Patient encounter procedure 09/11/2024 11:00 AM EST Office Visit [facility] [address] [place] [phone] Marco Antonio Hines MD [address] [place], [place] [phone] [facility] Start: 09-06-2024 End: 09-06-2024 Patient encounter procedure [facility] Comment on above: Arrived Start: 07-18-2024 Hemoglobin A1c measurement Diabetes: Hemoglobin A1C [facility] Start: 07-14-2024 End: 07-14-2024 Patient encounter procedure 07/14/2024 1:15 PM EST Office Visit [facility] FM [address] [place] [address] Adenike Langford M, DO [address] [place] [address] [facility] 230 Start: 05-22-2024 Glaucoma screening Diabetes: R etinopathy Screening [facility] Start: 04-18-2024 End: 04-18-2024 Patient encounter procedure 04/18/2024 11:30 AM EDT Office Visit [facility] FM [address] [place] [address] Adenike Langford, DO [address] [place] [address] [facility] [address] Start: 04-12-2024 Hemoglobin A1c measurement Diabetes: Hemoglobin A1C [facility] Start: 03-26-2024 Influenza vaccination [facility] Start: 03-22-2024 End: 03-22-2024 Patient encounter procedure 03/22/2024 10:40 AM EDT Office Visit [facility] [address] [place] [phone] Josue Rachel NP [address] [place], [place] [facility] Comment on above: Arrived Start: 02-17-2024 Medicare Annual Wellness (AWV) Medicare Annual Wellness (AWV) [facility] Start: 12-19-2020 COVID-19 Vaccine (3 - Pfizer risk series) COVID-19 Vaccine (3 - Pfizer risk series) [facility] Start: 12-29-2015 Fall Risk Screening Fall Risk Screen ing [facility] Start: 1990 Screening for malign ant neoplasm of breast Mammogram [facility] Start: 1969 DTaP,Tdap and Td Vaccines (1 - Tdap) DTaP,Tdap and Td Vaccines (1 - Tdap) [facility] Start: 1969 Urine screening for protein Diabetes: Urine Protein Screening [facility] Start: 1968 Adult BMI Follow Up Plan Adult BMI Follow Up Plan [facility] Start: 1962 Depression Screening Depression Scre ening [facility] Start: 1950 Medicare Annual Wellness Visit Medicare Annual Wellness Visit [facility] Start: 1950 Screening for malign ant neoplasm of colon [facility] Comprehensive metabo lic 2000 panel - Serum or Plasma [facility] Microalbumin [Mass/volume] in Urine [facility] Lower extremity v ein - bilateral [facility] Thyroid gland [facility] Immunizations Immunization Date Immunization Notes Care Provider Fa cility 11-21-2020 COVID-19 Vaccine Pfi zer - Documentation Purposes Only Claudia Leon Other [facility] 05-27-2020 influenza virus vaccine, split virus (incl. purified surface antigen) Claudia Leon Other [facility] Other 05-27-2020 influenza virus vaccine, unspecified formulation [facility] 05-27-2020 Influenza, Seasonal, Quadrivalent, Adjuvanted Josue Genaomor CARDIOLOGY TECH Work Phone: [facility] 05-26-2020 Seasonal, trivalent, recombinant, injectable influenza vaccine, preservative free Josue Birgitmor CARDIOLOGY TECH Work Phone: [facility] 12-10-2019 zoster vaccine recombinant Josue Birgitmor CARDIOLOGY TECH Work Phone: [facility] 08-22-2019 zoster vaccine recombinant Josue Gillmor CARDIOLOGY TECH Work Phone: [facility] 08-01-2019 pneumococcal polysaccharide vaccine, 23 valent Josue Gillmor CARDIOLOGY TECH Work Phone: [facility] 06-26-2019 pneumococcal conjuga te vaccine, 13 valent Josue Gillmor CARDIOLOGY TECH Work Phone: [facility] 05-10-2019 Seasonal trivalent influenza vaccine, adjuvanted, preservative free Josue Gillmor CARDIOLOGY TECH Work Phone: [facility] 05-11-2018 pneumococcal conjuga te vaccine, 13 valent Josue Gillmor CARDIOLOGY TECH Work Phone: [facility] 05-11-2018 Seasonal trivalent influenza vaccine, adjuvanted, preservative free Josue Gillmor CARDIOLOGY TECH Work Phone: [facility] 12-08-2016 pneumococcal polysaccharide vaccine, 23 valent Claudia Leon Other [facility] 04-17-2016 influenza, high dose seasonal, preservative-free Josue Gillmor CARDIOLOGY TECH Work Phone: [facility] 03-11-2015 influenza, injectabl e, quadrivalent, preservative free Josue Gillmor CARDIOLOGY TECH Work Phone: [facility] 11-02-2014 zoster vaccine, live Josue Gillmor CARDIOLOGY TECH Work Phone: [facility] 04-25-2014 influenza virus vaccine, unspecified formulation Josue Gillmor CARDIOLOGY TECH Work Phone: [facility] 05-25-2013 influenza virus vaccine, unspecified formulation Josue Gillmor CARDIOLOGY TECH Work Phone: [facility] Payers Date Payer Category Payer Managed Care Other (unspecified) [id number] 2015 Medicare [id number] 1.315 2015 Private Health Insurance [id number] 2015 Unknown [id number]. 1.13.693.2.7.3.13473 1.315 2015 Unknown [id number] 1959 Medicare [id number] 1959 Unknown [id number] 1959 Unknown [id number] 1950 Unknown [id number] 2.16.840.1.998828.3.579.2.593 1950 Unknown [id number] 2.16.840.1.946005.3.579.2.593 1950 Unknown [id number] 2.16.840.1.859485.3.579.2.593 1950 Unknown [id number] 2.16.840.1.895040.3.579.2.593 1950 Unknown [id number] 2.16.840.1.692579.3.579.2.593 1950 Unknown [id number] 2.16.840.1.346283.3.579.2.593 1950 Unknown [id number] 2.16.840.1.124499.3.579.2.593 1950 Unknown [id number] 2.16.840.1.230543.3.579.2.593 1950 Unknown [id number] 2.16.840.1.085638.3.579.2.593 1950 Unknown [id number] 2.16.840.1.094496.3.579.2.593 1950 Unknown [id number] 2.16.840.1.167824.3.579.2.593 1950 Unknown [id number] 2.16.840.1.178381.3.579.2.593 1950 Unknown [id number] 2.16.840.1.279979.3.579.2.1286 1950 Unknown [id number] 2.16.840.1.858110.3.579.2.128 1950 Unknown [id number] 2.16.840.1.898122.3.579.2.128 1950 Unknown [id number] 2.16.840.1.197898.3.579.2.128 1950 Unknown [id number] 2.16.840.1.937381.3.579.2.128 1950 Unknown [id number] 2.16.840.1.767402.3.579.2.128 1950 Unknown [id number] 2.16.840.1.001520.3.579.2.128 1950 Unknown [id number] 2.16.840.1.515792.3.579.2.1285 1950 Unknown [id number] 2.16.840.1.230168.3.579.2.128 1950 Unknown [id number] 2.16.840.1.009448.3.579.2.1259 1950 Unknown [id number] 2.16.840.1.071184.3.579.2.9 1950 Unknown [id number] 2.16.840.1.384639.3.579.2.1258 1950 Unknown [id number] 2.16.840.1.475747.3.579.2.1259 1950 Unknown [id number] 2.16.840.1.537660.3.579.2.1258 1950 Unknown [id number] 2.16.840.1.630526.3.579.2.1259 Social History Date Type Detail Facility Start: 01-11-2024 End: 01-18-2025 Sex Assigned At [facility] Other Start: 05-19-2023 End: 01-11-2024 Tobacco smoking status NHIS Never smoked tobacco (finding) [facility] Start: 1950 Sex Assigned At Female F [facility] History of tobacco use Passive smoker [facility] Start: 06-06-2020 End: 01-11-2024 Tobacco use and exposure Smokeless tobacco non-user [facility] Start: 03-22-2024 End: 01-18-2025 Alcoholic beverage intake Current drinker of alcohol (finding) [facility] Start: 01-11-2024 End: 01-18-2025 History of Social function [facility] How often to you hav e a drink containing alcohol? Monthly or less [facility] How many standard drinks containing alcohol do you have on a typical day? 1 or 2 [facility] How often do you hav e 6 or more drinks on 1 occasion? Never [facility] Start: 02-24-2023 Alcohol Comment caffeine: 1-2 cups per day [facility] Start: 1950 Sex assigned at Not on file P [facility] Start: 07-14-2024 Alcohol Comment 1 drink every 4 joe h [facility] Start: 02-28-2015 End: 07-27-2024 Sex Female (finding) [facility] Childcare Unknown [facility] Start: 04-26-2020 Alcohol Comment ABOUT ONE PER MONTH [facility] Medical Equipment Procedure Code Equipment Code Equipment Origin al Text Equipment Identifier Dates 1 each by In Vit ro route in the morning and 1 each in the evening and 1 each before bedtime. [id number] Start: 02-05-2023 Use as instructe d 4 times a day [id number] Start: 08-02-2023 End: 08-01-2024 Injections 3 blair es a day [id number] Start: 09-08-2024 End: 09-08-2025 Lens Iol [id number]. [address] [facility] [id number] - [id number] - [id number] Start: 12-05-2024 Lens Iol [id number] [facility] [id number] - [id number] - [id number] Start: 01-02-2025 Goals Date Patient Goal Desired Activity /State Personal health goal Personal health goal Functional Status Date Assessment Result Facility 01-18-2025 Patient Health Quest ionnaire 2 item (PHQ-2) [Reported] [facility] Clinical Notes 06-10-2018 to 01-18-2025 Adenike MelchorDO abdirahman - 01/18/2025 12:45 PM EDTAharrison LangfordDO - 01/18/2025 11:30 AM EDTPerioperative Nursing Note - Sabina Sam RN - 01/01/2025 3:40 PM EDTPatient Instructions Note Date & Type Note Facility 01-18-2025 History of Present illness Narrative Associated Problem(s): Type 2 diabetes mellitus with peripheral neuropathy (HCC) During the appointment today all pertinent labs, [...] Bri Kwan control is stable overall. , The [...] Decrease lantus and increase humalog at dinner. Images from the original note were not included. Bri Kwan is a 74 y.o. female presents with chief complaint of Diabetes HPI: Diabetes Mellitus Follow-up: Bri Kwan is here for follow-up evaluation of diabetes mellitus. The initial diagnosis of diabetes was made in 2014 Diabetes complications: nephropathy and peripheral neuropathy Hx of diabetes medications tried: She has been checking her blood glucose with a Freestyle delicia 3 CGM - LINKED- on a daily basis. Bg dip down overnight, tends to spike after dinner Last A1c: 6.9 (10/17/24) Last eye exam: 2023 [place] Current concerns include: She increased her lantus back up to 25 units about 2 weeks after her last visit. BG levels: similar to last visit Diet: limits carbs, smaller portions Drinks: water, black coffee, occasional zero sugar sodas Exercise: Walking dog when its nice for 20-30 mins Hypoglycemia: couple times a month- overnight 1-2 am or before lunch Diabetes Pertinent negatives for diabetes include no chest pain, no fatigue, no polydipsia, no polyphagia and no polyuria. 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 Class 2 severe obesity due to excess calories with serious comorbidity and body mass index (BMI) of 36.0 to 36.9 in adult ([facility]) Pulmonary hypertension (HCC) Paroxysmal A-fib ([facility]) Parotitis Occlusion and stenosis of bilateral carotid arteries Nonrheumatic tricuspid (valve) insufficiency Nonrheumatic aortic valve insufficiency Non-rheumatic mitral regurgitation Mass of parotid gland half-way current use of anticoagulant therapy half-way current use of antiarrhythmic drug LAE (left atrial enlargement) Hyperlipidemia History of transient ischemic attack Family history of basal cell carcinoma Essential hypertension Type 2 diabetes mellitus with stage 3a chronic kidney disease, with long-term current use of insulin (HCC) Cervical lymphadenitis Bruit Bilateral edema of lower extremity Basal cell carcinoma of skin of other parts of face Abnormal echocardiogram Type 2 diabetes mellitus with peripheral neuropathy (HCC) Bilateral carotid artery stenosis Vertigo Essential tremor [...] Other (See Comments) Caused pancreatitis due to custodial use. Diagnosed by a specialist. Other Reaction(s): Other (See Comments) Penicillins Other Reaction(s): rash, dyspnea Other Reaction(s): Hives Etodolac Rash and Hives Other Reaction(s): edema, rash Sulfa Antibiotics Rash Other Reaction(s): rash Other Reaction(s): Hives Synopsis [facility] 01/18/2025 Antidiabetic medications Insulin Glargine 20 Units q AM SC -Discontinued (Dose adjustm) Patient taking differently: 25 Units q AM as of 01/18/2025 11:34 AM Insulin Glargine 22 Units q AM SC Insulin Lispro 10 units breakfast/dinner plus correction 1:30 >150 mg/dl (max daily 50) (100 UNIT/ML SOPN) -Discontinued (Dose adjustm) Patient has taken differently: Taking as prescribed as of 01/18/2025 11:34 AM 25 units breakfast and 10 units dinner plus correction 1:30 >150 mg/dl (max daily 50) as of 01/18/2025 11:33 AM Insulin Lispro 10 units breakfast, 12 units dinner plus correction 1:30 >150 mg/dl (max daily 50) (100 UNIT/ML SOPN) Labs [facility] HEMO[facility] A1C/HEMOGLOBIN.TOTAL:MFR:PT:BLD:Q N: 7.3 Outpatient prescription Medication marked as long-term Patient taking a medication differently The ASCVD Risk score (Luis DK, et al., 2019) failed to calculate for [...] Negative for polydipsia, polyphagia and polyuria. OBJECTIVE: 01/18/2025 11:25 AM 10/17/2024 11:31 AM 09/06/2024 10:59 AM Vitals BMI 36.78 kg/m2 37.28 kg/m2 36.61 kg/m2 Systolic 124 122 153 Diastolic 66 60 69 Heart Rate 56 57 57 Temp 98.2 F 98.3 F Height (in) 5' 5 5' 5 5' 5 Weight (lb) 221 224 220 Visit Report Report Report Report Physical Exam [...] (BMI) of 36.0 to 36.9 in adult ([facility]) Type 2 diabetes mellitus with stage 3a chronic kidney disease, with long-term current use of insulin ([facility]) - Primary Type 2 diabetes mellitus with peripheral neuropathy ([facility]) During the appointment today all pertinent [...] they have any problems or questions. Bri Amaya Carnicom control is stable overall. , The patient [...] Decrease lantus and increase humalog at dinner. Relevant Medications insulin glargine (Lantus SoloStar) 100 UNIT/ML pen Other Relevant Orders POCT glycosylated hemoglobin (Hb A1C) docked device (Completed) Other Visit Diagnoses Type 2 diabetes mellitus with diabetic polyneuropathy ([facility]) Relevant Medications insulin lispro (HumaLOG) 100 UNIT/ML injection Follow up in about 3 months (around 04/20/2025) for Recheck. Patient's Medications New Prescriptions No medications on file Previous Medications AMLODIPINE (NORVASC) 10 MG TABLET Take 10 mg by mouth at bedtime. ATORVASTATIN (LIPITOR) 40 MG TABLET Take 40 mg by mouth at bedtime. CONTINUOUS GLUCOSE SENSOR (FREESTYLE DELICIA 3 PLUS SENSOR) MISC 1 each See administration instructions FLECAINIDE (TAMBOCOR) 150 MG TABLET Take 75 mg by mouth in the morning and 75 mg before bedtime. FUROSEMIDE (LASIX) 40 MG TABLET Take 40 mg by mouth Daily as needed (swelling). GLUCOSE BLOOD (BLOOD GLUCOSE TEST STRIPS 333) STRIP 1 each by In Vitro route in the morning and 1 each in the evening and 1 each before bedtime. HYDROCHLOROTHIAZIDE (HYDRODIURIL) 25 MG TABLET Take 25 mg by mouth in the morning and 25 mg before bedtime. INSULIN PEN NEEDLE (BD PEN NEEDLE MIGUEL 2ND GEN) 32G X 4 MM MISC Injections 3 times a day LOSARTAN (COZAAR) 100 MG TABLET Take 100 mg by mouth in the morning. PROPRANOLOL LA (INDERAL LA) 60 MG 24 HR CAPSULE Take 1 capsule (60 mg) by mouth Daily WARFARIN (COUMADIN) 4 MG TABLET Take 4 mg by mouth 1 (one) time each day 2 mg on wednesday and Modified Medications Modified Medication Previous Medication INSULIN GLARGINE (LANTUS SOLOSTAR) 100 UNIT/ML PEN insulin glargine (Lantus SoloStar) 100 UNIT/ML pen Inject 22 Units under the skin in the morning. Inject 20 Units under the skin in the morning. INSULIN LISPRO (HUMALOG) 100 UNIT/ML INJECTION insulin lispro (HumaLOG) 100 UNIT/ML injection 10 units breakfast, 12 units dinner plus correction 1:30 >150 mg/dl (max daily 50) 10 units breakfast/dinner plus correction 1:30 >150 mg/dl (max daily 50) Discontinued Medications No medications on file I have reviewed and reconciled the history and medication list with the patient today. documented in this encounter [facility] 01-01-2025 Miscellaneous Notes Preoperative Education Checklist- General Surgery date: 01/02/2025 Surgery time: 8:15 am Arrival time: 6:15 am 1. Bring a photo ID and your insurance card with you the day of surgery. You will check in at the main lobby of the [facility]- registration desk is straight ahead as soon as you walk in. Tell them you are here for surgery. 2. If you have a Living Will/Durable Power of Biology Teacher for Health Care that is not on file here, please bring a copy the day of surgery. 3. Please shower/bathe the night before surgery with the provided soap or wipes. Do not shower the morning of surgery- you will do use wipes when you arrive here at the hospital before getting into your surgical gown. Do not shave the area of your procedure for 2 days prior to your surgery. 4. NO powder, lotion, perfume/cologne, aftershave, make-up, deodorant, or hair products after you have bathed. 5. NO nail ukrainian/acrylic on at least one finger. If you are having a hand, wrist or foot surgery then all nail ukrainian and artificial/acrylic nails must be removed from that hand or foot. 6. Avoid ALL Aspirin and non-steroidal anti-inflammatory drugs and certain vitamins (Ibuprofen, Advil, Aleve, Excedrin, Meloxicam, Celebrex, fish/krill oil, etc.) for 7 days prior to surgery as instructed by your surgeon and/or your prescribing doctor. Tylenol IS ALLOWED. If you are on Ticlid, Xarelto, Eliquis, Pradaxa, Plavix or Coumadin, please check with your prescribing doctor for instructions for when to stop them. 7. If you use an inhaler, continue to use it routinely. 8. Nothing to eat or drink (not even water, gum, mints, or hard candy!) AFTER midnight prior to your surgery. 9. Take only medications that you are instructed to on the morning of surgery with a TINY SIP OF WATER. 10. Choose a responsible adult that will be able to drive you home when you are discharged from your hospital stay for your surgery and can stay with you in your home for 24 hours after your procedure. You must NOT drive any vehicle or operate any machinery for 24 hours after surgery. 11. When you dress for your appointment, please wear loose fitting clothing that is appropriate to accommodate your surgical area procedure. BRING WITH YOU ANY DEVICES YOU MAY NEED: PRIYANKA hose, ice machine, sling/swath, brace or special shoe, oversized zip-up or button up shirt, CPAP machine if staying overnight. 12. Do NOT wear jewelry, watches, or any piercings or metal for surgery- leave these valuables and money at home. 13. Do NOT wear contact lenses for surgery- glasses are okay if needed. 14. The anesthesiologist will talk with you the day of surgery and will ask you to sign a Consent Form. 15. Refrain from smoking or any type of tobacco use for at least 8 hours and marijuana for 24 hours prior to arrival for your surgery. 16. Notify your surgeon if you develop any illness before your surgery. 17. If you are staying overnight, please DO NOT BRING your home medications with you. 18. If you have any questions prior to surgery, please call the Preadmission Testing office at [phone], Mon.-Fri. 7 a.m.-3 p.m. Leave a voicemail if needed. Pre-Surgery Instructions: Medication Instructions amLODIPine (NORVASC) 10 mg tablet Continue as prescribed, take morning of procedure atorvastatin (LIPITOR) 40 mg tablet Continue as prescribed, DO NOT take morning of procedure flecainide (TAMBOCOR) 150 mg tablet Continue as prescribed, take morning of procedure furosemide (LASIX) 40 mg tablet Continue as prescribed, DO NOT take morning of procedure hydroCHLOROthiazide (HYDRODIURIL) 25 mg tablet Continue as prescribed, take morning of procedure insulin lispro (HumaLOG) 100 unit/mL insulin pen Per the surgeons instructions LANTUS SOLOSTAR U-100 INSULIN 100 unit/mL (3 mL) insulin pen Per the surgeons instructions losartan (COZAAR) 100 mg tablet Continue as prescribed, take morning of procedure moxifloxacin HCl (MOXIFLOXACIN 0.5%-PREDNISOLONE 1%-BROMFENAC 0.09% DROPS - BUDERER ) Continue as prescribed, DO NOT take morning of procedure propranolol LA (INDERAL LA) 60 mg 24 hr capsule Continue as prescribed, take morning of procedure warfarin (COUMADIN) 4 mg tablet Continue as prescribed, DO NOT take morning of procedure documented in this encounter [facility] 01-01-2025 Nurse Note Preoperative Education Checklist- General Surgery date: 01/02/2025 Surgery time: 8:15 am Arrival time: 6:15 am 1. Bring a photo ID and your insurance card with you the day of surgery. You will check in at the main lobby of the [facility]- registration desk is straight ahead as soon as you walk in. Tell them you are here for surgery. 2. If you have a Living Will/Durable Power of Biology Teacher for Health Care that is not on file here, please bring a copy the day of surgery. 3. Please shower/bathe the night before surgery with the provided soap or wipes. Do not shower the morning of surgery- you will do use wipes when you arrive here at the hospital before getting into your surgical gown. Do not shave the area of your procedure for 2 days prior to your surgery. 4. NO powder, lotion, perfume/cologne, aftershave, make-up, deodorant, or hair products after you have bathed. 5. NO nail ukrainian/acrylic on at least one finger. If you are having a hand, wrist or foot surgery then all nail ukrainian and artificial/acrylic nails must be removed from that hand or foot. 6. Avoid ALL Aspirin and non-steroidal anti-inflammatory drugs and certain vitamins (Ibuprofen, Advil, Aleve, Excedrin, Meloxicam, Celebrex, fish/krill oil, etc.) for 7 days prior to surgery as instructed by your surgeon and/or your prescribing doctor. Tylenol IS ALLOWED. If you are on Ticlid, Xarelto, Eliquis, Pradaxa, Plavix or Coumadin, please check with your prescribing doctor for instructions for when to stop them. 7. If you use an inhaler, continue to use it routinely. 8. Nothing to eat or drink (not even water, gum, mints, or hard candy!) AFTER midnight prior to your surgery. 9. Take only medications that you are instructed to on the morning of surgery with a TINY SIP OF WATER. 10. Choose a responsible adult that will be able to drive you home when you are discharged from your hospital stay for your surgery and can stay with you in your home for 24 hours after your procedure. You must NOT drive any vehicle or operate any machinery for 24 hours after surgery. 11. When you dress for your appointment, please wear loose fitting clothing that is appropriate to accommodate your surgical area procedure. BRING WITH YOU ANY DEVICES YOU MAY NEED: PRIYANKA hose, ice machine, sling/swath, brace or special shoe, oversized zip-up or button up shirt, CPAP machine if staying overnight. 12. Do NOT wear jewelry, watches, or any piercings or metal for surgery- leave these valuables and money at home. 13. Do NOT wear contact lenses for surgery- glasses are okay if needed. 14. The anesthesiologist will talk with you the day of surgery and will ask you to sign a Consent Form. 15. Refrain from smoking or any type of tobacco use for at least 8 hours and marijuana for 24 hours prior to arrival for your surgery. 16. Notify your surgeon if you develop any illness before your surgery. 17. If you are staying overnight, please DO NOT BRING your home medications with you. 18. If you have any questions prior to surgery, please call the Preadmission Testing office at [phone], Mon.-Fri. 7 a.m.-3 p.m. Leave a voicemail if needed. Pre-Surgery Instructions: Medication Instructions amLODIPine (NORVASC) 10 mg tablet Continue as prescribed, take morning of procedure atorvastatin (LIPITOR) 40 mg tablet Continue as prescribed, DO NOT take morning of procedure flecainide (TAMBOCOR) 150 mg tablet Continue as prescribed, take morning of procedure furosemide (LASIX) 40 mg tablet Continue as prescribed, DO NOT take morning of procedure hydroCHLOROthiazide (HYDRODIURIL) 25 mg tablet Continue as prescribed, take morning of procedure insulin lispro (HumaLOG) 100 unit/mL insulin pen Per the surgeons instructions LANTUS SOLOSTAR U-100 INSULIN 100 unit/mL (3 mL) insulin pen Per the surgeons instructions losartan (COZAAR) 100 mg tablet Continue as prescribed, take morning of procedure moxifloxacin HCl (MOXIFLOXACIN 0.5%-PREDNISOLONE 1%-BROMFENAC 0.09% DROPS - BUDERER ) Continue as prescribed, DO NOT take morning of procedure propranolol LA (INDERAL LA) 60 mg 24 hr capsule Continue as prescribed, take morning of procedure warfarin (COUMADIN) 4 mg tablet Continue as prescribed, DO NOT take morning of procedure [facility] 11-13-2024 Instructions Pippa Santos RN - 11/13/2024 11:15 AM EDT Preoperative Education Checklist- General Surgery date: 12/05/24 Surgery time: 815a Arrival time: 615a 1. Bring a photo ID and your insurance card with you the day of surgery. You will check in at the main lobby of the [facility]- registration desk is straight ahead as soon as you walk in. Tell them you are here for surgery. 2. If you have a Living Will/Durable Power of Biology Teacher for Health Care that is not on file here, please bring a copy the day of surgery. 3. Please shower/bathe the night before surgery with the provided soap or wipes. Do not shower the morning of surgery- you will do use wipes when you arrive here at the hospital before getting into your surgical gown. Do not shave the area of your procedure for 2 days prior to your surgery. 4. NO powder, lotion, perfume/cologne, aftershave, make-up, deodorant, or hair products after you have bathed. 5. NO nail ukrainian/acrylic on at least one finger. If you are having a hand, wrist or foot surgery then all nail ukrainian and artificial/acrylic nails must be removed from that hand or foot. 6. Avoid ALL Aspirin and non-steroidal anti-inflammatory drugs and certain vitamins (Ibuprofen, Advil, Aleve, Excedrin, Meloxicam, Celebrex, fish/krill oil, etc.) for 7 days prior to surgery as instructed by your surgeon and/or your prescribing doctor. Tylenol IS ALLOWED. If you are on Ticlid, Xarelto, Eliquis, Pradaxa, Plavix or Coumadin, please check with your prescribing doctor for instructions for when to stop them. 7. If you use an inhaler, continue to use it routinely. 8. Nothing to eat or drink (not even water, gum, mints, or hard candy!) AFTER midnight prior to your surgery. 9. Take only medications that you are instructed to on the morning of surgery with a TINY SIP OF WATER. 10. Choose a responsible adult that will be able to drive you home when you are discharged from your hospital stay for your surgery and can stay with you in your home for 24 hours after your procedure. You must NOT drive any vehicle or operate any machinery for 24 hours after surgery. 11. When you dress for your appointment, please wear loose fitting clothing that is appropriate to accommodate your surgical area procedure. BRING WITH YOU ANY DEVICES YOU MAY NEED: PRIYANKA hose, ice machine, sling/swath, brace or special shoe, oversized zip-up or button up shirt, CPAP machine if staying overnight. 12. Do NOT wear jewelry, watches, or any piercings or metal for surgery- leave these valuables and money at home. 13. Do NOT wear contact lenses for surgery- glasses are okay if needed. 14. The anesthesiologist will talk with you the day of surgery and will ask you to sign a Consent Form. 15. Refrain from smoking or any type of tobacco use for at least 8 hours and marijuana for 24 hours prior to arrival for your surgery. 16. If a GREEN BLOOD band is given to you, please bring it with you for the day of surgery. 17. Notify your surgeon if you develop any illness before your surgery. 18. If you are staying overnight, please DO NOT BRING your home medications with you. 19. If you have any questions prior to surgery, please call the Preadmission Testing office at [phone], Mon.-Fri. 7 a.m.-3 p.m. Leave a voicemail if needed. Pre-Surgery Instructions: Medication Instructions amLODIPine (NORVASC) 10 mg tablet Continue as prescribed, DO NOT take morning of procedure atorvastatin (LIPITOR) 40 mg tablet Continue as prescribed, DO NOT take morning of procedure flecainide (TAMBOCOR) 150 mg tablet Continue as prescribed, take morning of procedure furosemide (LASIX) 40 mg tablet Take morning of procedure, as needed hydroCHLOROthiazide (HYDRODIURIL) 25 mg tablet Continue as prescribed, DO NOT take morning of procedure insulin lispro (HumaLOG) 100 unit/mL insulin pen Continue as prescribed, DO NOT take morning of procedure LANTUS SOLOSTAR U-100 INSULIN 100 unit/mL (3 mL) insulin pen Continue as prescribed, DO NOT take morning of procedure-pt takes in the morning losartan (COZAAR) 100 mg tablet Continue as prescribed, take morning of procedure propranolol LA (INDERAL LA) 60 mg 24 hr capsule Continue as prescribed, take morning of procedure warfarin (COUMADIN) 4 mg tablet Per Surgeon's instructions documented in this encounter [facility] 11-02-2024 Miscellaneous Notes Leela from Neurology Dr Vicki Ridley office calling to make sure it's okay for patient to be on Propranolol ER 60 mg qd for tremors and make sure it doesn't interact with any of her other cardiac meds. EMR has her already taking it documented in this encounter [facility] 11-02-2024 Telephone encounter Note Leela from Neurology Dr Vicki Ridley office calling to make sure it's okay for patient to be on Propranolol ER 60 mg qd for tremors and make sure it doesn't interact with any of her other cardiac meds. [facility] 11-02-2024 Telephone encounter Note EMR has her already taking it [facility] 10-16-2024 Telephone encounter Note P/c appointment reminder. Pt voiced confirmation. Pt states she already confirmed by text [facility] 10-16-2024 Miscellaneous Notes P/c appointment reminder. Pt voiced confirmation. Pt states she already confirmed by text documented in this encounter [facility] 09-28-2024 History of Present illness Narrative Images from the original note were not included. Marco Antonio Hines MD, [facility] DAVID Coates, DAV[address] [place] [address] Name: Bri Kwan : 1950 Gender: female [...] Medical History: Diagnosis Date # Atrial fibrillation ([facility]) Bilateral carotid artery stenosis Bilateral edema of lower extremity Cancer ([facility]) New lesions of right cheek, left cheek / lower eyelid area, right shoulder, and right and left back. Diabetes mellitus ([facility]) Essential hypertension Hyperlipidemia LAE (left atrial enlargement) Non-rheumatic mitral regurgitation Non-rheumatic tricuspid valve insufficiency Occlusion and stenosis of bilateral carotid arteries Paroxysmal A-fib ([facility]) Pulmonary hypertension ([facility]) Vertigo Past Surgical History: Procedure Laterality [...] aortic insufficiency. Diastolic dysfunction. 12/2018 ? TIA ([facility]) 12/2018 Echo ([facility]): Normal LV size and function Normal RV size and function Mild TR 12/2018 Carotids ([facility]): No significant stenosis noted. 12/2018 24 Hour Holter Monitor ([facility]): No AF No SVT NO pause of VT Avg HR 63 BPM, min 45 bpm, max 79 BPM. 01/2019 Echo ([place]): Normal LV size and function Normal EF Mild TR Otherwise, unremarkable 01/2019 Stress ([place]): Negative. EF 74% Echo complete W/O contrast [...] is 19.0 cm2. Mitral Valve: There is [id number] regurgitation. There is no evidence of mitral [...] Coumadin, Flecainide, and BB. Coumadin managed by [facility]. Not interested in EP eval re ablation. [...] Follow echoes. Testing and records reviewed in [facility] Everywhere and other outside facilities, and are documented under CV database and testing. The note was completed using EMR. Every effort was made to ensure accuracy; however, inadvertent computerized supervisor assembly errors may be present. Marco Antonio Hines MD documented in this encounter [facility] [employer] 07-21-2024 History of Present illness Narrative Associated Problem(s): Type 2 diabetes mellitus with peripheral neuropathy (CMS/HCC) During the appointment today all pertinent labs, [...] been checking her blood glucose with a Freestyle delicia 3 CGM - LINKED. Bg drop some overnight and in the afternoon. Tends to have some spikes mid morning and early afternoon. Last A1c: 6.9 (04/18/24) Last eye exam: 2023 [place] Current concerns include: Bg have been similar [...] Non-rheumatic mitral regurgitation Mass of parotid gland half-way current use of anticoagulant therapy roasterman current use of antiarrhythmic drug LAE (left [...] Other (See Comments) Caused pancreatitis due to custodial use. Diagnosed by a specialist. Other Reaction(s): [...] (BMI) of 36.0 to 36.9 in adult ([facility]) Type 2 diabetes mellitus with stage 3b chronic kidney disease, with long-term current use of insulin ([facility]) ([facility]) - Primary Type 2 diabetes mellitus with peripheral neuropathy ([facility]) During the appointment today all pertinent [...] they have any problems or questions. Bri Amaya Carnicom control is stable overall. , Will stay [...] the patient today. documented in this encounter [facility] 04-18-2024 History of Present illness Narrative Associated Problem(s): Type 2 diabetes mellitus with peripheral neuropathy (CMS/HCC) During the appointment today all pertinent labs, [...] food journal and trying to limit to 5273-5460 calories daily to help with weight loss. [...] been checking her blood glucose with a Freestyle delicia 3 CGM - LINKED. She will drop before lunch and sometimes overnight, occasionally spikes with lunch or in the afternoon. Last A1c: 6.9 on 01/11/2024 Last eye exam: 05/12/2022 - 20[address] [place] [address] [place] Current concerns include: Bg have been similar [...] Non-rheumatic mitral regurgitation Mass of parotid gland half-way current use of anticoagulant therapy roasterman current use of antiarrhythmic drug LAE (left [...] Other (See Comments) Caused pancreatitis due to custodial use. Diagnosed by a specialist. Other Reaction(s): [...] (BMI) of 37.0 to 37.9 in adult ([facility]) - Primary Type 2 diabetes mellitus with stage 3b chronic kidney disease, with long-term current use of insulin (HCC) ([facility]) Relevant Orders POCT glycosylated hemoglobin (Hb A1C) docked device (Completed) Type 2 diabetes mellitus with peripheral neuropathy ([facility]) During the appointment today all pertinent [...] food journal and trying to limit to 6879-1598 calories daily to help with weight loss. [...] the patient today. documented in this encounter [facility] 03-22-2024 History of Present illness Narrative Images [...] DM (diabetes mellitus), secondary, with neurologic complications ([facility]) Essential tremor 02/02/2018 ETD (eustachian tube dysfunction) GERD (gastroesophageal reflux disease) HLD (hyperlipidemia) ([facility]) HTN (hypertension) ([facility]) Hypersomnia, unspecified 11/09/2016 Hypoxemia 07/05/2017 Insomnia 07/05/2017 Neoplasm of unspecified behavior of bone, soft tissue, and skin 01/25/2014 New lesions of right cheek, left cheek / lower eyelid area, right shoulder, and right and left back. Obstructive sleep apnea 03/02/2017 Obstructive sleep apnea hypopnea, mild 02/02/2018 Pain in joint, forearm 11/09/2016 Parotid mass Parotitis Pulmonary HTN ([facility]) Tremor 11/09/2016 Tremor, essential 11/09/2016 Past [...] was councelled on the risks of stroke, SD, and sudden with TONNY, along with the [...] clinic: 6 months documented in this encounter [facility] 03-09-2024 History of Present illness Narrative Images from the original note were not included. Marco Antonio Hines MD, [facility] Irineo Garsia, [place], [place] [address] [place] [address] Name: Bri Kwan : 1950 Gender: female [...] MED/SURG HISTORY: Past Medical History: Diagnosis Date #[id number] Atrial fibrillation ([facility]) Bilateral carotid artery stenosis Bilateral edema of lower extremity Cancer ([facility]) New lesions of right cheek, left cheek / lower eyelid area, right shoulder, and right and left back. Diabetes mellitus ([facility]) Essential hypertension Hyperlipidemia LAE (left atrial enlargement) Non-rheumatic mitral regurgitation Non-rheumatic tricuspid valve insufficiency Occlusion and stenosis of bilateral carotid arteries Paroxysmal A-fib ([facility]) Pulmonary hypertension ([facility]) Vertigo Past Surgical History: Procedure Laterality Date [...] aortic insufficiency. Diastolic dysfunction. 12/2018 ? TIA ([facility]) 12/2018 Echo ([facility]): Normal LV size and function Normal RV size and function Mild TR 12/2018 Carotids ([facility]): No significant stenosis noted. 12/2018 24 Hour Holter Monitor ([facility]): No AF No SVT NO pause of VT Avg HR 63 BPM, min 45 bpm, max 79 BPM. 01/2019 Echo ([place]): Normal LV size and function Normal EF Mild TR Otherwise, unremarkable 01/2019 Stress ([place]): Negative. EF 74% ECHO: 06/06/2020 Left Ventricle: [...] is 19.0 cm2. Mitral Valve: There is [id number] regurgitation. There is no evidence of mitral [...] Coumadin, Flecainide, and BB. Coumadin managed by [facility]. 2. Hypertension: Blood pressure is currently controlled. [...] Follow echoes. Testing and records reviewed in [facility] Everywhere and other outside facilities, and are documented under CV database and testing. The note was completed using EMR. Every effort was made to ensure accuracy; however, inadvertent computerized supervisor assembly errors may be present. Marco Antonio Hines MD documented in this encounter [facility] 05-19-2023 Evaluation note Encounter Date Diagnosis Assessment Notes Apr, Acute non-recurrent maxillary sinusitis (ICD-10 - J01.00) Finish antibiotics as prescribed. Reviewed allergies. She is stopping her warfarin tomorrow for dental procedure next week. She hopes that her cough and sinus symptoms will be abated by May 27 when she is having dental work done. Stay hydrated rest Coricidin cold medicines. [employer] Other 07-25-2023 Evaluation note* Encounter Date Diagnosis [...] (ICD-10 - M54.16) Presently in PT at [facility]. Jan, Paroxysmal atrial fibrillation (ICD-10 - I48.0) Had INR today. Discussed warfarin and foods that can effect INR. May, Type 2 diabetes mellitus without complications (ICD-10 - E11.9) Diabetes mellitus, type 2 Will share lab results w Dr. Pringle including renal function. Followup next month there. [facility] Other 07-25-2023 Evaluation note* Encounter Date Diagnosis [...] (ICD-10 - M54.16) Presently in PT at [facility]. Jan, Paroxysmal atrial fibrillation (ICD-10 - I48.0) Had INR today. Discussed warfarin and foods that can effect INR. May, Type 2 diabetes mellitus without complications (ICD-10 - E11.9) Diabetes mellitus, type 2 Will share lab results w Dr. Pringle including renal function. Followup next month there. [facility] Other 06-21-2023 Evaluation note* Encounter Date Diagnosis [...] - Z87.19) Pt requests recheck of lipase. [facility] Other 11-16-2018 Evaluation note* Diagnosis Onset Date Resolution Status Bilateral lower extremity pain acute Essential (primary) hypertension acute Hyperlipidemia, unspecified acute Pulmonary hypertension, unspecified June 10, 201 8 acute [facility] Work Phone: Evaluation noteNo InformationNort [employer] Other Evaluation noteNo assessment information available [facility] Work Phone: Evaluation note* Diagnosis Essential tremor- Primary Hypersomnia, unspecified Obstructive sleep apnea Obstructive sleep apnea (adult) (pediatric) 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 Twitch Abnormal involuntary movements Hypoxemia documented in this encounter [facility] HealthcareEvaluation note* Diagnosis Class 2 severe obesity due to excess calories with serious comorbidity and body mass index (BMI) of 37.0 to 37.9 in adult ([facility]/HCC)- Primary Type 2 diabetes mellitus with stage 3b chronic kidney disease, with long-term current use of insulin (HCC) (CMS/HCC) Type 2 diabetes mellitus with peripheral neuropathy (CMS/HCC) documented in this encounter [facility] HealthcareEvaluation note* Diagnosis Long-term insulin use (CMS/HCC)- [...] in adult (CMS/HCC) [facility] Diagnosis Long-term insulin use ([facility]/HCC)- Primary Type 2 diabetes mellitus with peripheral neuropathy ([facility]/HCC) Diabetic nephropathy associated with type 2 diabetes mellitus (HCC) ([facility]/HCC) Severe obesity (BMI 35.0-39.9) with comorbidity (CMS/HCC) Class 2 severe obesity due to excess calories with serious comorbidity and body mass index (BMI) of 37.0 to 37.9 in adult ([facility]/HCC)- Primary Type 2 diabetes mellitus with peripheral neuropathy (CMS/HCC) Long-term insulin use ([facility]/HCC) Type 2 diabetes mellitus with stage 3b chronic kidney disease, with long-term current use of insulin (HCC) ([facility]) Class 2 severe obesity due to excess calories with serious comorbidity and body mass index (BMI) of 37.0 to 37.9 in adult ([facility]/HCC)- Primary Type 2 diabetes mellitus with peripheral neuropathy ([facility]/HCC) Type 2 diabetes mellitus with stage 3b chronic kidney disease, with long-term current use of insulin (HCC) ([facility]/HCC) Type 2 diabetes mellitus with peripheral neuropathy ([facility]/HCC)- Primary Type 2 diabetes mellitus with stage 3b chronic kidney disease, with long-term current use of insulin (HCC) ([facility]/HCC) Class 2 severe obesity due to excess calories with serious comorbidity and body mass index (BMI) of 37.0 to 37.9 in adult (CMS/HCC) Class 2 severe obesity due to excess calories with serious comorbidity and body mass index (BMI) of 37.0 to 37.9 in adult ([facility]/HCC)- Primary Type 2 diabetes mellitus with stage 3b chronic kidney disease, with long-term current use of insulin (HCC) ([facility]/HCC) Type 2 diabetes mellitus with peripheral neuropathy ([facility]/HCC) Type 2 diabetes mellitus with stage 3b chronic kidney disease, with long-term current use of insulin (HCC) ([facility]/HCC)- Primary Type 2 diabetes mellitus with peripheral neuropathy ([facility]/HCC) Class 2 severe obesity due to excess calories with serious comorbidity and body mass index (BMI) of 36.0 to 36.9 in adult ([facility]/HCC) Essential tremor- Primary Obstructive sleep apnea Obstructive sleep apnea (adult) (pediatric) Hypersomnia, unspecified Hypoxemia 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 documented in this encounter [facility] HealthcareEvaluation note* Diagnosis Paroxysmal A-fib ([facility])- Primary Occlusion and stenosis of bilateral carotid arteries Non-rheumatic mitral regurgitation Nonrheumatic tricuspid valve regurgitation LAE (left atrial enlargement) Cardiomegaly Pulmonary hypertension ([facility]-HCC) Other chronic pulmonary heart diseases Essential hypertension Unspecified essential hypertension Nonrheumatic aortic valve insufficiency Hyperlipidemia, unspecified hyperlipidemia type History of transient ischemic attack (TIA) Transient ischemic attack (TIA), and cerebral infarction without residual deficits Current use of custodial anticoagulation Abnormal echocardiogram Nonspecific (abnormal) findings on radiological and other examination of other intrathoracic organs Bilateral edema of lower extremity roasterman current use of antiarrhythmic drug documented [facility]* Diagnosis half-way current use of antiarrhythmic drug- Primary LAE (left atrial enlargement) Cardiomegaly Pulmonary hypertension ([facility]-HCC) Other chronic pulmonary heart diseases documented in this encounter [facility]* Diagnosis Paroxysmal A-fib ([facility]-HCC)- Primary Occlusion and stenosis of bilateral carotid arteries Nonrheumatic tricuspid valve regurgitation LAE (left atrial enlargement) Cardiomegaly Pulmonary hypertension ([facility]-HCC) Other chronic pulmonary heart diseases Essential hypertension Unspecified essential hypertension Nonrheumatic aortic valve insufficiency Hyperlipidemia, unspecified hyperlipidemia type History of transient ischemic attack (TIA) Transient ischemic attack (TIA), and cerebral infarction without residual deficits Current use of roasterman anticoagulation Abnormal echocardiogram Nonspecific (abnormal) findings on radiological and other examination of other intrathoracic organs Bilateral edema of lower extremity roasterman current use of antiarrhythmic drug Non-rheumatic mitral regurgitation documented in this encounter [facility]* Diagnosis Preop examination- Primary Unspecified pre-operative examination Hypertension, unspecified type Paroxysmal A-fib ([facility]-HCC) Essential hypertension Unspecified essential hypertension Preop examination Unspecified pre-operative examination Paroxysmal A-fib ([facility]-HCC) Essential hypertension Unspecified essential hypertension documented in this encounter [facility]* Diagnosis Long-term insulin use (HCC)- Primary Type 2 diabetes mellitus with peripheral neuropathy (HCC) Diabetic nephropathy associated with type 2 diabetes mellitus (HCC) Severe obesity (BMI 35.0-39.9) with comorbidity ([facility]-HCC) Class 2 severe obesity due to excess calories with serious comorbidity and body mass index (BMI) of 37.0 to 37.9 in adult ([facility])- Primary Type 2 diabetes mellitus with peripheral neuropathy (HCC) Long-term insulin use (HCC) Type 2 diabetes mellitus with stage 3b chronic kidney disease, with long-term current use of insulin (HCC) Class 2 severe obesity due to excess calories with serious comorbidity and body mass index (BMI) of 37.0 to 37.9 in adult ([facility]-HCC)- Primary Type 2 diabetes mellitus with peripheral neuropathy (HCC) Type 2 diabetes mellitus with stage 3b chronic kidney disease, with long-term current use of insulin (HCC) Type 2 diabetes mellitus with peripheral neuropathy (HCC)- Primary Type 2 diabetes mellitus with stage 3b chronic kidney disease, with long-term current use of insulin (HCC) Class 2 severe obesity due to excess calories with serious comorbidity and body mass index (BMI) of 37.0 to 37.9 in adult ([facility]-HCC) Class 2 severe obesity due to excess calories with serious comorbidity and body mass index (BMI) of 37.0 to 37.9 in adult ([facility]-HCC)- Primary Type 2 diabetes mellitus with stage 3b chronic kidney disease, with long-term current use of insulin (HCC) Type 2 diabetes mellitus with peripheral neuropathy (HCC) Type 2 diabetes mellitus with stage 3b chronic kidney disease, with long-term current use of insulin (HCC)- Primary Type 2 diabetes mellitus with peripheral neuropathy (HCC) Class 2 severe obesity due to excess calories with serious comorbidity and body mass index (BMI) of 36.0 to 36.9 in adult ([facility]-HCC) Type 2 diabetes mellitus with stage 3b chronic kidney disease, with long-term current use of insulin (HCC)- Primary Type 2 diabetes mellitus with peripheral neuropathy (HCC) Class 2 severe obesity due to excess calories with serious comorbidity and body mass index (BMI) of 37.0 to 37.9 in adult ([facility]-HCC) Type 2 diabetes mellitus with stage 3a chronic kidney disease, with long-term current use of insulin (HCC)- Primary Type 2 diabetes mellitus with peripheral neuropathy (HCC) Class 2 severe obesity due to excess calories with serious comorbidity and body mass index (BMI) of 36.0 to 36.9 in adult ([facility]-HCC) Type 2 diabetes mellitus with diabetic polyneuropathy (HCC) documented in this encounter [facility] HealthcareEvaluation note* Diagnosis Onset Date Resolution Status Admit Date Mass in neck acute February 05 1:36pm Mass of chest wall, left acute February 05, 2025 1:36pm [facility] Work Phone: History general Narrative - Reported* Type Description Date Medical History HTN Medical History A-Fib Medical History DM Surgical History T&A Surgical History Appendectomy Surgical History D&C x2 Surgical History Tubal Ligation Surgical History Hysterectomy Surgical History Cystocele/Rectocele Surgical History Right Carpal Tunnel Surgical History Basal Cell Carcinoma (face) Hospitalization History See past surgical hx Hospitalization History Pancreatitis 2010 Hospitalization History Pneumonia [facility] Other InstructionsNot on filedocumented in this encounter [facility] in [facility] on filedocumented in this encounter [facility]ructionsNot on filedocumented in this encounter [facility]InstructionsNot on filedocumented in this encounter [facility] SystemReason for referral (narrative)No reason for referral [facility] Work [facility]: Summary Purpose Family History Relationship Condition Age [...] month follow up Chief Complaint Admit Date [facility] July 27, 2024 9: 58am Chief Complaint Admit Date 6 month routine February 05, 2025 1:36 pm Reason for Visit Admit Date Mass in neck February 05, 2025 1:36 pm Mass of chest wall, left February 05, 2025 1:36pm Additional Source Comments INFORMATION SOURCE (unrecogn ized section and content) DATE CREATED AUTHOR 01/01/2023 [facility] DATE CREATED AUTHOR AUTHOR'S ORGANIZ ATION 03/11/[address] [facility] DATE CREATED AUTHOR AUTHOR'S ORGANIZ ATION 09/30/2024 [facility] DATE CREATED AUTHOR AUTHOR'S ORGANIZ ATION 01/03/2025 [facility] DATE CREATED AUTHOR AUTHOR'S ORGANIZ ATION 01/19/2025 [facility] EPIC REASON FOR VISIT (unrecogniz ed section and content) Reason Comments Sleep Apnea Reason Comments Diabetes Reason Comments Sleep Apnea Tremors Reason Comments Follow-up Last INR 2.3 FEBRUARY 11 24MONTHLY CHECKS Reason Comments Follow-up 6 month Reason Onset Date Comments Appointment Confirmation 10/16/2024 Reason Onset Date Comments Med Refill 10/31/2024 Care Teams (unrecognized sec tion and content) [...] November 18, 2023 End: November 18, 2023 Warehouse Hand Relationship Specialty Start Date End Date Adenike Langford DO [address] [facility] [address] [place] [address] PCP - ACO Reach 12/17/22 Claudia Leon MD [address] [place] [phone] PCP - General Family Medicine 02/15/23 Warehouse Hand Relationship Specialty Start Date End Date Adenike Langford DO [address] [facility] [address] [place] [address] PCP - ACO Reach 12/17/22 Claudia Leon MD [address] [place] [phone] PCP - General Family Medicine 02/15/23 Warehouse Hand Relationship Specialty Start Date End Date Adenike Langford DO [address] [place] [address] PCP - ACO Reach 12/17/22 Claudia Leon MD [address] [facility] [place] [phone] PCP - General Family Medicine 02/15/23 Warehouse Hand Relationship Specialty Start Date End Date Adenike Langford DO [address] [place] [address] PCP - ACO Reach 12/17/22 Claudia Leon MD [address] [facility] [address] PCP - General Family Medicine 02/15/23 Team Status: Inactive Member Role Status Dates Claudia Leon MD Primary Care Provide r, Attending Provider Active Start: July 27, 2024 End: July 27, 2024 Warehouse Hand Relationship Specialty Start Date End Date Adenike Langford DO [address] [place] [address] PCP - ACO Reach 12/17/22 Claudia Leon MD [address] [facility] [phone] PCP - General Family Medicine 02/15/23 Warehouse Hand Relationship Specialty Start Date End Date Adenike Langford DO [address] [place] [address] PCP - ACO Reach 12/17/22 Claudia Leon MD [address] [facility] [address] PCP - General Family Medicine 02/15/23 Warehouse Hand Relationship Specialty Start Date End Date Claudia Leon MD [address] [place] [phone] PCP - General Family Medicine 06/06/20 Warehouse Hand Relationship Specialty Start Date End Date Claudia Leon MD [address] [place] [address] PCP - General Family Medicine 06/06/20 Warehouse Hand Relationship Specialty Start Date End Date Claudia Leon MD [address] [place] [address] PCP - General Family Medicine 06/06/20 Warehouse Hand Relationship Specialty Start Date End Date Adenike Langford DO [address] [address] PCP - ACO Reach 12/17/22 Claudia Leon MD [address] [place] [phone] PCP - General Family Medicine 02/15/23 Warehouse Hand Relationship Specialty Start Date End Date Claudia Leon MD [address] [place] [address] PCP - General Family Medicine 06/06/20 Warehouse Hand Relationship Specialty Start Date End Date Claudia Leon MD [address] [place] [address] PCP - General Family Medicine 06/06/20 Warehouse Hand Relationship Specialty Start Date End Date Claudia Leon MD [address] [place] [address] PCP - General Family Medicine 06/06/20 Warehouse Hand Relationship Specialty Start Date End Date Adenike Langford DO [address] [place] [address] PCP - ACO Reach 12/17/22 Claudia Leon MD [address] [place] [address] PCP - General Family Medicine 02/15/23 Team Status: Inactive Member Role Status Dates Claudia Leon MD Primary Care Provider Active Start: February 05, 2025 End: February 05, 2025 Claudia Leon MD Attending Provider Active St art: February 05, 2025 End: February 05, 2025 Goals (unrecognized section and content) Goals may [...] BE BASED ON THE PRIMARY CLINICAL RECORDS. [facility] [employer] [facility]. provides no warranty or guarantee of the accuracy or completeness of information in this document.
== END 2025-02-08 12:42 | disposition home or self-care (01) ==
LOC: US 12:42
PROVIDERS: PCP Family Medicine; Visit Provider Family Medicine
DX: R22.1 Localized swelling, mass and lump, neck (principal); R22.2 Localized swelling, mass and lump, trunk; E04.2 Nontoxic multinodular goiter
CPT/HCPCS: 76536; 76604; G0463

== ENCOUNTER 2025-02-23 01:51 | Outpatient (RCR) | payer MEDICARE, OTHER, SELFPAY | END 2025-03-22 12:51 | disposition home or self-care (01) | LOC: MM 01:51 | PROVIDERS: PCP Family Medicine; Visit Provider Internal Medicine | DX: Z51.81 Encounter for therapeutic drug level monitoring (principal); Z79.01 Long term (current) use of anticoagulants; I48.20 Chronic atrial fibrillation, unspecified | CPT/HCPCS: 85610; G0463 ==

== ENCOUNTER 2025-03-26 00:36 | Outpatient (RCR) | payer MEDICARE, OTHER, SELFPAY | END 2025-04-24 15:40 | disposition home or self-care (01) | LOC: MM 00:36 | PROVIDERS: PCP Family Medicine; Visit Provider Internal Medicine | DX: Z51.81 Encounter for therapeutic drug level monitoring (principal); Z79.01 Long term (current) use of anticoagulants; I48.20 Chronic atrial fibrillation, unspecified | CPT/HCPCS: 85610; G0463 ==

== ENCOUNTER 2025-04-25 01:27 | Outpatient (RCR) | payer MEDICARE, OTHER, SELFPAY | END 2025-05-25 23:59 | disposition home or self-care (01) | LOC: MM 01:27 | PROVIDERS: PCP Family Medicine; Visit Provider Internal Medicine | DX: Z51.81 Encounter for therapeutic drug level monitoring (principal); Z79.01 Long term (current) use of anticoagulants; I48.20 Chronic atrial fibrillation, unspecified | CPT/HCPCS: 85610; G0463 ==

== ENCOUNTER 2025-05-26 | Outpatient (RCR) | payer MEDICARE, OTHER, SELFPAY | END 2025-06-24 23:59 | disposition home or self-care (01) | LOC: MM | PROVIDERS: PCP Family Medicine; Visit Provider Internal Medicine | DX: Z51.81 Encounter for therapeutic drug level monitoring (principal); Z79.01 Long term (current) use of anticoagulants ==

== ENCOUNTER 2025-06-04 11:23 | Outpatient (OUT) | payer MEDICARE, OTHER, SELFPAY ==
--- OUTSIDE RECORDS SUMMARY | 2025-05-21 14:45 | XMS_ITS | Encounter Summary ---
Author Organization [facility] Address [address] [place] [address] Care Team Providers Care Deep Fat Cook Fry Name Role Phone Adenike Blandon Altagracia DO Unavailable [phone] Claudia Whittington MD Primary Care Provider [phone] Reason for Visit * ReasonCommentsPost-op1 month ean excision lipoma Encounter Details DateTypeDepartmentCare Team (Latest Contact Info)Bayvkawelcn27/27/2025 3:45 PM EDTOffice Visit [facility] [address] [place] [address] Jorge L Ramirez, DO [address] [place] [address] Lipoma of neck (Primary Dx); Lipoma of chest wall Social History Tobacco UseTypesPacks/DayYears UsedDateSmoking Tobacco: NeverPassive Smoke Exposure: PastSmokeless Tobacco: Never Tobacco Cessation:Counseling Given: Not Answered Alcohol UseStandard Drinks/WeekCommentsYes0 (1 standard drink = 0.6 oz pure alcohol)1 drink every 4 monthAUDIT-CAnswerDate RecordedQ1: How often do you have a drink containing alcohol?Monthly or less04/18/2024Q2: How many drinks containing alcohol do you have on a typical day when you are drinking?1 or 2 04/18/2024Q3: How often do you have six or more drinks on one occasion?Never 04/18/2024HQ-2AnswerDate RecordedPatient Health Questionnaire-2 Score0 04/20/2025CommentsUnknownSex and Gender InformationValueDate RecordedSex Assigned at BirthNot on fileLegal QkcPcektd12/15/2023 10:59 PM EDTGender IdentityNot on fileSexual OrientationNot on filedocumented as of this encounter Last Filed Vital Signs Vital SignReadingTime TakenCommentsBlood Pressure--Pulse--Temperature-- Respiratory Rate--Oxygen Saturation--Inhaled Oxygen Concentration--Itsowk48.9 kg (218 lb)05/21/2025 3:37 PM NIZBntucq698.1 cm (5' 5 )05/21/2025 3:37 PM EDTBody Mass Index36.281 3:37 PM EDTdocumented in this encounter Progress Notes * Jorge L Ramirez DO - 05/21/2025 3:45 PM EDT HPI Patient presents today 1 month postop excision of both a right neck as well as a left anterior chest wall lipoma. She is doing well. Relevant postoperative physical examination Inspection of both surgical sites shows that the scars are fading nicely. Assessment/plan Sherry was seen today for post-op. Diagnoses and all orders for this visit: Lipoma of neck (Primary) Comments: No evidence of recurrence, I will see her back as needed Lipoma of chest wall Comments: See above documented in this encounter Plan of Treatment DateTypeDepartmentCare Team (Latest Contact Info)Hyxhtpwzbkh89/30/2025 11:30 AM ESTOffice Visit [facility] [place] [facility] [address] [place] [phone] Adenike Blandon DO [address] [place] [address] documented as of this encounter Visit Diagnoses Diagnosis Lipoma of neck- Primary Lipoma of chest wall documented in this encounter Care Teams Team MemberRelationshipSpecialtyStart DateEnd Date Adenike Blandon DO [address] [place] [address] PCP - ACO [facility]12/17/22 Claudia Whittington MD [facility] [place] [address] PCP - GeneralFamily Medicine02/15/23documented as of this encounter
--- NOTE | 2025-06-04 11:27 | MM_ITS ---
Patient Name: BRI VILLALOBOS MR#: [id number] : 1950 Exam Date: 06/04/2025 Ordering Doctor: DR BULMARO LEON M.D. RADIOLOGY REPORT PROCEDURE: MM TOMOSYNTHESIS SCREENING BI COMPARISON: MM TOMOSYNTHESIS SCREENING BI, 06/01/2024. MM TOMOSYNTHESIS SCREENING BI, 05/31/2023. MG MAMM SCREEN 3D YEHUDA CAD, 05/29/2022. MG MAMM YEHUDA SCRN W CAD DIG, 04/04/2009. INDICATIONS: Screening Calculator Name NCI Breast Cancer Risk Assessment Tool 5 Year Breast Cancer Risk 3.60% Lifetime Breast Cancer Risk 8.20% Personal Breast Cancer No Personal Ovarian Cancer No Treatments None Family Cancers Mother with lung cancer at age 64; Sister with breast cancer at age 59. LOCATION: [facility] BREAST COMPOSITION: There are scattered areas of fibroglandular density. FINDINGS: RIGHT BREAST: No significant suspicious finding. Benign-appearing lymph nodes are noted. Similar focal asymmetries are noted. Benign-appearing calcifications are present. LEFT BREAST: No significant suspicious finding. Benign-appearing lymph nodes are noted. Similar focal asymmetries are noted. Benign-appearing calcifications are present. DIAGNOSTIC CATEGORY 2--BENIGN FINDING. NO CHANGE FROM COMPARISON. RECOMMENDATIONS: ROUTINE MAMMOGRAM AND CLINICAL EVALUATION IN 12 MONTHS. Dictated by: Wesley Hodges MD on 06/04/2025 at 13:28 Approved by: Wesley Hodges MD on 06/04/2025 at 13:49
--- OUTSIDE RECORDS SUMMARY | 2025-06-04 11:27 | XMS_ITS | Clinical Summary ---
Author Organization [facility] Address [address] [place] [address] Care Team Providers Care Coder Name Role Phone Unavailable Primary Care Provider Unavailabl e Social History Tobacco UseTypesPacks/DayYears UsedDateSmoking Tobacco: Never Assessed CommentsUnknownSex and Gender InformationValueDate RecordedSex Assigned at Not on fileLegal YcnPykaqy55/30/2022 12:16 AM EDTGender IdentityNot on file Sexual OrientationNot on file Plan of Treatment Not on file
--- OUTSIDE RECORDS SUMMARY | 2025-06-04 11:27 | XMS_ITS | Clinical Summary ---
Author Organization [employer] tem Address [id number] [address] [place] [address] Care Team Providers [employer] Professor Name Role Phone Claudia Whittington MD Primary Care Provider [phone] Allergies Active AllergyReactionsCriticalityNoted JoedNqtegqneYrqjlsgsxauGjshDxw79/12/2020 QcrssfwvTaqqOdk48/25/2014LisinoprilOther (See Comments)01/25/2014 Caused pancreatitis due to exterminator helper use. Diagnosed by a specialist. OdscakknvujYbfiAfj48/12/2020Sulfa (Sulfonamide Antibiotics)VkieEbn4201/17/2014 Medications MedicationSigDispense QuantityRefillsLast FilledStart DateEnd DateStatus atorvastatin (LIPITOR) 40 mg tablet Take 1 tablet (40 mg total) by mouth.Active warfarin (COUMADIN) 4 mg tablet Take 1 tablet (4 mg total) by mouth in the evening.02/12/2020Active LANTUS SOLOSTAR U-100 INSULIN 100 unit/mL (3 mL) insulin pen Inject 25 Units under the skin in the morning.11/08/2020ctive insulin lispro (HumaLOG) 100 unit/mL insulin pen Inject 10 Units under the skin in the morning and 10 Units before bedtime. 11/30/2020ctive amLODIPine (NORVASC) 10 mg tablet Take 1 tablet (10 mg total) by mouth in the morning. 90 tablet 5Active furosemide (LASIX) 40 mg tablet Take 1 tablet (40 mg total) by mouth daily as needed (swelling). 90 tablet 5Active flecainide (TAMBOCOR) 150 mg tablet Take 0.5 tablets (75 mg total) by mouth in the morning and 0.5 tablets (75 mg total) before bedtime. 90 tablet 5Active hydroCHLOROthiazide (HYDRODIURIL) 25 mg tablet Take 1 tablet (25 mg total) by mouth 2 (two) times a day. 90 tablet 5Active Additional Information Patient taking differently: 50 mgoralDaily, Informant: Self, Reported on 04/02/2025 losartan (COZAAR) 100 mg tablet Take 1 tablet (100 mg total) by mouth in the morning. 90 tablet 5Active propranolol LA (INDERAL LA) 60 mg 24 hr capsule Take 1 capsule (60 mg total) by mouth in the morning. 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 Basal cell carcinoma of skin of other parts of face01/17/2014 Overview (12/02/2020): Updating Deprecated Diagnoses Occlusion and stenosis of bilateral carotid arteriesNon-rheumatic mitral regurgitationNonrheumatic tricuspid valve regurgitationLAE (left atrial enlargement)Pulmonary hypertensionEssential hypertensionParoxysmal A-fib Hyperlipidemia Encounters DateTypeDepartmentCare OyrdPhekbghbuxi80/08/2025 11:45 AM EDTOffice Visit [facility] [address] [place] [address] Elmira Pérez MD Paroxysmal A-fib (CMS-HCC) (Primary Dx); Occlusion and stenosis of bilateral carotid arteries; Pulmonary hypertension (CMS-HCC); Hyperlipidemia, unspecified hyperlipidemia type; Abnormal echocardiogram; Bilateral edema of lower extremity; History of transient ischemic attack (TIA); Nonrheumatic tricuspid valve regurgitation; LAE (left atrial enlargement); Essential hypertension; Nonrheumatic aortic valve insufficiency; Current use of exterminator helper anticoagulation; 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; Non-rheumatic mitral wdjmjyaijfhwb92/08/2025 10:49 AM EDT - 04/02/2025 11:59 PM EDTHospital Encounter [facility] [address] [place] [address] Nonrheumatic tricuspid valve regurgitation; LAE (left atrial enlargement); Pulmonary hypertension (CMS-HCC); Essential hypertension; Paroxysmal A-fib (CMS-HCC); Nonrheumatic aortic valve insufficiency; History of transient ischemic attack (TIA); Abnormal echocardiogram; Bilateral edema of lower extremity; Non-rheumatic mitral regurgitation Discharge Disposition: Home04/02/2025 10:14 AM EDT - 04/02/2025 10:48 AM EDT Hospital [facility] [address] [place] [address] Occlusion and stenosis of bilateral carotid arteries; History of transient ischemic attack (TIA) Discharge Disposition: Home04/02/2025Results Follow-Up [facility] [address] [place] [id number] Elmira Pérez MD Vas carotid duplex jssyuevqm92/08/0148Aqhdca82/29/2025Orders Only [facility] [address] [place] [id number] Tyson, Radha, RN Abnormal echocardiogram (Primary Dx); Occlusion and stenosis of bilateral carotid arteries; Pulmonary hypertension ([facility]-HCC); Paroxysmal A-fib ([facility]-HCC); Hyperlipidemia, unspecified hyperlipidemia type; Bilateral edema of lower extremity; History of transient ischemic attack (TIA)from Last 3 Months Family History Medical HistoryRelationNameCommentsAtrial fibrillationFatherHeart attackMother Heart diseaseSonRelationNameStatusCommentsFatherMotherSon Social History Tobacco UseTypesPacks/DayYears UsedDateSmoking Tobacco: NeverSmokeless Tobacco: NeverAlcohol UseStandard Drinks/WeekCommentsYes0 (1 standard drink = 0.6 oz pure alcohol)ABOUT ONE PER MONTHChildcareAnswerDate RecordedChildcareUnknown 01/04/2019EmploymentAnswerDate ZiqwnyyjRxeaczbpgnNiovnbe99/12/2019Purpose - Life AnswerDate RecordedPurpose and direction in pvpjDzpdtxf09/11/2021 CommentsNoSex and Gender InformationValueDate RecordedSex Assigned at BirthNot on fileLegal IfaDobece63/06/2015 11:52 AM EDTGender IdentityNot on fileSexual OrientationNot on file Last Filed Vital Signs Vital SignReadingTime TakenCommentsBlood Rzfhpuzf085/7209 12:16 PM EDT Cnost756804/02/2025 11:59 AM ZKBYyhlctlafxh15.8 ??C (98.2 ??F)01/02/2025 6:34 AM EDTRespiratory Rcms017304/02/2025 11:59 AM EDTOxygen Dfhgblgcqt90%04/02/2025 11:59 AM EDTInhaled Oxygen Concentration--Tuptsw240.1 kg (220 lb 9.6 oz)04/02/2025 11:59 AM AUDDlemhu064.1 cm (5' 5 )04/02/2025 11:59 AM EDTBody Mass Index36.71 04/02/2025 11:59 AM EDT Plan of Treatment Health MaintenanceDue DateLast DoneCommentsDepression Idtxshdtw23/05/1963Adult BMI Follow Up Plan1968DTaP,Tdap and Td Vaccines (1 - Tdap)1969Fall Risk Mehuudzkz50/05/2016COVID-19 Vaccine (3 - Pfizer risk series)12/19/2020 11/21/2020, 10/31/2020Influenza Qwuwrwg40, 05/26/2020, 05/10/2019, Additional history existsRSV ( or age 60+ yrs) (1 - 1-dose 75+ series)2025dult BMI Huzjggafh08Tobacco Screening Zoster (Shingles) JrngwkpNrofwpoph28/17/2020, 08/22/2019, 11/02/2014 Medical Devices ImplantedTypeAreaManufacturerDevice IdentifierShelf Expiration DateModel / Serial / LotLens Iol Sy60wf.210 [facility] [id number] - [id number] - [id number] Implanted:Qty: 1 on 12/05/2024 by Jo Ann Sommers MD at [facility] [employer]09/03/2028SY60WF.210 / [id number] / N/ALens Iol Sy60wf.210 [facility] Rpl [id number] - [id number] - [id number] Implanted:Qty: 1 on 01/02/2025 by Jo Ann Sommers MD at [facility]: [employer]09/03/2028SY60WF.210 / [id number] / NA Procedures Procedure NamePriorityDate/TimeAssociated DiagnosisCommentsPOCT EKGRoutine 04/02/2025 11:51 AM EDT Occlusion and stenosis of bilateral carotid arteries Pulmonary hypertension (CMS-HCC) Paroxysmal A-fib (CMS-HCC) Hyperlipidemia, unspecified hyperlipidemia type Abnormal echocardiogram Bilateral edema of lower extremity History of transient ischemic attack (TIA) ECHO COMPLETE WO NCNZIPJTXblxfrs99/08/2025 11:20 AM EDT Nonrheumatic tricuspid valve regurgitation LAE (left atrial enlargement) Pulmonary hypertension (CMS-HCC) Essential hypertension Paroxysmal A-fib (CMS-HCC) Nonrheumatic aortic valve insufficiency History of transient ischemic attack (TIA) Abnormal echocardiogram Bilateral edema of lower extremity Non-rheumatic mitral regurgitation [facility] CAROTID DUPLEX BVIQWJPKMLqhluyg32/08/2025 10:47 AM EDT Occlusion and stenosis of bilateral carotid arteries History of transient ischemic attack (TIA) from Last 3 Months Results * Echo complete W/O contrast (04/02/2025 11:20 AM EDT)ComponentValueRef Range Test MethodAnalysis TimePerformed AtPathologist SignatureLVOT stroke volume 107.03mlXCELERALV Systolic Uiinrj63.13cVSKSEXNYDP05%TGNJHOSWT5031 - 44 % XCELERALV Diastolic Tlhjnx05.95yVAGFBVVOTDMEq5.605.28 - 7.33 cmXCELERALVIDs 2.603.10 - 4.69 cmXCELERAIVS0.900.6 - 1.1 cmXCELERAPW0.800.6 - 1.1 cmXCELERA LVOT diameter2.65neQYHDQEQNWP4.96cm/sXCELERAMV TDI E' (medial)5.11cm/sXCELERA LA Volume Index24.5mL/l8YYQYLNQU/A ratio1.05XCELERAE wave deceleration time 259.00msecXCELERAMV Peak E Vel91.70cm/sXCELERAMV Peak A Vel87.30cm/sXCELERALA size4.20cmXCELERAAortic root3.40cmXCELERALA nowtlu12.46ov6EXTXCMRMB diastolic dimension (basal)28.6sgIXAKBLAIUBUJ2.67cmXCELERAAV peak jqh828.00cm/sXCELERA LVOT peak vel1.13m/sXCELERAAV VTI33.70cmXCELERALVOT peak VTI30.90cmXCELERAAV mean gradient3.00mmHgXCELERAAV peak gradient5.66mmHgXCELERAAV valve area3.17 XCELERAValve area - Index1.5XCELERAMV pressure 1/2 time76.00msXCELERAMV valve area p 1/2 method2.29uy5WLREUROLA peak gradient4.75mmHgXCELERALV ESV A2C44.90 mLXCELERALV ESV A4C62.40mLXCELERALV RWT 2D34.78XCELERAEcho EF Ljvjyhklb20% XCELERAAV Velocity Ratio0.92XCELERALeft Ventricle Mlcj576.276177414696497w XCELERAInterventricular Septum Diastolic Thickness by 1D1wbPAGBEQGNZ area14.5 qy5SHKJOWJJSAQPD-9.02XCELERAZLVIDD-3.02XCELERAAscending aorta3.40cmXCELERAAo asc z-score3.22cmXCELERAAnatomical RegionLateralityModalityChestN/AUltrasound Specimen (Source)Anatomical Location / LateralityCollection Method / Volume Collection TimeReceived Time Narrative 04/02/2025 1:13 PM EDT Left Ventricle: Systolic function is normal with an ejection fraction of 60-65%. ?Left??Atrium: Color Doppler reveals possible evidence of left to right interatrial shunting. ?Aortic??Valve: There is trace to mild regurgitation. There is no evidence of aortic valve stenosis. ?Mitral??Valve: There is trace regurgitation. There is no evidence of mitral valve stenosis. ?Tricuspid??Valve: There is trace regurgitation. There is no evidence of tricuspid valve stenosis. Left Ventricle Left ventricle appears normal in size. Wall thickness is normal. Systolic function is normal with an ejection fraction of 60-65%. No obvious regional wall motion abnormalities and consider the use ofcontrast. Lateral E' is 6.96 cm/s. Medial E' is 5.11 cm/s. Right Ventricle Right ventricular size appears normal. The right ventricular basal diameter is 28.0 mm. Systolic function is normal. Normal tricuspid annular plane systolic excursion. Left Atrium Left atrium is normal in size. Left atrium volume index is normal. The left atrial volume index is 24.5 mL/m2. Color Doppler reveals possible evidence of left to right interatrial shunting. Right Atrium Right atrium is normal in size. The right atrial area is 14.5 cm2. IVC/SVC IVC appears normal. There is normal collapse with deep inspiration. Mitral Valve The leaflets are mildly thickened. There is annular calcification. There is trace regurgitation. There is no evidence of mitral valve stenosis. Tricuspid Valve Tricuspid valve appears to be normal. There is trace regurgitation. There is no evidence of tricuspid valve stenosis. Aortic Valve Probable trileaflet aortic valve. There is trace to mild regurgitation. There is no evidence of aortic valve stenosis. Pulmonic Valve Pulmonic valve structure is grossly normal. There is trace regurgitation. There is no evidence of pulmonic valve stenosis. The peak gradient is 4.75 mmHg. Ascending Aorta The aortic root is normal in size. Pericardium There is no pericardial effusion. Study Details A complete echo was performed using complete 2D, color flow Doppler and spectral Doppler. During the study the apical, parasternal, subcostal and suprasternal views were captured. Overall the study quality was adequate. Authorizing ProviderResult TypeResult StatusCarolyn S Gbur [facility] [place] ECHO ORDERABLES Final Result * Vas carotid duplex bilateral (04/02/2025 10:47 AM EDT)Anatomical Region LateralityModalityVascularBilateralUltrasoundSpecimen (Source)Anatomical Location / LateralityCollection Method / VolumeCollection TimeReceived Time 04/02/2025 12:19 PM EDT Narrative 04/02/2025 4:16 PM EDT Previous: Previous carotid duplex exam performed 03/09/24: BILATERAL: (<50%) of the internal carotid artery. Right: Plaque with no significant ICA spectral Doppler or color flow disturbances; ICA 101/13 cm/sec. Antegrade vertebral artery flow. Left: Minimal plaque with no significant ICA spectral Doppler or color flow disturbances; ICA 61/11cm/sec. Antegrade vertebral artery flow. General: Incidental finding of right mixed echogenic masses of varying size with color flow in the right lobe of the thyroid. Blood pressures were not obtained due to patient request. Conclusions: BILATERAL: Plaque without significant stenosis (<50%) of the internal carotid artery. Antegrade vertebral artery flow.Incidental finding of right thyroid masses may warrant further evaluation as clinically indicated. Recommendations: Any questions prior to finalization, please call the reading physician during normal business hours at the phone number beside their name. Procedure Note Trish Cotton DO - 04/02/2025 Previous: Previous carotid duplex exam performed 03/09/24: BILATERAL:(<50%) of the internal carotid artery. Right: Plaque with no significant ICA spectral Doppler or color flow disturbances; ICA 101/13 cm/sec. Antegrade vertebral artery flow. Left: Minimal plaque with no significant ICA spectral Doppler or colorflow disturbances; ICA 61/11 cm/sec. Antegrade vertebral artery flow. General: Incidental finding of right mixed echogenic masses of varyingsize with color flow in the right lobe of the thyroid. Blood pressureswere not obtained due to patient request. Conclusions: BILATERAL: Plaque without significant stenosis (<50%) of the internal carotid artery. Antegrade vertebral artery flow.Incidentalfinding of right thyroid masses may warrant further evaluation asclinically indicated. Recommendations: Any questions prior to finalization, please call thereading physician during normal business hours at the phone number besidetheir name. Authorizing ProviderResult TypeResult StatusCarolyn S Gbur MDCV VASCULAR ORDERABLESFinal Result from Last 3 Months Insurance * Guarantor: Sherry Kwan TypeRelation to PatientDate of BirthPhone Billing AddressPersonal/CsdybmFffg60/05/1951 [facility] [place] [address] Care Teams Team MemberRelationshipSpecialtyStart DateEnd Date Claudia Whittington MD [address] [place] [phone] [facility]06/06/20
--- OUTSIDE RECORDS SUMMARY | 2025-06-04 11:27 | XMS_ITS | Clinical Summary ---
Author Organization [facility] Address [address] [facility] [place] [address] Care Team Providers Care [employer] Installer Name Role Phone Adenike Blandon Altagracia DO Unavailable [phone] Claudia Whittington MD Primary Care Provider [phone] Allergies Active AllergyReactionsCriticalityNoted DateCommentsEtodolacRash,HivesLow 01/17/2014 Other Reaction(s): edema, rash AvhzavjytaAbklp26/03/2014 Other Reaction(s): nausea, pancreatitis, Other (See Comments) Caused pancreatitis due to nursing home use. Diagnosed by a specialist. Other Reaction(s): Other (See Comments) Jezoqunaqup24/12/2020 Other Reaction(s): rash, dyspnea Other Reaction(s): Hives Sulfa HnhdpresjgdIjwuSka25/25/2014 Other Reaction(s): rash Other Reaction(s): Hives Medications MedicationSigDispense QuantityRefillsLast FilledStart DateEnd DateStatus Glucose Blood (Blood Glucose Test Strips 333) strip Indications:Type 2 diabetes mellitus with peripheral neuropathy (HCC)1 each by In Vitro route in the morning and 1 each in the evening and 1 each before bedtime. 300 strip ctive warfarin (Coumadin) 4 MG tablet Take 4 mg by mouth 1 (one) time each day 2 mg on wednesday and Active losartan (Cozaar) 100 MG tablet Take 100 mg by mouth DailyActive hydroCHLOROthiazide (HYDRODiuril) 25 MG tablet Take 25 mg by mouth in the morning and 25 mg before bedtime.Active furosemide (Lasix) 40 MG tablet Take 40 mg by mouth Daily as needed (swelling)Active flecainide (Tambocor) 150 MG tablet Take 75 mg by mouth in the morning and 75 mg before bedtime.Active atorvastatin (Lipitor) 40 MG tablet Take 40 mg by mouth at bedtimeActive amLODIPine (Norvasc) 10 MG tablet Take 10 mg by mouth at bedtimeActive insulin pen needle (BD Pen Needle Haley 2nd Gen) 32G x 4 [place] [facility] [place]ications:Type 2 diabetes mellitus with peripheral neuropathy (HCC)Injections 3 times a day 300 each 302/14/123781/6Active propranolol LA (Inderal LA) 60 MG 24 hr capsule Indications:Essential tremorTake 1 capsule (60 mg) by mouth Daily 60 capsule 5Active Additional Information Patient taking differently:60 mg Oral Daily,(No times of day reported), Reported on 05/21/2025 Continuous Glucose Sensor (FreeStyle Delicia 3 Plus Sensor) [facility] [place]ications:Type 2 diabetes mellitus with peripheral neuropathy (HCC)1 each See administration instructions 6 each 5Active insulin glargine (Lantus SoloStar) 100 UNIT/ML pen Indications:Type 2 diabetes mellitus with peripheral neuropathy (HCC)Inject 20 Units under the skin in the morning. 30 mL 5Active insulin lispro (HumaLOG) 100 UNIT/ML injection Indications:Type 2 diabetes mellitus with diabetic polyneuropathy (HCC)8 units breakfast/dinner plus correction 1:30 >150 mg/dl (max daily 50) 75 mL 5Active insulin lispro (HumaLOG) 100 UNIT/ML injection Indications:Type 2 diabetes mellitus with diabetic polyneuropathy (HCC)8 units breakfast/dinner plus correction 1:30 >150 mg/dl (max daily 50) 75 mL Discontinued(Reorder) insulin aspart (NovoLOG FLEXPEN) 100 UNIT/ML pen Indications:Type 2 diabetes mellitus with peripheral neuropathy (HCC)8 units breakfast/dinner plus correction 1:30 >150 mg/dl (max daily 50) 75 mL Discontinued Active Problems ProblemNoted DateDiagnosed Date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12/27/2023 Zfrgdq6612/26/2023Type 2 diabetes mellitus with peripheral sandmncdwp20/24/2023 Assessment & Plan (04/20/2025 12:19 PM EDT): During the appointment today all pertinent labs, imaging, health maintenance, and glucose readings were reviewed. Encouraged to check blood glucose throughout the day with some fasting and some PP readings. They are to bring their glucose meter/cgm in to all appointments. All of the patients questions, treatment options, and current care plan and goals were discussed. Acopy of this along with pertinent instructions were [...] should also avoid any sugary drinks. , Instructed on the importance of taking insulin before eating. If it has been more than 30-45 min since eating they should not give the meal dose but should just give a correction insulin dose. , Instructions given today include: Hypoglycemia management and Insulin instructions. Will decrease lantus and hum alog to help prevent low bg. She is to take insulin before dinner to prevent spikes. If she nervousabout bg before bed but it is > 70 mg/dl she is to eat protein. Assessment & Plan (01/18/2025 12:45 PM EDT): During the appointment today all pertinent labs, imaging, health maintenance, and glucose readings were reviewed. Encouraged to check blood glucose throughout the day with some fasting and some PP readings. They are to bring their glucose meter/cgm in to all appointments. All of the patients questions, treatment options, and current care plan and goals were discussed. Acopy of this along with pertinent instructions were [...] any sugary drinks. , Instructions given today in clude: Insulin instructions and Dietary education. Keep working [...] current care plan and goals were discussed. Acopy of this along with pertinent instructions were [...] daily as well for at least the last60 days , Instructions given today include: Hypoglycemia [...] current care plan and goals were discussed. Acopy of this along with pertinent instructions were [...] changes at length. Encouraged to limit simple carbsand focus more on healthy protein/fat with all [...] current care plan and goals were discussed. Acopy of this along with pertinent instructions were [...] daily as well for at least the last60 days , Instructions given today include: Insulin instructions and Dietary education. Will decrease lantus to help decrease the risk for low bg. Discussed using a food journal and trying to limit to 0404-3770 calories daily to help with weight loss. [...] current care plan and goals were discussed. Acopy of this along with pertinent instructions were [...] daily as well for at least the last60 days , Instructions given today include: Hypoglycemia [...] current care plan and goals were discussed. Acopy of this along with pertinent instructions were [...] daily as well for at least the last60 days , Instructions given today include: Hypoglycemia [...] current care plan and goals were discussed. Acopy of this along with pertinent instructions were [...] current care plan and goals were discussed. Acopy of this along with pertinent instructions were [...] smooth out her readings. Lumbar paraspinal muscle spasm02/14/2023Sciatica of left side associated with disorder of lumbar spine02/14/2023Family history of basal cell carcinoma 12/02/2020 Overview (02/15/2023): father father Type 2 diabetes mellitus with stage 3a chronic kidney disease, with long-term current use of upuggef03/12/2021Class 2 severe obesity due to excess calories with serious comorbidity and body mass index (BMI) of36.0 to 36.9 in adult 07/24/2020Nonrheumatic aortic valve pqnmjdufuxoyb38/12/2020Mass of parotid gland 03/07/20204966Hhohphidf53/29/2020Cervical udjjoylvphaue47/28/2020Long term current use of antiarrhythmic drug04/18/2019Long term current use of anticoagulant mcggxnn3102/10/2019History of transient ischemic aynspw8002/10/2019Bilateral carotid artery fvbfvinb09/19/0339Zukjrbq05/19/2019Nonrheumatic tricuspid (valve) jvmlhzndeoekd00/12/2018Non-rheumatic mitral lhpiywolaikrt01/12/2018LAE (left atrial enlargement)07/06/2018Abnormal ylvrwotwwzjnbo55/12/2018Essential tremor 02/02/2018Obstructive sleep apnea hypopnea, mild02/02/20189050Duecfhpme82/11/2017 Ekzblaed02/11/2017Pulmonary gvnzejuclkbz40/04/2017Obstructive sleep apnea 03/02/2017Hypersomnia, gcretggpggw27/17/2017Tremor, butlxvnpx04/17/2017Occlusion and stenosis of bilateral carotid wdgjfyoe08/20/2016Essential hypertension 04/14/2016Bilateral edema of lower ooiajjjhr33/20/2016Paroxysmal A-fib11/16/2014 Fglgepmoyxjnty92/24/7208Ixvtz36/24/2015Basal cell carcinoma of skin of other parts of face01/17/2014 Overview (02/15/2023): Updating Deprecated Diagnoses Updating Deprecated Diagnoses Resolved Problems ProblemNoted DateDiagnosed DateResolved DateLong-term insulin use03/18/2023 10/12/2023Type 2 diabetes rodwvgbl05olyneuropathy due to type 2 diabetes awmuiwct78Neoplasm of unspecified behavior of bone, soft tissue, and skin Overview (02/15/2023): New lesions of right cheek, left cheek / lower eyelid area, right shoulder, and right and left back. Encounters DateTypeDepartmentCare QnegHfiuzumisgj24/27/2025 3:[address] [facility] [address] [place] [address] Jorge L Ramirez, DO Lipoma of neck (Primary Dx); Lipoma of chest wall05/21/2025amboo flowsheet [facility] [address] [place] [address] Jorge L Ramirez, DO 05/21/20253055Dybhqu44/23/2025Telephone [facility] [address] [place] [address] Adenike Blandon, DO Medication Uoeugywq46/26/2025 11:30 AM EDTOffice Visit [facility] [address] [place] [address] Adenike Blandon, DO Type 2 diabetes mellitus with peripheral neuropathy (HCC); Type 2 diabetes mellitus with diabetic polyneuropathy (HCC)04/20/2025amboo flowsheet [facility] [address] [place] [address] Adenike Blandon, DO 04/20/20250847Iecglq35/25/2025Telephone [facility] [address] [place] [address] Adenike Blandon, DO Appointment Zvzzmsazogvb40/24/2025 2:00 PM EDTOffice Visit [facility] [address] [place] [address] Jorge L Ramirez, DO Lipoma of neck (Primary Dx); Lipoma of chest wall04/18/2025amb flowsheet [facility] [place] [facility] [address] [place] [address] Jorge L Ramirez, DO 04/18/20255582Tnudwu57/23/2025Refill [facility] [address] [place] [address] Deandra Garcia LPN Type 2 diabetes mellitus with peripheral neuropathy (HCC)04/11/2025 10:00 AM EDT Procedure Visit [facility] Jorge L Ramirez, DO Neck mass (Primary Dx)04/03/2025 8:45 AM EDTOffice Visit [facility] [place] [facility] [address] [place] [phone] Jorge L Ramirez, DO Thyroid nodule (Primary Dx); Neck mass; Chest wall mass; Chronic anticoagulation; Preop mplcnyh1504/03/2025amboo flowsheet [facility] [place] [facility] [address] [place] [address] Jorge L Ramirez, DO 04/03/20256418Llchkr96/05/2025[facility] [address] [place] [address] Deandra Garcia LPN Type 2 diabetes mellitus with peripheral neuropathy (HCC)03/20/2025 8:00 AM EDT Office Visit [facility] [address] [place] [address] Jorge L Ramirez, DO Thyroid nodule (Primary Dx); Neck mass03/20/2025amboo flowsheet [facility] [address] [place] [address] Jorge L Ramirez, DO 03/20/20255335Zxmehc62/11/2025 1:00 PM EDTAncillary Procedure [facility] [address] [place] [address] Thyroid vhozyh1003/05/2025Travelfrom Last 3 Months Immunizations ImmunizationAdministration DatesNext DueInfluenza, High Dose Seasonal, Preservative Free04/17/2016Influenza, Recombinant, injectable, preservative free 05/26/2020Influenza, Seasonal, Quadrivalent, Prkhszjjjj18/02/2020Influenza, Ktnobvnyxbh43/01/2014,05/25/2013Influenza, injectable, quadrivalent, preservative free03/11/2015Influenza, trivalent, cberugbzji76/16/2019,05/11/2018 Pneumococcal Conjugate PCV 13108/27/2018,05/11/2018Pneumococcal Polysaccharide MKCC5929,12/08/2016Zoster, Bzhzwwqosri48/17/2020,08/22/2019Zoster, live 11/02/2014 Family History Medical HistoryRelationNameCommentsAtrial fibrillationFatherHeart diseaseFather HypertensionFatherStrokeFatherBrain cancerMotherDiabetesMotherRelationNameStatus CommentsFatherDeceasedMotherDeceased Social History Tobacco UseTypesPacks/DayYears UsedDateSmoking Tobacco: NeverPassive [...] InformationValueDate RecordedSex Assigned at BirthNot on fileLegal NybNmxujw41/15/2023 10:59 PM EDTGender IdentityNot on fileSexual OrientationNot on file Last Filed Vital Signs Vital SignReadingTime TakenCommentsBlood Mvxqxxtm947/6209 11:26 AM EDT Puewz702204/20/2025 11:26 AM TPHRmfuyayctdy05.8 ??C (98.2 ??F)04/20/2025 11:26 AM EDTRespiratory Rate--Oxygen Omlsdnyexx54%04/20/2025 11:26 AM EDTInhaled Oxygen Concentration--Zugufo98.9 kg (218 lb)05/21/2025 3:37 PM IKPCbnaoy898.1 cm (5' 5 )05/21/2025 3:37 PM EDTBody Mass Index36.281 3:37 PM EDT Plan of Treatment DateTypeDepartmentCare Team (Latest Contact Info)Tlbyivavszb44/30/2025 11:30 AM ESTOffice Visit [facility] [place] [facility] [address] [place] [address] Adenike Blandon, DO [address] [place] [address] Health MaintenanceDue DateLast DoneCommentsCT Boyiihirfitj01/05/1951olonoscopy 1950olorectal Cancer Rdhoaapps54/05/1951FIT-DNA1950FIT1950 FOBT1950 7662Pudfbemrkzqwm67/05/4120Sixaijqea47/05/1991Medicare Annual Wellness (AWV), 07/08/2021iabetes: Retinopathy Zgrmozndl97/28/2024 05/22/2022OVID-19 Vaccine ( season)504/, 10/31/2020 Influenza Vaccine (#1), 05/26/2020, 05/10/2019, Additional history existsDiabetes: Hemoglobin A1C/, 01/18/2025, 10/17/2024, Additional history existsDiabetes: Urine Protein Yqnxhpiap59/27/2026 10/19/2024Pneumococcal Vaccine: 65+ QehkrAkhmtglaj36/07/2020, 06/26/2019, 05/11/2018, Additional history exists Procedures Procedure NamePriorityDate/TimeAssociated DiagnosisCommentsPOCT GLYCOSYLATED HEMOGLOBIN (HGB A1C)Ohwaaum9304/20/2025 11:40 AM EDT Type 2 diabetes mellitus with peripheral neuropathy (HCC) BASIC METABOLIC NZISYGamclcr49/09/2025 1:23 PM EDT Preop testing PT AND ONXAqvmudu66/09/2025 1:23 PM EDT Preop testing VGQLRUCKYHPivxdxj79/11/2025 3:21 PM EDT Neck mass CT SOFT TISSUE NECK W IV JOCIBMXSLpseweg34/11/2025 1:30 PM EDT Thyroid nodule COLOR FUNDUS PHOTOGRAPHY - OU - BOTH YGVPUvwdfiu27/28/2022 12:00 PM EDT from Last 3 Months or Most Recently Relevant to Health Maintenance Results * POCT glycosylated hemoglobin (Hb A1C) docked device (04/20/2025 11:40 AM EDT) ComponentValueRef RangeTest MethodAnalysis TimePerformed AtPathologist SignatureHemoglobin A1C6.9Specimen (Source)Anatomical Location / Laterality Collection Method / VolumeCollection TimeReceived TimeBloodVenous blood specimen / Fxxpmsj1104/20/2025 11:40 AM EDT Narrative Authorizing ProviderResult TypeResult StatusAdenike Blandon DOPOINT OF CARE TEST ENTER/EDIT ORDERABLESFinal Result * (ABNORMAL) Pt and ptt (04/03/2025 1:23 PM EDT)ComponentValueRef RangeTest MethodAnalysis TimePerformed AtPathologist SignaturePARTIAL THROMBOPLASTIN TIME, TPECELQNC0058 - 32 secQUESTComment: This test has not been validated for monitoring unfractionated heparin therapy. For testing that is validated for this type of therapy, please refer to the Heparin Anti-Xa assay (test code 69074). For additional information, please refer to http://education.[employer]/faq/TYJ020 (This link is being provided for informational/educational purposes only.) INR1.7(H)QUESTComment: Reference Range ? 0.9-1.1 Moderate-intensity Warfarin Therapy 2.0-3.0 Higher-intensity Warfarin Therapy ?? 3.0-4.0 PT17.4(H)9.0 - 11.5 secQUESTSpecimen (Source)Anatomical Location / Laterality Collection Method / VolumeCollection TimeReceived TimeBloodVenous blood specimen / Ydnmygn4804/03/2025 1:23 PM EDT04/03/2025 1:24 PM EDT Narrative Resulting Agency Comment Performing Organization Information ?Site ID: QPT ?Name: [facility] About [facility] ?Address: [address] [place] [phone] ?Director: Brayan Agosto MD Authorizing ProviderResult TypeResult StatusJorge L Ramirez DOL BLOOD ORDERABLESFinal ResultPerforming OrganizationAddressCity/State/ZIP CodePhone Number [facility] * (ABNORMAL) Basic metabolic panel (04/03/2025 1:23 PM EDT)ComponentValueRef RangeTest MethodAnalysis TimePerformed AtPathologist ImaltpkamZffrizn605(H)65 - 99 mg/dLQUESTComment: ? Fasting reference interval For someone without known diabetes, a glucose value >125 mg/dL indicates that they may have diabetes and this should be confirmed with a follow-up test. BUN30(H)7 - 25 mg/dLQUESTCreatinine1.33(H)0.60 - 1.00 mg/uSFJOGPMXUK92(L)> OR = 60 mL/min/1.52x4FDAFTCMK/CREATININE RATIO23(H)6 - 22 (calc)ORWJMZapuug139009 - 146 mmol/LQUESTPotassium, Bld4.23.5 - 5.3 mmol/LIHHLMWeltzlrj74684 - 110 mmol/L QUESTCarbon Prlzzhq0812 - 32 mmol/LQUESTCalcium9.38.6 - 10.4 mg/dLQUESTSpecimen (Source)Anatomical Location / LateralityCollection Method / VolumeCollection TimeReceived TimeBloodVenous blood specimen / Vyjeiyx5804/03/2025 1:23 PM EDT 04/03/2025 1:24 PM EDT Narrative Resulting Agency Comment Performing Organization Information ?Site ID: QPT ?Name: [employer] [facility] ?Address: [address] [place] [address], [address] [place] [phone] ?Director: Brayan Agosto MD Authorizing ProviderResult TypeResult StatusBenerikamartinsville memorial hospital [facility] Centergregoria6connect DOLAB BLOOD ORDERABLESFinal ResultPerforming OrganizationAddressCity/State/ZIP CodePhone Number [facility] * Creatinine, Serum (03/05/2025 3:21 PM EDT)Specimen (Source)Anatomical Location / LateralityCollection Method / VolumeCollection TimeReceived TimeBloodVenous blood specimen / Unknown Narrative Authorizing ProviderResult TypeResult StatusBenerikamin W Murcek DOLAB BLOOD ORDERABLESFinal ResultPerforming OrganizationAddressCity/State/ZIP CodePhone Number [facility] * CT soft tissue neck w IV contrast (03/05/2025 1:30 PM EDT)Anatomical Region LateralityModalityHead, NeckComputed TomographySpecimen (Source)Anatomical Location / LateralityCollection Method / VolumeCollection TimeReceived Time 03/06/2025 1:07 PM EDT Impressions 03/06/2025 1:16 PM EDT Multiple subcutaneous lipomas as discussed. Thyroid nodules. Refer to the recent thyroid ultrasound. ELECTRONICALLY SIGNED BY: Luis A Gonsales MD Narrative 03/06/2025 1:16 PM EDT HISTORY: Thyroid nodule. Multiple nodules right neck. Chest lump. COMPARISON: Ultrasound 02/08/2025. TECHNIQUE: Series of contiguous helical scans from the skull base to the aortic arch following bolus injection of contrast. All CT scans at this facility use dose modulation, iterative reconstruction, and/or weight based dosing when appropriate to reduce radiation dose to as low as reasonably achievable. RESULT: Neck: Nasal cavity and oral cavity are unremarkable within limitations of artifact from dental amalgam. ??Pharyngeal mucosal space is normal in appearance. ??Vallecula and epiglottis are within normal limits and the pre- epiglottic fat is maintained. ??Parotid and submandibular glands are normal in a ppearance. Thyroid gland with multiple nodules, better assessed on the recent thyroid ultrasound. Please refer to that report. Carotid arteries and jugular veins are patent bilaterally. Correspondingto the area of lump in the left supraclavicular region there is a focal area of fat attenuation in the subcutaneous tissues measuring at least 4.5 cm suggestive of lipoma. No suspicious lesion. Corresponding to area of lump within the right neck, just inferior and posterior to the right parotid gland there is a lipoma measuring around 2.6 cm. Possible small lipoma more inferiorly adjacent to the other marker in the right neck. No suspicious lesions. Cervical Lymph Nodes: No lymphadenopathy by size criteria. Brain: Visualized intracranial contents are grossly unremarkable. Orbits are grossly normal. Mild mucosal thickening in the ethmoid air cells. Mastoid air cells grossly clear. Lung Apices: Imaged lung apices are clear. ??Infraglottic airway is patent. Bones: No acute osseous findings. Degenerative changes. Procedure Note Luis A Gonsales MD - 03/06/2025 HISTORY: Thyroid nodule. Multiple nodules right neck. Chest lump. COMPARISON: Ultrasound 02/08/2025. TECHNIQUE: Series of contiguous helical scans from the skull base to theaortic arch following bolus injection of contrast. All CT scans at this facility use dose modulation, iterativereconstruction, and/or weight based dosing when appropriate to reduceradiation dose to as low as reasonably achievable. RESULT: Neck: Nasal cavity and oral cavity are unremarkable within limitations of artifact from dental amalgam. Pharyngeal mucosal space is normal inappearance. Vallecula and epiglottis are within normal limits and thepre-epiglottic fat is maintained. Parotid and submandibular glands arenormal in appearance. Thyroid gland with multiple nodules, better assessedon the recent thyroid ultrasound. Please refer to that report. Carotidarteries and jugular veins are patent bilaterally. Corresponding to thearea of lump in the left supraclavicular region there is a focal area offat attenuation in the subcutaneous tissues measuring at least 4.5 cmsuggestive of lipoma. No suspicious lesion. Corresponding to area of lumpwithin the right neck, just inferior and posterior to the right parotidgland there is a lipoma measuring around 2.6 cm. Possible small lipomamore inferiorly adjacent to the other marker in the right neck. Nosuspicious lesions. Cervical Lymph Nodes: No lymphadenopathy by size criteria. Brain: Visualized intracranial contents are grossly unremarkable. Orbitsare grossly normal. Mild mucosal thickening in the ethmoid air cells.Mastoid air cells grossly clear. Lung Apices: Imaged lung apices are clear. Infraglottic airway ispatent. Bones: No acute osseous findings. Degenerative changes. IMPRESSION: Multiple subcutaneous lipomas as discussed. Thyroid nodules. Refer to the recent thyroid ultrasound. ELECTRONICALLY SIGNED BY: Luis A Gonsales MD Authorizing ProviderResult TypeResult StatusBenwai Ramirez [facility] CT PROCEDURESFinal Result * Color Fundus Photography - OU - Both Eyes (05/22/2022 12:00 PM EDT)Anatomical RegionLateralityModalityHeadFundus PhotographySpecimen (Source)Anatomical Location / LateralityCollection Method / VolumeCollection TimeReceived Time 05/22/2022 12:00 PM EDT Narrative 05/22/2022 12:00 PM EDT PERFORMED AT [facility] LOCATION:[id number] ssi Procedure Note CONVERSION, GENERIC - 12/09/2022 PERFORMED AT [facility] LOCATION:[id number] ssi Authorizing ProviderResult TypeResult StatusAdenike Altagracia Barber CRESPO PHOTOGRAPHYFinal Result from Last 3 Months or Most Recently Relevant to Health Maintenance Insurance * Guarantor: Sherry Kwan TypeRelation to PatientDate of BirthPhone Billing AddressPersonal/JmpjynBlys08/05/1951 [facility] [place] [address] Care Teams Team MemberRelationshipSpecialtyStart DateEnd Date Adenike Blandon DO [address] [place] [address] PCP - ACO Reach12/17/22 Claudia Whittington MD [address] [facility] [place] [phone] PCP - GeneralFamily Medicine02/15/23
--- OUTSIDE RECORDS SUMMARY | 2025-06-04 11:28 | XMS_ITS | Clinical Summary ---
Author Organization [facility] Address [address], [address] [place] [address] Care Team Providers Care Manager Interface Name Role Phone Claudia Whittington MD Primary Care Provider [phone] Allergies Active AllergyReactionsCriticalityNoted XhtlFkvumcsmUlgpcawtZlpyIus19/25/2014 LisinoprilOther (See Comments)01/25/2014 Caused pancreatitis due to roasterman use. Diagnosed by a specialist. Sulfa VxuhrncnmnuMqqjBpd26/25/2014 Medications MedicationSigDispense QuantityRefillsLast FilledStart DateEnd DateStatus flecainide (TAMBOCOR) 150 MG tablet take 1 tablet by mouth every 12 hours 180 tablet ctive warfarin (COUMADIN) 2 MG tablet take 2 tablets by mouth once daily 30 tablet ctive atorvastatin (LIPITOR) 40 MG tablet Take 40 mg by mouth dailyActive hydrochlorothiazide (HYDRODIURIL) 25 MG tablet Take 1 tablet by mouth daily 1 additional tablet daily PRN SWELLING 180 tablet ctive Additional Information Patient taking differently:25 mg Oral2 TIMES DAILY, 1 additional tablet daily PRN SWELLING, Reported on 11/23/2016 losartan (COZAAR) 100 MG tablet TAKE 1 TABLET DAILY 90 tablet Active amLODIPine (NORVASC) 10 MG tablet TAKE 1 TABLET DAILY 90 tablet Active warfarin (COUMADIN) 6 MG tablet take 1 tablet by mouth once hariq544Active warfarin (COUMADIN) 5 MG tablet take 1 tablet by mouth once slscs340Active warfarin (COUMADIN) 4 MG tablet Active furosemide (LASIX) 40 MG tablet take 1 tablet by mouth once daily if needed FOR SWELLING 30 tablet Active propranolol (INDERAL LA) 60 MG extended release capsule Take 60 mg by mouth dailyActive Active Problems ProblemNoted DateDiagnosed DateLong term current use of antiarrhythmic drug 04/18/2019History of TIA (transient ischemic attack)02/10/2019Long term (current) use of xzkgncfcyitvlp49/19/2019Bilateral carotid artery stenosis 02/10/20193914Wefpwxe81/19/2019Non-rheumatic mitral hsqvibpdsdmch10/12/2018Non- rheumatic tricuspid valve ombxodgszxjgw70/12/2018LAE (left atrial enlargement) 07/06/2018Abnormal ehqnlwlquavxur54/12/2018Pulmonary ljpoxkiabnlg69/04/2017 Bilateral edema of lower zpuefcxff71/20/2016Essential sxigykepqzqf42/20/2016 Occlusion and stenosis of bilateral carotid cyadreba76/20/2016Paroxysmal A-fib 11/16/20141383Vqllgpvghyeasm97/24/3790Yyvha64/24/2015Neoplasm of unspecified nature of bone, soft tissue, and skin01/25/2014 Overview (01/25/2014): New lesions of right cheek, left cheek / lower eyelid area, right shoulder, and right and left back. Basal cell carcinoma of skin of other parts of face01/17/2014 Overview (05/08/2017): Updating Deprecated Diagnoses Family history of basal cell carcinoma Overview (01/25/2014): father Resolved Problems ProblemNoted DateDiagnosed DateResolved DateParoxysmal atrial fibrillation Hypertension Family History Medical HistoryRelationNameCommentsArrhythmiaFatherAFibHeart AttackMotherHeart DiseaseSonPAFib, PPMRelationNameStatusCommentsFatherMotherSon Social History Tobacco UseTypesPacks/DayYears UsedDateSmoking Tobacco: NeverSmokeless Tobacco: NeverAlcohol UseStandard Drinks/WeekCommentsYes0 (1 standard drink = 0.6 oz pure alcohol) A glass of wine maybe once a month. CommentsUnknownSex and Gender InformationValueDate RecordedSex Assigned at BirthNot on fileLegal Sex Ismwol6512/21/2013 10:37 AM EDTGender IdentityNot on fileSexual OrientationNot on file Last Filed Vital Signs Vital SignReadingTime TakenCommentsBlood Wpxhvyus301/6009 2:06 PM EDT Fuwjy0775 2:06 PM EDTTemperature--Respiratory Gsrq1979 9:56 AM EDTOxygen Saturation--Inhaled Oxygen Concentration--Brluyb005.6 kg (224 lb) 02/10/2019 11:13 AM MOQVazetl979.1 cm (5' 5 )04/18/2019 2:06 PM EDTBody Mass Index37.28002/10/2019 11:13 AM EDT Plan of Treatment Not on file Insurance Care Teams Team MemberRelationshipSpecialtyStart DateEnd Date Claudia Whittington MD PCP - GeneralFamily Unpxtztm47/12/18
--- OUTSIDE RECORDS SUMMARY | 2025-06-04 11:28 | XMS_ITS ---
Author Organization [facility] Address [address] [place] [address] Care Team Providers Care Advanced Manufacturing Technician Name Role Phone Adenike Blandon Altagracia DO Unavailable [phone] Claudia Whittington MD Primary Care Provider [phone] Active Problems ProblemNoted DateDiagnosed Date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12/27/2023 Wqvtwx1212/26/2023Type 2 diabetes mellitus with peripheral cfxjegfcmn54/24/2023 Assessment & Plan (04/20/2025 12:19 PM EDT): [...] food journal and trying to limit to 8591-6758 calories daily to help with weight loss. [...] they have any problems or questions. Sherry wKan is doing very well and encouraged on [...] try and set her up with a joellen 3 cgm and see if that helps to smooth out her readings. Lumbar paraspinal muscle spasm02/14/2023Sciatica of left side associated with disorder of lumbar spine02/14/2023Family history of basal cell carcinoma 12/02/2020 Overview (02/15/2023): father father Type 2 diabetes mellitus with stage 3a chronic kidney disease, with long-term current use of egvlmbi65/12/2021Class 2 severe obesity due to excess calories with serious comorbidity and body mass index (BMI) of36.0 to 36.9 in adult 12/30/2020Nonrheumatic aortic valve gedldyrwvrcbu39/12/2020Mass of parotid gland 03/07/20203555Gtqwlmjnx05/29/2020Cervical mccujffhxsuiv29/28/2020Long term current use of antiarrhythmic drug04/18/2019Long term current use of anticoagulant cyjqmxy6602/10/2019History of transient ischemic rnfgkx5502/10/2019Bilateral carotid artery tftiezwv04/19/7986Kzifdss35/19/2019Nonrheumatic tricuspid (valve) /12/2018Non-rheumatic mitral xumkbtcbrsvdl88/12/2018LAE (left atrial enlargement)07/06/2018Abnormal axfxnhantqicff87/12/2018Essential tremor 02/02/2018Obstructive sleep apnea hypopnea, mild02/02/20182160Hveiauejb13/11/2017 Eunfjnwf52/11/2017Pulmonary fmqeorfznktc43/04/2017Obstructive sleep apnea 03/02/2017Hypersomnia, swdhwhcnanl93/17/2017Tremor, axftybklw60/17/2017Occlusion and stenosis of bilateral carotid bgntmeeu62/20/2016Essential hypertension 04/14/2016Bilateral edema of lower qzislszop02/20/2016Paroxysmal A-fib11/16/2014 Qnkvhsolmuljam06/24/1080Lcyjp60/24/2015Basal cell carcinoma of skin of other parts of face01/17/2014 Overview (02/15/2023): Updating Deprecated Diagnoses Updating Deprecated Diagnoses Current Treatment and Therapy Plans No current plan information found. Past Treatment and Therapy Plans No past plan information found. Lifetime Dose Tracking * ChemicalLifetime DoseAutomatic EntryManual TxfeaAcownzgkk23.07 mSv23.07 mSv0 mSv Resolved Problems ProblemNoted DateDiagnosed DateResolved DateLong-term insulin use03/18/2023 10/12/2023Type 2 diabetes spbmjoth19olyneuropathy due to type 2 diabetes tzpgtngj69Neoplasm of unspecified behavior of bone, soft tissue, and skin Overview (02/15/2023): New lesions of right cheek, left cheek / lower eyelid area, right shoulder, and right and left back.
--- OUTSIDE RECORDS SUMMARY | 2025-06-04 11:28 | XMS_ITS | Encounter Summary ---
Author Organization [facility] Address [address] [facility] [place] [place] [address] Care Team Providers Care Enterprise Software Engineer Name Role Phone BarberAdenike DO Unavailable Claudia Whittington MD Primary Care Provider [phone] Encounter Details DateTypeDepartmentCare Team (Latest Contact Info)Hdcagbvjiyl56/27/2025amboo flowsheet [facility] [place] [facility] [address] [place] [address] Jorge L Ramirez, [address] [place] [address] Social History Tobacco UseTypesPacks/DayYears UsedDateSmoking Tobacco: NeverPassive Smoke Exposure: PastSmokeless Tobacco: NeverAlcohol UseStandard Drinks/WeekCommentsYes 0 (1 standard drink = 0.6 oz pure alcohol)1 drink every 4 monthAUDIT-CAnswerDate RecordedQ1: How often do you have a drink containing alcohol?Monthly or less 04/18/2024Q2: How many drinks containing alcohol do you have on a typical day when you are drinking?1 or Q3: How often do you have six or more drinks on one occasion?Never04/18/2024HQ-2AnswerDate RecordedPatient Health Questionnaire-2 Cgiba484CommentsUnknownSex and Gender InformationValueDate RecordedSex Assigned at BirthNot on fileLegal SexFemale 10/07/2022 10:59 PM EDTGender IdentityNot on fileSexual OrientationNot on file documented as of this encounter Plan of Treatment DateTypeDepartmentCare Team (Latest Contact Info)Xurxbslhevq21/30/2025 11:30 AM ESTOffice Visit [facility] [place] [facility] [address] [place] [address] Adenike Blandon, [address] [place] [address] documented as of this encounter Visit Diagnoses Not on filedocumented in this encounter Care Teams Team MemberRelationshipSpecialtyStart DateEnd Date Adenike Blandon, DO [address] [place] [address] PCP - ACO Reach12/17/22 Claudia Whittington MD [address] [facility] [facility] [place] [address] PCP - GeneralFamily Medicine02/15/23documented as of this encounter
--- OUTSIDE RECORDS SUMMARY | 2025-06-04 11:28 | XMS_ITS | Encounter Summary ---
Author Organization [facility] Address [address] [place] [address] Care Team Providers Care Cable Television Program Director Name Role Phone Adenike Blandon DO Unavailable [phone] Claudia Whittington MD Primary Care Provider [phone] Encounter Details DateTypeDepartmentCare Team (Latest Contact Info)Tsdmpdhaetx45/27/2025Travel Social History Tobacco UseTypesPacks/DayYears UsedDateSmoking Tobacco: NeverPassive [...] drinks on one occasion?Never04/18/2024HQ-2AnswerDate RecordedPatient Health Questionnaire-2 Mqmyf396CommentsUnknownSex and Gender InformationValueDate RecordedSex Assigned at BirthNot on fileLegal SexFemale 10/07/2022 10:59 PM EDTGender IdentityNot on fileSexual OrientationNot on file documented as of this encounter Plan of Treatment DateTypeDepartmentCare Team (Latest Contact Info)Zachuenmdub59/30/2025 11:30 AM ESTOffice Visit [facility] [place] [facility] [address] [place] [address] Adenike Blandon DO [address] [place] [address] documented as of this encounter Visit Diagnoses Not on filedocumented in this encounter Care Teams Team MemberRelationshipSpecialtyStart DateEnd Date Adenike Blandon DO [address] [place] [address] PCP - ACO Reach12/17/22 Claudia Whittington MD [address] [place] [address] PCP - GeneralFamily Medicine02/15/23documented as of this encounter
== END 2025-06-04 11:24 | disposition home or self-care (01) ==
LOC: MAMMO 11:24
PROVIDERS: PCP Family Medicine; Visit Provider Family Medicine
DX: Z12.31 Encounter for screening mammogram for malignant neoplasm of breast (principal)
CPT/HCPCS: 77063; 77067

== ENCOUNTER 2025-06-08 11:48 | Outpatient (OUT) | payer MEDICARE, OTHER, SELFPAY ==
--- OUTSIDE RECORDS SUMMARY | 2025-06-08 06:39 | XMS_ITS | Continuity of Care Document ---
Author Organization [facility] Address [address] [place] [address] Phone Care Team Providers Care Logistics Research Engineer Name Role Phone Jorge L Ramirez DO Attending Provider Claudia Whittington MD Primary Care Provider Claudia Whittington MD Attending Provider [phone] Care Teams Patient Care Team Team Status: Active Member Role/Relationship Status Dates Claudia Whittington MD Primary Care Provider Active Visit Care Team Team Status: Inactive Member Role/Relationship Status Dates Jorge L Ramirez DO Attending Provider Active S tart: March 20, 2025 End: March 20, 2025 Visit Care Team Team Status: Inactive Member Role/Relationship Status Dates Jorge L Ramirez DO Attending Provider Active S tart: April 11, 2025 End: April 11, 2025 Patient Care Team Team Status: Inactive Member Role/Relationship Status Dates Claudia Whittington MD Primary Care Provider Active Start: June 08, 2025 End: June 08, 2025Claudia Whittington MDAttending ProviderActiveStart: June 08, 2025 End: June 08, 2025 Chief Complaint and Reason for Visit Chief Complaint Admit Date right thyroid nodule March 20, 2025 8 :05am RT NECK MASS April 11, 2025 10:44am knee pain June 08, 2025 11:02am Reason for Visit Admit Date Knee pain, left June 08, 2025 11:02am Allergies, Adverse Reactions, Alerts Allergen Type Severity Reaction Last Updated Verified Status Comments etodolac Allergy Unknown Hives June 08, 2025 11:16am Yes Active lisinoprilAllergyUnknownHivesNov2024 11:16amYesActivePenicillins [facility] 20[facility] 11:16amYesActiveOnset Date: 05/22/2019 Sulfa (Sulfonamide Antibiotics)[facility] 2024 11:16amYes ActiveOnset Date: 10/05/2017 Social History Smoking Status Status Start Date End Date Date of Observa tion Never smoked tobacco (finding) May 19, 2023 9:16am Observation Status Observation Response Date of Response Legal Sex [facility] (finding) [facility] Family History Relationship Condition Age at Onset Recorded Date/T enedina mother Unknown Problems Active Problems Problem Diagnosis/Recorded Date Onset Date Stat us Abnormal thyroid ultrasound February 09, 2025 9:23am Unk nown Active Medicare annual wellness visit, subsequent July 27, 2024 12:49pm Unknown Active Type 2 diabetes mellitus without complications November 17, 2023 11:58am June 10, 2018 Active Mass in neck February 05, 2025 1:17pm Unknown Activ e A-fib November 17, 2023 11:58am Unknown Act heike Pulmonary hypertension, unspecified November 17, 2023 11:58am June 10, 2018 Active Dermatitis November 28, 2023 9:03pm Unknown Active Hyperlipidemia, unspecified November 17, 2023 11:58am U nknown Active Mass of chest wall, left February 05, 2025 1:18pm Unknow n Active Pruritus ani November 28, 2023 9:03pm Unknown Active Essential (primary) hypertension November 17, 2023 11:58am Unknown Active Bilateral lower extremity pain November 18, 2023 11:19a m Unknown Active Knee pain, left June 08, 2025 11:32am Unknown Active Paroxysmal atrial fibrillation November 17, 2023 11:58a m Unknown Active Medications Medication Status Dose Units Route Directions Qty Days Refills S tart Date Stop Date End Date Reason(s) Instructions Adherence Propranolol 60 mg capsule,extended release 24 hr Disco ntinued 0 .ROUTE.FRGFPVH178Gqfsu 2023 1:51pmJuly 2023 7:28amTAKE 1 CAPSULE BY MOUTH DAILYFlecainide 150 mg tabletDiscontinued0.ROUTE.IOTSDPC416Scxwc 2023 1:51pmJuly 2023 7:28amTAKE 1 TABLET BY MOUTH DAILYFlecainide 150 mg tablet Discontinued0.ROUTE.GOQNAWQ312Afuj2023 7:28amOctober 2023 9:44amTAKE 1 TABLET BY MOUTH ONCE DAILYPropranolol 60 mg capsule,extended release 24 hr Discontinued0.ROUTE.ETXUBJW043Rshq2023 7:28amOctober 2023 9:44amTAKE 1 CAPSULE BY MOUTH ONCE DAILYPropranolol 60 mg capsule,extended release 24 hr Active0.ROUTE.DOWFJNJ674Oodjpik2023 9:44amTAKE 1 CAPSULE BY MOUTH DAILY Complies with drug therapyFlecainide 150 mg tabletDiscontinued0.ROUTE.UHNGDQP293 May 03, 2024 9:44amJuly 2024 12:51pmTAKE 1 TABLET BY MOUTH DAILY Atorvastatin 40 mg jhayvvRyxxbvgvlbkl26VHLMOuskk at jhofkmm438Rjion 14th, 2025 3:46pmJuly 2024 11:35amHydrochlorothiazide 25 mg lzrtkwYpoztpixgvey40MXUK Twice qaycc9546Rzgzx 2024 3:46pmSeptember 2024 8:20amAtorvastatin 40 mg cpsplwFkjhubwqxqlr90HGLBZbtwn at zcilhfi069Bagi 2024 11:35amJuly 2024 12:51pmAtorvastatin 40 mg owjdimHulhxu04LMAILwdvu at eamcmiw602Jvnhjrhly 2024 8:19amComplies with drug therapyHydrochlorothiazide 25 mg tablet Bzovbb74SULYDqonq xaluh3523Jkztpppei 2024 8:20amComplies with drug therapy Hydrochlorothiazide 25 mg fioyphTnqxayimralu0QQVXROfrbm dailyApril 2023 11:00pmJanuary 2024 10:55amFreeTextSig: TAKE 1 TABLET BY MOUTH TWICE DAILY; Note: Source Status: Start; Refills: 3; Qty: 180 Tablet; Provider: Nelsy Taylor ( )Amlodipine 10 mg mybwdjMlrgdqnhkxii8YQWBUHsyew at bedtimeApril 2023 11:00pmJanuary 2024 10:55amFreeTextSig: TAKE 1 TABLET BY MOUTH AT BEDTIME; Note: Source Status: Start; Refills: 3; Qty: 90 Tablet; Provider: Nelsy Taylor ( )Warfarin 4 mg dcasczKclolnmifiah1CIGQTdxdhPwwlu 2023 11:00pmJanuary 2024 10:55amFreeTextSig: TAKE 1 TABLET BY MOUTH EVERY DAY; Note: Source Status: Start; Refills: 3; Qty: 90 Tablet; Provider: Nelsy Taylor ( )Atorvastatin 40 mg ojpkxhGfiljlifomhx5BSRELRrdpv at bedtimeApril 2023 11:00pmJanuary 2024 10:55amFreeTextSig: TAKE 1 TABLET BY MOUTH AT BEDTIME; Note: Source Status: Start; Refills: 3; Qty: 90 Tabl et; Provider: Nelsy Taylor ( )Losartan 100 mg tabletDiscontinued 100MGPODailyApril 2023 11:00pmJanuary 2024 10:55amFurosemide 40 mg yarklmWjgofgwmsomf17CYTYQjdlfUfzpf 2023 11:00pmApril 2023 11:05am FreeTextSig: TAKE 1 TABLET BY MOUTH DAILY NEEDED; Note: Source Status: Taking; Refills: 1; Qty: 30 Tablet; Provider: Nelsy Taylor ( ) Warfarin 2 mg jogfruLadswq1EPHYSERHFBSdpzk 2023 11:00pmComplies with drug therapyMetoprolol Succinate 25 mg tablet extended release 24 hnHmgoeaetwgyu06LP PODailyApril 2023 11:00pmApril 2023 11:03amMetformin 500 mg tablet Vgbhxijtayrn810ESKTQgmbj daily with mealsApril 2023 11:00pmApril 2023 11:02amInsulin Glargine (Lantus Solostar U-100 Insulin) 100 unit/mL (3 mL) insulin penDiscontinuedUNITSUBCUTApril 2023 11:00pmAugust 2023 10:38amFreeTextSi units Subcutaneous Once a day; Note: Source Status: Taking; Provider: Nelsy Taylor( )Furosemide 40 mg uxyfqdDfumqr13 MGPO.prnApril 2023 11:01amFreeTextSig: TAKE 1 TABLET BY MOUTH DAILY NEEDED; Note: Source Status: Taking; Refills: 1; Qty: 30 Tablet; Provider: Nelsy Taylor ( )Complies with drug therapyInsulin Lispro 100 unit/mL insulin mfoZavunhmkvnkd33QQODFGYIDXIkujl times dailyApril 2023 11:00pmAugust 2023 10:38amInsulin Lispro 100 unit/mL insulin pen Airqpnybbcwu93KACCFZHZZBDbwgm times dailyAugus2023 10:36amJuly 2024 12:51pmInsulin Glargine (Lantus Solostar U-100 Insulin) 100 unit/mL (3 mL) insulin rqlAeonwrpolknb18JTYIMZSUAEByvday 2023 10:38amJuly 2024 12:51pmFreeTextSi units Subcutaneous Once a day; Note: Source Status: Taking; Provider: Nelsy Taylor( )Insulin Glargine (Lantus Solostar U-100 Insulin) 100 unit/mL (3 mL) insulin smcChgjdhgxsjjq94TVFPFLKYEZ February 05, 2025 12:50pmNov2024 11:17amFreeTextSi units Subcutaneous Once a day; Note: Source Status: Taking; Provider: Nelsy Taylor ( )Insulin Lispro 100 unit/mL insulin opnNgeqfjtwjflw36ZQNZNILAYH Twice dailyFebruary 05, 2025 12:50pmNov2024 11:17amInsulin Glargine (Lantus Solostar U-100 Insulin) 100 unit/mL (3 mL) insulin xerOpqxyj41MRZZLNNKIF June 08, 2025 11:16amFreeTextSi units Subcutaneous Once a day; Note: Source Status: Taking; Provider: Nelsy Taylor( )Complies with drug therapyInsulin Lispro 100 unit/mL insulin mtcTvtffd7PAYVKQARMRHlhdy daily June 08, 2025 11:17amComplies with drug therapyAmlodipine 10 mg tablet Cfggjl55LBNKJtgds at mguwvzv727Vbkjfku 2024 10:53amComplies with drug therapyAtorvastatin 40 mg tyrppcEjmxgfhrhras07ITTGLidxm at lmfjxap490Lvjrhem 2024 10:53amApril 2024 3:46pmLosartan 100 mg gusrnwXkyzxc066QICDJtoyl 900January 2024 10:53amComplies with drug therapyHydrochlorothiazide 25 mg nqmnzqMtrqfjjcjzwo37WSHQGnisq orcfj0710Xkkdtol 2024 10:54amApril 2024 3:46pmWarfarin 4 mg zfotfqErezra7LPWMGpbjx657Phqqnvp 2024 10:54amComplies with drug therapyAtorvastatin 40 mg vihlhwLrtcjshwmzqa73GCLUSxcgz at bedtimeJuly 2024 12:48pmSeptember 2024 8:19amFlecainide 150 mg xuvupbKbaohh04JN POEvery 12 hoursJuly 2024 12:49pmComplies with drug therapyFlecainide 150 mg eiqxauDbbjtquuyfbb818AYTPVthdaEpxbq 2023 11:00pmApril 2023 1:51pm Propranolol 60 mg capsule,extended release 24 hdUxurotykwzxb48XAKESumahXppum 2023 11:00pmApril 2023 1:51pm Immunizations Immunization Event Date Not Given Reason Dose Number [employer]otive [employer] Interpreter Lot Number Reason(s) Given Vaccine Information Statement (VIS) Detail Administration Location COVID-19 mRNA, Comirnaty (Bujbu) November 21 21 influenza, unspecified formulationMay 27, 2020Pneumococcal Polysacc. Vaccine, 23 valentMay 2016 Vital Signs Vital Reading Result Reference Range Collection Date/Time Height 65 [in_i] June 08, 2025 11:66pfLxsekb30.88 kgNovember 2024 11:11amHeart Rate61 /rqs79-499FkikswaeJune 08, 2025 11:11amBP Diotdden087 mm[Hg]100-140June 08, 2025 11:11amBP Smbtablqr32 mm[Hg]60-100June 08, 2025 11:11amBMI (Body Mass Index)36.2 kg/h8OleuvevxJune 08, 2025 11:11am Advance Directives Advance Directive Response Recorded Date/ Time Advance Directives No November 17 10:39am Insurance Providers Guarantor Sherry Kwan Address [address] [place] [address]Cfgwcnq Info.Home Phone: Coverage Status Update:2025 Payer Group Member ID Coverage Type Subscriber Relationship to Subscriber Effective Date Expiration Date Medicare [id number] S [employer] Id: [id number] [address] [place] Home Phone: [employer] [place] Id: Wendie [id number] Kwan Id: [id number] [address] [place] Home Phone: Self Encounters Encounter Location(s) Arrival/Admit Date Discharge/Departure Date Discharge/Departure Disposition Provider(s) Departed Referred -[facility] March 20, 2025 8:05am March 20, 2025 8:06am Discharged to home care or self care (routine discharge) Jorge L Ramirez DO Departed Referred [facility] April 11, 2025 10:44am April 11, 2025 10:45am Discharged to home care or self care (routine discharge) Jorge L Ramirez DO Departed Physician/ Provider Office Visit -[facility] June 08, 2025 11:02am June 08, 2025 11:38am Discharged to home care or self care (routine discharge) Claudia Whittington MD Recent Diagnosis Onset Date Admit Date Knee pain, left Unknown June 08 11:02am Assessments Diagnosis Onset Date Resolution Status Admit Date Knee pain, left acuteJune 08, 2025 11:02am Plan of Treatment Future Tests Future scheduled test information is unavailable Pending Tests Test Name Ordered Date Scheduled Date XR knee LT 4V* June 08, 2025 11:31am Future Visits Future appointment information is unavailable Future Procedures Future procedure information is unavailable Future Medications Future medication information is unavailable Patient Instructions Patient instructions are unavailable
--- OUTSIDE RECORDS SUMMARY | 2025-06-08 11:53 | XMS_ITS | Patient Health Record ---
Author Organization [facility] [place] Address [address] [place] [address] Care Team Providers Care Supplier Quality Engineer Name Role Phone TRUNG BERGMAN MD Primary Care Provider Unavaila ble Reason For Referral No Information Medications Medication SIG (Take, Route, Frequency, Duration) Notes Start Date End Date Status Glimepiride tablet 07/26/18995672QmimboQtubzuunfpdggniw51/01/4515TttxcnNogdsyqhzfjxisepr16/01/1900 Active Plan Of Treatment No Information Insurance Providers Payer Name Payer Address Payer Phone Subscriber Number Group Number Insured Name Patient Relationship to Insured Coverage Start Date Coverage End Date SELF PAY ON PATIENT DEMOGRAPHICS Yasmine Kwanelf - patient is the dguozpz2106/28/2012 Medical (General) History Surgical History Surgery Date(Month/Year) Surgical / procedural histor y Excision Basal Cell Carcinoma x 2, Cystocele, rectocele repair History of tubal ligationHistory of adenoidectomyHistory of tonsillectomyHistory of hysterectomy
--- OUTSIDE RECORDS SUMMARY | 2025-06-08 11:53 | XMS_ITS | Clinical Summary ---
Author Organization [facility] Address [address] [facility] [place] [address] Care Team Providers Care Capacity Management Specialist Name Role Phone Adenike Blandon Altagracia DO Unavailable [phone] Claudia Whittington MD Primary Care Provider [phone] Allergies Active AllergyReactionsCriticalityNoted DateCommentsEtodolacRash,HivesLow 01/17/2014 Other Reaction(s): edema, rash KpkxugyuxrTvimn22/03/2014 Other Reaction(s): nausea, pancreatitis, Other (See Comments) Caused pancreatitis due to snf use. Diagnosed by a specialist. Other Reaction(s): Other (See Comments) Rsxnighyjgx62/12/2020 Other Reaction(s): rash, dyspnea Other Reaction(s): Hives Sulfa RcxcextvolhUzwqVrq02/25/2014 Other Reaction(s): rash Other Reaction(s): Hives Medications [...] Haley 2nd Gen) 32G x 4 mm [facility] [place]ications:Type 2 diabetes mellitus with peripheral neuropathy (HCC)Injections 3 times a day 300 each 302/14/086381/6Active propranolol LA (Inderal LA) 60 MG 24 hr capsule Indications:Essential tremorTake 1 capsule (60 mg) by mouth Daily 60 capsule 5Active Additional Information Patient taking differently:60 mg Oral Daily,(No times of day reported), Reported on 05/21/2025 Continuous Glucose Sensor (FreeStyle Delicia 3 Plus Sensor) [facility] [place] Indications:Type 2 diabetes mellitus with peripheral neuropathy [...] Date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12/27/2023 Oxkniy0812/26/2023Type 2 diabetes mellitus with peripheral sabticvvir99/24/2023 Assessment & Plan (04/20/2025 12:19 PM EDT): [...] food journal and trying to limit to 5471-0201 calories daily to help with weight loss. [...] kidney disease, with long-term current use of qejndvj39/12/2021Class 2 severe obesity due to excess calories with serious comorbidity and body mass index (BMI) of36.0 to 36.9 in adult 07/24/2020Nonrheumatic aortic valve jurxuqtqykhzv44/12/2020Mass of parotid gland 03/07/20201343Tudvbgakx83/29/2020Cervical llbsmtlsowyds97/28/2020Long term current use of antiarrhythmic drug04/18/2019Long term current use of anticoagulant vevjmiu6502/10/2019History of transient ischemic kpkcaf9802/10/2019Bilateral carotid artery yixbgyla17/19/7531Sweukxi72/19/2019Nonrheumatic tricuspid (valve) weevcrtkpsvkw04/12/2018Non-rheumatic mitral akpuiiixswmfi08/12/2018LAE (left atrial enlargement)07/06/2018Abnormal nnnmjxkdgfkfia14/12/2018Essential tremor 02/02/2018Obstructive sleep apnea hypopnea, mild02/02/20184975Qhprsraso45/11/2017 Jydcoczp67/11/2017Pulmonary xcdbxkpemqxw41/04/2017Obstructive sleep apnea 03/02/2017Hypersomnia, lwhmyzmtcvi52/17/2017Tremor, pjavvufmd70/17/2017Occlusion and stenosis of bilateral carotid zalevhat31/20/2016Essential hypertension 04/14/2016Bilateral edema of lower dztntsmaq78/20/2016Paroxysmal A-fib11/16/2014 Cclbfpgbybdbwq26/24/0319Kcqrr26/24/2015Basal cell carcinoma of skin of other parts of face01/17/2014 Overview (02/15/2023): Updating Deprecated Diagnoses Updating Deprecated Diagnoses Resolved Problems ProblemNoted DateDiagnosed DateResolved DateLong-term insulin use03/18/2023 10/12/2023Type 2 diabetes bxvagoft29olyneuropathy due to type 2 diabetes iekqyvpc19Neoplasm of unspecified behavior of bone, soft tissue, and skin Overview (02/15/2023): New lesions of right cheek, left cheek / lower eyelid area, right shoulder, and right and left back. Encounters DateTypeDepartmentCare DniyRmyjhquwjml80/27/2025 3:45 PM EDTOffice Visit [facility] [address] [place] [address] Jorge L Ramirez, DO Lipoma of neck (Primary Dx); Lipoma of chest wall05/21/2025amboo flowsheet [facility] [address] [place] [address] Jorge L Ramirez, DO 05/21/20259839Gsunsq41/23/2025Telephone [facility] [address] [place] [address] Adenike Blandon, DO Medication Uiqxyzog38/26/2025 11:30 AM EDTOffice Visit [facility] [address] [place] [address] Adenike Blandon, DO Type 2 diabetes mellitus with peripheral neuropathy (HCC); Type 2 diabetes mellitus with diabetic polyneuropathy (HCC)04/20/2025amboo flowsheet [facility] [address] [place] [address] Adenike Blandon, DO 04/20/20255210Kzstqv54/25/2025Telephone [facility] [address] [place] [address] Adenike Blandon, DO Appointment Yneciswqujwa52/24/2025 2:00 PM EDTOffice Visit [facility] [address] [place] [address] Jorge L Ramirez, DO Lipoma of neck (Primary Dx); Lipoma of chest wall04/18/2025amb flowsheet [facility] [place] [facility] [address] [place] [address] Jorge L Ramirez, DO 04/18/20254714Viowca98/23/2025Refill [facility] [address] [place] [address] Deandra Garcia LPN Type 2 diabetes mellitus with peripheral neuropathy (HCC)04/11/2025 10:00 AM EDT Procedure Visit [facility] Jorge L Ramirez, DO Neck mass (Primary Dx)04/03/2025 8:45 AM EDTOffice Visit [facility] [place] [facility] [address] [place] [address] Jorge L Ramirez, DO Thyroid nodule (Primary Dx); Neck mass; Chest wall mass; Chronic anticoagulation; Preop cgeyqct3504/03/2025amboo flowsheet [facility] [place] [facility] [address] [place] [address] Jorge L Ramirez, DO 04/03/20253325Uubjul10/05/2025[facility] [address] [place] [address] Deandra Garcia LPN Type 2 diabetes mellitus with peripheral neuropathy (HCC)03/20/2025 8:00 AM EDT Office Visit [facility] [address] [place] [address] Jorge L Ramirez, DO Thyroid nodule (Primary Dx); Neck mass03/20/2025amboo flowsheet [facility] [address] [place] [address] Jorge L Ramirez, DO 03/20/2025Travelfrom Last 3 Months Immunizations ImmunizationAdministration DatesNext DueInfluenza, High Dose Seasonal, Preservative Free04/17/2016Influenza, Recombinant, injectable, preservative free 05/26/2020Influenza, Seasonal, Quadrivalent, Durmkpcjwv47/02/2020Influenza, Jfnufeanbfn94/01/2014,05/25/2013Influenza, injectable, quadrivalent, preservative free03/11/2015Influenza, trivalent, krbaoeodhz37/16/2019,05/11/2018 Pneumococcal Conjugate PCV 1312,05/11/2018Pneumococcal Polysaccharide HZNE5030,12/08/2016Zoster, Tbaitrbqnmg93/17/2020,08/22/2019Zoster, live 11/02/2014 Family History Medical HistoryRelationNameCommentsAtrial fibrillationFatherHeart [...] InformationValueDate RecordedSex Assigned at BirthNot on fileLegal VwaKaijaa57/15/2023 10:59 PM EDTGender IdentityNot on fileSexual OrientationNot on file Last Filed Vital Signs Vital SignReadingTime TakenCommentsBlood Ypjnmznq753/6209 11:26 AM EDT Hlnuy556604/20/2025 11:26 AM UFNJzfpghzpygl49.8 ??C (98.2 ??F)04/20/2025 11:26 AM EDTRespiratory Rate--Oxygen Tzjvfpetvy15%04/20/2025 11:26 AM EDTInhaled Oxygen Concentration--Llruyi29.9 kg (218 lb)05/21/2025 3:37 PM ULSKsmtnl659.1 cm (5' 5 )05/21/2025 3:37 PM EDTBody Mass Index36.281 3:37 PM EDT Plan of Treatment DateTypeDepartmentCare Team (Latest Contact Info)Peyezmeprsu31/30/2025 11:30 AM ESTOffice Visit [facility] [address] [place] [address] Adenike Blandon DO [address] [place] [address] Health MaintenanceDue DateLast DoneCommentsCT Vqziirxgfutm05/05/1951olonoscopy 1Colorectal Cancer Guueuowap70/05/1951FIT-DNA1950FIT1950 FOBT1950 5829Rnymxxjwrcoqv57/05/3677Rxwburyea04/05/1991Medicare Annual Wellness (AWV), 07/08/2021iabetes: Retinopathy Xbzdqqjcp37/28/2024 05/22/2022OVID-19 Vaccine ( season)/, 10/31/2020 Influenza Vaccine (#1), 05/26/2020, 05/10/2019, Additional history existsDiabetes: Hemoglobin A1C, 01/18/2025, 10/17/2024, Additional history existsDiabetes: Urine Protein Hdyrbcryo04/27/2026 10/19/2024Pneumococcal Vaccine: 65+ JmkyqEphbptpys70/07/2020, 06/26/2019, 05/11/2018, Additional history exists Procedures Procedure NamePriorityDate/TimeAssociated DiagnosisCommentsPOCT GLYCOSYLATED HEMOGLOBIN (HGB A1C)Gbwiabu4304/20/2025 11:40 AM EDT Type 2 diabetes mellitus with peripheral neuropathy (HCC) BASIC METABOLIC LBEODOhbkuzl67/09/2025 1:23 PM EDT Preop testing PT AND MQJFplphhy65/09/2025 1:23 PM EDT Preop testing COLOR FUNDUS PHOTOGRAPHY - OU - BOTH OIACDsmpyjk29/28/2022 12:00 PM EDT from Last 3 Months or Most Recently Relevant to Health Maintenance Results * POCT glycosylated hemoglobin (Hb A1C) docked device (04/20/2025 11:40 AM EDT) ComponentValueRef RangeTest MethodAnalysis TimePerformed AtPathologist SignatureHemoglobin A1C6.9Specimen (Source)Anatomical Location / Laterality Collection Method / VolumeCollection TimeReceived TimeBloodVenous blood specimen / Mzbtppn5504/20/2025 11:40 AM EDT Narrative Authorizing ProviderResult TypeResult StatusAdenike Blandon DOPOINT OF CARE TEST ENTER/EDIT ORDERABLESFinal Result * (ABNORMAL) Pt and ptt (04/03/2025 1:23 PM EDT)ComponentValueRef RangeTest MethodAnalysis TimePerformed AtPathologist SignaturePARTIAL THROMBOPLASTIN TIME, ZSCRORSHQ7144 - 32 secQUESTComment: This test has not been validated for monitoring unfractionated heparin therapy. For testing that is validated for this type of therapy, please refer to the Heparin Anti-Xa assay (test code 61185). For additional information, please refer to http://education.Applitools/faq/URH206 (This link is being provided for informational/educational purposes only.) INR1.7(H)QUESTComment: Reference Range ? 0.9-1.1 Moderate-intensity Warfarin Therapy 2.0-3.0 Higher-intensity Warfarin Therapy ?? 3.0-4.0 PT17.4(H)9.0 - 11.5 secQUESTSpecimen (Source)Anatomical Location / Laterality Collection Method / VolumeCollection TimeReceived TimeBloodVenous blood specimen / Amoppet2204/03/2025 1:23 PM EDT04/03/2025 1:24 PM EDT Narrative Resulting Agency Comment Performing Organization Information ?Site ID: QPT ?Name: [facility] ?Address: [address] [place] [address], [address] [place] [phone] ?Director: Brayan Agosto MD Authorizing ProviderResult TypeResult StatusBenwai BARAJAS BLOOD ORDERABLESFinal ResultPerforming OrganizationAddressCity/State/ZIP CodePhone Number [facility] * (ABNORMAL) Basic metabolic panel (04/03/2025 1:23 PM EDT)ComponentValueRef RangeTest MethodAnalysis TimePerformed AtPathologist HbxokoauhJihwyvt344(H)65 - 99 mg/dLQUESTComment: ? Fasting reference interval For someone without known diabetes, a glucose value >125 mg/dL indicates that they may have diabetes and this should be confirmed with a follow-up test. BUN30(H)7 - 25 mg/dLQUESTCreatinine1.33(H)0.60 - 1.00 mg/qWSPRBETHUX11(L)> OR = 60 mL/min/1.26w9OSHGCTWC/CREATININE RATIO23(H)6 - 22 (calc)IUYGURnvpqp081810 - 146 mmol/LQUESTPotassium, Bld4.23.5 - 5.3 mmol/RUTWWGFvugwjjl97175 - 110 mmol/L QUESTCarbon Rkhxzyk4672 - 32 mmol/LQUESTCalcium9.38.6 - 10.4 mg/dLQUESTSpecimen (Source)Anatomical Location / LateralityCollection Method / VolumeCollection TimeReceived TimeBloodVenous blood specimen / Scnvmtd6004/03/2025 1:23 PM EDT 04/03/2025 1:24 PM EDT Narrative Resulting Agency Comment Performing Organization Information ?Site ID: QPT ?Name: [facility] ?Address: [address] [place] [address], [address] [place] [phone] ?Director: Brayan Agosto MD Authorizing ProviderResult TypeResult StatusBeallyson BARAJAS BLOOD ORDERABLESFinal ResultPerforming OrganizationAddressCity/State/ZIP CodePhone Number [facility] * Color Fundus Photography - OU - Both Eyes (05/22/2022 12:00 PM EDT)Anatomical RegionLateralityModalityHeadFundus PhotographySpecimen (Source)Anatomical Location / LateralityCollection Method / VolumeCollection TimeReceived Time 05/22/2022 12:00 PM EDT Narrative 05/22/2022 12:00 PM EDT PERFORMED AT [facility] LOCATION:[id number] formerly [facility] Procedure Note CONVERSION, GENERIC - 12/09/2022 PERFORMED AT [facility] LOCATION:[id number] [facility] Authorizing ProviderResult TypeResult Toan CRESPO PHOTOGRAPHYFinal Result from Last 3 Months or Most Recently Relevant to Health Maintenance Insurance * Guarantor: Sherry Kwan TypeRelation to PatientDate of BirthPhone Billing AddressPersonal/IfvwqdVhou65/05/1951 [facility] [place] [address] [place] [address] Care Teams Team MemberRelationshipSpecialtyStart DateEnd Date Adenike Blandon DO [address] [facility] [address] [place] [address] PCP - [facility]12/17/22 Claudia Whittington MD [address] [facility] [place] [address] PCP - GeneralFamily Medicine02/15/23
--- OUTSIDE RECORDS SUMMARY | 2025-06-08 11:53 | XMS_ITS | Clinical Summary ---
Author Organization [employer] tem Address [id number] [address] [place] [address] Care Team Providers Care Sem Manager Name Role Phone Claudia Whittington MD Primary Care Provider Allergies Active AllergyReactionsCriticalityNoted FjplMbmcgbzyFisidqkdimhZzuiRql51/12/2020 JiaaqnmcEakbBgp37/25/2014LisinoprilOther (See Comments)01/25/2014 Caused pancreatitis due to extermination inspector use. Diagnosed by a specialist. VlkovvpixjrZvojNhe63/12/2020Sulfa (Sulfonamide Antibiotics)PdqlWki9601/17/2014 Medications MedicationSigDispense QuantityRefillsLast FilledStart DateEnd DateStatus atorvastatin [...] ProblemNoted DateDiagnosed DateFamily history of basal cell hodpjzskm75/10/2021 Overview (12/02/2020): father termination clerk current use of antiarrhythmic drug12/02/2020evere obesity (BMI 35.0- 39.9) with kizatmrcmim22/30/2020History of transient ischemic attack (TIA) 06/06/2020Nonrheumatic aortic valve qbuqvvtfwzbky70/12/2020Current use of extermination inspector jakbxoggqmcdufe55/12/2829Wgttufn90/19/2019Abnormal efvuaddlunglqh77/12/2018 Bilateral edema of lower jveczbrii70/20/6323Vmquz61/24/2015Neoplasm of unspecified nature of bone, soft tissue, [...] enlargement)Pulmonary hypertensionEssential hypertensionParoxysmal A-fib Hyperlipidemia Encounters DateTypeDepartmentCare XnqfOexsxommoow47/08/2025 11:45 AM EDTOffice Visit [facility] [address] [place] [address] Elmira Pérez MD Paroxysmal A-fib (CMS-HCC) (Primary Dx); Occlusion and stenosis of bilateral carotid arteries; Pulmonary hypertension (CMS-HCC); Hyperlipidemia, unspecified hyperlipidemia type; Abnormal echocardiogram; Bilateral edema of lower extremity; History of transient ischemic attack (TIA); Nonrheumatic tricuspid valve regurgitation; LAE (left atrial enlargement); Essential hypertension; Nonrheumatic aortic valve insufficiency; Current use of extermination inspector anticoagulation; termination clerk current use of antiarrhythmic drug; Non-rheumatic mitral vzjysnszxsjpw75/08/2025 10:49 AM EDT - 04/02/2025 11:59 PM EDTHospital Encounter [facility] [address] [place] [address] Nonrheumatic tricuspid valve regurgitation; LAE (left atrial enlargement); Pulmonary hypertension (CMS-HCC); Essential hypertension; Paroxysmal A-fib (CMS-HCC); Nonrheumatic aortic valve insufficiency; History of transient ischemic attack (TIA); Abnormal echocardiogram; Bilateral edema of lower extremity; Non-rheumatic mitral regurgitation Discharge Disposition: Home04/02/2025 10:14 AM EDT - 04/02/2025 10:48 AM EDT [facility] [address] [place] [address] Occlusion and stenosis of bilateral carotid arteries; History of transient ischemic attack (TIA) Discharge Disposition: Home04/02/2025Results Follow-Up [facility] [address] [place] [address] Elmira Pérez MD Vas carotid duplex ncragpclq27/08/3893Coplnb49/29/2025Orders Only [facility] [address] [place] [address] Tyson, Radha, RN Abnormal echocardiogram (Primary Dx); Occlusion and stenosis of bilateral carotid arteries; Pulmonary hypertension ([facility]-HCC); Paroxysmal A-fib ([facility]-HCC); Hyperlipidemia, unspecified hyperlipidemia type; Bilateral edema of lower extremity; History of transient ischemic attack (TIA)from Last 3 Months Family History Medical HistoryRelationNameCommentsAtrial fibrillationFatherHeart attackMother Heart diseaseSonRelationNameStatusCommentsFatherMotherSon Social History Tobacco UseTypesPacks/DayYears UsedDateSmoking Tobacco: NeverSmokeless Tobacco: NeverAlcohol UseStandard Drinks/WeekCommentsYes0 (1 standard drink = 0.6 oz pure alcohol)ABOUT ONE PER MONTHChildcareAnswerDate RecordedChildcareUnknown 01/04/2019EmploymentAnswerDate IpmozwduPbmonmxminQnagojf63/12/2019Purpose - Life AnswerDate RecordedPurpose and direction in hnzuSifkogw93/11/2021 CommentsNoSex and Gender InformationValueDate RecordedSex Assigned at BirthNot on fileLegal UmaHgmrog65/06/2015 11:52 AM EDTGender IdentityNot on fileSexual OrientationNot on file Last Filed Vital Signs Vital SignReadingTime TakenCommentsBlood Ibjpvljj208/7209 12:16 PM EDT Ebeoo740304/02/2025 11:59 AM CAKTqddgibvufc35.8 ??C (98.2 ??F)01/02/2025 6:34 AM EDTRespiratory Yddg322904/02/2025 11:59 AM EDTOxygen Vqupubxwwq08%04/02/2025 11:59 AM EDTInhaled Oxygen Concentration--Jfgsnc602.1 kg (220 lb 9.6 oz)04/02/2025 11:59 AM BGVQbgpmu283.1 cm (5' 5 )04/02/2025 11:59 AM EDTBody Mass Index36.71 04/02/2025 11:59 AM EDT Plan of Treatment Health MaintenanceDue DateLast DoneCommentsDepression Btfcjqtuk51/05/1963Adult BMI Follow Up Plan1968DTaP,Tdap and Td Vaccines (1 - Tdap)1969Fall Risk Wycxwvaxz26/05/2016COVID-19 Vaccine (3 - Pfizer risk series)12/19/2020 11/21/2020, 10/31/2020Influenza Gjypbjc86, 05/26/2020, 05/10/2019, Additional history existsRSV ( or age 60+ yrs) (1 - 1-dose 75+ series)2025dult BMI Gqoaebrgw46Tobacco Screening Zoster (Shingles) GibjuccNcajrbdaa29/17/2020, 08/22/2019, 11/02/2014 Medical Devices ImplantedTypeAreaManufacturerDevice IdentifierShelf Expiration DateModel / Serial / LotLens Iol Sy60wf.210 [facility] 125180 - [id number] - [id number] Implanted:Qty: 1 on 12/05/2024 by Jo Ann Sommers MD at [facility] [employer]09/03/2028SY60WF.210 / [id number] / N/ALens Iol Sy60wf.210 [facility] Rpl [id number] - [id number] - [id number] Implanted:Qty: 1 on 01/02/2025 by Jo Ann Sommers MD at [facility]: [employer]09/03/2028SY60WF.210 / [id number] / NA Procedures Procedure NamePriorityDate/TimeAssociated DiagnosisCommentsPOCT EKGRoutine 04/02/2025 11:51 AM EDT Occlusion and stenosis of bilateral carotid arteries Pulmonary hypertension (CMS-HCC) Paroxysmal A-fib (CMS-HCC) Hyperlipidemia, unspecified hyperlipidemia type Abnormal echocardiogram Bilateral edema of lower extremity History of transient ischemic attack (TIA) ECHO COMPLETE WO MGFRWMWJIbvgkoe15/08/2025 11:20 AM EDT Nonrheumatic tricuspid valve regurgitation LAE (left atrial enlargement) Pulmonary hypertension (CMS-HCC) Essential hypertension Paroxysmal A-fib (CMS-HCC) Nonrheumatic aortic valve insufficiency History of transient ischemic attack (TIA) Abnormal echocardiogram Bilateral edema of lower extremity Non-rheumatic mitral regurgitation [facility] CAROTID DUPLEX TOLMPAYEIKexflrs67/08/2025 10:47 AM EDT Occlusion and stenosis of bilateral carotid arteries History of transient ischemic attack (TIA) from Last 3 Months Results * Echo complete W/O contrast (04/02/2025 11:20 AM EDT)ComponentValueRef Range Test MethodAnalysis TimePerformed AtPathologist SignatureLVOT stroke volume 107.03mlXCELERALV Systolic Tlwjps14.96gSSFSVRTUWO15%OXOPZHLLC2289 - 44 % XCELERALV Diastolic Eqelbb34.97qIGYTSKWQNUBCk1.605.28 - 7.33 cmXCELERALVIDs 2.603.10 - 4.69 cmXCELERAIVS0.900.6 - 1.1 cmXCELERAPW0.800.6 - 1.1 cmXCELERA LVOT diameter2.18laASTQNJSIJZ7.96cm/sXCELERAMV TDI E' (medial)5.11cm/sXCELERA LA Volume Index24.5mL/r9IJKPEBAQ/A ratio1.05XCELERAE wave deceleration time 259.00msecXCELERAMV Peak E Vel91.70cm/sXCELERAMV Peak A Vel87.30cm/sXCELERALA size4.20cmXCELERAAortic root3.40cmXCELERALA ugcxsy83.69in2EUUJISKUI diastolic dimension (basal)28.1uiRJHGHTXCNMQP3.67cmXCELERAAV peak uey311.00cm/sXCELERA LVOT peak vel1.13m/sXCELERAAV VTI33.70cmXCELERALVOT peak VTI30.90cmXCELERAAV mean gradient3.00mmHgXCELERAAV peak gradient5.66mmHgXCELERAAV valve area3.17 XCELERAValve area - Index1.5XCELERAMV pressure 1/2 time76.00msXCELERAMV valve area p 1/2 method2.06qt3CHWUPXKLJ peak gradient4.75mmHgXCELERALV ESV A2C44.90 mLXCELERALV ESV A4C62.40mLXCELERALV RWT 2D34.78XCELERAEcho EF Upsmwluzb50% XCELERAAV Velocity Ratio0.92XCELERALeft Ventricle Utqr433.764151476909136p XCELERAInterventricular Septum Diastolic Thickness by 6F0syLCHSUHDPC area14.5 zr6AAOMPCIKDCPPQ-2.02XCELERAZLVIDD-3.02XCELERAAscending aorta3.40cmXCELERAAo asc z-score3.22cmXCELERAAnatomical RegionLateralityModalityChestN/AUltrasound Specimen (Source)Anatomical Location [...] adequate. Authorizing ProviderResult TypeResult StatusCarolyn S Gbur [facility] ECHO ORDERABLES Final Result * Vas carotid [...] Kwan TypeRelation to PatientDate of BirthPhone Billing AddressPersonal/PnnrcnOhod83/05/1951 [facility] [place] [address] Care Teams Team MemberRelationshipSpecialtyStart DateEnd Date Claudia Whittington MD [address] [place] [address] [facility]06/06/20
--- NOTE | 2025-06-08 11:54 | XR_ITS ---
[facility] [place] [id number] Patient Name: BRI VILLALOBOS MRN: [id number] date: 1950 Sex: F Assigned Patient Location: [facility] Current Patient Location: [facility] Accession/Order Number: [id number] Exam Date: 06/08/2025 12:10 Report Date: 06/08/2025 17:37 At the request of: BULMARO LEON MD Procedure: XR knee LT 4V 4 views of the left knee CLINICAL HISTORY: left knee pain COMPARISON: None FINDINGS: No fractures or desiccation. Mild to moderate medial compartment joint space narrowing. Small joint effusion. Remaining joint spaces are otherwise preserved. XR/XR knee LT 4V IMPRESSION: Mild degenerative change involving the medial compartment. Small joint effusion. Negative for acute osseous abnormality. Impression dictated by: Pedro Luis Hoffmann M.D. 06/08/2025 5:37 PM Dictation Location: [place] [address] Electronically authenticated by: [id number] Y Date: 06/08/2025 17:37
--- OUTSIDE RECORDS SUMMARY | 2025-06-08 11:54 | XMS_ITS | Clinical Summary ---
Author Organization [facility] Address [address] [place] [address] Care Team Providers Care Adoption Manager Name Role Phone Unavailable Primary Care Provider Unavailabl e Social History Tobacco UseTypesPacks/DayYears UsedDateSmoking Tobacco: Never Assessed CommentsUnknownSex and Gender InformationValueDate RecordedSex Assigned at Not on fileLegal HhxXkmiel39/30/2022 12:16 AM EDTGender IdentityNot on file Sexual OrientationNot on file Plan of Treatment Not on file
--- OUTSIDE RECORDS SUMMARY | 2025-06-08 11:54 | XMS_ITS | Clinical Summary ---
Author Organization [facility] Address [address], [address] [place] [address] Care Team Providers Care Real Estate Lawyer Name Role Phone Claudia Whittington MD Primary Care Provider [phone] Allergies Active AllergyReactionsCriticalityNoted GqhvRceftxhdIzaoskuhDgezAyi00/25/2014 LisinoprilOther (See Comments)01/25/2014 Caused pancreatitis due to termite renewal inspector use. Diagnosed by a specialist. Sulfa HoqhfrrxxzoMaoqIbq40/25/2014 Medications MedicationSigDispense QuantityRefillsLast FilledStart DateEnd DateStatus flecainide [...] tablet take 1 tablet by mouth once [id number] warfarin (COUMADIN) 5 MG tablet take 1 tablet by mouth once [id number] warfarin (COUMADIN) 4 MG tablet Active furosemide (LASIX) 40 MG tablet take 1 tablet by mouth once daily if needed FOR SWELLING 30 tablet Active propranolol (INDERAL LA) 60 MG extended release capsule Take 60 mg by mouth dailyActive Active Problems ProblemNoted DateDiagnosed DateLong term current use of antiarrhythmic drug 04/18/2019History of TIA (transient ischemic attack)02/10/2019Long term (current) use of lrmvnojxjcqhfj30/19/2019Bilateral carotid artery stenosis 02/10/20190306Zleckki63/19/2019Non-rheumatic mitral hrlvzpfuuexwu65/12/2018Non- rheumatic tricuspid valve wvezenidljfnb79/12/2018LAE (left atrial enlargement) 07/06/2018Abnormal bopcqvjwkgnveu72/12/2018Pulmonary irhbtpgftkxl75/04/2017 Bilateral edema of lower voyhriupd83/20/2016Essential xrviixuzbeug22/20/2016 Occlusion and stenosis of bilateral carotid utkciwpm93/20/2016Paroxysmal A-fib 11/16/20148518Vcuhuazzheumym74/24/1860Ysysk34/24/2015Neoplasm of unspecified nature of bone, soft tissue, [...] RecordedSex Assigned at BirthNot on fileLegal Sex Xobbim9612/21/2013 10:37 AM EDTGender IdentityNot on fileSexual OrientationNot on file Last Filed Vital Signs Vital SignReadingTime TakenCommentsBlood Ifrclucs311/6009 2:06 PM EDT Dlzvo4809 2:06 PM EDTTemperature--Respiratory Ojnr4235 9:56 AM EDTOxygen Saturation--Inhaled Oxygen Concentration--Gddbbw933.6 kg (224 lb) 02/10/2019 11:13 AM TBMStgowk472.1 cm (5' 5 )04/18/2019 2:06 PM EDTBody Mass Index37.28002/10/2019 11:13 AM EDT Plan of Treatment Not on file Insurance Care Teams Team MemberRelationshipSpecialtyStart DateEnd Date Claudia Whittington MD PCP - GeneralFamily Kznzxxav60/12/18
--- OUTSIDE RECORDS SUMMARY | 2025-06-08 11:54 | XMS_ITS ---
Author Organization [facility] Address [address] [place] [address] Care Team Providers Care Blintze Roller Name Role Phone Adenike Blandon Altagracia DO Unavailable Claudia Whittington MD Primary Care Provider [phone] Active Problems ProblemNoted DateDiagnosed Date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12/27/2023 Eboytf4912/26/2023Type 2 diabetes mellitus with peripheral xopwkpnmpw56/24/2023 Assessment & Plan (04/20/2025 12:19 PM EDT): [...] food journal and trying to limit to 8067-8049 calories daily to help with weight loss. [...] kidney disease, with long-term current use of /12/2021Class 2 severe obesity due to excess calories with serious comorbidity and body mass index (BMI) of36.0 to 36.9 in adult 12/30/2020Nonrheumatic aortic valve kpfdwvvjivbrh54/12/2020Mass of parotid gland 03/07/20207796Jpgjkhcic24/29/2020Cervical mxvwwqxwemzgq16/28/2020Long term current use of antiarrhythmic drug04/18/2019Long term current use of anticoagulant mwcezwh7002/10/2019History of transient ischemic jscwwp0302/10/2019Bilateral carotid artery dnyubakz30/19/4365Cbpvtan02/19/2019Nonrheumatic tricuspid (valve) buzbywzbbywkf72/12/2018Non-rheumatic mitral cxhkizfqoxfpe58/12/2018LAE (left atrial enlargement)07/06/2018Abnormal zirtyggrwvprmb56/12/2018Essential tremor 02/02/2018Obstructive sleep apnea hypopnea, mild02/02/20183895Johoebzhr51/11/2017 Fxndkrlq63/11/2017Pulmonary ybrwpugebdsr86/04/2017Obstructive sleep apnea 03/02/2017Hypersomnia, hotceryudxt47/17/2017Tremor, yuulazusd08/17/2017Occlusion and stenosis of bilateral carotid miogrvum95/20/2016Essential hypertension 04/14/2016Bilateral edema of lower rgxgambfv59/20/2016Paroxysmal A-fib11/16/2014 Iiglrileemefss30/24/9843Dvhwh58/24/2015Basal cell carcinoma of skin of other parts of face01/17/2014 Overview (02/15/2023): Updating Deprecated Diagnoses Updating Deprecated Diagnoses Current Treatment and Therapy Plans No current plan information found. Past Treatment and Therapy Plans No past plan information found. Lifetime Dose Tracking * ChemicalLifetime DoseAutomatic EntryManual KtuhcTwufgbeug88.07 mSv23.07 mSv0 mSv Resolved Problems ProblemNoted DateDiagnosed DateResolved DateLong-term insulin use03/18/2023 10/12/2023Type 2 diabetes rtcgpttr13olyneuropathy due to type 2 diabetes zzrnhrjr59Neoplasm of unspecified behavior of bone, soft tissue, and skin Overview (02/15/2023): New lesions of right cheek, left cheek / lower eyelid area, right shoulder, and right and left back.
== END 2025-06-08 11:49 | disposition home or self-care (01) ==
LOC: RAD 11:49
PROVIDERS: PCP Family Medicine; Visit Provider Family Medicine
DX: M25.562 Pain in left knee (principal); M25.462 Effusion, left knee
CPT/HCPCS: 73564

== ENCOUNTER 2025-07-25 12:36 | Outpatient (RCR) | payer MEDICARE, OTHER, SELFPAY | END 2025-07-25 12:36 | disposition home or self-care (01) | LOC: MM 12:36 | PROVIDERS: PCP Family Medicine; Visit Provider Internal Medicine | DX: Z51.81 Encounter for therapeutic drug level monitoring (principal); Z79.01 Long term (current) use of anticoagulants; I48.91 Unspecified atrial fibrillation | CPT/HCPCS: 85610; G0463 ==